=== PATIENT | female | born 1985 | race African-American/Black ===

== ENCOUNTER 2017-01-16 16:59 | Emergency (ER) | payer MEDICAID ==
--- NOTE | 2017-01-16 19:12 | EKG REPORT ---
SEVERITY:- NORMAL ECG - SINUS RHYTHM : Confirmed by: Annabelle Leon MD 16-Jan-2017 19:11:15
[2017-01-16] MEDS ORDERED: ASPIRIN 81 MG TABLET, CHEWABLE PO ONE (19:32)
--- NOTE | 2017-01-16 19:36 | ER Document Report ---
ED Medical Screen (RME) - General Chief Complaint: Chest Pain > 30 Stated Complaint: CHEST PAIN Information source: Patient TRAVEL OUTSIDE OF THE [place] IN LAST 30 DAYS: No - HPI Onset: This afternoon Onset/Duration: Sudden Context: ONSET WHILE DRIVING, NOT STRESSED Quality of pain: Sharp Severity: Moderate Associated Symptoms: Other - RAD. TO LUE (NUMBNESS). denies: Nausea, Shortness of breath, Sweating Exacerbated by: Denies Relieved by: Denies, Other - RESOLVED SLOWLY OVER 1 HOUR Similar symptoms previously: No Recently seen / treated by doctor: No - Related Data Smoking: Non-smoker Frequency of alcohol use: None Drug Abuse: None Allergies/Adverse Reactions: No Known Allergies Allergy (Verified 01/16/17 17:27) Past Medical History - General Information source: Patient - Social History Cigarette use (# per day): No Chew tobacco use (# tins/day): No Frequency of alcohol use: None Drug Abuse: None Lives with: Family Family history: CAD - Medical History Medical History: Negative Renal/ Medical History: Denies: Hx Peritoneal Dialysis Psychiatric Medical History: Reports: None Past Surgical History: Reports: Hx Gynecologic Surgery - L ovarian cyst removed - Immunizations Hx Diphtheria, Pertussis, Tetanus Vaccination: No Review of Systems - Review of Systems Constitutional: No symptoms reported EENT: No symptoms reported Cardiovascular: See HPI Respiratory: No symptoms reported Gastrointestinal: No symptoms reported Physical Exam - Vital signs Vitals: Temp Pulse Resp BP Pulse Ox 98.3 F 77 16 104/72 99 01/16/17 17:30 01/16/17 17:30 01/16/17 17:30 01/16/17 17:30 01/16/17 17:30 Interpretation: Normal Course - Vital Signs Vital signs: Temp Pulse Resp BP Pulse Ox 98.3 F 77 16 104/72 99 01/16/17 17:30 01/16/17 17:30 01/16/17 17:30 01/16/17 17:30 01/16/17 17:30
[2017-01-16 19:54] LABS: ABSOLUTE BASOPHILS # (AUTO) 0.1 10^3/uL (0.0-0.2); ABSOLUTE EOSINOPHILS # (AUTO) 0.3 10^3/uL (0.0-0.6); ABSOLUTE LYMPHOCYTES (AUTO) 2.8 10^3/uL (0.5-4.7); ABSOLUTE MONOCYTES (AUTO) 0.6 10^3/uL (0.1-1.4); ABSOLUTE NEUT (AUTO) 6.9 10^3/uL (1.7-8.2); BASOPHILS % (AUTO) 0.5 % (0-2); EOSINOPHILS % (AUTO) 2.5 % (0-6); HEMATOCRIT 35.2 % (36.0-47.0); HEMOGLOBIN 11.3 g/dL (12.0-15.5); HGB HCT DIFFERENCE -1.3; LYMPHOCYTES % (AUTO) 26.1 % (13-45); MEAN CORPUSCULAR VOLUME 72 fl (80-97); MONOCYTES % (AUTO) 5.3 % (3-13); RED BLOOD COUNT 4.89 10^6/uL (3.72-5.28); RED CELL DISTRIBUTION WIDTH 16.2 % (11.5-14.0); SEGMENTED NEUTROPHILS % (AUTO) 65.6 % (42-78); WHITE BLOOD COUNT 10.6 10^3/uL (4.0-10.5)
[2017-01-16 20:10] LABS: ALANINE AMINOTRANSFERASE 37 U/L (9-52); ALBUMIN 4.1 g/dL (3.5-5.0); ALKALINE PHOSPHATASE 93 U/L (38-126); ANION GAP 16 (5-19); ASPARTATE AMINO TRANSFERASE 21 U/L (14-36); BILIRUBIN,DIRECT 0.3 mg/dL (0.0-0.4); BILIRUBIN,TOTAL 0.6 mg/dL (0.2-1.3); BLOOD UREA NITROGEN 13 mg/dL (7-20); CALCIUM 9.4 mg/dL (8.4-10.2); CARBON DIOXIDE 25 mmol/L (22-30); CHLORIDE 104 mmol/L (98-107); CREATINE KINASE 63 U/L (30-135); GLUCOSE 86 mg/dL (75-110); POTASSIUM 4.4 mmol/L (3.6-5.0); SODIUM 144.6 mmol/L (137-145); TOTAL PROTEIN 7.9 g/dL (6.3-8.2)
[2017-01-16 20:24] LABS: CREATINE KINASE MB < 0.22 ng/mL (<4.55); TROPONIN I < 0.012 ng/mL
[2017-01-16] MEDS ORDERED: DIAZEPAM 2 MG TABLET PO ONE (22:05)
--- NOTE | 2017-01-16 22:08 | ER Document Report ---
ED General - General Chief Complaint: Chest Pain > 30 Stated Complaint: CHEST PAIN Time seen by provider: 22:06 Mode of Arrival: Ambulatory Information source: Patient TRAVEL OUTSIDE OF THE [place] IN LAST 30 DAYS: No - HPI Patient complains to provider of: chest pain Onset: Yesterday Onset/Duration: Intermittent Quality of pain: Achy Severity: Mild Associated symptoms: Chest pain Exacerbated by: Denies Relieved by: Denies Similar symptoms previously: Yes Recently seen / treated by doctor: No Notes: Patient is a 31-year-old female who presents to the emergency room complaining of intermittent episodes of chest pain with tingling sensation in the left hand this been going on since yesterday, she says these episodes come and gone last a few minutes each, she denies any diaphoresis, no shortness of breath, she reports a history of similar symptoms previously when she was diagnosed with anxiety and also reports that her mother last week which she has been feeling quite stressed and anxious about - Related Data Allergies/Adverse Reactions: No Known Allergies Allergy (Verified 01/16/17 17:27) Past Medical History - General Information source: Patient - Social History Smoking Status: Never Smoker Cigarette use (# per day): No Chew tobacco use (# tins/day): No Frequency of alcohol use: None Drug Abuse: None Lives with: Family Family History: Reviewed & Not Pertinent Patient has suicidal ideation: No Patient has homicidal ideation: No - Medical History Medical History: Negative Renal/ Medical History: Denies: Hx Peritoneal Dialysis Psychiatric Medical History: Reports: None Past Surgical History: Reports: Hx Gynecologic Surgery - L ovarian cyst removed - Immunizations Hx Diphtheria, Pertussis, Tetanus Vaccination: No Review of Systems - Review of Systems Constitutional: No symptoms reported EENT: No symptoms reported Cardiovascular: Chest pain Respiratory: No symptoms reported Gastrointestinal: No symptoms reported Genitourinary: No symptoms reported Female Genitourinary: No symptoms reported Musculoskeletal: No symptoms reported Skin: No symptoms reported Hematologic/Lymphatic: No symptoms reported Neurological/Psychological: See HPI -: Yes All other systems reviewed and negative Physical Exam - Vital signs Vitals: Temp Pulse Resp BP Pulse Ox 98.3 F 77 16 104/72 99 01/16/17 17:30 01/16/17 17:30 01/16/17 17:30 01/16/17 17:30 04/03/17 17:30 Interpretation: Normal - General General appearance: Appears well, Alert - HEENT Head: Normocephalic, Atraumatic Eyes: Normal Pupils: PERRL - Respiratory Respiratory status: No respiratory distress Chest status: Nontender Breath sounds: Normal Chest palpation: Normal - Cardiovascular Rhythm: Regular Heart sounds: Normal auscultation Murmur: No - Abdominal Inspection: Normal Distension: No distension Bowel sounds: Normal Tenderness: Nontender Organomegaly: No organomegaly - Back Back: Normal, Nontender - Extremities General upper extremity: Normal inspection, Nontender, Normal color, Normal ROM , Normal temperature General lower extremity: Normal inspection, Nontender, Normal color, Normal ROM , Normal temperature, Normal weight bearing. No: Ry's sign - Neurological Neuro grossly intact: Yes Cognition: Normal Orientation: AAOx4 [place] Coma Scale Eye Opening: Spontaneous [place] Coma Scale Verbal: Oriented [place] Coma Scale Motor: Obeys Commands [place] Coma Scale Total: 15 Speech: Normal Motor strength normal: LUE, RUE, LLE, RLE Sensory: Normal - Psychological Associated symptoms: Normal affect, Normal mood - Skin Skin Temperature: Warm Skin Moisture: Dry Skin Color: Normal Course - Re-evaluation Re-evalutation: 01/17/17 04:17 Lab and imaging findings were discussed with patient at bedside which are unremarkable, she does report the recent of her mother which is been giving her anxiety and depression, she has been treated for anxiety in the past with Xanax, she was given a small dose of Valium in the emergency room as well as a prescription for small amount of the same and given information follow-up with mental health services, symptoms are consistent with anxiety, patient acknowledges understanding and agreement with this plan - Vital Signs Vital signs: Temp Pulse Resp BP Pulse Ox 97.1 F 73 16 120/80 98 01/16/17 22:36 01/16/17 22:36 01/16/17 22:36 01/16/17 22:36 01/16/17 22:36 - Laboratory Result Diagrams: 01/16/17 19:40 01/16/17 19:40 Laboratory results interpreted by me: 01/16/17 19:40 WBC 10.6 H Hgb 11.3 L Hct 35.2 L MCV 72 L MCH 23.0 L RDW 16.2 H - Diagnostic Test Radiology reviewed: Image reviewed, Reports reviewed - EKG Interpretation by Me EKG shows normal: Sinus rhythm Rate: Normal Rhythm: NSR Discharge - Discharge Clinical Impression: Anxiety Chest pain Qualifiers: Chest pain type: unspecified Qualified Code(s): R07.9 - Chest pain, unspecified Condition: Stable Disposition: HOME, SELF-CARE Instructions: Anxiety ([facility]), Chest Pain of Unclear Cause ([facility]) Additional Instructions: Follow up with your primary care provider and a mental health professional in one to 2 days. Return to the emergency room immediately if symptoms worsen or any additional concerns. Prescriptions: Diazepam [Valium 2 mg Tablet] 2 mg PO TID PRN #15 tablet PRN Reason: Referrals: PIETRO KIM DO [Primary Care Provider] - Follow up as needed
[2017-01-16 22:37] VITALS: BP 120/80
== END 2017-01-16 22:30 | disposition home or self-care (01) ==
LOC: ER 16:59
DX: R07.9 Chest pain, unspecified (principal); F41.9 Anxiety disorder, unspecified
CPT/HCPCS: 93005; 99285; 36415; 82553; 82550; 85025; 80053; 84484; 71010; 93010; J3490

== ENCOUNTER 2017-05-04 20:53 | Emergency (ER) | payer MEDICAID ==
[2017-05-04 22:36] LABS: APPEARANCE,URINE CLEAR; BILIRUBIN,URINE NEGATIVE (NEGATIVE); GLUCOSE, URINE NEGATIVE (NEGATIVE); KETONES,URINE NEGATIVE (NEGATIVE); LEUKOCYTE ESTERASE,URINE NEGATIVE (NEGATIVE); NITRITE,URINE NEGATIVE (NEGATIVE); PROTEIN,URINE NEGATIVE (NEGATIVE); URINE SPECIFIC GRAVITY 1.014; UROBILINOGEN,URINE NEGATIVE mg/dL (<2.0)
--- NOTE | 2017-05-04 23:11 | ER Document Report ---
ED GI/ - General Chief Complaint: Vaginal Discharge Stated Complaint: ABDOMINAL PAIN AND DISCHARGE Time Seen by Provider: 05/04/17 21:56 Mode of Arrival: Ambulatory Information source: Patient Notes: 31-year-old female presents to ED for vaginal discharge and abdominal pain but denies any vaginal bleeding. She states she had a 3 weeks ago. TRAVEL OUTSIDE OF THE [place] IN LAST 30 DAYS: No - HPI Patient complains to provider of: Abdominal pain, Vaginal discharge Onset: Other - Several days Timing/Duration: Gradual Quality of pain: Achy Severity in ED: None Pain Level: Denies Location: Pelvis Vaginal bleeding (Compared to normal period): None LMP: 3 weeks ago Associated symptoms: Vaginal discharge Exacerbated by: Movement Relieved by: Denies Similar symptoms previously: Yes Recently seen / treated by doctor: Yes - Related Data Allergies/Adverse Reactions: No Known Allergies Allergy (Verified 01/16/17 17:27) Past Medical History - General Information source: Patient - Social History Smoking Status: Never Smoker Cigarette use (# per day): No Chew tobacco use (# tins/day): No Smoking Education Provided: No Frequency of alcohol use: None Drug Abuse: None 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 denies: Thyroid Disfunction Patient has suicidal ideation: No Patient has homicidal ideation: No - Past Medical History Cardiac Medical History: Reports: None Pulmonary Medical History: Reports: None EENT Medical History: Reports: None Neurological Medical History: Reports: None Endocrine Medical History: Reports: None Renal/ Medical History: Reports: None Malignancy Medical History: Reports: None GI Medical History: Reports: None Musculoskeltal Medical History: Reports None Skin Medical History: Reports None Psychiatric Medical History: Reports: None - Her Traumatic Medical History: Reports: None Infectious Medical History: Reports: None Past Surgical History: Reports: Hx Gynecologic Surgery - L ovarian cyst removed , - Immunizations Hx Diphtheria, Pertussis, Tetanus Vaccination: No Review of Systems - Review of Systems Constitutional: No symptoms reported EENT: No symptoms reported Cardiovascular: No symptoms reported Respiratory: No symptoms reported Gastrointestinal: No symptoms reported Genitourinary: No symptoms reported Female Genitourinary: Vaginal discharge, Other - pelvic pain Musculoskeletal: No symptoms reported Skin: No symptoms reported Hematologic/Lymphatic: No symptoms reported Neurological/Psychological: No symptoms reported Physical Exam - Vital signs Vitals: Temp Pulse Resp BP Pulse Ox 98.4 F 77 18 144/98 H 100 05/04/17 21:14 05/04/17 21:14 05/04/17 21:14 05/04/17 21:14 05/04/17 21:14 Interpretation: Normal - General General appearance: Appears well, Alert - HEENT Head: Normocephalic, Atraumatic Eyes: Normal Pupils: PERRL - Respiratory Respiratory status: No respiratory distress Chest status: Nontender Breath sounds: Normal Chest palpation: Normal - Cardiovascular Rhythm: Regular Heart sounds: Normal auscultation Murmur: No - Abdominal Inspection: Normal Distension: No distension Bowel sounds: Normal Tenderness: Nontender Organomegaly: No organomegaly - Genitourinary External exam: Normal Speculum exam: Vaginal discharge Vaginal bleeding: Mild Bimanuel exam: Adnexal tenderness - Back Back: Normal, Nontender - Extremities General upper extremity: Normal inspection, Nontender, Normal color, Normal ROM , Normal temperature General lower extremity: Normal inspection, Nontender, Normal color, Normal ROM , Normal temperature, Normal weight bearing. No: Ry's sign - Neurological Neuro grossly intact: Yes Cognition: Normal Orientation: AAOx4 [place] Coma Scale Eye Opening: Spontaneous [place] Coma Scale Verbal: Oriented [place] Coma Scale Motor: Obeys Commands [place] Coma Scale Total: 15 Speech: Normal Motor strength normal: LUE, RUE, LLE, RLE Sensory: Normal - Psychological Associated symptoms: Normal affect, Normal mood - Skin Skin Temperature: Warm Skin Moisture: Dry Skin Color: Normal Course - Re-evaluation Re-evalutation: 05/05/17 06:45 Discussed labs and ultrasound with patient. Patient was treated with Rocephin and azithromycin for her chlamydia and vaginitis, and Flagyl for her bacterial vaginosis. Patient instructed to please follow-up with [facility] for her hCG of 87 after she had a 3 weeks ago. - Vital Signs Vital signs: Temp Pulse Resp BP Pulse Ox 97.6 F 70 18 134/92 H 99 05/05/17 01:34 05/05/17 01:34 05/05/17 01:34 05/05/17 01:34 05/05/17 01:34 - Laboratory Result Diagrams: 05/05/17 00:04 Laboratory results interpreted by me: 05/04/17 05/04/17 05/05/17 22:05 22:05 00:04 Hgb 11.9 L MCV 72 L MCH 23.5 L RDW 16.9 H Beta HCG, Quant Urine HCG, Qual POSITIVE H Chlamydia DNA (PCR) DETECTED H 05/05/17 00:04 Hgb MCV MCH RDW Beta HCG, Quant 87.51 H Urine HCG, Qual Chlamydia DNA (PCR) - Diagnostic Test Radiology reviewed: Image reviewed, Reports reviewed Discharge - Discharge Clinical Impression: Bacterial vaginitis, Chlamydia vaginitis/cervicitis, Ovarian cyst, left Condition: Stable Disposition: HOME, SELF-CARE Additional Instructions: VAGINITIS: Your exam shows that you have vaginitis, a vaginal infection. The infection can be caused by a many different organisms, including trichomonas or Gardnerella. The usual symptoms are vaginal irritation and discharge. The treatment is usually antibiotics such as Flagyl. Laboratory tests can determine which germ is responsible. Use the medication as prescribed. Because this infection can be transmitted sexually, your sexual partner may need to be checked and treated also. If your physician has not discussed this with you, please check before resuming sexual relations. If a culture shows gonorrhea or chlamydia, the infection must be reported to the health department. Call the doctor if you develop pelvic pain, fever, or problems with urination, or if you don't improve as expected. Chlamydia You have a chlamydia infection. Chlamydia is a germ that grows inside the cells of the mucous membranes. It often infects the eyes, urethra, and fallopian tubes. It can cause chronic pain and scar tissue if untreated. Antibiotics are used to treat chlamydia. It's important to take all the medicine even if there are no symptoms. Use condoms to prevent spread of the infection. Because this infection can spread by sexual contact, it's important that your sexual partner be checked before resuming sexual relations. A positive test for chlamydia has to be reported to the health department. Call the doctor or return at once if you develop increasing fever, rash, severe pelvic pain, vaginal bleeding (other than your period), or problems with your bladder or bowels. VAGINOSIS, BACTERIAL: Your exam shows you have bacterial vaginosis. This condition is due to an overgrowth of bacteria in the vagina. Symptoms may include vaginal itching or pain, a smelly discharge, and sometimes burning with urination. Normally this is not transmitted by sexual contact. Vaginosis can be treated with oral or topical antibiotics. Metronidazole ( Flagyl) pills are usually effective. Topical vaginal creams include Cleocin and Metro-Gel. You should avoid sexual contact until your symptoms are all better. Call the doctor if you develop pelvic pain, fever, or problems with urination, or if you don't improve as expected. CEPHALOSPORINS: An antibiotic of the cephalosporin class has been prescribed. This type of antibiotic covers a wide variety of infections, including those of the skin, lungs, middle ear, and urinary tract. This antibiotic is somewhat similar to the penicillin family. In rare cases , a person who is allergic to penicillin will also be allergic to this medication. If you have had a severe allergic reaction to penicillin, and have not taken this antibiotic since that time, notify your doctor. Antibiotics which cover many germs ("broad spectrum" antibiotics) are more likely to cause diarrhea or "yeast" infections. Women prone to vaginal yeast problems may suffer an attack after taking this antibiotic. In infants, oral thrush (white spots "stuck" on the cheek) or yeast diaper rash may result. See your doctor if these problems occur. Call the doctor at once if you develop hives, itching, shortness of breath , or lightheadedness. AZITHROMYCIN: Azithromycin (Zithromax) is a broad spectrum antibiotic in the same class as erythromycin. It can treat a variety of bacterial infections, but is most frequently used for respiratory infections. Azithromycin is extremely long-lasting. It accumulates in body tissues and continues to kill bacteria for many days. In order to improve absorption, Azithromycin should be taken at least one hour before or two hours after a meal. It does not have the same strong tendency to upset the stomach as erythromycin and is usually very well tolerated. Patients who have had a rash or other true allergic reactions to erythromycin should not take this medication. Call if you develop gastrointestinal distress, severe diarrhea, rash, hives, itching, or shortness of breath. METRONIDAZOLE: Metronidazole (Flagyl) has been prescribed. This medication is used to kill a type of bacteria called anaerobes, and protozoan parasites such as trichomonas and Giardia. Flagyl often causes a metallic taste in the mouth and mild nausea. Do not use alcohol in any form with Flagyl (including alcohol in medication elixirs). Flagyl interacts with alcohol to cause flushing, palpitations, headache, stomach cramps, and vomiting. Do not use Flagyl if you are taking Antabuse (disulfiram). Call the doctor at once if you develop rash, shortness of breath, itching, or lightheadedness. Your beta hCG quant is still 87.5. You need to follow-up with your [facility] until he gets down to 0. This can take several weeks to go down to 0. But she need to follow this to ensure you are not again. FOLLOW-UP CARE: If you have been referred to a physician for follow-up care, call the physician s office for an appointment as you were instructed or within the next two days. If you experience worsening or a significant change in your symptoms, notify the physician immediately or return to the Emergency Department at any time for re-evaluation. Prescriptions: Metronidazole [Flagyl 500 mg Tablet] 500 mg PO BID #14 tablet Forms: Elevated Blood Pressure Referrals: SABRINA KAY MD [Primary Care Provider] - Follow up in 3-5 days
[2017-05-04 23:47] LABS: CHLAM PCR DETECTED (NOT DETECT)
--- NOTE | 2017-05-05 00:07 | RADIOLOGY REPORT (SQ) ---
EXAM DESCRIPTION: U/S NON-OB PELVIS TV W/O DOP COMPLETED DATE/TIME: 05/04/2017 11:55 pm REASON FOR STUDY: left adnexal tenderness COMPARISON: None. TECHNIQUE: Dynamic and static grayscale images acquired of the pelvis via transvaginal approach and recorded on PACS. Additional selected color Doppler and spectral images recorded. LIMITATIONS: None. FINDINGS: UTERUS: Contour normal. No mass. ENDOMETRIAL STRIPE: No focal or generalized thickening. No masses. CERVIX: No nabothian cysts. RIGHT OVARY: No abnormal masses. RIGHT OVARY DOPPLER: Normal arterial vascular flow without evidence for torsion. LEFT OVARY: 3.0 x 3.7 cm simple cyst. LEFT OVARY DOPPLER: Normal arterial vascular flow without evidence for torsion. FREE FLUID: None noted. OTHER: No other significant finding. MEASUREMENTS: UTERUS: 5.6 x 6.8 x 9.5 cm. ENDOMETRIAL STRIPE: 4 mm. RIGHT OVARY: 1.9 x 2.1 x 2.5 cm. LEFT OVARY: 3.3 x 4.2 x 4.5 cm. IMPRESSION: 3.7 CM SIMPLE CYST IN THE LEFT OVARY. OTHERWISE UNREMARKABLE TRANSVAGINAL PELVIC ULTRAS OUND. TECHNICAL DOCUMENTATION: JOB ID: [id number] [employer]- All Rights Reserved
[2017-05-05 00:21] LABS: ABSOLUTE EOSINOPHILS # (AUTO) 0.3 10^3/uL (0.0-0.6); ABSOLUTE LYMPHOCYTES (AUTO) 3.1 10^3/uL (0.5-4.7); ABSOLUTE MONOCYTES (AUTO) 0.4 10^3/uL (0.1-1.4); ABSOLUTE NEUT (AUTO) 5.5 10^3/uL (1.7-8.2); BASOPHILS % (AUTO) 0.3 % (0-2); HEMATOCRIT 36.5 % (36.0-47.0); HEMOGLOBIN 11.9 g/dL (12.0-15.5); HGB HCT DIFFERENCE -0.8; LYMPHOCYTES % (AUTO) 33.2 % (13-45); MEAN CORPUSCULAR HEMOGLOBIN 23.5 pg (27.0-33.4); MEAN CORPUSCULAR HGB CONC 32.5 g/dL (32.0-36.0); MEAN CORPUSCULAR VOLUME 72 fl (80-97); MONOCYTES % (AUTO) 4.4 % (3-13); RED BLOOD COUNT 5.05 10^6/uL (3.72-5.28); RED CELL DISTRIBUTION WIDTH 16.9 % (11.5-14.0); SEGMENTED NEUTROPHILS % (AUTO) 59.1 % (42-78); WHITE BLOOD COUNT 9.4 10^3/uL (4.0-10.5)
[2017-05-05] MEDS ORDERED: CEFTRIAXONE INJ 250 MG VIAL IM ONE (01:10)
[2017-05-05] MEDS ORDERED: LIDOCAINE 1% INJ-PF (10 MG/ML) 30 ML SDV INJ ONE (01:10)
[2017-05-05] MEDS ORDERED: METRONIDAZOLE 500 MG TABLET PO ONE (01:10)
[2017-05-05] MEDS ORDERED: AZITHROMYCIN 250 MG TABLET PO ONE (01:10)
[2017-05-05 01:35] VITALS: BP 134/92
== END 2017-05-05 01:35 | disposition home or self-care (01) ==
LOC: ER 20:53
DX: N76.0 Acute vaginitis (principal); B96.89 Other specified bacterial agents as the cause of diseases classified elsewhere; A56.02 Chlamydial vulvovaginitis; A56.09 Other chlamydial infection of lower genitourinary tract; N83.292 Other ovarian cyst, left side; Z98.890 Other specified postprocedural states
CPT/HCPCS: 99284; 96372; 36415; 87210; 84702; 85025; 81025; 81001; 87491; 87591; 76830; Q0144; J3490 ×2; J0696

== ENCOUNTER 2017-06-04 15:07 | Emergency (ER) | payer MEDICAID ==
--- NOTE | 2017-06-04 15:28 | ER Document Report ---
ED Neck/Back Problem - General Chief Complaint: Back Pain Stated Complaint: BACK PAIN Time Seen by Provider: 06/04/17 15:22 Notes: The patient is a 31-year-old female who presents with 1 week of right lower back pain. She is also concerned about STDs because her went to the health department and was treated for gonorrhea and chlamydia, but he would not tell her why. She is having mild dysuria. She denies fevers, hematuria, saddle anesthesia, urinary retention, difficulty walking, numbness, tingling or history of IVDA. TRAVEL OUTSIDE OF THE [place] IN LAST 30 DAYS: No - Related Data Allergies/Adverse Reactions: No Known Allergies Allergy (Verified 06/04/17 15:33) Past Medical History - General Information source: Patient - Social History Smoking Status: Unknown if Ever Smoked Family History: Arthritis, CAD, CVA, DM, Hyperlipidemia, Hypertension, Malignancy. denies: Thyroid Disfunction Renal/ Medical History: Denies: Hx Peritoneal Dialysis Past Surgical History: Reports: Hx Gynecologic Surgery - L ovarian cyst removed , - Immunizations Hx Diphtheria, Pertussis, Tetanus Vaccination: No Review of Systems - Review of Systems Notes: REVIEW OF SYSTEMS: CONSTITUTIONAL: -fevers, -chills EENT: -eye pain, -difficulty swallowing, -nasal congestion CARDIOVASCULAR:-chest pain, -syncope. RESPIRATORY: -cough, -SOB GASTROINTESTINAL: -abdominal pain, - nausea, -vomiting, -diarrhea GENITOURINARY: +dysuria, -hematuria MUSCULOSKELETAL: +back pain, -neck pain SKIN: -rash or skin lesions. HEMATOLOGIC: -easy bruising or bleeding. LYMPHATIC: -swollen, enlarged glands. NEUROLOGICAL: -altered mental status or loss of consciousness, -headache, - neurologic symptoms PSYCHIATRIC: -anxiety, -depression. ALL OTHER SYSTEMS REVIEWED AND NEGATIVE. Physical Exam - Vital signs Vitals: Temp Pulse BP Pulse Ox 99.4 F 92 111/76 98 06/04/17 15:29 06/04/17 15:29 06/04/17 15:29 06/04/17 15:29 - Notes Notes: PHYSICAL EXAMINATION: GENERAL: Well-appearing, well-nourished and in no acute distress. HEAD: Atraumatic, normocephalic. EYES: Pupils equal round and reactive to light, extraocular movements intact, sclera anicteric, conjunctiva are normal. ENT: nares patent, oropharynx clear without exudates. Moist mucous membranes. NECK: Normal range of motion, supple without lymphadenopathy LUNGS: Breath sounds clear to auscultation bilaterally and equal. No wheezes rales or rhonchi. HEART: Regular rate and rhythm without murmurs ABDOMEN: Soft, nontender, normoactive bowel sounds. No guarding, no rebound. No masses appreciated. EXTREMITIES: Normal range of motion, no pitting or edema. No cyanosis. BACK: mild tenderness over right lower back, no midline tenderness NEUROLOGICAL: Cranial nerves grossly intact. Normal speech, normal gait. Normal sensory and motor exams. PSYCH: Normal mood, normal affect. SKIN: Warm, Dry, normal turgor, no rashes or lesions noted. Course - Re-evaluation Re-evalutation: Patient has no red flag signs for low back pain. She is treated for gonorrhea and chlamydia and told to follow-up with health department for further testing. Also instructed her to use condoms. - Vital Signs Vital signs: Temp Pulse Resp BP Pulse Ox 99.4 F 92 111/76 98 06/04/17 15:29 06/04/17 15:29 06/04/17 15:29 06/04/17 15:29 - Laboratory Laboratory results interpreted by me: 06/04/17 15:42 Urine Protein 30 H Ur Leukocyte Esterase MODERATE H Discharge - Discharge Clinical Impression: Concern about STD in female without diagnosis Back pain Qualifiers: Back pain location: low back pain Chronicity: chronic Back pain laterality: right Sciatica presence: without sciatica Qualified Code(s): M54.5 - Low back pain UTI (urinary tract infection) Qualifiers: Urinary tract infection type: acute cystitis Hematuria presence: without hematuria Qualified Code(s): N30.00 - Acute cystitis without hematuria Condition: Stable Disposition: HOME, SELF-CARE Additional Instructions: You were treated for gonorrhea and chlamydia today. Follow with the health department for further evaluation and testing. LOW BACK PAIN: Three out of every four people will have an episode of disabling back pain during their lifetime. Most commonly the pain is due to straining of the muscles and ligaments in the low back. Usual treatment includes: (1) Rest on a firm surface. Avoid lying on your stomach. (2) Ice pack the painful area. After a few days, gentle heat may be used intermittently to relax the area, or ice packs can be continued. (3) Medication may be needed -- muscle relaxers and antiinflammatory medicines are commonly used. (4) As the back improves, exercises are prescribed to strengthen the back and abdominal muscles. Your doctor will advise you on the proper care for your back at each stage in your recovery. You may be better in a few days -- or healing may take several weeks. If new symptoms of a "herniated disc" (radiation of pain, numbness, or tingling down the back of the leg or weakness in the leg) occur, you should be re-examined. Further testing may be necessary. ICE PACKS: Apply ice packs frequently against the painful area. Many different schedules are recommended, such as "20 minutes on, 20 minutes off" or "one hour ice, two hours rest." If you need to work, you may need to go longer between ice treatments. You should plan to have the area ice packed AT LEAST one fourth of the time. The ice should be applied over the wrap, tape, or splint, or over a layer of cloth -- not directly against the skin. Some ice bags have a built-in cloth and can be put directly on the skin. WARM PACKS: After approximately two days, apply gentle heat (such as a heating pad or hot water bottle) for about 20 to 30 minutes about every two hours -- at least four times daily. Warmth and elevation will help you make a more rapid recovery , and will ease the pain considerably. Do not use HOT heat, and never apply heat for longer than 30 minutes. The continuous heat can invisibly damage skin and muscles -- even when no burn is seen on the surface. Damaged muscles can make you MORE sore. FOLLOW-UP CARE: If you have been referred to a physician for follow-up care, call the physician s office for an appointment as you were instructed or within the next two days. If you experience worsening or a significant change in your symptoms, notify the physician immediately or return to the Emergency Department at any time for re-evaluation. Prescriptions: Fluconazole [Diflucan] 150 mg PO ONCE PRN #1 tablet PRN Reason: Nitrofurantoin/Nitrofuran Mac [Macrobid 100 mg Capsule] 1 tab PO BID #10 capsule Referrals: [facility] [Outside] - Follow up as needed
[2017-06-04] MEDS ORDERED: CEFTRIAXONE INJ 250 MG VIAL IM ONE (15:34)
[2017-06-04] MEDS ORDERED: AZITHROMYCIN 1 GM SUSP PACKET PO ONE (15:34)
[2017-06-04] MEDS ORDERED: LIDOCAINE 1% INJ-PF (10 MG/ML) 30 ML SDV INJ ONE (15:34)
[2017-06-04 15:37] VITALS: BP 111/76
[2017-06-04 16:00] LABS: APPEARANCE,URINE SLIGHTLY-CLOUDY; BILIRUBIN,URINE NEGATIVE (NEGATIVE); GLUCOSE, URINE NEGATIVE (NEGATIVE); KETONES,URINE NEGATIVE (NEGATIVE); LEUKOCYTE ESTERASE,URINE MODERATE (NEGATIVE); NITRITE,URINE NEGATIVE (NEGATIVE); PROTEIN,URINE 30 mg/dL (NEGATIVE); URINE SPECIFIC GRAVITY 1.029; UROBILINOGEN,URINE NEGATIVE mg/dL (<2.0)
[2017-06-04 17:24] LABS: CHLAM PCR NOT DETECTED (NOT DETECT)
== END 2017-06-04 16:23 | disposition home or self-care (01) ==
LOC: ER 15:07
DX: M54.5 Low back pain (principal); Z20.2 Contact with and (suspected) exposure to infections with a predominantly sexual mode of transmission; R30.0 Dysuria
CPT/HCPCS: 99283; 96372; 81025; 81001; 87491; 87591; J3490; Q0144; J0696

== ENCOUNTER 2017-06-18 19:46 | Emergency (ER) | payer MEDICAID ==
[2017-06-18 20:09] VITALS: BP 134/94
[2017-06-18] MEDS ORDERED: LORATADINE 10 MG TABLET PO ONE (21:42)
[2017-06-18] MEDS ORDERED: IBUPROFEN 800 MG TABLET PO ONE (21:42)
[2017-06-18] MEDS ORDERED: DEXAMETHASONE SOD PHOS INJ 10 MG/1 ML VIAL IM ONE (21:42)
--- NOTE | 2017-06-18 21:48 | ER Document Report ---
ED ENT - General Chief Complaint: Sore Throat Stated Complaint: SORE THROAT Time Seen by Provider: 06/18/17 21:16 Mode of Arrival: Ambulatory Information source: Patient Notes: 31-year-old female presented to ED for complaint of sore throat since Monday. She states she has had a hoarse voice today. Patient denies any fever. She states she has had a runny nose and feeling like she had mucus going down the back of her throat for the last several days. She states she has had a history of strep and been given antibiotics for it in the past. She was states she was told by her work today she could not go back to work until she was seen by TRAVEL OUTSIDE OF THE [place] IN LAST 30 DAYS: No - HPI Patient complains to provider of: Nose problem, Throat problem Onset: Last week Onset/Duration: Gradual, Worse Quality of pain: Sharp Severity: Severe Pain Level: 5 Location of pain: Nose, Throat Associated symptoms: Cough, Runny nose, Sinus drainage, Sore throat. denies: Fever Similar symptoms previously: Yes Recently seen / treated by doctor: No - Related Data Allergies/Adverse Reactions: No Known Allergies Allergy (Verified 06/18/17 20:07) Past Medical History - General Information source: Patient - Social History Smoking Status: Never Smoker Cigarette use (# per day): No Chew tobacco use (# tins/day): No Smoking Education Provided: No Frequency of alcohol use: None Drug Abuse: None Occupation: [employer] Lives with: Alone - With her children Family History: Arthritis, CAD, CVA, DM, Hyperlipidemia, Hypertension, Malignancy. denies: Thyroid Disfunction Patient has suicidal ideation: No Patient has homicidal ideation: No - Past Medical History Cardiac Medical History: Reports: None Pulmonary Medical History: Reports: None EENT Medical History: Reports: Throat - Frequent strep infections Neurological Medical History: Reports: None Endocrine Medical History: Reports: None Renal/ Medical History: Reports: Hx Ovarian Cysts Malignancy Medical History: Reports: None GI Medical History: Reports: None Musculoskeltal Medical History: Reports None Skin Medical History: Reports None Psychiatric Medical History: Reports: None Traumatic Medical History: Reports: None Infectious Medical History: Reports: None Past Surgical History: Reports: Hx Gynecologic Surgery - L ovarian cyst removed , - Immunizations Hx Diphtheria, Pertussis, Tetanus Vaccination: No Review of Systems - Review of Systems Constitutional: Recent illness. denies: Fever EENT: Nose discharge, Sinus discharge, Throat pain Cardiovascular: No symptoms reported Respiratory: Cough Gastrointestinal: No symptoms reported Genitourinary: No symptoms reported Female Genitourinary: No symptoms reported Musculoskeletal: No symptoms reported Skin: No symptoms reported Hematologic/Lymphatic: No symptoms reported Neurological/Psychological: No symptoms reported Physical Exam - Vital signs Vitals: Temp Pulse Resp BP Pulse Ox 98.6 F 93 12 134/94 H 98 06/18/17 20:07 06/18/17 20:07 06/18/17 20:07 06/18/17 20:07 06/18/17 20:07 Interpretation: Normal - General General appearance: Appears well, Alert - HEENT Head: Normocephalic, Atraumatic Eyes: Normal Pupils: PERRL Ears: Normal External canal: Normal Tympanic membrane: Normal Nasal: Purulent discharge, Swelling Mouth/Lips: Normal Mucous membranes: Normal Pharynx: Erythema, Post nasal drainage, Tonsillar hypertrophy. No: Exudate Neck: Normal - Respiratory Respiratory status: No respiratory distress Chest status: Nontender Breath sounds: Normal Chest palpation: Normal - Cardiovascular Rhythm: Regular Heart sounds: Normal auscultation Murmur: No - Abdominal Inspection: Normal Distension: No distension Bowel sounds: Normal Tenderness: Nontender Organomegaly: No organomegaly - Back Back: Normal, Nontender - Extremities General upper extremity: Normal inspection, Nontender, Normal color, Normal ROM , Normal temperature General lower extremity: Normal inspection, Nontender, Normal color, Normal ROM , Normal temperature, Normal weight bearing. No: Ry's sign - Neurological Neuro grossly intact: Yes Cognition: Normal Orientation: AAOx4 Milagro Coma Scale Eye Opening: Spontaneous Milagro Coma Scale Verbal: Oriented Milagro Coma Scale Motor: Obeys Commands Milagro Coma Scale Total: 15 Speech: Normal Motor strength normal: LUE, RUE, LLE, RLE Sensory: Normal - Psychological Associated symptoms: Normal affect, Normal mood - Skin Skin Temperature: Warm Skin Moisture: Dry Skin Color: Normal Course - Re-evaluation Re-evalutation: 06/18/17 22:41 Patient was treated with 10 mg Decadron IM Claritin and ibuprofen. Patient instructed to follow-up with her primary doctor for her elevated blood pressure. She states she does not have a history of hypertension but whenever she is in pain or discomfort her blood pressure does go up. Patient was given a prescription for ibuprofen - Vital Signs Vital signs: Temp Pulse Resp BP Pulse Ox 98.6 F 93 12 134/94 H 98 06/18/17 20:07 06/18/17 20:07 06/18/17 20:07 06/18/17 20:07 06/18/17 20:07 Discharge - Discharge Clinical Impression: Sore throat URI (upper respiratory infection) Qualifiers: URI type: unspecified URI Qualified Code(s): J06.9 - Acute upper respiratory infection, unspecified Condition: Stable Disposition: HOME, SELF-CARE Additional Instructions: SORE THROAT: Sore throats may be caused by viruses, bacteria, or fungi. Most are due to a virus, and must get better on their own. Bacterial sore throats, particularly those due to "strep," need treatment with antibiotics. If an antibiotic is prescribed, be sure to take the medication for a full 10 days. Failure to take the antibiotic can result in complications such as rheumatic fever. Sometimes, an injection of antibiotics is given instead of pills or liquid. This single "shot" is equal in effectiveness to the oral medication. To relieve symptoms, take acetaminophen for pain. Sip clear liquids frequently, or eat popsicles or ice chips. Anesthetic sprays or lozenges may help. Make sure the air in the room is not too dry. Avoid using decongestants or antihistamines. Call the doctor if there is no improvement in two days, or if you have difficulty breathing, increasing throat pain, high fever, rash, or frequent vomiting. UPPER RESPIRATORY ILLNESS: You have a viral infection of the respiratory passages -- a "cold." This common infection causes nasal congestion, drainage, and often sore throat and cough. It is highly contagious. The disease usually lasts about 10 to 14 days. There is no "cure" for the viral infection -- it must run its course. If there is a complication, such as bacterial infection in the nose, sinuses, middle ear, or bronchial tubes, antibiotics may be required. The antibiotics won't affect the virus. Drink plenty of fluids. A humidifier may help. An expectorant medication or decongestant may make you more comfortable. Use acetaminophen or ibuprofen for fever or aches. See the doctor if fever persists over two days, if there is any significant worsening of your symptoms, or if you simply fail to improve as expected. COUGH-SUPPRESSANT & EXPECTORANT MEDICATION: You are to use a cough medication as needed for relief of symptoms. This medicine is a combination of an expectorant (to make the mucous thinner and more easily "coughed up") and a cough suppressant (to reduce the frequency of coughing). The cough-suppressant medicine is related to narcotics. You may experience mild nausea and sleepiness. Some patients who are very sensitive to narcotics may have stomach pain from this medicine. Taking the medicine with food reduces these side effects. Do not drive or work with machinery until you know how this medicine affects you. The expectorant should have no side effects. Iodine-containing expectorants (such as organidin) should not be taken by persons with active thyroid disease unless approved by your doctor. Call the doctor if you develop shortness of breath, hives, rash, itching, lightheadedness, or severe nausea and vomiting. STEROID MEDICATION: You have been given an injection of or oral medicine of the cortisone/ steroid class. This medication is used to control inflammation or allergy. Michel t is usually only given for a short period of time, until the acute process subsides. There are usually no side effects from short-term use of cortisone-like medications. Some persons feel an increased sense of well-being and are not sleepy at bedtime. Long-term use of cortisone medications is best avoided, unless required for a severe condition. If your condition does not remit, or relapses after the course of corticosteroid medication, you should consult your physician. USE OF ACETAMINOPHEN (Tylenol): Acetaminophen may be taken for pain relief or fever control. It's much safer than aspirin, offering a wider range of "safe" dosages. It is safe during . Some brand names are Tylenol, Panadol, Datril, Anacin 3, Tempra, and Liquiprin. Acetaminophen can be repeated every four hours. The following are maximum recommended dosages: >89 pounds or adults 650 mg to 900 mg Acetaminophen can be repeated every four hours. Maximum dose not to exceed 4000 mg a day. Please gargle with salt and soda solution 3 times daily 1 quart of water 1 tablespoon of salt 1 teaspoon of baking soda Mixed 3 ingredients together and boil for 1 minute Placed in a covered quart jar Use 1/2 ounce of cold solution to gargle 3 times a day FOLLOW-UP CARE: If you have been referred to a physician for follow-up care, call the physician s office for an appointment as you were instructed or within the next two days. If you experience worsening or a significant change in your symptoms, notify the physician immediately or return to the Emergency Department at any time for re-evaluation. Forms: Elevated Blood Pressure, Return to Work Referrals: BI YU MD [Primary Care Provider] - Follow up as needed
== END 2017-06-18 22:00 | disposition home or self-care (01) ==
LOC: ER 19:46
DX: J02.9 Acute pharyngitis, unspecified (principal); R49.0 Dysphonia; R09.89 Other specified symptoms and signs involving the circulatory and respiratory systems; R05 Cough; J35.1 Hypertrophy of tonsils; R09.82 Postnasal drip; R03.0 Elevated blood-pressure reading, without diagnosis of hypertension
CPT/HCPCS: 99282; 96372; J3490 ×2; J1100

== ENCOUNTER 2017-07-27 21:27 | Emergency (ER) | payer MEDICAID ==
[2017-07-28 00:56] LABS: APPEARANCE,URINE SLIGHTLY-CLOUDY; BILIRUBIN,URINE NEGATIVE (NEGATIVE); GLUCOSE, URINE NEGATIVE (NEGATIVE); KETONES,URINE NEGATIVE (NEGATIVE); LEUKOCYTE ESTERASE,URINE LARGE (NEGATIVE); NITRITE,URINE NEGATIVE (NEGATIVE); PROTEIN,URINE NEGATIVE (NEGATIVE); URINE SPECIFIC GRAVITY 1.028; UROBILINOGEN,URINE NEGATIVE mg/dL (<2.0)
[2017-07-28] MEDS ORDERED: AZITHROMYCIN 250 MG TABLET PO ONE (01:31)
[2017-07-28] MEDS ORDERED: LIDOCAINE 1% INJ-PF (10 MG/ML) 30 ML SDV INFIL ONE (01:31)
[2017-07-28] MEDS ORDERED: CEFTRIAXONE INJ 250 MG VIAL IM ONE (01:31)
[2017-07-28] MEDS ORDERED: TETRACAINE HCL 0.5% OPH SOLN 2 ML OD ONE (01:31)
--- NOTE | 2017-07-28 02:08 | ER Document Report ---
ED General - General Chief Complaint: Vaginal Discharge Stated Complaint: EYE IRRITATION,VAGINAL DISCHARGE Mode of Arrival: Ambulatory Information source: Patient TRAVEL OUTSIDE OF THE [place] IN LAST 30 DAYS: No - HPI Onset: Last week Onset/Duration: Gradual Associated symptoms: denies: Allergy/hay fever, Body/muscle aches, Chest pain, Chills, Nonproductive cough, Productive cough, Diarrhea, Fever, Nausea, Vomiting , Rhinnorhea, Sinus pain/drainage, Shortness of breath, Sore throat, Weakness Exacerbated by: Denies Relieved by: Denies Notes: Patient arrives with complaints of vaginal discharge for the last few days. She thought she might of had a yeast infection and took [id number] yeast medication without relief. She denies any significant dysuria or hematuria. She states that she is 7 weeks . She denies any vaginal bleeding or abdominal pain. This is her seventh and she has 6 living children. She has had nausea and vomiting with her . No diarrhea. No blood in her vomit. She denies any rashes. She states that she is sexually active with one partner. She also complains of right eye redness and drainage that started yesterday. States that her eye feels somewhat irritated. When she woke up this morning her eye was matted shut. She denies any blurred or loss vision. She does not wear contacts. Patient has no other complaints at this time. - Related Data Allergies/Adverse Reactions: No Known Allergies Allergy (Verified 06/18/17 20:07) Past Medical History - Social History Smoking Status: Unknown if Ever Smoked Family History: Arthritis, CAD, CVA, DM, Hyperlipidemia, Hypertension, Malignancy. denies: Thyroid Disfunction Patient has suicidal ideation: No Patient has homicidal ideation: No Renal/ Medical History: Reports: Hx Ovarian Cysts. Denies: Hx Peritoneal Dialysis Past Surgical History: Reports: Hx Gynecologic Surgery - L ovarian cyst removed , - Immunizations Hx Diphtheria, Pertussis, Tetanus Vaccination: No Review of Systems - Review of Systems -: Yes All other systems reviewed and negative Physical Exam - Vital signs Vitals: Temp Pulse Resp BP Pulse Ox 98.2 F 72 16 122/77 98 07/27/17 22:22 07/27/17 22:22 07/27/17 22:22 07/27/17 22:22 10/12/17 22:22 - Notes Notes: GENERAL: alert, cooperative, nontoxic, no distress. HEAD: normocephalic, atraumatic EYES: no external redness or swelling. Right conjunctiva with injection. No foreign body identified. Upper eyelid is everted with no foreign body identified. Pupils are equal round react to light. Extraocular muscles are intact bilaterally. Fluorasein is unavailable in the emergency department at this time, I am unable to perform a Lora lamp exam at this time. The patient' s exam is consistent with conjunctivitis. EARS: no external swelling, no external redness NOSE: atraumatic, no external swelling MOUTH/THROAT: mucous membranes moist and pink, posterior pharynx without erythema, swelling, exudate. No trismus or drooling. NECK: soft, supple, full range of motion, no meningismus. CHEST: no distress, lungs clear and equal throughout. No wheezing, rales, rhonchi. CARDIAC: regular rate and rhythm, no murmur, normal capillary refill, normal pulses. No peripheral edema noted. ABDOMEN: Soft, nontender. BACK: full range of motion, no CVA tenderness. EXTREMITIES: full range of motion of all extremities. No redness, no swelling. NEURO: alert and oriented x 3, no focal deficits, full range of motion of all extremities. PYSCH: appropriate mood, affect. Patient is cooperative. SKIN: pink, warm, dry, no rash. : No external lesions noted. Mild irritation noted to the labia minora. No vesicular lesions or ulcerations. Thin white vaginal discharge noted on exam with mild odor. No cervical motion tenderness, adnexal tenderness or masses. Course - Re-evaluation Re-evalutation: 07/28/17 02:07 Patient is nontoxic appearing with stable vitals. Patient has had some vaginal discharge for the last few days. She is 7 weeks . She has no abdominal pain, no vaginal bleeding. She denies any regnancy complaints at this time. Her urine shows a possible mild urinary tract infection. I will place her on Macrobid for this. She is being treated for gonorrhea and chlamydia here in the emergency department. GC chlamydia cultures are currently pending. Wet prep is currently pending at this time. If the patient has signs of bacterial vaginosis, yeast, trichomoniasis, she will be treated appropriately. The patient is noted to have elevated blood pressure during today's emergency department visit. The patient was informed of this finding. The patient was instructed that this may be related to pre-hypertension and requires further evaluation with a primary care provider. The patient has no hypertensive symptoms at this time. The patient's emergency department workup and current diagnosis were explained to the patient and or family. Follow-up instructions were provided. Medications if prescribed were discussed. Instructions for when to return to the emergency department including specific worrisome symptoms were discussed with the patient and/or family. 07/28/17 02:56 Wet prep noted to show bacterial vaginosis. Due to the patient's she will be placed on MetroGel which is safe during as there is minimal systemic absorption. - Vital Signs Vital signs: Temp Pulse Resp BP Pulse Ox 98.2 F 72 16 122/77 98 07/27/17 22:22 07/27/17 22:22 07/27/17 22:22 07/27/17 22:22 07/27/17 22:22 - Laboratory Laboratory results interpreted by me: 07/27/17 22:18 Urine Blood SMALL H Ur Leukocyte Esterase LARGE H Urine HCG, Qual POSITIVE H Discharge - Discharge Clinical Impression: Bacterial vaginosis Qualifiers: Weeks of gestation: less than 8 weeks Qualified Code(s): Z3A.01 - Less than 8 weeks gestation of Urinary tract infection Qualifiers: Urinary tract infection type: acute cystitis Hematuria presence: without hematuria Qualified Code(s): N30.00 - Acute cystitis without hematuria Conjunctivitis Qualifiers: Conjunctivitis type: acute Acute conjunctivitis type: unspecified Laterality: right Qualified Code(s): H10.31 - Unspecified acute conjunctivitis, right eye Condition: Stable Disposition: HOME, SELF-CARE Instructions: Conjunctivitis ([facility]), Nitrofurantoin ([facility]), Urinary Tract Infection ([facility]) Additional Instructions: Take medications as prescribed. Wash hands frequently. Follow-up if not better in 2 days, sooner for increased pain, fever, persistent vomiting, severe abdominal pain, severe vaginal bleeding, blurred or loss vision, or any further concerns. Your blood pressure was elevated during today's visit. Have this rechecked with your doctor. Prescriptions: Metronidazole [Metrogel 0.75% Vaginal Gel] 1 applic PV DAILY #4 tube Nitrofurantoin Monohyd/M-Cryst [Macrobid 100 mg Capsule] 100 mg PO BID #10 capsule Polymyxin B Sulf/Trimethoprim [Polytrim Eye Drops] 4 drop OP Q6H #1 bottle Forms: Elevated Blood Pressure, Parent Work Note Referrals: [facility] [Provider Group] - Follow up as needed
[2017-07-28 03:02] VITALS: BP 108/53
[2017-07-28 03:57] LABS: CHLAM PCR NOT DETECTED (NOT DETECT)
== END 2017-07-28 03:12 | disposition home or self-care (01) ==
LOC: ER 21:27
DX: O23.591 Infection of other part of genital tract in pregnancy, first trimester (principal); B96.89 Other specified bacterial agents as the cause of diseases classified elsewhere; O23.11 Infections of bladder in pregnancy, first trimester; O21.9 Vomiting of pregnancy, unspecified; O26.891 Other specified pregnancy related conditions, first trimester; H10.31 Unspecified acute conjunctivitis, right eye; Z3A.01 Less than 8 weeks gestation of pregnancy; R03.0 Elevated blood-pressure reading, without diagnosis of hypertension
CPT/HCPCS: 99283; 96372; 87210; 81025; 81001; 87491; 87591; Q0144; J3490 ×2; J0696

== ENCOUNTER 2017-08-26 19:19 | Emergency (ER) | payer MEDICAID ==
[2017-08-26 19:31] VITALS: BP 117/85
[2017-08-26] MEDS ORDERED: ACETAMINOPHEN 325 MG TABLET PO ONE (20:05)
--- NOTE | 2017-08-26 20:06 | ER Document Report ---
ED GI/ - General Chief Complaint: OB Problem (<20wks) Stated Complaint: HEADACHE,VAGINAL BLEEDING Time Seen by Provider: 08/26/17 19:46 Mode of Arrival: Ambulatory Information source: Patient Notes: Patient presents complaining of vaginal bleeding for the past 4 days. Patient was advised that she was having a miscarriage 4 days ago and she is worried about possible retained products of conception. Patient also reports headache that started this evening. Patient does report some light sensitivity. Patient denies any concern about sexually transmitted infection as she had been tested last month and has not had intercourse for the past 2 months. Patient denies any urinary symptoms, nausea, vomiting or diarrhea. TRAVEL OUTSIDE OF THE [place] IN LAST 30 DAYS: No - HPI Patient complains to provider of: Pelvic pain, Vaginal bleeding, Other - Headache Onset: Other - Vaginal bleeding 4 days, headache this afternoon Timing/Duration: Persistent Quality of pain: Achy Pain Level: 3 Context: Location: Pelvis Vaginal bleeding (Compared to normal period): Similar Menstrual period history: Sexual history: Inactive Associated symptoms: denies: Chest pain, Dysuria, Fever, Nausea, Urinary hesitancy, Urinary frequency, Urinary retention, Urinary urgency, Vaginal discharge, Vomiting Exacerbated by: Denies Relieved by: Denies Similar symptoms previously: No Recently seen / treated by doctor: Yes - Related Data Allergies/Adverse Reactions: No Known Allergies Allergy (Verified 08/22/17 16:33) Past Medical History - General Information source: Patient Last Menstrual Period: June 2017 - Social History Smoking Status: Never Smoker Frequency of alcohol use: None Drug Abuse: None 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 denies: Thyroid Disfunction Patient has suicidal ideation: No Patient has homicidal ideation: No Renal/ Medical History: Reports: Hx Ovarian Cysts. Denies: Hx Peritoneal Dialysis Past Surgical History: Reports: Hx Gynecologic Surgery - L ovarian cyst removed , - Immunizations Hx Diphtheria, Pertussis, Tetanus Vaccination: No Review of Systems - Review of Systems Constitutional: No symptoms reported. denies: Fever, Recent illness EENT: No symptoms reported Cardiovascular: No symptoms reported. denies: Chest pain, Dizziness, Lightheaded Respiratory: No symptoms reported. denies: Cough, Short of breath Gastrointestinal: Abdominal pain. denies: Nausea, Vomiting Genitourinary: No symptoms reported. denies: Dysuria, Flank pain Female Genitourinary: , Vaginal bleeding Musculoskeletal: No symptoms reported Skin: No symptoms reported Hematologic/Lymphatic: No symptoms reported Neurological/Psychological: Headaches. denies: Weakness Physical Exam - Vital signs Vitals: Temp Pulse Resp BP Pulse Ox 97.7 F 74 18 117/85 99 08/26/17 19:27 08/26/17 19:27 08/26/17 19:27 08/26/17 19:27 08/26/17 19:27 - General General appearance: Appears well, Alert In distress: None - HEENT Head: Normocephalic, Atraumatic Eyes: Normal Conjunctiva: Normal Extraocular movements intact: Yes Pupils: PERRL Ears: Normal Nasal: Normal Mouth/Lips: Normal Mucous membranes: Normal Pharynx: Normal. No: Erythema, Exudate Neck: Normal, Supple. No: Lymphadenopathy, Meningismus - Respiratory Respiratory status: No respiratory distress Chest status: Nontender Breath sounds: Normal. No: Rales, Rhonchi, Stridor, Wheezing Chest palpation: Normal - Cardiovascular Rhythm: Regular Heart sounds: S1 appreciated, S2 appreciated Murmur: No - Abdominal Inspection: Normal Distension: No distension Bowel sounds: Normal Tenderness: Tender - pelvic Organomegaly: No organomegaly - Back Back: Normal, Nontender. No: CVA tenderness, Vertebra tenderness - Extremities General upper extremity: Normal inspection, Normal ROM General lower extremity: Normal inspection, Normal ROM - Neurological Neuro grossly intact: Yes Cognition: Normal Geneva Coma Scale Eye Opening: Spontaneous Geneva Coma Scale Verbal: Oriented Milagro Coma Scale Motor: Obeys Commands Geneva Coma Scale Total: 15 - Psychological Associated symptoms: Normal affect, Normal mood - Skin Skin Temperature: Warm Skin Moisture: Dry Skin Color: Normal Course - Re-evaluation Re-evalutation: 08/26/17 21:40 Pt reports that headache pain is improved although not completely resolved. Patient declines needing additional medication as she plans to drive herself home tonight. 08/27/17 Patient advised that she will need to follow-up with a water softener servicer and installer to follow her downward trending quantitative hCG levels. Discussed worsening symptoms that patient should return immediately for. - Vital Signs Vital signs: Temp Pulse Resp BP Pulse Ox 97.7 F 74 18 117/85 99 08/26/17 19:27 08/26/17 19:27 08/26/17 19:27 08/26/17 19:27 08/26/17 19:27 - Laboratory Result Diagrams: 08/26/17 20:15 08/26/17 20:15 Laboratory results interpreted by me: 08/26/17 08/26/17 20:15 20:15 Hgb 11.8 L Hct 35.9 L MCV 75 L MCH 24.5 L RDW 15.9 H Beta HCG, Quant 533.03 H Labs- Last Values WBC 7.4 10^3/uL (4.0-10.5) 08/26/17 20:15 RBC 4.80 10^6/uL (3.72-5.28) 08/26/17 20:15 Hgb 11.8 g/dL (12.0-15.5) L 08/26/17 20:15 Hct 35.9 % (36.0-47.0) L 08/26/17 20:15 MCV 75 fl (80-97) L 08/26/17 20:15 MCH 24.5 pg (27.0-33.4) L 08/26/17 20:15 MCHC 32.7 g/dL (32.0-36.0) 08/26/17 20:15 RDW 15.9 % (11.5-14.0) H 08/26/17 20:15 Plt Count 274 10^3/uL (150-450) 08/26/17 20:15 Seg Neutrophils % 50.2 % (42-78) 08/26/17 20:15 Lymphocytes % 39.1 % (13-45) 08/26/17 20:15 Monocytes % 5.6 % (3-13) 08/26/17 20:15 Eosinophils % 4.5 % (0-6) 08/26/17 20:15 Basophils % 0.6 % (0-2) 08/26/17 20:15 Absolute Neutrophils 3.7 10^3/uL (1.7-8.2) 08/26/17 20:15 Absolute Lymphocytes 2.9 10^3/uL (0.5-4.7) 08/26/17 20:15 Absolute Monocytes 0.4 10^3/uL (0.1-1.4) 08/26/17 20:15 Absolute Eosinophils 0.3 10^3/uL (0.0-0.6) 08/26/17 20:15 Absolute Basophils 0.0 10^3/uL (0.0-0.2) 08/26/17 20:15 Sodium 140.3 mmol/L (137-145) 08/26/17 20:15 Potassium 4.4 mmol/L (3.6-5.0) 08/26/17 20:15 Chloride 104 mmol/L (98-107) 08/26/17 20:15 Carbon Dioxide 26 mmol/L (22-30) 08/26/17 20:15 Anion Gap 10 (5-19) 08/26/17 20:15 BUN 17 mg/dL (7-20) 08/26/17 20:15 Creatinine 0.81 mg/dL (0.52-1.25) 08/26/17 20:15 Est GFR ( Amer) > 60 (>60) 08/26/17 20:15 Est GFR (Non-Af Amer) > 60 (>60) 08/26/17 20:15 Glucose 80 mg/dL (75-110) 08/26/17 20:15 Calcium 9.7 mg/dL (8.4-10.2) 08/26/17 20:15 Total Bilirubin 0.5 mg/dL (0.2-1.3) 08/26/17 20:15 Direct Bilirubin 0.4 mg/dL (0.0-0.4) 08/26/17 20:15 Indirect Bilirubin Not Reportable 08/26/17 20:15 Neonat Total Bilirubin Not Reportable 08/26/17 20:15 AST 16 U/L (14-36) 08/26/17 20:15 ALT 30 U/L (9-52) 08/26/17 20:15 Alkaline Phosphatase 72 U/L (38-126) 08/26/17 20:15 Total Protein 7.5 g/dL (6.3-8.2) 08/26/17 20:15 Albumin 4.2 g/dL (3.5-5.0) 08/26/17 20:15 Beta HCG, Quant 533.03 mIU/mL (<6.15) H 08/26/17 20:15 Total Beta HCG POSITIVE (NEGATIVE) 08/26/17 20:15 Labs from previous ER visit - Diagnostic Test Radiology reviewed: Reports reviewed - Reviewed ultrasound report from previous ER visit Discharge - Discharge Clinical Impression: Vagina bleeding, Miscarriage Headache Qualifiers: Headache type: unspecified Headache chronicity pattern: acute headache Intractability: not intractable Qualified Code(s): R51 - Headache Condition: Stable Disposition: HOME, SELF-CARE Instructions: Acetaminophen, Headache ([facility]), Miscarriage ([facility]) Additional Instructions: Return immediately for any new or worsening symptoms Followup with your primary care provider, call tomorrow to make a followup appointment Follow-up with a water softener servicer and installer for follow-up regarding this miscarriage. They will monitor your hormone levels Return for any new or worsening symptoms, increased bleeding, fever, lightheadedness, dizziness or any concerning symptoms Prescriptions: Butalb/Acetaminophen/Caffeine [Fioricet (50-325-40 mg) Tablet] 1 - 2 tab PO Q4H PRN #12 each PRN Reason: Forms: Return to Work Referrals: [facility] [Provider Group] - 08/28/17
[2017-08-26 20:31] LABS: ABSOLUTE EOSINOPHILS # (AUTO) 0.3 10^3/uL (0.0-0.6); ABSOLUTE LYMPHOCYTES (AUTO) 2.9 10^3/uL (0.5-4.7); ABSOLUTE MONOCYTES (AUTO) 0.4 10^3/uL (0.1-1.4); ABSOLUTE NEUT (AUTO) 3.7 10^3/uL (1.7-8.2); BASOPHILS % (AUTO) 0.6 % (0-2); EOSINOPHILS % (AUTO) 4.5 % (0-6); HEMATOCRIT 35.9 % (36.0-47.0); HEMOGLOBIN 11.8 g/dL (12.0-15.5); HGB HCT DIFFERENCE -0.5; LYMPHOCYTES % (AUTO) 39.1 % (13-45); MEAN CORPUSCULAR HEMOGLOBIN 24.5 pg (27.0-33.4); MEAN CORPUSCULAR HGB CONC 32.7 g/dL (32.0-36.0); MEAN CORPUSCULAR VOLUME 75 fl (80-97); MONOCYTES % (AUTO) 5.6 % (3-13); RED CELL DISTRIBUTION WIDTH 15.9 % (11.5-14.0); SEGMENTED NEUTROPHILS % (AUTO) 50.2 % (42-78); WHITE BLOOD COUNT 7.4 10^3/uL (4.0-10.5)
[2017-08-26 20:59] LABS: ALANINE AMINOTRANSFERASE 30 U/L (9-52); ALBUMIN 4.2 g/dL (3.5-5.0); ALKALINE PHOSPHATASE 72 U/L (38-126); ANION GAP 10 (5-19); ASPARTATE AMINO TRANSFERASE 16 U/L (14-36); BILIRUBIN,DIRECT 0.4 mg/dL (0.0-0.4); BILIRUBIN,TOTAL 0.5 mg/dL (0.2-1.3); BLOOD UREA NITROGEN 17 mg/dL (7-20); CALCIUM 9.7 mg/dL (8.4-10.2); CARBON DIOXIDE 26 mmol/L (22-30); CHLORIDE 104 mmol/L (98-107); CREATININE RESULT 0.81 mg/dL (0.52-1.25); GLUCOSE 80 mg/dL (75-110); POTASSIUM 4.4 mmol/L (3.6-5.0); SODIUM 140.3 mmol/L (137-145); TOTAL PROTEIN 7.5 g/dL (6.3-8.2)
== END 2017-08-26 21:50 | disposition home or self-care (01) ==
LOC: ER 19:19
DX: O03.9 Complete or unspecified spontaneous abortion without complication (principal); R51 Headache; H53.149 Visual discomfort, unspecified
CPT/HCPCS: 99284; 36415; 84702; 85025; 80053; J3490

== ENCOUNTER 2017-09-21 11:11 | Day surgery (SDC) | payer MEDICAID ==
[2017-09-18 12:58] LABS: HEMATOCRIT 37.2 % (36.0-47.0); HEMOGLOBIN 12.2 g/dL (12.0-15.5); HGB HCT DIFFERENCE -0.6; MEAN CORPUSCULAR HEMOGLOBIN 24.2 pg (27.0-33.4); MEAN CORPUSCULAR HGB CONC 32.8 g/dL (32.0-36.0); MEAN CORPUSCULAR VOLUME 74 fl (80-97); RED BLOOD COUNT 5.03 10^6/uL (3.72-5.28); RED CELL DISTRIBUTION WIDTH 16.2 % (11.5-14.0); WHITE BLOOD COUNT 8.7 10^3/uL (4.0-10.5)
[2017-09-18 12:59] LABS: APPEARANCE,URINE SLIGHTLY-CLOUDY; BILIRUBIN,URINE NEGATIVE (NEGATIVE); GLUCOSE, URINE NEGATIVE (NEGATIVE); KETONES,URINE NEGATIVE (NEGATIVE); LEUKOCYTE ESTERASE,URINE LARGE (NEGATIVE); NITRITE,URINE NEGATIVE (NEGATIVE); PROTEIN,URINE NEGATIVE (NEGATIVE); URINE SPECIFIC GRAVITY 1.026; UROBILINOGEN,URINE NEGATIVE mg/dL (<2.0)
[~2017-09-21 11:11] MED LIST: LACTATED RINGERS 1000 ML IV PRN; LIDOCAINE 0.5% INJ-PF (5 MG/ML) 50 ML SDV SUBCUT PRN; SUCCINYLCHOLINE CHLORIDE INJ 200 MG/10 ML VIAL ONE
[2017-09-21] MEDS ORDERED: FENTANYL CITRATE INJ/PF 100 MCG/2 ML AMPUL ONE ×2 (11:51→14:07)
[2017-09-21] MEDS ORDERED: MIDAZOLAM 2 MG/2 ML INJ ONE (11:51)
[2017-09-21] MEDS ORDERED: PROPOFOL INJ 200 MG/20 ML VIAL IV ONE (11:52)
[2017-09-21] MEDS ORDERED: HYDROMORPHONE HCL INJ/PF 2 MG/ML AMPULE ONE (11:53)
[2017-09-21] MEDS ORDERED: CEFAZOLIN 1 GM/D5W RTU 1 GM/50 ML RTUPB IV ONE (12:03)
[2017-09-21] MEDS ORDERED: CEFAZOLIN 1 GM/D5W RTU 1 GM/50 ML RTUPB IV PRN (12:13)
[2017-09-21] MEDS ORDERED: MEPERIDINE HCL/PF INJ 25 MG/1 ML DISP.SYRIN IV PRN (12:46)
[2017-09-21] MEDS ORDERED: ONDANSETRON HCL INJ/PF 4 MG/2 ML SDV IV PRN (12:46)
[2017-09-21] MEDS ORDERED: DIPHENHYDRAMINE HCL 50 MG/ML VIAL IV PRN (12:46)
[2017-09-21] MEDS ORDERED: MORPHINE SULFATE 10 MG/ML INJ IV PRN (12:46)
[2017-09-21] MEDS ORDERED: OXYCODONE-ACETAMINOPHEN 5-325 MG TABLET PO PRN ×4 (12:46→14:32)
[2017-09-21] MEDS ORDERED: FENTANYL CITRATE INJ/PF 100 MCG/2 ML AMPUL IV PRN ×3 (12:46)
[2017-09-21] MEDS ORDERED: PROMETHAZINE HCL INJ 25 MG/1 ML VIAL IV PRN ×2 (12:46)
--- NOTE | 2017-09-21 14:24 | OPERATIVE REPORT E ---
Operative Report NAME: STEPHANI CERVANTES : 1985 AGE: 32Y DATE OF SURGERY: 09/21/2017 ROOM: PREOPERATIVE DIAGNOSIS: UNDESIRED FERTILITY. POSTOPERATIVE DIAGNOSIS: UNDESIRED FERTILITY. OPERATION: Laparoscopic tubal cauterization. SURGEON: STEPHON FIELD M.D. HANDKERCHIEF PRESSER: Stephani Zayas. MARINA PORTER: Tech. ANESTHESIA: Brian House MD, with general. TISSUE REMOVED OR ALTERED: None. FINDINGS: Filmy pelvic adhesions consistent with possible previous PID. COMPLICATIONS: None. ESTIMATED BLOOD LOSS: 10 mL. PROCEDURE: Patient was taken to the operating room, prepared and draped in the normal sterile fashion in dorsolithotomy position, under sterile conditions. An in-and-out cath was performed of approximately 20 mL of clear urine. A sterile speculum was then placed into the vagina and the cervix was prepped with Betadine and grasped on the anterior lip with a single-toothed tenaculum. A Hulka clamp was then placed through the cervix for uterine manipulation. The speculum and the tenaculum were removed. Gloves were changed and attention was then turned to the upper portion of the case, where an umbilical skin incision was made with a scalpel. An attempt to achieve pneumoperitoneum was unsuccessful with the Veress needle, so a cutdown procedure was performed until the peritoneal cavity was entered. The extended trocar was placed through this incision, through which the camera was inserted. Another small skin incision was made under direct visualization and a 5-mm trocar was placed on the patient's left lower quadrant. The blunt probe was then introduced and the bowel was swept away. Atraumatic grasper was used to identify the left fallopian tube. A Kleppinger was then placed through the port and the fallopian tube was copiously burned. Greater than 4 cm worth of burn was achieved. Attention was then turned to the right fallopian tube, which was a little bit more difficult to find, due to the pelvic adhesions. Ovary was hidden behind the uterus and we had been having difficulty with pneumoperitoneum, but we were able to locate the right fallopian tube, following it from the cornua outwards until we located the fimbriated end. This fallopian tube was then copiously burned with several jones with the Kleppinger until at least 3 cm of burn was achieved on the fallopian tube. The Kleppinger and instruments were then removed. The trocars were removed under direct visualization, and the umbilical trocar was used to deflate the abdomen of the gas. When the gas was deflated, the trocar was then removed. The skin was closed at both sites using 4-0 Vicryl. Patient tolerated procedure well. Sponge, lap and needle counts were correct x2, and the patient was taken to recovery in stable condition. DICTATING PHYSICIAN: STEPHON FIELD M.D. [id number] PHY#: [id number] ID: [id number] JOB#: [id number] ACCT: [id number] cc:STEPHON FIELD M.D. >
[2017-09-21] MEDS ORDERED: MORPHINE SULFATE 10 MG/ML INJ IM PRN (14:31)
[2017-09-21] MEDS ORDERED: IBUPROFEN 800 MG TABLET PO PRN (14:31)
[2017-09-21] MEDS ORDERED: KETOROLAC TROMETHAMINE INJ/PF 30 MG/1 ML SDV ONE (14:33)
[2017-09-21] MEDS ORDERED: RINGERS SOLUTION,LACTATED 1,000 ML IV PRN (14:49)
[2017-09-21] MEDS ORDERED: ACETAMINOPHEN 100 ML IV ONE (15:48)
[2017-09-21 17:09] VITALS: BP 116/79
== END 2017-09-21 16:50 | disposition home or self-care (01) ==
LOC: OROUT 11:11
PROVIDERS: ATTEND Obstetrics & Gynecology
PROC: 0U574ZZ Destruction of Bilateral Fallopian Tubes, Percutaneous Endoscopic Approach (ICD-10-PCS; principal; 2017-09-21 13:30)
DX: Z30.2 Encounter for sterilization (principal); E66.9 Obesity, unspecified; Z68.41 Body mass index [BMI] 40.0-44.9, adult
CPT/HCPCS: 36415; 84703; 85027; 81005; 81025; 58670; J2250; J0690; J3010; J1885; J1170; J0330; J2704; J0131; 851

== ENCOUNTER 2017-09-30 08:49 | Emergency (ER) | payer MEDICAID ==
[2017-09-30] MEDS ORDERED: KETOROLAC TROMETHAMINE INJ/PF 30 MG/1 ML SDV IV ONE (09:33)
--- NOTE | 2017-09-30 09:35 | ER Document Report ---
ED General - General Chief Complaint: Abdominal Pain Stated Complaint: ABDOMINAL PAIN, BACK PAIN Time Seen by Provider: 09/30/17 09:19 Mode of Arrival: Ambulatory Information source: Patient Notes: Patient presents to emergency department with complaints of lower abdominal crampy pain back pain since yesterday. Patient reports that on Monday or Monday she started her cycle. She reports yesterday she started cramping. She reports it feels like contractions. She took 800 mg Motrin yesterday and did not really help her pain. She denies fever vomiting diarrhea. She denies pain with void. She denies vaginal discharge. She does report that when she voided yesterday it looks like tissue came out. Patient reports recent BTL on September 21. Patient was also evaluated in the emergency department last month for abdominal pain. She reports these symptoms are different. TRAVEL OUTSIDE OF THE [place] IN LAST 30 DAYS: No - HPI Onset: Yesterday Onset/Duration: Persistent Quality of pain: Cramping Severity: Severe Pain Level: 4 Associated symptoms: None Exacerbated by: Denies Relieved by: Denies Similar symptoms previously: No Recently seen / treated by doctor: No - Related Data Allergies/Adverse Reactions: latex Allergy (Verified 09/30/17 09:11) Hives Past Medical History - General Information source: Patient Last Menstrual Period: BTL 09/21/17 - Social History Smoking Status: Never Smoker Cigarette use (# per day): No Frequency of alcohol use: None Drug Abuse: None Family History: Arthritis, CAD, CVA, DM, Hyperlipidemia, Hypertension, Malignancy. denies: Thyroid Disfunction Patient has suicidal ideation: No Patient has homicidal ideation: No Renal/ Medical History: Reports: Hx Ovarian Cysts. Denies: Hx Peritoneal Dialysis Past Surgical History: Reports: Hx Gynecologic Surgery - L ovarian cyst removed , , Hx Tubal Ligation - Immunizations Hx Diphtheria, Pertussis, Tetanus Vaccination: No Review of Systems - Review of Systems Notes: Review HPI for review of systems., All other systems negative Physical Exam - Vital signs Vitals: Temp Pulse Resp BP Pulse Ox 98.1 F 76 16 117/78 98 09/30/17 08:55 09/30/17 08:55 09/30/17 08:55 09/30/17 08:55 09/30/17 08:55 - Notes Notes: PHYSICAL EXAMINATION: GENERAL: Well-appearing and in no acute distress HEAD: Atraumatic, normocephalic. EYES: Pupils equal round and reactive to light, extraocular movements intact, sclera anicteric, conjunctiva are normal. ENT: nares patent, oropharynx clear without exudates. Moist mucous membranes. NECK: Normal range of motion, supple without lymphadenopathy LUNGS: CTAB and equal. No wheezes rales or rhonchi. HEART: Regular rate and rhythm without murmurs ABDOMEN: Soft, Reports lower abdominal tenderness on palpation. No guarding, no rebound EXTREMITIES: Normal range of motion, no pitting edema. No cyanosis. NEUROLOGICAL: Cranial nerves grossly intact. Normal sensory/motor exams. PSYCH: Normal mood, normal affect. SKIN: Warm, Dry, normal turgor, no rashes or lesions noted Course - Re-evaluation Re-evalutation: 09/30/17 10:50 pain decreased from 5 to 3, labs unremarkable, will discharge pt, instructed to fu with fish liver sorter, pcp for concerns. - Vital Signs Vital signs: Temp Pulse Resp BP Pulse Ox 97.8 F 65 16 125/87 H 99 09/30/17 11:05 09/30/17 11:05 09/30/17 11:05 09/30/17 11:05 09/30/17 11:05 - Laboratory Result Diagrams: 09/30/17 09:19 09/30/17 09:19 Laboratory results interpreted by me: 09/30/17 09:19 MCV 74 L MCH 24.1 L RDW 15.4 H Discharge - Discharge Clinical Impression: Abdominal cramps Condition: Stable Disposition: HOME, SELF-CARE Instructions: Abdominal Pain ([facility]), Use of [id number]-[id number] Ibuprofen ([facility]) Additional Instructions: *You have been evaluated for abdominal pain *Take ibuprofen as indicated *Follow up with a primary care provider or your fish liver sorter within one week *Return to ED for worsening condition, changes, needs *Return to ED if not better in 24 hours Forms: Return to Work
[2017-09-30 10:12] LABS: APPEARANCE,URINE CLEAR; BILIRUBIN,URINE NEGATIVE (NEGATIVE); GLUCOSE, URINE NEGATIVE (NEGATIVE); KETONES,URINE NEGATIVE (NEGATIVE); LEUKOCYTE ESTERASE,URINE NEGATIVE (NEGATIVE); NITRITE,URINE NEGATIVE (NEGATIVE); PROTEIN,URINE NEGATIVE (NEGATIVE); UROBILINOGEN,URINE NEGATIVE mg/dL (<2.0)
[2017-09-30 10:33] LABS: ABSOLUTE EOSINOPHILS # (AUTO) 0.3 10^3/uL (0.0-0.6); ABSOLUTE LYMPHOCYTES (AUTO) 1.7 10^3/uL (0.5-4.7); ABSOLUTE MONOCYTES (AUTO) 0.3 10^3/uL (0.1-1.4); ABSOLUTE NEUT (AUTO) 4.2 10^3/uL (1.7-8.2); BASOPHILS % (AUTO) 0.4 % (0-2); EOSINOPHILS % (AUTO) 4.6 % (0-6); HEMATOCRIT 37.1 % (36.0-47.0); HEMOGLOBIN 12.1 g/dL (12.0-15.5); HGB HCT DIFFERENCE -0.8; LYMPHOCYTES % (AUTO) 26.1 % (13-45); MEAN CORPUSCULAR HEMOGLOBIN 24.1 pg (27.0-33.4); MEAN CORPUSCULAR HGB CONC 32.5 g/dL (32.0-36.0); MEAN CORPUSCULAR VOLUME 74 fl (80-97); MONOCYTES % (AUTO) 4.9 % (3-13); RED BLOOD COUNT 5.01 10^6/uL (3.72-5.28); RED CELL DISTRIBUTION WIDTH 15.4 % (11.5-14.0); WHITE BLOOD COUNT 6.6 10^3/uL (4.0-10.5)
[2017-09-30 10:36] LABS: ALANINE AMINOTRANSFERASE 33 U/L (9-52); ALBUMIN 3.8 g/dL (3.5-5.0); ALKALINE PHOSPHATASE 80 U/L (38-126); ANION GAP 10 (5-19); ASPARTATE AMINO TRANSFERASE 14 U/L (14-36); BILIRUBIN,DIRECT 0.3 mg/dL (0.0-0.4); BILIRUBIN,TOTAL 0.4 mg/dL (0.2-1.3); BLOOD UREA NITROGEN 14 mg/dL (7-20); CALCIUM 9.2 mg/dL (8.4-10.2); CARBON DIOXIDE 26 mmol/L (22-30); CHLORIDE 107 mmol/L (98-107); CREATININE RESULT 0.76 mg/dL (0.52-1.25); GLUCOSE 95 mg/dL (75-110); POTASSIUM 4.5 mmol/L (3.6-5.0); SODIUM 142.6 mmol/L (137-145); TOTAL PROTEIN 7.2 g/dL (6.3-8.2)
[2017-09-30 11:07] VITALS: BP 125/87
== END 2017-09-30 11:06 | disposition home or self-care (01) ==
LOC: ER 08:49
DX: R10.30 Lower abdominal pain, unspecified (principal); M54.9 Dorsalgia, unspecified; Z98.51 Tubal ligation status; Z91.040 Latex allergy status; Z87.42 Personal history of other diseases of the female genital tract
CPT/HCPCS: 99284; 51701; 96374; 36415; 84703; 85025; 80053; 81001; J1885

== ENCOUNTER 2017-10-30 13:04 | Emergency (ER) | payer SELFPAY ==
--- NOTE | 2017-10-30 14:42 | ER Document Report ---
ED General - General Chief Complaint: Sore Throat Stated Complaint: SORE THROAT Mode of Arrival: Ambulatory TRAVEL OUTSIDE OF THE [place] IN LAST 30 DAYS: No - HPI Notes: 32 yr old female presents with sore throat x 2-3 days. Pain 6/10, scratchy and constant. reports a dry cough. Tried salt water gargle without full relief. Denies fevers, but reports chills. Hard to swallow foods, eating soft foods. Reports headache and fatigue. Denies hx of mono. Better with cold fluids, worse with eating hot foods. Denies any rashes. Was unable to see PCP today. Denies any chest pain, shortness of breath, nausea, vomiting, diarrhea, abdominal pain , dysuria, lightheadedness, dizziness, blurred vision, double vision, loss of vision. - Related Data Allergies/Adverse Reactions: latex Allergy (Verified 09/30/17 09:11) Hives Past Medical History - General Information source: Patient - Social History Smoking Status: Unknown if Ever Smoked Family History: Arthritis, CAD, CVA, DM, Hyperlipidemia, Hypertension, Malignancy. denies: Thyroid Disfunction Renal/ Medical History: Reports: Hx Ovarian Cysts. Denies: Hx Peritoneal Dialysis Past Surgical History: Reports: Hx Gynecologic Surgery - L ovarian cyst removed , , Hx Tubal Ligation - Immunizations Hx Diphtheria, Pertussis, Tetanus Vaccination: No Review of Systems - Review of Systems Constitutional: No symptoms reported EENT: See HPI Cardiovascular: No symptoms reported Respiratory: No symptoms reported Gastrointestinal: No symptoms reported Genitourinary: No symptoms reported Female Genitourinary: No symptoms reported Musculoskeletal: No symptoms reported Skin: No symptoms reported Hematologic/Lymphatic: No symptoms reported Neurological/Psychological: No symptoms reported Physical Exam - Vital signs Vitals: Temp Pulse Resp BP Pulse Ox 98.3 F 77 14 116/70 98 10/30/17 13:17 10/30/17 13:17 10/30/17 13:17 10/30/17 13:17 10/30/17 13:17 - Notes Notes: PHYSICAL EXAMINATION: GENERAL: Well-appearing, well-nourished and in no acute distress. HEAD: Atraumatic, normocephalic. EYES: Pupils equal round and reactive to light, extraocular movements intact, conjunctiva are normal. ENT: tympanic membranes are normal appearing with pearly color, normal- appearing landmarks and normal light reflex. Hearing is grossly intact. The nasal mucosa is moist. The septum is midline. There is no evidence of septal hematoma. The turbinates are without abnormality. No obvious abnormalities to the lips. The teeth are unremarkable. The gingivae are without any obvious evidence of infection. The oral mucosa is moist and pink. There are no obvious masses to the hard or soft palate. The uvula is midline. The salivary glands appear unremarkable. The tongue is midline. The posterior pharynx is with erythema or exudate. The tonsils are swollen bilaterally. Noted erythema and exudate on tonsils bilaterally. no angioedema no drooling no trismus bilateral arches equal. Uvula midline. NECK: Normal range of motion, supple without lymphadenopathy LUNGS: Breath sounds clear to auscultation bilaterally and equal. No wheezes rales or rhonchi. HEART: Regular rate and rhythm without murmurs ABDOMEN: Soft, nontender, nondistended abdomen. No guarding, no rebound. No masses appreciated. Female : deferred Musculoskeletal: Normal range of motion, no pitting or edema. No cyanosis. NEUROLOGICAL: Cranial nerves grossly intact. Normal speech, normal gait. Normal sensory, motor exams PSYCH: Normal mood, normal affect. SKIN: Warm, Dry, normal turgor, no rashes or lesions noted.. Course - Re-evaluation Re-evalutation: 10/30/17 14:52 After performing a Medical Screening Examination, I estimate there is LOW risk for ACUTE CORONARY SYNDROME, PULMONARY EMBOLI, RESPIRATORY FAILURE, SEPSIS OR MENINGITIS, thus I consider the discharge disposition reasonable. I have reevaluated this patient multiple times and no significant life threatening changes are noted. The patient and I have discussed the diagnosis and risks, and we agree with discharging home with close follow-up. We also discussed returning to the Emergency Department immediately if new or worsening symptoms occur. We have discussed the symptoms which are most concerning (e.g., changing or worsening pain, trouble swallowing or breathing, neck stiffness, fever) that necessitate immediate return. - Vital Signs Vital signs: Temp Pulse Resp BP Pulse Ox 98.3 F 77 14 116/70 98 10/30/17 13:17 10/30/17 13:17 10/30/17 13:17 10/30/17 13:17 10/30/17 13:17 Discharge - Discharge Clinical Impression: Tonsillar exudate Condition: Good Disposition: HOME, SELF-CARE Instructions: Strep Throat ([facility]) Additional Instructions: Strep Throat Your sore throat is due to the streptococcus germ (strep throat). Strep throat usually makes you feel quite ill with fever and aches, headache, swollen sore throat, and tender bumps under the angles of the jaw. Strep throat requires antibiotic treatment. Although the sore throat may go away by itself, complications such as rheumatic fever, kidney disease, or throat abscess can occur. We usually prescribe antibiotics by mouth. Be sure to take the medicine until it's gone. If you stop early, the strep may come back. If you are vomiting, are severely ill, or can't remember to take pills, we can give you an antibiotic shot. Take acetaminophen or ibuprofen for pain and fever. Sip frequent clear liquids, or use popsicles or ice chips. Anesthetic sprays or lozenges may help. Make sure the air in the room is not too dry. Avoid using decongestants or antihistamines. Call the doctor if there is no improvement in three days, or if you have difficulty breathing, increasing throat pain, high fever, rash, or frequent vomiting. take anitbiotics as directed with food. eat yogurt daily to prevent loos stool. take diflucan as needed. advised to return to the ER if any signs or symptoms became worse. Take [id number] Motrin and Tylenol as needed for any fevers or pain. Follow up with primary care within 1-2 days. All questions and concerns answered by this provider. Patient/family states would follow plan of care and agreed to plan of care. Patient was discharged home and off unit without incident. Please excuse any errors in this document was done by dragon dictation. Prescriptions: Amoxicillin Trihydrate [Amoxil 500 mg Capsule] 500 mg PO TID #30 capsule Fluconazole [Diflucan] 150 mg PO ONCE PRN #1 tablet PRN Reason: Forms: Return to Work
[2017-10-30 14:55] VITALS: BP 122/72
== END 2017-10-30 15:09 | disposition home or self-care (01) ==
LOC: ER 13:04
DX: J35.1 Hypertrophy of tonsils (principal); J02.9 Acute pharyngitis, unspecified; R05 Cough; R68.83 Chills (without fever); R13.10 Dysphagia, unspecified; R51 Headache; R53.83 Other fatigue; Z91.040 Latex allergy status
CPT/HCPCS: 87070; 87880; 99283

== ENCOUNTER 2017-11-11 09:44 | Emergency (ER) | payer SELFPAY ==
[2017-11-11 09:50] VITALS: BP 118/73
--- NOTE | 2017-11-11 10:40 | ER Document Report ---
ED GI/ - General Chief Complaint: Urinary Frequency Stated Complaint: PAINFUL URINATION Time Seen by Provider: 11/11/17 10:08 Mode of Arrival: Ambulatory Information source: Patient Notes: 32-year-old female presents to ED for complaint of urinary frequency urgency burning for the last 4 days. She has had a white discharge ever since she took her Diflucan 3 days ago. She states she was in here on the 15 for strep and was on antibiotics which caused her to have a yeast infection which is why she took the Diflucan. She states she does have vaginal itching irritation burning frequency and urgency with urination. TRAVEL OUTSIDE OF THE [place] IN LAST 30 DAYS: No - HPI Patient complains to provider of: Vaginal discharge, Vaginal pain - Irritation, Other - Urinary frequency urgency and burning Onset: Other Timing/Duration: Gradual - 3 days Quality of pain: Burning Severity at maximum: Moderate Severity in ED: Moderate Pain Level: 2 Location: Vaginal Vaginal bleeding (Compared to normal period): None LMP: 10/30/2018 Associated symptoms: Urinary frequency, Urinary retention, Urinary urgency, Vaginal discharge, Other - Vaginal irritation Exacerbated by: Other - Urination Relieved by: Denies Similar symptoms previously: Yes Recently seen / treated by doctor: Yes - Related Data Allergies/Adverse Reactions: latex Allergy (Verified 11/11/17 09:44) Hives Past Medical History - General Information source: Patient Last Menstrual Period: 10/30/2017 - Social History Smoking Status: Never Smoker Cigarette use (# per day): No Chew tobacco use (# tins/day): No Smoking Education Provided: No Frequency of alcohol use: None Drug Abuse: None Occupation: [employer] Lives with: Family - Adult daughter and her children Family History: Arthritis, CAD, CVA, DM, Hyperlipidemia, Hypertension, Malignancy. denies: COPD, Thyroid Disfunction Patient has suicidal ideation: No Patient has homicidal ideation: No - Past Medical History Cardiac Medical History: Reports: None Pulmonary Medical History: Reports: None EENT Medical History: Reports: None Neurological Medical History: Reports: None Endocrine Medical History: Reports: None Renal/ Medical History: Reports: Hx Ovarian Cysts Malignancy Medical History: Reports: None GI Medical History: Reports: None Musculoskeltal Medical History: Reports None Skin Medical History: Reports None Psychiatric Medical History: Reports: Hx Anxiety Traumatic Medical History: Reports: None Infectious Medical History: Reports: None Past Surgical History: Reports: Hx Gynecologic Surgery - L ovarian cyst removed , , Hx Tubal Ligation - Immunizations Immunizations up to date: No Hx Diphtheria, Pertussis, Tetanus Vaccination: No Review of Systems - Review of Systems Constitutional: No symptoms reported EENT: No symptoms reported Cardiovascular: No symptoms reported Respiratory: No symptoms reported Gastrointestinal: No symptoms reported Genitourinary: Burning, Frequency, Urgency Female Genitourinary: Vaginal discharge, Other - Vaginal irritation Musculoskeletal: No symptoms reported Skin: No symptoms reported Hematologic/Lymphatic: No symptoms reported Neurological/Psychological: No symptoms reported -: Yes All other systems reviewed and negative Physical Exam - Vital signs Vitals: Temp Pulse Resp BP Pulse Ox 97.4 F 77 20 118/73 98 11/11/17 09:49 11/11/17 09:49 11/11/17 09:49 11/11/17 09:49 11/11/17 09:49 Interpretation: Normal - General General appearance: Appears well, Alert - HEENT Head: Normocephalic, Atraumatic Eyes: Normal Pupils: PERRL - Respiratory Respiratory status: No respiratory distress Chest status: Nontender Breath sounds: Normal Chest palpation: Normal - Cardiovascular Rhythm: Regular Heart sounds: Normal auscultation Murmur: No - Abdominal Inspection: Normal Distension: No distension Bowel sounds: Normal Tenderness: Nontender Organomegaly: No organomegaly - Genitourinary External exam: Other - Creamy vaginal discharge with mild irritation no vesicles no rash Notes: Patient self swab for GC chlamydia and wet mount. - Back Back: Normal, Nontender - Extremities General upper extremity: Normal inspection, Nontender, Normal color, Normal ROM , Normal temperature General lower extremity: Normal inspection, Nontender, Normal color, Normal ROM , Normal temperature, Normal weight bearing. No: Ry's sign - Neurological Neuro grossly intact: Yes Cognition: Normal Orientation: AAOx4 [place] Coma Scale Eye Opening: Spontaneous [place] Coma Scale Verbal: Oriented [place] Coma Scale Motor: Obeys Commands [place] Coma Scale Total: 15 Speech: Normal Motor strength normal: LUE, RUE, LLE, RLE Sensory: Normal - Psychological Associated symptoms: Normal affect, Normal mood - Skin Skin Temperature: Warm Skin Moisture: Dry Skin Color: Normal Course - Re-evaluation Re-evalutation: 11/11/17 10:42 Specimen sent for urine wet mount and GC and Chlamydia will reassess after getting results of the urine and the wet mount. 11/11/17 11:25 Patient was treated with azithromycin and Rocephin as the GC and Chlamydia are not back yet. She was also treated with Macrobid for UTI Diflucan for her yeast infection and Flagyl for her bacterial vaginosis. Patient will be discharged home she has been instructed to call back for the results of her other test. Patient to follow-up with [facility] and her primary doctor. 11/11/17 12:29 GC and Chlamydia were both negative patient was informed of the results. - Vital Signs Vital signs: Temp Pulse Resp BP Pulse Ox 97.4 F 77 20 118/73 98 11/11/17 09:49 11/11/17 09:49 11/11/17 09:49 11/11/17 09:49 11/11/17 09:49 - Laboratory Laboratory results interpreted by me: 11/11/17 10:30 Urine Blood SMALL H Ur Leukocyte Esterase LARGE H Discharge - Discharge Clinical Impression: Bacterial vaginitis, Yeast vaginitis UTI (urinary tract infection) Qualifiers: Urinary tract infection type: site unspecified Hematuria presence: without hematuria Qualified Code(s): N39.0 - Urinary tract infection, site not specified Condition: Stable Disposition: HOME, SELF-CARE Instructions: Family Physicians / Practices Additional Instructions: URINARY TRACT INFECTION: Your evaluation indicates that you have a urinary tract infection. This is due to germs growing in the bladder. This is a common problem. This infection usually responds quickly to antibiotics. Your antibiotic should be taken exactly as prescribed. Drink plenty of fluids -- three to four quarts a day. Occasionally, a bladder anesthetic will be prescribed to help stop the feeling of urgency until the antibiotic has a chance to clear the infection. This may cause your urine to be dark orange. Certain urine infections require a culture. If the doctor obtained a culture, the results will be back in two days. You should call to see if a change in treatment is needed. A repeat urinalysis after you finish treatment is often recommended. The physician will let you know if further testing is required. Call the doctor if you develop fever, chills, flank pain, inability to urinate, or blood in the urine. VAGINITIS: Your exam shows that you have vaginitis, a vaginal infection. The infection can be caused by a many different organisms, including trichomonas or Gardnerella. The usual symptoms are vaginal irritation and discharge. The treatment is usually antibiotics such as Flagyl. Laboratory tests can determine which germ is responsible. Use the medication as prescribed. Because this infection can be transmitted sexually, your sexual partner may need to be checked and treated also. If your physician has not discussed this with you, please check before resuming sexual relations. If a culture shows gonorrhea or chlamydia, the infection must be reported to the health department. Call the doctor if you develop pelvic pain, fever, or problems with urination, or if you don't improve as expected. VAGINOSIS, BACTERIAL: Your exam shows you have bacterial vaginosis. This condition is due to an overgrowth of bacteria in the vagina. Symptoms may include vaginal itching or pain, a smelly discharge, and sometimes burning with urination. Normally this is not transmitted by sexual contact. Vaginosis can be treated with oral or topical antibiotics. Metronidazole ( Flagyl) pills are usually effective. Topical vaginal creams include Cleocin and Metro-Gel. You should avoid sexual contact until your symptoms are all better. Call the doctor if you develop pelvic pain, fever, or problems with urination, or if you don't improve as expected. VAGINAL YEAST INFECTION: You have evidence of a yeast infection -- called "alexa." A vaginal yeast infection often causes itching and discharge. While not dangerous, it can be very unpleasant. A yeast infection often follows the use of powerful antibiotics. It is more likely to occur in diabetics. The treatment now is usually a single pill of Diflucan, but also an antifungal cream or suppository may be used for a few days. You do not need to avoid sexual intercourse. Recurrences are common. You can make a recurrence less likely by wearing cotton underwear and avoiding tight clothing. For mild recurrences, you can try [id number] creams or suppositories that are made specifically for yeast. If the symptoms do not resolve, you should follow up for re-examination. Sometimes treatment of the sexual partner is necessary if infections are recurrent. CEPHALOSPORINS: An antibiotic of the cephalosporin class has been prescribed. This type of antibiotic covers a wide variety of infections, including those of the skin, lungs, middle ear, and urinary tract. This antibiotic is somewhat similar to the penicillin family. In rare cases , a person who is allergic to penicillin will also be allergic to this medication. If you have had a severe allergic reaction to penicillin, and have not taken this antibiotic since that time, notify your doctor. Antibiotics which cover many germs ("broad spectrum" antibiotics) are more likely to cause diarrhea or "yeast" infections. Women prone to vaginal yeast problems may suffer an attack after taking this antibiotic. In infants, oral thrush (white spots "stuck" on the cheek) or yeast diaper rash may result. See your doctor if these problems occur. Call the doctor at once if you develop hives, itching, shortness of breath , or lightheadedness. DOXYCYCLINE: Doxycycline (Vibramycin, Doryx) is an antibiotic of the tetracycline family. This type of drug is useful for infections of the respiratory tract and genital tract, and is sometimes used for intestinal infections. Unlike most tetracyclines, doxycycline can be taken with food. It is longer acting, and (usually) less prone to side effects than regular tetracycline. Tetracycline antibiotics can stain immature teeth and SHOULD NOT BE TAKEN BY CHILDREN, NURSING MOTHERS, OR WOMEN. Tetracyclines can make you more prone to sunburn. Abdominal cramping, nausea, and diarrhea are occasional side effects. Women may experience vaginal yeast infections. Call the doctor at once if you develop hives, itching, shortness of breath , or lightheadedness. AZITHROMYCIN: Azithromycin (Zithromax) is a broad spectrum antibiotic in the same class as erythromycin. It can treat a variety of bacterial infections, but is most frequently used for respiratory infections. Azithromycin is extremely long-lasting. It accumulates in body tissues and continues to kill bacteria for many days. In order to improve absorption, Azithromycin should be taken at least one hour before or two hours after a meal. It does not have the same strong tendency to upset the stomach as erythromycin and is usually very well tolerated. Patients who have had a rash or other true allergic reactions to erythromycin should not take this medication. Call if you develop gastrointestinal distress, severe diarrhea, rash, hives, itching, or shortness of breath. METRONIDAZOLE: Metronidazole (Flagyl) has been prescribed. This medication is used to kill a type of bacteria called anaerobes, and protozoan parasites such as trichomonas and Giardia. Flagyl often causes a metallic taste in the mouth and mild nausea. Do not use alcohol in any form with Flagyl (including alcohol in medication elixirs). Flagyl interacts with alcohol to cause flushing, palpitations, headache, stomach cramps, and vomiting. Do not use Flagyl if you are taking Antabuse (disulfiram). Call the doctor at once if you develop rash, shortness of breath, itching, or lightheadedness. FLUCONAZOLE: Fluconazole (Diflucan) is an antifungal drug. It is useful for serious fungal infections, but is also excellent for oral or vaginal yeast infections. Diflucan interacts with some medicines. This is a concern if you are taking anticoagulants (such as Coumadin), phenytoin (Dilantin), cyclosporin, or oral hypoglycemics (such as tolbutamide, Orinase, glipizide, Glucotrol, glyburide, DiaBeta, Glynase, and Micronase). Be sure the doctor knows if you are taking one of these medicines. We don't know how Diflucan affects . If you are planning to become , discuss this with your doctor. Diflucan has few side effects. Minor side effects may include nausea, headache, or diarrhea. Call the doctor if you develop a skin rash, shortness of breath, or other new symptoms. NITROFURANTOIN (MACRODANTIN, MACROBID): You have received a prescription for nitrofurantoin (Macrodantin). This antibiotic is used for urinary tract infections. Women who are or nursing should notify the physician before taking this medicine. If you have ever had a problem caused by this medication in the past, be sure the physician is aware of it. Common side effects of this medicine include nausea, vomiting, or decreased appetite. Notify your physician if these side effects become severe. Immediately stop this medicine and call the physician if you develop cough , shortness of breath, chest pain, weakness, jaundice (yellow color of the skin and whites of the eyes), or a skin rash. FOLLOW-UP CARE: If you have been referred to a physician for follow-up care, call the physician s office for an appointment as you were instructed or within the next two days. If you experience worsening or a significant change in your symptoms, notify the physician immediately or return to the Emergency Department at any time for re-evaluation. Prescriptions: Fluconazole [Diflucan] 150 mg PO ONCE PRN #2 tablet PRN Reason: Metronidazole [Flagyl 500 mg Tablet] 500 mg PO BID #14 tablet Nitrofurantoin/Nitrofuran Mac [Macrobid 100 mg Capsule] 1 tab PO BID #20 capsule Forms: Return to Work
[2017-11-11 10:52] LABS: BACTERIA (WET MOUNT) 4+ BACTERIA SEEN; EPITHELIALS (WET MOUNT) 3+ EPITHELIALS SEEN; RBCS (WET MOUNT) NO RBCS SEEN; T.VAGINALIS (WET MOUNT) NO TRICHOMONAS SEEN; WBCS (WET MOUNT) 4+ WBCS SEEN; YEAST (WET MOUNT) YEAST SEEN
[2017-11-11 10:59] LABS: APPEARANCE,URINE CLOUDY; BILIRUBIN,URINE NEGATIVE (NEGATIVE); COLOR,URINE YELLOW; GLUCOSE, URINE NEGATIVE (NEGATIVE); KETONES,URINE NEGATIVE (NEGATIVE); LEUKOCYTE ESTERASE,URINE LARGE (NEGATIVE); NITRITE,URINE NEGATIVE (NEGATIVE); PROTEIN,URINE NEGATIVE (NEGATIVE); URINE SPECIFIC GRAVITY 1.024; UROBILINOGEN,URINE NEGATIVE mg/dL (<2.0)
[2017-11-11] MEDS ORDERED: AZITHROMYCIN 250 MG TABLET PO ONE (11:16)
[2017-11-11] MEDS ORDERED: METRONIDAZOLE 500 MG TABLET PO ONE (11:16)
[2017-11-11] MEDS ORDERED: CEFTRIAXONE INJ 250 MG VIAL IM ONE (11:16)
[2017-11-11] MEDS ORDERED: LIDOCAINE 1% INJ-PF (10 MG/ML) 30 ML SDV INJ ONE (11:16)
[2017-11-11] MEDS ORDERED: NITROFURANTOIN MONOHYD/M-CRYST 100 MG CAPSULE PO ONE (11:17)
[2017-11-11 12:20] LABS: CHLAM PCR NOT DETECTED (NOT DETECT); GON PCR NOT DETECTED (NOT DETECT)
== END 2017-11-11 11:32 | disposition home or self-care (01) ==
LOC: ER 09:44
DX: B37.3 Candidiasis of vulva and vagina (principal); N76.0 Acute vaginitis; B96.89 Other specified bacterial agents as the cause of diseases classified elsewhere; Z91.040 Latex allergy status
CPT/HCPCS: 99283; 96372; 87086; 87210; 81025; 87088; 81001; 87491; 87591; J3490; J0696; J8499

== ENCOUNTER 2017-12-02 12:48 | Emergency (ER) | payer SELFPAY ==
[2017-12-02] MEDS ORDERED: ACETAMINOPHEN 325 MG TABLET PO ONE (14:59)
[2017-12-02] MEDS ORDERED: ASPIRIN 81 MG TABLET, CHEWABLE PO ONE (14:59)
--- NOTE | 2017-12-02 15:02 | ER Document Report ---
ED Medical Screen (RME) - General Chief Complaint: Chest Pain Stated Complaint: CHEST PAIN Time Seen by Provider: 12/02/17 14:58 Notes: Patient is a 32-year-old female presents emergency department with a chief complaint of chest pain, cough, body aches and lethargy. Patient states that her symptoms started yesterday with cough and body aches and then today she woke up with chest pain. She states that she woke up with chest tightness as a 5 out of 5 in severity woke up out of sleep at 9 AM. States she came here she was able to fall back asleep and her chest pain went away. States that she woke back up that her chest pain is still present. She did not take anything today prior to arrival. She denies any previous history of coronary artery disease, DVT, PE. Non-smoker. Does admit to history of chest pain that was related to anxiety also admits to history of bronchitis. TRAVEL OUTSIDE OF THE [place] IN LAST 30 DAYS: No - Related Data Allergies/Adverse Reactions: latex Allergy (Verified 12/02/17 12:49) Hives Past Medical History - Social History Family history: CAD Renal/ Medical History: Reports: Hx Ovarian Cysts. Denies: Hx Peritoneal Dialysis Psychiatric Medical History: Reports: Hx Anxiety Past Surgical History: Reports: Hx Gynecologic Surgery - L ovarian cyst removed , , Hx Tubal Ligation - Immunizations Immunizations up to date: No Hx Diphtheria, Pertussis, Tetanus Vaccination: No Physical Exam - Vital signs Vitals: Temp Pulse Resp BP Pulse Ox 101.2 F H 94 20 132/85 H 99 12/02/17 13:12/02/17 13:12/02/17 13:12/02/17 13:12/02/17 13:01 - Notes Notes: PHYSICAL EXAM GENERAL: Alert, interacts well. HEAD: Normocephalic, atraumatic. LUNGS: Clear to auscultation bilaterally, no wheezes, rales, or rhonchi. No respiratory distress. HEART: Regular rate and rhythm. No murmurs, gallops, or rubs. NEUROLOGICAL: Alert and oriented x4. Normal speech. Course - Vital Signs Vital signs: Temp Pulse Resp BP Pulse Ox 101.2 F H 94 20 132/85 H 99 12/02/17 13:01 12/02/17 13:01 12/02/17 13:01 12/02/17 13:01 12/02/17 13:01
[2017-12-02 15:37] LABS: ABSOLUTE EOSINOPHILS # (AUTO) 0.1 10^3/uL (0.0-0.6); ABSOLUTE LYMPHOCYTES (AUTO) 0.5 10^3/uL (0.5-4.7); ABSOLUTE MONOCYTES (AUTO) 0.4 10^3/uL (0.1-1.4); BASOPHILS % (AUTO) 0.5 % (0-2); EOSINOPHILS % (AUTO) 2.5 % (0-6); HEMOGLOBIN 12.8 g/dL (12.0-15.5); MEAN CORPUSCULAR HEMOGLOBIN 24.2 pg (27.0-33.4); MEAN CORPUSCULAR HGB CONC 32.7 g/dL (32.0-36.0); MEAN CORPUSCULAR VOLUME 74 fl (80-97); MONOCYTES % (AUTO) 7.8 % (3-13); PLATELET COUNT 269 10^3/uL (150-450); RED BLOOD COUNT 5.27 10^6/uL (3.72-5.28); RED CELL DISTRIBUTION WIDTH 16.5 % (11.5-14.0); SEGMENTED NEUTROPHILS % (AUTO) 79.2 % (42-78); TOTAL CELLS COUNTED % (AUTO) 100 %; WHITE BLOOD COUNT 5.1 10^3/uL (4.0-10.5)
--- NOTE | 2017-12-02 15:55 | RADIOLOGY REPORT (SQ) ---
EXAM DESCRIPTION: CHEST SINGLE VIEW COMPLETED DATE/TIME: 12/02/2017 3:48 pm REASON FOR STUDY: chest pain COMPARISON: 01/16/2017. EXAM PARAMETERS: NUMBER OF VIEWS: One view. TECHNIQUE: Single frontal radiographic view of the chest acquired. RADIATION DOSE: NA LIMITATIONS: None. FINDINGS: LUNGS AND PLEURA: No acute infiltrates or effusions. MEDIASTINUM AND HILAR STRUCTURES: No masses. Contour normal. HEART AND VASCULAR STRUCTURES: The heart pulmonary vasculature are normal. BONES: Mid and lower dorsal scoliosis convex left. HARDWARE: None in the chest. OTHER: No other significant finding. IMPRESSION: NO ACUTE DISEASE. TECHNICAL DOCUMENTATION: JOB ID: [id number] [id number] [employer]- All Rights Reserved
[2017-12-02 15:59] LABS: ALANINE AMINOTRANSFERASE 35 U/L (9-52); ALBUMIN 4.4 g/dL (3.5-5.0); ALKALINE PHOSPHATASE 73 U/L (38-126); ANION GAP 11 (5-19); ASPARTATE AMINO TRANSFERASE 21 U/L (14-36); BILIRUBIN,DIRECT 0.4 mg/dL (0.0-0.4); BILIRUBIN,TOTAL 0.6 mg/dL (0.2-1.3); BLOOD UREA NITROGEN 12 mg/dL (7-20); CALCIUM 9.5 mg/dL (8.4-10.2); CARBON DIOXIDE 26 mmol/L (22-30); CHLORIDE 102 mmol/L (98-107); CREATINE KINASE 73 U/L (30-135); GLUCOSE 84 mg/dL (75-110); POTASSIUM 4.4 mmol/L (3.6-5.0); SODIUM 138.5 mmol/L (137-145); TOTAL PROTEIN 7.7 g/dL (6.3-8.2)
[2017-12-02 16:11] LABS: CREATINE KINASE MB < 0.22 ng/mL (<4.55); TROPONIN I < 0.012 ng/mL
--- NOTE | 2017-12-02 17:29 | ER Document Report ---
HPI - HPI Patient complains to provider of: Chest pain Pain Level: 0 Context: Patient is a 32-year-old female presents emergency department with a chief complaint of fever, chills, chest pain, cough. Patient states that she woke up this morning with chest pressure has not gone away throughout the day except when she goes to sleep. States that she is able to sleep in the ER waiting room chest pain-free woke up and states that it intermittently bothers her. States it is worse with deep breaths. States that she does not have a history of asthma, COPD. Did not take anything prior to arrival. Does admit to previous history of chest pain which was related to anxiety. Denies any heart attack in family members under the age of 60. Denies any previous history of PE or DVT - REPRODUCTIVE Reproductive: DENIES: : Past Medical History - Social History Smoking Status: Smoker,Current Status Unk Family History: Arthritis, CAD, CVA, DM, Hyperlipidemia, Hypertension, Malignancy. denies: COPD, Thyroid Disfunction Renal/ Medical History: Reports: Hx Ovarian Cysts. Denies: Hx Peritoneal Dialysis Psychiatric Medical History: Reports: Hx Anxiety Past Surgical History: Reports: Hx Gynecologic Surgery - L ovarian cyst removed , , Hx Tubal Ligation - Immunizations Immunizations up to date: No Hx Diphtheria, Pertussis, Tetanus Vaccination: No Vertical Provider Document - CONSTITUTIONAL Agree With Documented VS: Yes Notes: PHYSICAL EXAM GENERAL: Alert, interacts well. HEAD: Normocephalic, atraumatic. EYES: Pupils equal, round, and reactive to light. Extraocular movements intact. ENT: Oral mucosa moist, tongue midline. NECK: Full range of motion. Supple. Trachea midline. LUNGS: Clear to auscultation bilaterally, no wheezes, rales, or rhonchi. No respiratory distress. HEART: Mild tenderness palpation of the chest wall and shoulders bilaterally. Regular rate and rhythm. No murmurs, gallops, or rubs. EXTREMITIES: Moves all 4 extremities spontaneously. No edema, radial and dorsalis pedis pulses 2/4 bilaterally. No cyanosis. NEUROLOGICAL: Alert and oriented x4. Normal speech. PSYCH: Normal affect, normal mood. SKIN: Warm, dry, normal turgor. No rashes or lesions noted. - INFECTION CONTROL TRAVEL OUTSIDE OF THE [place] IN LAST 30 DAYS: No - RESPIRATORY O2 Sat by Pulse Oximetry: 99 Course - Re-evaluation Re-evalutation: 12/02/17 17:26 Patient is a 32-year-old female is hemodynamically stable, no acute distress and afebrile. Presentation is consistent with viral infection likely influenza with associated body aches. Patient is very well in appearance, vitals within normal limits. Low clinical suspicion for ACS given clinical history, exam, EKG without ST elevations or depressions, and negative initial troponin. HEART score less than or equal to 3. PE also seems unlikely given clinical history, absence of tachycardia or dyspnea. Well's score of 0. CXR without evidence of pneumothorax or pneumonia. No widened mediastinum. Aortic dissection also seems unlikely given history, symmetric pulses, CXR, and vitals. Symptoms resolved after dose of Tylenol and aspirin received here. At this time will discharge with return precautions and follow-up recommendations. Verbal discharge instructions given a the bedside and opportunity for questions given. Medication warnings reviewed. Patient is in agreement with this plan and has verbalized understanding of return precautions and the need for primary care follow-up in the next 24-72 hours. - Vital Signs Vital signs: Temp Pulse Resp BP Pulse Ox 101.2 F H 94 20 132/85 H 99 12/02/17 13:01 12/02/17 13:01 12/02/17 13:01 12/02/17 13:01 12/02/17 13:01 - Laboratory Result Diagrams: 12/02/17 15:23 12/02/17 15:23 Laboratory results interpreted by me: 12/02/17 15:23 MCV 74 L MCH 24.2 L RDW 16.5 H Seg Neutrophils % 79.2 H Lymphocytes % 10.0 L - Diagnostic Test Radiology reviewed: Image reviewed, Reports reviewed Discharge - Discharge Clinical Impression: Cough, Viral syndrome Condition: Good Disposition: HOME, SELF-CARE Additional Instructions: Your symptoms are likely due to a virus. However, it is important that you continue to monitor for any concerning symptoms including inability to tolerate oral fluids, less than 2 urinations in a 24 hour period, and lethargy. Please continue to offer oral solutions such as water or Gatorade. It is okay if you do not want to eat over the next several days but it is important that you continue to drink fluids. You may also take a medication such as ibuprofen ( Motrin) or acetaminophen (Tylenol) per box instructions for fever. Please also follow-up with your primary care doctor in the next several days. Prescriptions: Benzonatate [Tessalon Perles 100 mg Capsule] 100 mg PO Q8HP PRN #40 capsule PRN Reason: Forms: Return to Work Referrals: RUDY TREADWELL MD [ACTIVE STAFF] - Follow up in 3-5 days
[2017-12-02 17:43] VITALS: BP 118/73
--- NOTE | 2017-12-02 22:19 | EKG REPORT ---
SEVERITY:- NORMAL ECG - SINUS RHYTHM : Confirmed by: Archie Prajapati 02-Dec-2017 22:19:09
== END 2017-12-02 17:43 | disposition home or self-care (01) ==
LOC: ER 12:48
DX: B34.9 Viral infection, unspecified (principal); R05 Cough; R07.9 Chest pain, unspecified; F41.9 Anxiety disorder, unspecified; F17.200 Nicotine dependence, unspecified, uncomplicated
CPT/HCPCS: 36415; 71045; 80053; 82550; 82553; 84484; 85025; 93005; 93010; 99285

== ENCOUNTER 2017-12-15 10:48 | Emergency (ER) | payer SELFPAY ==
--- NOTE | 2017-12-15 12:24 | ER Document Report ---
ED Medical Screen (RME) - General Chief Complaint: Abdominal Pain Stated Complaint: STOMACH PAIN Time Seen by Provider: 12/15/17 12:15 Mode of Arrival: Ambulatory Information source: Patient Notes: 32-year-old female recently treated for UTI presents to the emergency room with whitish discharge, suprapubic discomfort, dysuria. Patient denies nausea, vomiting, abdominal pain. TRAVEL OUTSIDE OF THE [place] IN LAST 30 DAYS: No - HPI Onset: Last week Onset/Duration: Gradual Quality of pain: Burning Severity: None Pain Level: Denies Associated Symptoms: denies: Chest pain, Fever, Nausea, Shortness of breath Exacerbated by: Denies Relieved by: Denies Similar symptoms previously: Yes Recently seen / treated by doctor: Yes - Related Data Smoking: Non-smoker Frequency of alcohol use: None Drug Abuse: None Allergies/Adverse Reactions: latex Allergy (Verified 12/15/17 12:09) Hives Past Medical History - General Information source: Patient - Social History Cigarette use (# per day): No Chew tobacco use (# tins/day): No Frequency of alcohol use: None Drug Abuse: None Lives with: Family Family history: CAD - Medical History Medical History: Negative Renal/ Medical History: Reports: Hx Ovarian Cysts. Denies: Hx Peritoneal Dialysis Psychiatric Medical History: Reports: Hx Anxiety Past Surgical History: Reports: Hx Gynecologic Surgery - L ovarian cyst removed , , Hx Tubal Ligation - Immunizations Immunizations up to date: No Hx Diphtheria, Pertussis, Tetanus Vaccination: No Review of Systems - Review of Systems Constitutional: denies: Chills, Fever EENT: No symptoms reported Cardiovascular: No symptoms reported Respiratory: No symptoms reported Gastrointestinal: No symptoms reported Genitourinary: See HPI Female Genitourinary: No symptoms reported Musculoskeletal: No symptoms reported Skin: No symptoms reported Hematologic/Lymphatic: No symptoms reported Neurological/Psychological: No symptoms reported Physical Exam - Vital signs Vitals: Temp Pulse Resp BP Pulse Ox 98.4 F 72 18 120/65 97 12/15/17 11:09 12/15/17 11:09 12/15/17 11:09 12/15/17 11:09 12/15/17 11:09 Notes: Physical exam: GENERAL: 32-year-old female, alert and oriented 3, no acute distress HEAD: Atraumatic, normocephalic. EYES: Pupils equal round and reactive to light, extraocular movements intact, sclera anicteric, conjunctiva are normal. ENT: Moist mucous membranes. NECK: Normal range of motion, supple without obvious mass LUNGS: Breath sounds clear to auscultation bilaterally and equal. No wheezes rales or rhonchi. HEART: Regular rate and rhythm without murmurs, rubs or gallops. ABDOMEN: Soft, normoactive bowel sounds. No tenderness to palpation. No guarding, no rebound. No masses appreciated. Pelvic: Performed in the presence of a female nurse (Shweta). external genitalia shows some excoriation of the labia. There is a whitish discharge in the vault. No cervical motion tenderness, adnexal tenderness or mass EXTREMITIES: Normal range of motion, no pitting or edema. No clubbing or cyanosis. NEUROLOGICAL: Cranial nerves II through XII grossly intact. Normal speech, moving all extremities. PSYCH: Normal mood, normal affect. SKIN: Warm, Dry, normal turgor, no rashes or lesions noted. Course - Re-evaluation Re-evalutation: 12/15/17 14:39 At the time of discharge, I have instructed the patient at the bedside with regards to return precautions and follow-up recommendations. The opportunity for questions was given. The patient has verbalized understanding of these instructions and the need for follow-up. - Vital Signs Vital signs: Temp Pulse Resp BP Pulse Ox 97.7 F 71 18 131/81 H 99 12/15/17 14:30 12/15/17 14:30 12/15/17 11:09 12/15/17 14:30 12/15/17 14:30 - Laboratory Laboratory results interpreted by me: 12/15/17 12:35 Ur Leukocyte Esterase LARGE H Doctor's Discharge - Discharge Clinical Impression: Bacterial vaginosis Condition: Stable Disposition: HOME, SELF-CARE Instructions: Vaginosis, Bacterial ([facility]), Vaginal Yeast Infection ([facility]) Additional Instructions: As discussed, take the metronidazole first, and then take the Diflucan for the yeast infection. Follow-up with your primary care doctor ( Return to the emergency room for any problems: Worsening pain, worsening discharge or any concerns or getting worse per See the instruction sheet for bacterial vaginosis and yeast. Prescriptions: Fluconazole [Diflucan] 150 mg PO ONCE PRN #2 tablet PRN Reason: Metronidazole [Flagyl 500 mg Tablet] 500 mg PO BID #14 tablet
[2017-12-15 13:01] LABS: BACTERIA (WET MOUNT) 3+ BACTERIA SEEN; EPITHELIALS (WET MOUNT) 3+ EPITHELIALS SEEN; T.VAGINALIS (WET MOUNT) NO TRICHOMONAS SEEN; WBCS (WET MOUNT) FEW WBCS SEEN; YEAST (WET MOUNT) BUDDING YEAST SEEN
[2017-12-15 13:53] LABS: APPEARANCE,URINE CLEAR; BILIRUBIN,URINE NEGATIVE (NEGATIVE); COLOR,URINE STRAW; GLUCOSE, URINE NEGATIVE (NEGATIVE); KETONES,URINE NEGATIVE (NEGATIVE); LEUKOCYTE ESTERASE,URINE LARGE (NEGATIVE); NITRITE,URINE NEGATIVE (NEGATIVE); PROTEIN,URINE NEGATIVE (NEGATIVE); URINE SPECIFIC GRAVITY 1.014; UROBILINOGEN,URINE NEGATIVE mg/dL (<2.0)
[2017-12-15 14:31] VITALS: BP 131/81
[2017-12-15 16:14] LABS: CHLAM PCR NOT DETECTED (NOT DETECT); GON PCR NOT DETECTED (NOT DETECT)
== END 2017-12-15 14:41 | disposition home or self-care (01) ==
LOC: ER 10:48
DX: N76.0 Acute vaginitis (principal); B96.89 Other specified bacterial agents as the cause of diseases classified elsewhere; Z91.040 Latex allergy status; Z98.51 Tubal ligation status
CPT/HCPCS: 81001; 87086; 87210; 87491; 87591; 99284

== ENCOUNTER 2018-01-18 08:04 | Emergency (ER) | payer MEDICAID ==
--- NOTE | 2018-01-18 09:31 | ER Document Report ---
ED General - General Chief Complaint: Sore Throat Stated Complaint: FLU LIKE SYMPTOMS Time Seen by Provider: 01/18/18 08:55 Mode of Arrival: Ambulatory Information source: Patient TRAVEL OUTSIDE OF THE [place] IN LAST 30 DAYS: No - HPI Onset: Yesterday Onset/Duration: Sudden Quality of pain: Stabbing Severity: Moderate Pain Level: 3 Associated symptoms: Chills, Earache, Fever Exacerbated by: Deep breathing Relieved by: Other - nothing Similar symptoms previously: Yes Recently seen / treated by doctor: No Notes: History of strep throat. Around sick contacts. Denieschest pain,palpitations, shortness of breath, dyspnea, nausea, vomiting, diarrhea, abdominal pain, hematuria,blurred vision, double vision, loss of vision, speech changes, LH, dizziness, syncope, headaches, wheezing, URI, neck pain, weakness, bowel or bladder dysfunction, saddle anesthesia, numbness or tingling in bilateral upper or lower extremities equally, muscle paralysis, weakness in bilateral upper or lower extremities equally or rash. Denies IV drug use. - Related Data Allergies/Adverse Reactions: latex Allergy (Verified 01/18/18 08:05) Hives Past Medical History - General Information source: Patient - Social History Smoking Status: Never Smoker Chew tobacco use (# tins/day): No Frequency of alcohol use: None Drug Abuse: None Family History: Arthritis, CAD, CVA, DM, Hyperlipidemia, Hypertension, Malignancy. denies: COPD, Thyroid Disfunction Patient has suicidal ideation: No Patient has homicidal ideation: No Renal/ Medical History: Reports: Hx Ovarian Cysts. Denies: Hx Peritoneal Dialysis Psychiatric Medical History: Reports: Hx Anxiety Past Surgical History: Reports: Hx Gynecologic Surgery - L ovarian cyst removed , , Hx Tubal Ligation - Immunizations Immunizations up to date: No Hx Diphtheria, Pertussis, Tetanus Vaccination: No Review of Systems - Review of Systems Constitutional: See HPI EENT: See HPI Cardiovascular: No symptoms reported Respiratory: No symptoms reported Gastrointestinal: No symptoms reported Genitourinary: No symptoms reported Female Genitourinary: No symptoms reported Musculoskeletal: No symptoms reported Skin: No symptoms reported Hematologic/Lymphatic: No symptoms reported Neurological/Psychological: No symptoms reported Physical Exam - Vital signs Vitals: Temp Pulse Resp BP Pulse Ox 99.1 F 104 H 16 117/70 97 01/18/18 08:08 01/18/18 08:08 01/18/18 08:08 01/18/18 08:08 01/18/18 08:08 - Notes Notes: PHYSICAL EXAMINATION: GENERAL: Well-appearing, well-nourished and in no acute distress. HEAD: Atraumatic, normocephalic. EYES: Pupils equal round and reactive to light, extraocular movements intact, conjunctiva are normal. ENT: TM intact with bilateral serous effusion, no erythema. Nares boggy bilaterally, oropharynx with erythema with exudates. Moist mucous membranes. NECK: Normal range of motion, supple without lymphadenopathy LUNGS: Breath sounds clear to auscultation bilaterally and equal. No wheezes rales or rhonchi. HEART: Regular rate and rhythm without murmurs ABDOMEN: Soft, nontender, nondistended abdomen. No guarding, no rebound. No masses appreciated. Female : deferred Musculoskeletal: Normal range of motion, no pitting or edema. No cyanosis. NEUROLOGICAL: Cranial nerves grossly intact. Normal speech, normal gait. Normal sensory, motor exams PSYCH: Normal mood, normal affect. SKIN: Warm, Dry, normal turgor, no rashes or lesions noted. Course - Re-evaluation Re-evalutation: 01/18/18 09:30 Healthy 32-year-old female who is afebrile slightly tachycardic presents today with complaints of sudden onset sore throat, states she thinks she has strep. Rapid strep negative but clinically patient does appear to have strep pharyngitis patient has had strep in the past. On examination patient does have exudates in bilateral tonsils. Uvula is midline, no stridor. No drooling or trismus noted. Advised patient to take antibiotic, is contagious for the first 24 hours. Replace your toothbrush after 8 hours, use Magic mouthwash prior to meals to help relieve pain. Do not share any utensils or cups. Advised take ibuprofen and Tylenol for fever control and pain control. Patient verbalized an understanding of this plan of care and agree with plan of care. Patient was discharged home without issues. 01/18/18 13:16 - Vital Signs Vital signs: Temp Pulse Resp BP Pulse Ox 97.9 F 103 H 16 118/73 97 01/18/18 09:36 01/18/18 09:36 01/18/18 08:08 01/18/18 09:36 01/18/18 09:36 Discharge - Discharge Clinical Impression: Tonsillar exudate Condition: Good Disposition: HOME, SELF-CARE Instructions: Sore Throat ([facility]), Strep Throat ([facility]) Additional Instructions: SORE THROAT: Sore throats may be caused by viruses, bacteria, or fungi. Most are due to a virus, and must get better on their own. Bacterial sore throats, particularly those due to "strep," need treatment with antibiotics. If an antibiotic is prescribed, be sure to take the medication for a full 10 days. Failure to take the antibiotic can result in complications such as rheumatic fever. Sometimes, an injection of antibiotics is given instead of pills or liquid. This single "shot" is equal in effectiveness to the oral medication. To relieve symptoms, take acetaminophen for pain. Sip clear liquids frequently, or eat popsicles or ice chips. Anesthetic sprays or lozenges may help. Make sure the air in the room is not too dry. Avoid using decongestants or antihistamines. Call the doctor if there is no improvement in two days, or if you have difficulty breathing, increasing throat pain, high fever, rash, or frequent vomiting. STREP THROAT: Your sore throat is due to the streptococcus germ (strep throat). Strep throat usually makes you feel quite ill with fever and aches, headache, swollen sore throat, and tender bumps under the angles of the jaw. Strep throat requires antibiotic treatment. Although the sore throat may go away by itself, complications such as rheumatic fever, kidney disease, or throat abscess can occur. We usually prescribe antibiotics by mouth. Be sure to take the medicine until it's gone. If you stop early, the strep may come back. If you are vomiting, are severely ill, or can't remember to take pills, we can give you an antibiotic shot. Take acetaminophen or ibuprofen for pain and fever. Sip frequent clear liquids, or use popsicles or ice chips. Anesthetic sprays or lozenges may help. Make sure the air in the room is not too dry. Avoid using decongestants or antihistamines. Call the doctor if there is no improvement in three days, or if you have difficulty breathing, increasing throat pain, high fever, rash, or frequent vomiting. FOLLOW-UP CARE: If you have been referred to a physician for follow-up care, call the physician s office for an appointment as you were instructed or within the next two days. If you experience worsening or a significant change in your symptoms, notify the physician immediately or return to the Emergency Department at any time for re-evaluation. Follow-up with primary care provider within 3-5 days as needed, return to the emergency room symptoms become worse. Take [id number] ibuprofen and Tylenol for fever and pain. Replace toothbrush in 2 days. You are contagious for the first 24 hours. Increase handwashing and hydration. Take antibiotic with food, eat yogurt daily to prevent stool. Use Magic mouthwash prior to meals to help with sore throat pain. Return immediately for any new or worsening symptoms. Follow up with primary care provider, call tomorrow to make followup appointment. Prescriptions: Amoxicillin Trihydrate [Amoxil 500 mg Capsule] 500 mg PO TID #30 capsule Nystatin/Dexameth/Diphen [Magic Mouthwash ([facility] Formula) Susp] 5 ml PO QID #120 ml Forms: Return to Work Referrals: TONA VELASCO MD [[employer]UNITY BASED STAFF] - Follow up in 3-5 days (prn)
[2018-01-18 09:38] VITALS: BP 118/73
== END 2018-01-18 09:43 | disposition home or self-care (01) ==
LOC: ER 08:04
DX: R09.89 Other specified symptoms and signs involving the circulatory and respiratory systems (principal); J02.9 Acute pharyngitis, unspecified; H92.09 Otalgia, unspecified ear; R68.83 Chills (without fever); R00.0 Tachycardia, unspecified; Z91.040 Latex allergy status
CPT/HCPCS: 87070; 87880; 99283

== ENCOUNTER 2018-01-21 18:04 | Emergency (ER) | payer MEDICAID ==
[2018-01-21] MEDS ORDERED: KETOROLAC TROMETHAMINE INJ/PF 30 MG/1 ML SDV IV ONE (18:39)
--- NOTE | 2018-01-21 18:40 | ER Document Report ---
ED Medical Screen (RME) - General Chief Complaint: Chest Pain Stated Complaint: CHEST PAIN Time Seen by Provider: 01/21/18 18:31 Notes: 32-year-old female patient comes emergency room complaining of onset earlier this morning of left anterior chest pain. She reports a tingling down the left arm. She was seen here yesterday for an unrelated complaint. She does come to the emergency room quite regularly. She is tender to palpate the left anterior chest wall. I have greeted and performed a rapid initial assessment of this patient. A comprehensive ED assessment and evaluation of the patient, analysis of test results and completion of the medical decision making process will be conducted by additional ED providers. TRAVEL OUTSIDE OF THE [place] IN LAST 30 DAYS: No - Related Data Allergies/Adverse Reactions: latex Allergy (Verified 01/21/18 18:07) Hives Past Medical History - Social History Chew tobacco use (# tins/day): No Frequency of alcohol use: Rare Drug Abuse: None Family history: CAD Renal/ Medical History: Reports: Hx Ovarian Cysts. Denies: Hx Peritoneal Dialysis Psychiatric Medical History: Reports: Hx Anxiety Past Surgical History: Reports: Hx Gynecologic Surgery - L ovarian cyst removed , , Hx Tubal Ligation - Immunizations Immunizations up to date: No Hx Diphtheria, Pertussis, Tetanus Vaccination: No Physical Exam - Vital signs Vitals: Temp Pulse BP Pulse Ox 98.3 F 78 119/68 100 01/21/18 18:18 01/21/18 18:18 01/21/18 18:18 01/21/18 18:18 Course - Vital Signs Vital signs: Temp Pulse Resp BP Pulse Ox 98.3 F 78 119/68 100 01/21/18 18:18 01/21/18 18:18 01/21/18 18:18 01/21/18 18:18
[2018-01-21 19:03] LABS: ABSOLUTE EOSINOPHILS # (AUTO) 0.2 10^3/uL (0.0-0.6); ABSOLUTE LYMPHOCYTES (AUTO) 2.3 10^3/uL (0.5-4.7); ABSOLUTE MONOCYTES (AUTO) 0.6 10^3/uL (0.1-1.4); ABSOLUTE NEUT (AUTO) 5.1 10^3/uL (1.7-8.2); BASOPHILS % (AUTO) 0.4 % (0-2); EOSINOPHILS % (AUTO) 2.7 % (0-6); HEMATOCRIT 37.3 % (36.0-47.0); HEMOGLOBIN 12.2 g/dL (12.0-15.5); MEAN CORPUSCULAR HEMOGLOBIN 24.3 pg (27.0-33.4); MEAN CORPUSCULAR HGB CONC 32.7 g/dL (32.0-36.0); MEAN CORPUSCULAR VOLUME 74 fl (80-97); MONOCYTES % (AUTO) 6.8 % (3-13); PLATELET COUNT 324 10^3/uL (150-450); RED BLOOD COUNT 5.03 10^6/uL (3.72-5.28); RED CELL DISTRIBUTION WIDTH 16.4 % (11.5-14.0); SEGMENTED NEUTROPHILS % (AUTO) 62.1 % (42-78); TOTAL CELLS COUNTED % (AUTO) 100 %; WHITE BLOOD COUNT 8.2 10^3/uL (4.0-10.5)
[2018-01-21 19:06] LABS: ALANINE AMINOTRANSFERASE 31 U/L (9-52); ALBUMIN 4.2 g/dL (3.5-5.0); ALKALINE PHOSPHATASE 68 U/L (38-126); ANION GAP 10 (5-19); ASPARTATE AMINO TRANSFERASE 18 U/L (14-36); BILIRUBIN,DIRECT 0.2 mg/dL (0.0-0.4); BILIRUBIN,TOTAL 0.6 mg/dL (0.2-1.3); BLOOD UREA NITROGEN 14 mg/dL (7-20); CALCIUM 9.6 mg/dL (8.4-10.2); CARBON DIOXIDE 28 mmol/L (22-30); CHLORIDE 104 mmol/L (98-107); GLUCOSE 66 mg/dL (75-110); POTASSIUM 3.6 mmol/L (3.6-5.0); TOTAL PROTEIN 7.5 g/dL (6.3-8.2)
[2018-01-21 19:15] LABS: CREATINE KINASE MB 0.24 ng/mL (<4.55)
[2018-01-21 19:20] LABS: TROPONIN I < 0.012 ng/mL
--- NOTE | 2018-01-21 19:42 | RADIOLOGY REPORT (SQ) ---
EXAM DESCRIPTION: CHEST SINGLE VIEW COMPLETED DATE/TIME: 01/21/2018 7:15 pm REASON FOR STUDY: chest pain COMPARISON: 12/02/2017. EXAM PARAMETERS: NUMBER OF VIEWS: One view. TECHNIQUE: Single frontal radiographic view of the chest acquired. RADIATION DOSE: NA LIMITATIONS: None. FINDINGS: LUNGS AND PLEURA: No opacities, masses or pneumothorax. No pleural effusion. MEDIASTINUM AND HILAR STRUCTURES: No masses. Contour normal. HEART AND VASCULAR STRUCTURES: Heart normal in size. Normal vasculature. BONES: No acute findings. HARDWARE: None in the chest. OTHER: No other significant finding. IMPRESSION: NO ACUTE RADIOGRAPHIC FINDING IN THE CHEST. TECHNICAL DOCUMENTATION: JOB ID: [id number] [employer]- All Rights Reserved Reading location - IP/workstation name: [email or web address]
[2018-01-21] MEDS ORDERED: LIDOCAINE 5% (700 MG) TRANSDERMAL ADH..PATCH TP ONE (20:43)
--- NOTE | 2018-01-21 20:43 | ER Document Report ---
ED General - General Chief Complaint: Chest Pain Stated Complaint: CHEST PAIN Time Seen by Provider: 01/21/18 18:31 Notes: Patient is a 32-year-old female without past medical history, who presents with chest pain. Patient states that the chest pain has been present for approximately 12 hours. She describes it as a stabbing, aching pain to the left side of her chest that intermittently radiates into her left upper extremity. She denies any associated shortness of breath, diaphoresis, nausea or vomiting. No history of DVT or pulmonary embolus. She denies any known cardiac history. No history of aortic pathology or connective tissue disorders. She states that she frequently has similar symptoms to this in the past. However she took ibuprofen today and did not resolve the pain. She states ibuprofen typically works when she has similar pains. The lack of efficacy with of ibuprofen today did prompt her to come to the emergency department. She has not seen a primary care doctor regarding today's concerns. TRAVEL OUTSIDE OF THE [place] IN LAST 30 DAYS: No - Related Data Allergies/Adverse Reactions: latex Allergy (Verified 01/21/18 18:07) Hives Past Medical History - General Information source: Patient - Social History Smoking Status: Never Smoker Chew tobacco use (# tins/day): No Frequency of alcohol use: Rare Drug Abuse: None Lives with: Family Family History: Arthritis, CAD, CVA, DM, Hyperlipidemia, Hypertension, Malignancy. denies: COPD, Thyroid Disfunction Patient has suicidal ideation: No Patient has homicidal ideation: No Renal/ Medical History: Reports: Hx Ovarian Cysts. Denies: Hx Peritoneal Dialysis Psychiatric Medical History: Reports: Hx Anxiety Past Surgical History: Reports: Hx Gynecologic Surgery - L ovarian cyst removed , , Hx Tubal Ligation - Immunizations Immunizations up to date: No Hx Diphtheria, Pertussis, Tetanus Vaccination: No Review of Systems - Review of Systems Notes: Constitutional: Negative for fever. HENT: Negative for sore throat. Eyes: Negative for visual changes. Cardiovascular: Positive for chest pain. Respiratory: Negative for shortness of breath. Gastrointestinal: Negative for abdominal pain, vomiting or diarrhea. Genitourinary: Negative for dysuria. Musculoskeletal: Negative for back pain. Skin: Negative for rash. Neurological: Negative for headaches, weakness or numbness. 10 point ROS negative except as marked above and in HPI. Physical Exam - Vital signs Vitals: Temp Pulse BP Pulse Ox 98.3 F 78 119/68 100 01/21/18 18:18 04 18:18 01/21/18 18:18 01/21/18 18:18 Interpretation: Normal Notes: PHYSICAL EXAMINATION: GENERAL: Well-appearing, well-nourished and in no acute distress. HEAD: Atraumatic, normocephalic. EYES: Pupils equal round and reactive to light, extraocular movements intact, sclera anicteric, conjunctiva are normal. ENT: nares patent, oropharynx clear without exudates. Moist mucous membranes. NECK: Normal range of motion, supple without lymphadenopathy LUNGS: Breath sounds clear to auscultation bilaterally and equal. No wheezes rales or rhonchi. HEART: Regular rate and rhythm without murmurs Chest pain: Pain is reproduced on palpation of the left central chest. ABDOMEN: Soft, nontender, normoactive bowel sounds. No guarding, no rebound. No masses appreciated. EXTREMITIES: Normal range of motion, no pitting or edema. No cyanosis. NEUROLOGICAL: No focal neurological deficits. Moves all extremities spontaneously and on command. PSYCH: Normal mood, normal affect. SKIN: Warm, Dry, normal turgor, no rashes or lesions noted. Course - Re-evaluation Re-evalutation: 01/21/18 20:41 Presentation of chest pain in an otherwise well appearing patient. Low clinical suspicion for ACS given clinical history, exam, EKG without ST elevations or depressions, and negative initial troponin. HEART score less than or equal to 3. PE also seems unlikely given clinical history, absence of tachycardia or dyspnea. Patient is PERC criteria negative. CXR without evidence of pneumothorax or pneumonia. No widened mediastinum. Aortic dissection also seems unlikely given history, symmetric pulses, CXR, and vitals. Chest pain in a patient without evidence of cardiac or other serious etiology on workup today. I discussed with patient that, based on their age, risk factors and emergency department testing today, the likelihood that their symptoms are related to a heart attack is very low (estimated risk of heart attack or over the next 30 days of less than 1%). The patient demonstrates decision making capacity and has verbalized an understanding of these risks to me. Based on this, the patient has chosen to follow-up as an outpatient. Usual chest pain return precautions reviewed. The patient states understanding and agreement with this plan. - Vital Signs Vital signs: Temp Pulse Resp BP Pulse Ox 98.3 F 78 16 118/78 100 01/21/18 18:18 01/21/18 18:18 01/21/18 20:59 01/21/18 20:59 01/21/18 20:59 - Laboratory Result Diagrams: 01/21/18 18:31 01/21/18 18:31 Laboratory results interpreted by me: 01/21/18 01/21/18 18:31 18:31 MCV 74 L MCH 24.3 L RDW 16.4 H Glucose 66 L - Diagnostic Test Radiology reviewed: Image reviewed, Reports reviewed Radiology results interpreted by me: 01/21/18 20:42 Chest x-ray: No acute infiltrate or pneumothorax - EKG Interpretation by Me Additional EKG results interpreted by me: 01/21/18 20:42 Normal sinus rhythm. Rate 70. No ST elevations or depressions. QTC is 406. Discharge - Discharge Clinical Impression: Chest wall pain Condition: Good Disposition: HOME, SELF-CARE Additional Instructions: You were seen today for chest pain. The exact cause of your pain is unclear. However, based on your cardiac enzyme testing, chest x-ray, and EKG it does not appear that it is from an immediately life-threatening cause at this time. Although your testing here is normal is critical that you follow-up with your primary care physician for continued evaluation of this chest pain. Please return to emergency department immediately if you have worsening of your chest pain, shortness of breath, vomiting, become unable to exert yourself due to pain or difficulty breathing, you pass out, or have any pain that radiates into your arms, jaw, or back. Please also return if you have any additional symptoms that are concerning to you.
[2018-01-21 21:07] VITALS: BP 118/78
--- NOTE | 2018-01-21 22:57 | EKG REPORT ---
SEVERITY:- NORMAL ECG - SINUS RHYTHM : Confirmed by: Archie Prajapati 21-Jan-2018 22:56:12
== END 2018-01-21 21:07 | disposition home or self-care (01) ==
LOC: ER 18:04
DX: R07.89 Other chest pain (principal); Z91.040 Latex allergy status; Z82.49 Family history of ischemic heart disease and other diseases of the circulatory system
CPT/HCPCS: 93005; 99285; 36415; 82553; 85025; 80053; 84484; 71045; 93010; J3490

== ENCOUNTER 2018-01-24 10:31 | Emergency (ER) | payer MEDICAID ==
[2018-01-24 10:37] VITALS: BP 123/83
[2018-01-24 11:21] LABS: APPEARANCE,URINE CLEAR; BILIRUBIN,URINE NEGATIVE (NEGATIVE); COLOR,URINE YELLOW; GLUCOSE, URINE NEGATIVE (NEGATIVE); KETONES,URINE NEGATIVE (NEGATIVE); LEUKOCYTE ESTERASE,URINE MODERATE (NEGATIVE); NITRITE,URINE NEGATIVE (NEGATIVE); PROTEIN,URINE NEGATIVE (NEGATIVE); URINE SPECIFIC GRAVITY 1.012; UROBILINOGEN,URINE NEGATIVE mg/dL (<2.0)
--- NOTE | 2018-01-24 11:40 | ER Document Report ---
ED GI/ - General Chief Complaint: Vaginal Discharge Stated Complaint: VAGINAL DISCHARGE Time Seen by Provider: 01/24/18 10:54 Notes: Patient is a 32-year-old female complaining of vaginal irritation and discharge times several weeks. Patient was seen 4 days ago in the emergency department and treated for urinary tract infection. Patient was seen 2 days ago by her PCM where she had a full Pap smear with STD check. Those results are still pending. Patient is afebrile denies abdominal pain., Nausea and vomiting TRAVEL OUTSIDE OF THE [place] IN LAST 30 DAYS: No - HPI Patient complains to provider of: Vaginal discharge, Other - Vaginal irritation Timing/Duration: Gradual, Persistent Quality of pain: No pain Location: Vaginal Vaginal bleeding (Compared to normal period): None - Related Data Allergies/Adverse Reactions: latex Allergy (Verified 01/24/18 10:32) Hives Past Medical History - General Information source: Patient Last Menstrual Period: 01/01/18 - Social History Smoking Status: Never Smoker Chew tobacco use (# tins/day): No Frequency of alcohol use: None Drug Abuse: None Lives with: Family Family History: Arthritis, CAD, CVA, DM, Hyperlipidemia, Hypertension, Malignancy. denies: COPD, Thyroid Disfunction Patient has suicidal ideation: No Patient has homicidal ideation: No - Past Medical History Cardiac Medical History: Reports: None Renal/ Medical History: Reports: Hx Ovarian Cysts. Denies: Hx Peritoneal Dialysis Psychiatric Medical History: Reports: Hx Anxiety Past Surgical History: Reports: Hx Gynecologic Surgery - L ovarian cyst removed , , Hx Tubal Ligation - Immunizations Immunizations up to date: No Hx Diphtheria, Pertussis, Tetanus Vaccination: No Review of Systems - Review of Systems Constitutional: No symptoms reported EENT: No symptoms reported Cardiovascular: No symptoms reported Respiratory: No symptoms reported Gastrointestinal: No symptoms reported Genitourinary: No symptoms reported Female Genitourinary: See HPI Musculoskeletal: No symptoms reported Skin: No symptoms reported Hematologic/Lymphatic: No symptoms reported Neurological/Psychological: No symptoms reported Physical Exam - Vital signs Vitals: Temp Pulse Resp BP Pulse Ox 97.8 F 72 16 123/83 99 01/24/18 10:36 01/24/18 10:36 01/24/18 10:36 01/24/18 10:36 01/24/18 10:36 Interpretation: Normal - General General appearance: Appears well, Alert - HEENT Head: Normocephalic, Atraumatic Eyes: Normal Pupils: PERRL - Respiratory Respiratory status: No respiratory distress Chest status: Nontender Breath sounds: Normal Chest palpation: Normal - Cardiovascular Rhythm: Regular Heart sounds: Normal auscultation Murmur: No - Abdominal Inspection: Normal Distension: No distension Bowel sounds: Normal Tenderness: Nontender Organomegaly: No organomegaly - Back Back: Normal, Nontender - Extremities General upper extremity: Normal inspection, Nontender, Normal color, Normal ROM , Normal temperature General lower extremity: Normal inspection, Nontender, Normal color, Normal ROM , Normal temperature, Normal weight bearing. No: Ry's sign - Neurological Neuro grossly intact: Yes Cognition: Normal Orientation: AAOx4 [place] Coma Scale Eye Opening: Spontaneous Milagro Coma Scale Verbal: Oriented Milagro Coma Scale Motor: Obeys Commands Dellrose Coma Scale Total: 15 Speech: Normal Motor strength normal: LUE, RUE, LLE, RLE Sensory: Normal - Psychological Associated symptoms: Normal affect, Normal mood - Skin Skin Temperature: Warm Skin Moisture: Dry Skin Color: Normal Course - Re-evaluation Re-evalutation: 01/24/18 11:46 I spoke with patient's primary care provider, Stephanie Boo who saw patient on Monday, January 22 for a full [employer] exam. Patient had Pap with STD testing. Patient was treated with Diflucan for possible yeast infection. All test results are pending at this time. Patient has no new symptoms and she reports that her vaginal irritation is slightly improved from Monday's visit but not completely. Patient's abdomen exam is unremarkable. No vaginal exam was done today no tests were done today due to recent testing. I encouraged patient to wait for those results from her primary care provider or follow-up with primary care provider tomorrow.. I will write for topical nystatin and 1 more dose of Diflucan. Home care, primary care follow-up and ED return precautions discussed. Patient agrees with plan and is stable for discharge - Vital Signs Vital signs: Temp Pulse Resp BP Pulse Ox 97.8 F 72 16 123/83 99 01/24/18 10:36 01/24/18 10:36 01/24/18 10:36 01/24/18 10:36 01/24/18 10:36 - Laboratory Laboratory results interpreted by me: 01/24/18 10:50 Ur Leukocyte Esterase MODERATE H Discharge - Discharge Clinical Impression: Vaginal irritation Condition: Stable Disposition: HOME, SELF-CARE Instructions: Vaginal Yeast Infection ([facility]) Additional Instructions: Take medications as prescribed Your primary care will call with the results of your Pap and STD testing when those results are available Prescriptions: Fluconazole [Diflucan] 150 mg PO ONCE PRN #1 tablet PRN Reason: Nystatin 15 gm TP BID #30 oint...g.
== END 2018-01-24 11:49 | disposition home or self-care (01) ==
LOC: ER 10:31
DX: N89.8 Other specified noninflammatory disorders of vagina (principal)
CPT/HCPCS: 81001; 81025; 99284

== ENCOUNTER 2018-02-15 20:11 | Emergency (ER) | payer MEDICAID ==
--- NOTE | 2018-02-15 20:40 | ER Document Report ---
ED Medical Screen (RME) - General Chief Complaint: Abdominal Pain Stated Complaint: ABDOMINAL PAIN Time Seen by Provider: 02/15/18 20:35 Notes: RAPID MEDICAL EVALUATION DISCLOSURE I have seen this patient as part of a Rapid Medical Evaluation and, if applicable, placed any initially appropriate orders. The patient will be seen and fully evaluated, including a full history and physical exam, by a provider ( in Main ED or Fast Track) when a room becomes available. 32-year-old female here with complaints of lower abdominal cramping, dysuria, and vaginal discharge that started several days ago. She does not currently have any abdominal cramping and her big concern is her vaginal discharge that is clear in color. She thinks it is another bacterial infection and states "I keep vaginal bacterial infections all my life". EXAM No abdominal tenderness to palpation TRAVEL OUTSIDE OF THE [place] IN LAST 30 DAYS: No - Related Data Allergies/Adverse Reactions: latex Allergy (Verified 01/24/18 10:32) Hives Past Medical History - Social History Chew tobacco use (# tins/day): No Frequency of alcohol use: None Drug Abuse: None Family history: CAD Renal/ Medical History: Reports: Hx Ovarian Cysts. Denies: Hx Peritoneal Dialysis Psychiatric Medical History: Reports: Hx Anxiety Past Surgical History: Reports: Hx Gynecologic Surgery - L ovarian cyst removed , , Hx Tubal Ligation - Immunizations Immunizations up to date: No Hx Diphtheria, Pertussis, Tetanus Vaccination: No Physical Exam - Vital signs Vitals: Temp Pulse Resp BP Pulse Ox 98.5 F 84 16 126/81 H 98 02/15/18 20:22 02/15/18 20:22 02/15/18 20:22 02/15/18 20:22 02/15/18 20:22 Course - Vital Signs Vital signs: Temp Pulse Resp BP Pulse Ox 98.5 F 84 16 126/81 H 98 02/15/18 20:22 02/15/18 20:22 02/15/18 20:22 02/15/18 20:22 02/15/18 20:22
[2018-02-15 22:10] LABS: AMORPHOUS SEDIMENT,URINE TRACE /HPF; APPEARANCE,URINE CLOUDY; BILIRUBIN,URINE NEGATIVE (NEGATIVE); CALCIUM OXALATE CRYSTALS,URINE RARE /HPF; COLOR,URINE YELLOW; GLUCOSE, URINE NEGATIVE (NEGATIVE); KETONES,URINE NEGATIVE (NEGATIVE); LEUKOCYTE ESTERASE,URINE LARGE (NEGATIVE); NITRITE,URINE NEGATIVE (NEGATIVE); PROTEIN,URINE NEGATIVE (NEGATIVE); URINE SPECIFIC GRAVITY 1.019; UROBILINOGEN,URINE NEGATIVE mg/dL (<2.0)
--- NOTE | 2018-02-15 22:50 | ER Document Report ---
ED General - General Chief Complaint: Abdominal Pain Stated Complaint: ABDOMINAL PAIN Time Seen by Provider: 02/15/18 20:35 Notes: Patient is a 32-year-old female who presents emergency department the chief complaint of the day of suprapubic pain. She admits to pyuria and he frequency. She admits to intermittent nausea without vomiting. She admits to vaginal discharge that is white without odor denies any clumps. She denies any pelvic pain. She does have a history of ovarian cyst but she feels that this is not related. She is sexually active with her fianc not using protection. TRAVEL OUTSIDE OF THE [place] IN LAST 30 DAYS: No - Related Data Allergies/Adverse Reactions: latex Allergy (Verified 01/24/18 10:32) Hives Past Medical History - Social History Smoking Status: Never Smoker Chew tobacco use (# tins/day): No Frequency of alcohol use: None Drug Abuse: None Family History: Arthritis, CAD, CVA, DM, Hyperlipidemia, Hypertension, Malignancy. denies: COPD, Thyroid Disfunction Patient has suicidal ideation: No Patient has homicidal ideation: No Renal/ Medical History: Reports: Hx Ovarian Cysts. Denies: Hx Peritoneal Dialysis Psychiatric Medical History: Reports: Hx Anxiety Past Surgical History: Reports: Hx Gynecologic Surgery - L ovarian cyst removed , , Hx Tubal Ligation - Immunizations Immunizations up to date: No Hx Diphtheria, Pertussis, Tetanus Vaccination: No Review of Systems - Review of Systems Constitutional: No symptoms reported Cardiovascular: No symptoms reported Respiratory: No symptoms reported Gastrointestinal: See HPI Genitourinary: See HPI Female Genitourinary: See HPI Musculoskeletal: No symptoms reported -: Yes All other systems reviewed and negative Physical Exam - Vital signs Vitals: Temp Pulse Resp BP Pulse Ox 98.5 F 84 16 126/81 H 98 02/15/18 20:22 02/15/18 20:22 02/15/18 20:22 02/15/18 20:22 02/15/18 20:22 - Notes Notes: PHYSICAL EXAM GENERAL: Alert, interacts well. LUNGS: Clear to auscultation bilaterally, no wheezes, rales, or rhonchi. No respiratory distress. HEART: Regular rate and rhythm. No murmurs, gallops, or rubs. ABDOMEN: Soft, nondistended, mild suprapubic tenderness. No guarding, rebound, or rigidity.. Bowel sounds present in all 4 quadrants. FEMALE : Normal external exam. No evidence of lesions, lacerations, bruising or vesicles. Speculum exam normal cervix closed. No evidence of vaginal discharge with odor. No evidence of lesions. No vaginal bleeding. Bimanual exam normal no cervical motion tenderness. No adnexal mass or adnexal tenderness. NEUROLOGICAL: Alert and oriented x4. Normal speech. PSYCH: Normal affect, normal mood. SKIN: Warm, dry, normal turgor. No rashes or lesions noted. Course - Re-evaluation Re-evalutation: 02/15/18 23:05 Patient presents with symptoms consistent with an acute cystitis. Vitals wnl. No history of fever, flank pain, or constitution symptoms to suggest ascending infection at this time. Patient is well in appearance, tolerating oral intake without difficulty. No focal abdominal tenderness to suggest acute appendicitis , biliary pathology, acute pancreatitis, tubo-ovarian abscesses, or pelvic inflammatory disease. Patient will be started on antibiotics at this time. A culture has been sent. They will be discharged with return precautions and follow-up recommendations. - Vital Signs Vital signs: Temp Pulse Resp BP Pulse Ox 98.5 F 84 16 126/81 H 98 02/15/18 20:22 02/15/18 20:22 02/15/18 20:22 02/15/18 20:22 02/15/18 20:22 - Laboratory Laboratory results interpreted by me: 02/15/18 20:45 Ur Leukocyte Esterase LARGE H Discharge - Discharge Clinical Impression: Cystitis Condition: Good Disposition: HOME, SELF-CARE Additional Instructions: Your urine shows findings consistent with a urinary tract infection. Please take all the antibiotics as directed even if your symptoms have improved. Please follow-up with your primary care physician as needed. Return to emergency room if you develop fever >101F, persistent vomiting, become lethargic , have severe pain in your sides, or any other symptoms that are concerning to you. Prescriptions: Cephalexin Monohydrate [Keflex 500 mg Capsule] 500 mg PO BID 5 Days capsule Fluconazole [Diflucan] 150 mg PO ONCE PRN #1 tablet PRN Reason: Ondansetron [Zofran Odt 4 mg Tablet] 1 - 2 tab PO Q4H PRN #15 tab.rapdis PRN Reason: For Nausea/Vomiting Referrals: GISELL QURESHI MD [Primary Care Provider] - Follow up in 3-5 days
[2018-02-15 22:57] LABS: BACTERIA (WET MOUNT) 4+ BACTERIA SEEN; T.VAGINALIS (WET MOUNT) NO TRICHOMONAS SEEN; WBCS (WET MOUNT) 1+ WBCS SEEN; YEAST (WET MOUNT) NO YEAST SEEN
[2018-02-15 23:56] VITALS: BP 119/88
[2018-02-16 00:24] LABS: CHLAM PCR NOT DETECTED (NOT DETECT); GON PCR DETECTED (NOT DETECT)
[2018-02-16] MEDS ORDERED: LIDOCAINE 1% INJ-PF (10 MG/ML) 30 ML SDV INJ ONE (05:41)
[2018-02-16] MEDS ORDERED: CEFTRIAXONE INJ 250 MG VIAL IM ONE (05:41)
[2018-02-16] MEDS ORDERED: AZITHROMYCIN 250 MG TABLET PO ONE (05:41)
== END 2018-02-15 23:55 | disposition home or self-care (01) ==
LOC: ER 20:11
DX: N30.90 Cystitis, unspecified without hematuria (principal); A54.9 Gonococcal infection, unspecified; R10.30 Lower abdominal pain, unspecified; Z91.040 Latex allergy status
CPT/HCPCS: 81001; 81025; 87210; 87491; 87591; 99284

== ENCOUNTER 2018-04-03 17:45 | Emergency (ER) | payer MEDICAID ==
[2018-04-03 17:56] VITALS: BP 126/77
--- NOTE | 2018-04-03 18:09 | ER Document Report ---
HPI - HPI Patient complains to provider of: dysuria and spotting Onset: Other - few days Pain Level: Denies Context: 32 yo female with dysuria and spotting, bleeding some now butit is 1 week late. No pelvic pain. no fever. abstinant since tx for GC 6 months ago. Associated Symptoms: None Exacerbated by: Denies Relieved by: Denies Similar symptoms previously: Yes Recently seen / treated by doctor: No - ROS ROS below otherwise negative: Yes Systems Reviewed and Negative: Yes All other systems reviewed and negative - REPRODUCTIVE Reproductive: DENIES: : Past Medical History - General Information source: Patient - Social History Smoking Status: Current Every Day Smoker Frequency of alcohol use: None Drug Abuse: None Lives with: Family Family History: Arthritis, CAD, CVA, DM, Hyperlipidemia, Hypertension, Malignancy. denies: COPD, Thyroid Disfunction Renal/ Medical History: Reports: Hx Ovarian Cysts. Denies: Hx Peritoneal Dialysis Psychiatric Medical History: Reports: Hx Anxiety Past Surgical History: Reports: Hx Gynecologic Surgery - L ovarian cyst removed , , Hx Tubal Ligation - Immunizations Immunizations up to date: No Hx Diphtheria, Pertussis, Tetanus Vaccination: No Vertical Provider Document - CONSTITUTIONAL Agree With Documented VS: Yes Exam Limitations: No Limitations General Appearance: No Apparent Distress - INFECTION CONTROL TRAVEL OUTSIDE OF THE [place] IN LAST 30 DAYS: No - HEENT HEENT: Normal ENT Exam - NECK Neck: Supple - RESPIRATORY Respiratory: Breath Sounds Normal, No Respiratory Distress - CARDIOVASCULAR Cardiovascular: Regular Rate, Regular Rhythm - GI/ABDOMEN Gastrointestinal: Abdomen Soft, Abdomen Non-Tender, No Organomegaly - BACK Back: negative: CVA Tenderness-Right, CVA Tenderness-Left - MUSCULOSKELETAL/EXTREMETIES Musculoskeletal/Extremeties: MAEW - NEURO Level of Consciousness: Awake - DERM Integumentary: No Rash Course - Re-evaluation Re-evalutation: 04/03/18 neg hcg, ua with rbc, cx pending, wet mount-BV, gc/chlam neg. - Vital Signs Vital signs: Temp Pulse Resp BP Pulse Ox 99.0 F 97 20 126/77 H 97 04/03/18 17:55 04/03/18 17:55 04/03/18 17:55 04/03/18 17:55 04/03/18 17:55 Discharge - Discharge Clinical Impression: Bacterial vaginosis, Dysuria, Vaginal spotting Condition: Good Disposition: HOME, SELF-CARE Instructions: Metronidazole ([facility]), Vaginal Bleeding ([facility]), Vaginosis, Bacterial ([facility]) Additional Instructions: Call Edwar Dugan back at [phone] for the gonorrhea and Chlamydia test results in 3 hours No alcohol when you take Flagyl Urine culture is pending test was negative. See [facility] about this irregular. Since she had her tubal ligation Prescriptions: Metronidazole 500 mg PO BID #14 tablet Referrals: SABRINA KAY MD [ACTIVE STAFF] - Follow up as needed
[2018-04-03 18:19] LABS: APPEARANCE,URINE CLEAR; BILIRUBIN,URINE NEGATIVE (NEGATIVE); COLOR,URINE YELLOW; GLUCOSE, URINE NEGATIVE (NEGATIVE); KETONES,URINE NEGATIVE (NEGATIVE); LEUKOCYTE ESTERASE,URINE LARGE (NEGATIVE); NITRITE,URINE NEGATIVE (NEGATIVE); PROTEIN,URINE NEGATIVE (NEGATIVE); URINE SPECIFIC GRAVITY 1.015; UROBILINOGEN,URINE NEGATIVE mg/dL (<2.0)
[2018-04-03 18:42] LABS: BACTERIA (WET MOUNT) 4+ BACTERIA SEEN; EPITHELIALS (WET MOUNT) 3+ EPITHELIALS SEEN; T.VAGINALIS (WET MOUNT) NO TRICHOMONAS SEEN; WBCS (WET MOUNT) 1+ WBCS SEEN; YEAST (WET MOUNT) NO YEAST SEEN
[2018-04-03 20:10] LABS: CHLAM PCR NOT DETECTED (NOT DETECT); GON PCR NOT DETECTED (NOT DETECT)
== END 2018-04-03 19:32 | disposition home or self-care (01) ==
LOC: ER 17:45
DX: N76.0 Acute vaginitis (principal); R30.0 Dysuria; N92.1 Excessive and frequent menstruation with irregular cycle; F17.200 Nicotine dependence, unspecified, uncomplicated; Z98.51 Tubal ligation status; Z98.890 Other specified postprocedural states; Z87.42 Personal history of other diseases of the female genital tract; Z32.02 Encounter for pregnancy test, result negative
CPT/HCPCS: 36415; 81001; 84703; 87086; 87210; 87491; 87591; 99283

== ENCOUNTER 2018-04-08 23:20 | Emergency (ER) | payer MEDICAID ==
[2018-04-09] MEDS ORDERED: ASPIRIN 81 MG TABLET, CHEWABLE PO ONE
--- NOTE | 2018-04-09 00:01 | EKG REPORT ---
SEVERITY:- NORMAL ECG - SINUS RHYTHM : Confirmed by: Archie Prajapati 09-Apr-2018 00:00:45
--- NOTE | 2018-04-09 00:16 | ER Document Report ---
ED Cardiac - General Information source: Patient TRAVEL OUTSIDE OF THE [place] IN LAST 30 DAYS: No <GARTH HOWARD - Last Filed: 04/09/18 03:15> <JOHNATHON JAMISON - Last Filed: 04/09/18 03:17> - General Chief Complaint: Chest Pain Stated Complaint: CHEST PAIN Time Seen by Provider: 04/09/18 00:00 Notes: 32 y.o. female with HLD for which she does not take any medications presents to the ED with dizziness and LT sided chest pain which she describes as a "burning pain". Pt reports that she has been feeling dizzy for the past couple of days but today her dizziness began to be different than the previous days. She states that tonight she was lying in the bed and began to not be able to breath and felt her heart "jumping" and felt as if she was "moving in circles". She reports that she has had vertigo 4 or 5 years ago and states that her dizziness is similar to when she had vertigo. She denies having any medications left over from her previous diagnoses of vertigo and reports that she never took the Rx but waited for her vertigo to resolve on its own. Pt reports that her CP began tonight. She denies any nausea, SOB or worsening with movement. Pt denies that the onset of her CP came after eating or drinking. Pt's PCP is at [facility]. She reports a PFHx of mother with heart failure. Denies any PFHx of MO. Pt reports PSHx of tubal ligation and recently starting control to regulate her menstrual cycle. She denies any long trips recently or PMHx of clots. (GARTH HOWARD) - Related Data Allergies/Adverse Reactions: latex Allergy (Verified 01/24/18 10:32) Hives Past Medical History - General Information source: Patient - Social History Smoking Status: Never Smoker Chew tobacco use (# tins/day): No Frequency of alcohol use: None Drug Abuse: None Family History: Arthritis, CAD, CVA, DM, Hyperlipidemia, Hypertension, Malignancy. denies: COPD, Thyroid Disfunction Renal/ Medical History: Reports: Hx Ovarian Cysts. Denies: Hx Peritoneal Dialysis Psychiatric Medical History: Reports: Hx Anxiety Past Surgical History: Reports: Hx Gynecologic Surgery - L ovarian cyst removed , , Hx Tubal Ligation - Immunizations Immunizations up to date: No Hx Diphtheria, Pertussis, Tetanus Vaccination: No <GARTH HOWARD - Last Filed: 04/09/18 03:15> Physical Exam <GARTH HOWARD - Last Filed: 04/09/18 03:15> <JOHNATHON JAMISON - Last Filed: 04/09/18 03:17> - Vital signs Vitals: Temp Pulse Resp BP Pulse Ox 97.7 F 67 18 125/91 H 99 04/08/18 23:35 04/08/18 23:35 04/08/18 23:35 04/08/18 23:35 04/08/18 23:35 - Notes Notes: PHYSICAL EXAM GENERAL: Alert, interacts well. No acute distress. HEAD: Normocephalic, atraumatic. EYES: Pupils equal, round, and reactive to light. Extraocular movements intact. ENT: Oral mucosa moist, tongue midline. NECK: Full range of motion. Supple. Trachea midline. LUNGS: Clear to auscultation bilaterally, no wheezes, rales, or rhonchi. No respiratory distress. HEART: Regular rate and rhythm. No murmurs, gallops, or rubs. ABDOMEN: Soft, non-tender. Non-distended. Bowel sounds present in all 4 quadrants. No guarding, rebound, or rigidity. EXTREMITIES: Moves all 4 extremities spontaneously. No edema, radial and dorsalis pedis pulses 2/4 bilaterally. No cyanosis. NEUROLOGICAL: Alert and oriented x3. Normal speech. Negative Mayo-Hallpike bilaterally, elicit sx bilaterally but without nystagmus bilaterally. PSYCH: Normal affect, normal mood. SKIN: Warm, dry, normal turgor. No rashes or lesions noted. (GARTH HOWARD) Course - Laboratory Result Diagrams: 04/09/18 00:14 04/09/18 00:14 <GARTH HOWARD - Last Filed: 04/09/18 03:15> - Laboratory Result Diagrams: 04/09/18 00:14 04/09/18 00:14 <JOHNATHON JAMISON - Last Filed: 04/09/18 03:17> - Re-evaluation Re-evalutation: 04/09/18 02:31 CBC shows anemia with hemoglobin 11.8 consistent with her heavy menstrual cycles , patient has been recommended to follow-up on this as an outpatient, currently taking control pills to help with this, CMP grossly unremarkable, cardiac enzymes completely undetectable, test negative, coags normal, d-dimer below the cutoff at 0.27, patient is low risk for PE. Chest x-ray shows no acute process. EKG is nonischemic. Dizziness is improved with Antivert. Patient states she still has a small amount of burning pain on the left side of her chest. Patient is fairly low risk for cardiac disease (HEART score 1) doubt this is cardiac, patient will be discharged to home, started on muscle relaxers, recommended to follow-up with primary care physician for further testing should the pain persist, recommend to return here should it worsen. 04/09/18 03:17 (JOHNATHON JAMISON) - Vital Signs Vital signs: Temp Pulse Resp BP Pulse Ox 98.1 F 67 17 116/85 99 04/09/18 02:41 04/08/18 23:35 04/09/18 02:41 04/09/18 02:41 04/09/18 02:41 - Laboratory Laboratory results interpreted by me: 04/09/18 00:14 Hgb 11.8 L Hct 35.8 L MCV 74 L MCH 24.5 L RDW 16.3 H - EKG Interpretation by Me Additional EKG results interpreted by me: 04/09/18 02:32 EKG shows sinus rhythm at a rate of 62, normal axis, normal intervals, no ST segment elevations or depressions, no T-wave inversions, rapid R-wave progression per my interpretation. (JOHNATHON JAMISON) Discharge <GARTH HOWARD - Last Filed: 04/09/18 03:15> <JOHNATHON JAMISON - Last Filed: 04/09/18 03:17> - Discharge Clinical Impression: Left sided chest pain, Vertigo Anemia Qualifiers: Anemia type: unspecified type Qualified Code(s): D64.9 - Anemia, unspecified Condition: Stable Disposition: HOME, SELF-CARE Instructions: Chest Pain of Unclear Cause ([facility]) Prescriptions: Meclizine HCl [Antivert 12.5 mg Tablet] 1 - 2 tab PO Q6HP PRN #30 tablet PRN Reason: Dizziness Methocarbamol [Robaxin 750 mg Tablet] 750 mg PO ASDIR PRN #40 tablet PRN Reason: Forms: Return to Work Referrals: GISELL QURESHI MD [Primary Care Provider] - Follow up in 3-5 days Scribe Attestation: 04/09/18 03:17 I personally performed the services described in the documentation, reviewed and edited the documentation which was dictated to the scribe in my presence, and it accurately records my words and actions. (JOHNATHON JAMISON) Scribe Documentation - Scribe Written by Willardibe:: Elisabet Fonseca 04/09/18 0016 acting as scribe for :: Scooter <GARTH HOWARD - Last Filed: 04/09/18 03:15>
[2018-04-09] MEDS ORDERED: MECLIZINE HCL 25 MG TABLET PO ONE (00:17)
[2018-04-09 00:32] LABS: ABSOLUTE EOSINOPHILS # (AUTO) 0.3 10^3/uL (0.0-0.6); ABSOLUTE LYMPHOCYTES (AUTO) 2.6 10^3/uL (0.5-4.7); ABSOLUTE MONOCYTES (AUTO) 0.4 10^3/uL (0.1-1.4); ABSOLUTE NEUT (AUTO) 4.5 10^3/uL (1.7-8.2); BASOPHILS % (AUTO) 0.6 % (0-2); HEMATOCRIT 35.8 % (36.0-47.0); HEMOGLOBIN 11.8 g/dL (12.0-15.5); LYMPHOCYTES % (AUTO) 32.7 % (13-45); MEAN CORPUSCULAR HEMOGLOBIN 24.5 pg (27.0-33.4); MEAN CORPUSCULAR HGB CONC 32.9 g/dL (32.0-36.0); MEAN CORPUSCULAR VOLUME 74 fl (80-97); MONOCYTES % (AUTO) 4.9 % (3-13); PLATELET COUNT 290 10^3/uL (150-450); RED BLOOD COUNT 4.81 10^6/uL (3.72-5.28); RED CELL DISTRIBUTION WIDTH 16.3 % (11.5-14.0); SEGMENTED NEUTROPHILS % (AUTO) 57.8 % (42-78); TOTAL CELLS COUNTED % (AUTO) 100 %; WHITE BLOOD COUNT 7.9 10^3/uL (4.0-10.5)
[2018-04-09 00:37] LABS: INTERNATIONAL RATION (INR) 1.01; PROTHROMBIN TIME 13.8 SEC (11.4-15.4)
[2018-04-09 00:40] LABS: D-DIMER 0.27 ug/mL (0.00-0.50)
[2018-04-09 00:47] LABS: ALANINE AMINOTRANSFERASE 26 U/L (9-52); ALBUMIN 3.6 g/dL (3.5-5.0); ALKALINE PHOSPHATASE 72 U/L (38-126); ANION GAP 10 (5-19); ASPARTATE AMINO TRANSFERASE 15 U/L (14-36); BILIRUBIN,DIRECT 0.3 mg/dL (0.0-0.4); BILIRUBIN,TOTAL 0.3 mg/dL (0.2-1.3); BLOOD UREA NITROGEN 14 mg/dL (7-20); CALCIUM 9.1 mg/dL (8.4-10.2); CARBON DIOXIDE 25 mmol/L (22-30); CHLORIDE 107 mmol/L (98-107); CREATINE KINASE 102 U/L (30-135); GLUCOSE 96 mg/dL (75-110); SODIUM 141.7 mmol/L (137-145); TOTAL PROTEIN 6.9 g/dL (6.3-8.2)
[2018-04-09 00:58] LABS: CREATINE KINASE MB 0.46 ng/mL (<4.55)
[2018-04-09 01:03] LABS: TROPONIN I < 0.012 ng/mL
--- NOTE | 2018-04-09 01:30 | RADIOLOGY REPORT (SQ) ---
EXAM DESCRIPTION: XR CHEST 1 VIEW COMPLETED DATE/TME: 04/09/2018 00:00 CLINICAL HISTORY: 32 years Female, left sided chest pain COMPARISON: 4.8.18 NUMBER OF VIEWS/TECHNIQUE: 1/AP FINDINGS: Adequate lung volume, clear parenchyma, normal cardiac silhouette, chronic bihilar prominence, and intact bony thorax. IMPRESSION: No acute cardiopulmonary findings.
[2018-04-09] MEDS ORDERED: KETOROLAC TROMETHAMINE INJ/PF 30 MG/1 ML SDV IV ONE (02:30)
[2018-04-09 02:46] VITALS: BP 116/85
== END 2018-04-09 02:46 | disposition home or self-care (01) ==
LOC: ER 23:20
DX: R42 Dizziness and giddiness (principal); R07.9 Chest pain, unspecified; D64.9 Anemia, unspecified; Z91.040 Latex allergy status; Z79.3 Long term (current) use of hormonal contraceptives
CPT/HCPCS: 93005; 99285; 96374; 36415; 82553; 82550; 85025; 85610; 81025; 80053; 84484; 85379; 71045; 93010; J1885

== ENCOUNTER → 2018-04-30 | Outpatient (CLI) | payer MEDICAID ==
[2018-04-30 18:59] LABS: BACTERIA (WET MOUNT) 4+ BACTERIA SEEN; EPITHELIALS (WET MOUNT) 3+ EPITHELIALS SEEN; T.VAGINALIS (WET MOUNT) NO TRICHOMONAS SEEN; WBCS (WET MOUNT) 3+ WBCS SEEN; YEAST (WET MOUNT) YEAST SEEN
[2018-04-30 20:23] LABS: CHLAM PCR NOT DETECTED (NOT DETECT); GON PCR NOT DETECTED (NOT DETECT)
== END ==
LOC: LAB 18:44
PROVIDERS: ATTEND Nurse Practitioner Family
DX: M54.5 Low back pain (principal); N89.8 Other specified noninflammatory disorders of vagina; R30.0 Dysuria
CPT/HCPCS: 87086; 87210; 87491; 87591

== ENCOUNTER 2018-05-02 11:05 | Emergency (ER) | payer MEDICAID ==
[2018-05-02] MEDS ORDERED: MAG HYDROX/AL HYDROX/SIMETH SUSP 30 ML UDCUP PO ONE (11:42)
[2018-05-02] MEDS ORDERED: METOCLOPRAMIDE HCL ORAL SOLN 10 MG/10 ML UDCUP PO ONE (11:42)
[2018-05-02] MEDS ORDERED: LIDOCAINE 2% VISCOUS SOLN 20 ML UDCUP PO ONE (11:42)
--- NOTE | 2018-05-02 12:02 | RADIOLOGY REPORT (SQ) ---
EXAM DESCRIPTION: CHEST 2 VIEWS COMPLETED DATE/TIME: 05/02/2018 11:51 am REASON FOR STUDY: CHEST PAIN COMPARISON: Chest films 04/09/2018, 01/21/2018, 12/02/2017, 01/16/2017 EXAM PARAMETERS: NUMBER OF VIEWS: two views TECHNIQUE: Digital Frontal and Lateral radiographic views of the chest acquired. RADIATION DOSE: NA LIMITATIONS: none FINDINGS: LUNGS AND PLEURA: No opacities, masses or pneumothorax. No pleural effusion. MEDIASTINUM AND HILAR STRUCTURES: No masses or contour abnormalities. HEART AND VASCULAR STRUCTURES: Heart normal size. No evidence for failure. BONES: Mild convex leftward thoracic curvature HARDWARE: None in the chest. OTHER: No other significant finding. IMPRESSION: NO ACUTE RADIOGRAPHIC FINDING IN THE CHEST. TECHNICAL DOCUMENTATION: JOB ID: [id number] [employer]- All Rights Reserved Reading location - IP/workstation name: [email or web address]
--- NOTE | 2018-05-02 12:34 | ER Document Report ---
ED General - General Chief Complaint: Chest Pain Stated Complaint: CHEST PAIN Time Seen by Provider: 05/02/18 11:32 Mode of Arrival: Ambulatory Information source: Patient TRAVEL OUTSIDE OF THE [place] IN LAST 30 DAYS: No - HPI Patient complains to provider of: Chest pain Onset: Other - 3 days Onset/Duration: Intermittent Quality of pain: Stabbing Severity: Moderate Pain Level: 3 Associated symptoms: None Exacerbated by: Movement Relieved by: Denies Similar symptoms previously: No Recently seen / treated by doctor: No Notes: Patient is a 32-year-old female presenting to the emergency room today complaining of sharp stabbing chest pain that has been occurring intermittently over the past 2-3 days, she denies any injury, no shortness of breath, no cough , cold or congestion, no nausea or vomiting, she [place] [employer], she is not currently taking any medication and has no known medical problems, she has been taking ibuprofen at home which will intermittently relieve her symptoms - Related Data Allergies/Adverse Reactions: latex Allergy (Verified 01/24/18 10:32) Hives Past Medical History - General Information source: Patient - Social History Smoking Status: Unknown if Ever Smoked Chew tobacco use (# tins/day): No Frequency of alcohol use: None Drug Abuse: None Family History: Arthritis, CAD, CVA, DM, Hyperlipidemia, Hypertension, Malignancy. denies: COPD, Thyroid Disfunction Patient has suicidal ideation: No Patient has homicidal ideation: No Renal/ Medical History: Reports: Hx Ovarian Cysts. Denies: Hx Peritoneal Dialysis Psychiatric Medical History: Reports: Hx Anxiety Past Surgical History: Reports: Hx Gynecologic Surgery - L ovarian cyst removed , , Hx Tubal Ligation - Immunizations Immunizations up to date: No Hx Diphtheria, Pertussis, Tetanus Vaccination: No Review of Systems - Review of Systems Constitutional: No symptoms reported EENT: No symptoms reported Cardiovascular: Chest pain Respiratory: No symptoms reported Gastrointestinal: No symptoms reported Genitourinary: No symptoms reported Female Genitourinary: No symptoms reported Musculoskeletal: No symptoms reported Skin: No symptoms reported Hematologic/Lymphatic: No symptoms reported Neurological/Psychological: No symptoms reported -: Yes All other systems reviewed and negative Physical Exam - Vital signs Vitals: Temp Pulse Resp BP Pulse Ox 97.4 F 73 16 118/70 98 05/02/18 11:12 05/02/18 11:12 05/02/18 11:12 05/02/18 11:12 05/02/18 11:12 - Notes Notes: - General General appearance: Appears well, Alert In distress: None - HEENT Head: Normocephalic, Atraumatic Eyes: Normal Conjunctiva: Normal Extraocular movements intact: Yes Eyelashes: Normal Pupils: PERRL - Respiratory Respiratory status: No respiratory distress, lungs clear to auscultation - Cardiovascular Rhythm: Regular rate and rhythm, no murmurs - Abdominal Inspection: Normal - Back Back: Normal - Extremities General upper extremity: Normal inspection General lower extremity: Normal inspection - Neurological Neuro grossly intact: Yes Orientation: AAOx4 [place] Coma Scale Eye Opening: Spontaneous [place] Coma Scale Verbal: Oriented [place] Coma Scale Motor: Obeys Commands Mil[place] Coma Scale Total: 15 - Psychological Associated symptoms: Normal affect, Normal mood - Skin Skin Temperature: Warm Skin Moisture: Dry Skin Color: Normal Course - Re-evaluation Re-evalutation: 05/02/18 12:37 Patient is a 32-year-old otherwise healthy female complaining of intermittent stabbing chest pain for the past 2 days, relieved by ibuprofen at home, although she does get a burning sensation at times as well, EKG and chest x-ray are unremarkable, patient given GI cocktail which improved her symptoms significantly, symptoms likely musculoskeletal in nature with likely gastritis from taking Motrin over the last few days for her symptoms, patient was discharged with prescription for naproxen and Pepcid, advised to refrain from heavy lifting or strenuous exercise until symptoms are resolved, follow-up with primary care or return if symptoms worsen, patient acknowledges understanding and agreement with this plan - Vital Signs Vital signs: Temp Pulse Resp BP Pulse Ox 97.4 F 64 16 120/87 H 100 05/02/18 11:12 05/02/18 12:33 05/02/18 12:33 05/02/18 12:33 05/02/18 12:33 - Diagnostic Test Radiology reviewed: Image reviewed, Reports reviewed - EKG Interpretation by Me EKG shows normal: Sinus rhythm Rate: Normal Rhythm: NSR Discharge - Discharge Clinical Impression: Chest wall pain Condition: Stable Disposition: HOME, SELF-CARE Instructions: Anti-Inflammatory Medication ([facility]), Chest Wall Pain ([facility]) Additional Instructions: Follow up with your primary care provider in one to 2 days. Return to the emergency room immediately if symptoms worsen or any additional concerns. Refrain from heavy lifting or strenuous exercise until symptoms resolved. Prescriptions: Famotidine [Pepcid 20 mg Tablet] 20 mg PO BID #12 tablet Naproxen [Naprosyn 375 Mg Tablet] 375 mg PO BID #60 tablet Forms: Restricted Release Referrals: KISHORE MONTES FNP-C [Primary Care Provider] - Follow up as needed
[2018-05-02 12:37] VITALS: BP 120/87
--- NOTE | 2018-05-02 22:03 | EKG REPORT ---
SEVERITY:- NORMAL ECG - SINUS RHYTHM : Confirmed by: Archie Prajapati 02-May-2018 22:02:25
== END 2018-05-02 12:36 | disposition home or self-care (01) ==
LOC: ER 11:05
DX: R07.9 Chest pain, unspecified (principal); Z91.040 Latex allergy status; Z98.51 Tubal ligation status
CPT/HCPCS: 93005; 99285; 71046; 93010; J3490 ×3

== ENCOUNTER 2018-05-17 18:03 | Emergency (ER) | payer SELFPAY ==
--- NOTE | 2018-05-17 18:53 | ER Document Report ---
HPI - HPI Patient complains to provider of: Bladder infection Onset: Yesterday Quality of pain: Achy Pain Level: 5 Context: 32-year-old abstinent female is complaining of some low back pain and some suprapubic discomfort thinks she has another urinary tract infection. She also thinks she has bacterial vaginosis again which she gets frequently. No fever or chills. No vaginal bleeding. Patient adamantly denies because she does not have intercourse and because of the tubal ligation. Associated Symptoms: None Exacerbated by: Denies Relieved by: Denies Similar symptoms previously: No Recently seen / treated by doctor: No - ROS ROS below otherwise negative: Yes Systems Reviewed and Negative: Yes All other systems reviewed and negative - REPRODUCTIVE Reproductive: DENIES: : Past Medical History - General Information source: Patient - Social History Smoking Status: Never Smoker Frequency of alcohol use: None Drug Abuse: None Lives with: Family Family History: Arthritis, CAD, CVA, DM, Hyperlipidemia, Hypertension, Malignancy Renal/ Medical History: Reports: Hx Ovarian Cysts. Denies: Hx Peritoneal Dialysis Psychiatric Medical History: Reports: Hx Anxiety Past Surgical History: Reports: Hx Gynecologic Surgery - L ovarian cyst removed , , Hx Tubal Ligation - Immunizations Immunizations up to date: No Hx Diphtheria, Pertussis, Tetanus Vaccination: No Vertical Provider Document - CONSTITUTIONAL Agree With Documented VS: Yes Exam Limitations: No Limitations - INFECTION CONTROL TRAVEL OUTSIDE OF THE [place] IN LAST 30 DAYS: No - GI/ABDOMEN Gastrointestinal: Abdomen Soft, Abdomen Non-Tender - BACK Back: Normal Inspection. negative: CVA Tenderness-Right, CVA Tenderness-Left - NEURO Level of Consciousness: Alert - DERM Integumentary: No Rash Course - Re-evaluation Re-evalutation: 05/17/18 19:59 Urinalysis shows 2 RBCs, 10 WBCs, trace of bacteria, the wet prep shows 3+ bacteria, 3+ epithelial cells, 3+ W species, no yeast, no trichomonas. Cultures pending and I explained this to the patient. And asked her to please return if there is any increased pain fever or chills or any concerns at all - Vital Signs Vital signs: Temp Pulse Resp BP Pulse Ox 97.9 F 85 16 121/70 98 05/17/18 18:12 05/17/18 18:12 05/17/18 18:12 05/17/18 18:12 08/02/18 18:12 Discharge - Discharge Clinical Impression: Bacterial vaginosis, Possible urinary tract infection, Lower abdominal pain, Low back pain Condition: Good Disposition: HOME, SELF-CARE Instructions: Low Back Pain ([facility]), Pelvic Pain ([facility]), Urinary Tract Infection ( [facility]), Vaginosis, Bacterial ([facility]), Metronidazole ([facility]), Cephalexin ([facility]) Additional Instructions: Drink plenty of fluids Urine culture is pending Do not drink alcohol when you take the Flagyl Antibiotics pending urine culture results Return to the emergency room for any increased pain or fever. Prescriptions: Cephalexin Monohydrate [Keflex 500 mg Capsule] 500 mg PO QID #28 capsule Metronidazole [Flagyl 500 mg Tablet] 500 mg PO BID #14 tablet
[2018-05-17 19:37] LABS: BACTERIA (WET MOUNT) 3+ BACTERIA SEEN; EPITHELIALS (WET MOUNT) 3+ EPITHELIALS SEEN; T.VAGINALIS (WET MOUNT) NO TRICHOMONAS SEEN; WBCS (WET MOUNT) 3+ WBCS SEEN; YEAST (WET MOUNT) NO YEAST SEEN
[2018-05-17 19:38] LABS: APPEARANCE,URINE SLIGHTLY-CLOUDY; BILIRUBIN,URINE NEGATIVE (NEGATIVE); COLOR,URINE YELLOW; GLUCOSE, URINE NEGATIVE (NEGATIVE); KETONES,URINE NEGATIVE (NEGATIVE); LEUKOCYTE ESTERASE,URINE MODERATE (NEGATIVE); NITRITE,URINE NEGATIVE (NEGATIVE); PROTEIN,URINE NEGATIVE (NEGATIVE); URINE SPECIFIC GRAVITY 1.024; UROBILINOGEN,URINE NEGATIVE mg/dL (<2.0)
[2018-05-17 20:14] VITALS: BP 123/90
== END 2018-05-17 20:14 | disposition home or self-care (01) ==
LOC: ER 18:03
DX: N76.0 Acute vaginitis (principal); B96.89 Other specified bacterial agents as the cause of diseases classified elsewhere; R10.30 Lower abdominal pain, unspecified; M54.5 Low back pain; Z98.51 Tubal ligation status; Z87.440 Personal history of urinary (tract) infections; Z87.42 Personal history of other diseases of the female genital tract
CPT/HCPCS: 81001; 87086; 87210; 99283

== ENCOUNTER 2018-06-12 10:13 | Emergency (ER) | payer SELFPAY ==
[2018-06-12 10:18] VITALS: BP 130/84
--- NOTE | 2018-06-12 10:45 | ER Document Report ---
HPI - HPI Patient complains to provider of: Sore throat Onset: Other - For about a week but worse this morning when she woke up Onset/Duration: Persistent Pain Level: 4 Context: 32-year-old female with persistent sore throat she thought it was allergies originally but this morning it was worse. No fever or chills. No runny nose or cough. Associated Symptoms: None Exacerbated by: Other - Swallowing Relieved by: Denies Similar symptoms previously: No Recently seen / treated by doctor: No - ROS ROS below otherwise negative: Yes Systems Reviewed and Negative: Yes All other systems reviewed and negative - EENT EENT: REPORTS: Sore Throat - REPRODUCTIVE Reproductive: DENIES: : Past Medical History - General Information source: Patient - Social History Smoking Status: Never Smoker Chew tobacco use (# tins/day): No Frequency of alcohol use: None Drug Abuse: None Family History: Arthritis, CAD, CVA, DM, Hyperlipidemia, Hypertension, Malignancy Patient has suicidal ideation: No Patient has homicidal ideation: No Renal/ Medical History: Reports: Hx Ovarian Cysts. Denies: Hx Peritoneal Dialysis Psychiatric Medical History: Reports: Hx Anxiety Past Surgical History: Reports: Hx Gynecologic Surgery - L ovarian cyst removed , , Hx Tubal Ligation - Immunizations Immunizations up to date: No Hx Diphtheria, Pertussis, Tetanus Vaccination: No Vertical Provider Document - CONSTITUTIONAL Agree With Documented VS: Yes - INFECTION CONTROL TRAVEL OUTSIDE OF THE [place] IN LAST 30 DAYS: No - HEENT HEENT: Pharyngeal Erythema - Minimal with normal-appearing white tonsil stones - NECK Neck: Supple. negative: Lymphadenopathy-Left, Lymphadenopathy-Right - RESPIRATORY Respiratory: Breath Sounds Normal, No Respiratory Distress - CARDIOVASCULAR Cardiovascular: Regular Rate, Regular Rhythm Course - Re-evaluation Re-evalutation: 06/12/18 11:29 Rapid strep is negative, suspect virus, throat culture is pending - Vital Signs Vital signs: Temp Pulse Resp BP Pulse Ox 97.8 F 74 14 130/84 H 97 06/12/18 10:17 06/12/18 10:17 06/12/18 10:17 06/12/18 10:17 06/12/18 10:17 Discharge - Discharge Clinical Impression: Sore throat Condition: Good Disposition: HOME, SELF-CARE Instructions: Sore Throat ([facility]), Acetaminophen, Ibuprofen (General) ([facility]) Additional Instructions: Lidocaine to numb the sore throat Throat culture is pending, the rapid strep is negative Tylenol up to 4000 mg a day for pain Motrin 3 times a day for the inflammation Return to the emergency room for worsening of the symptoms We will call you if throat culture is positive Prescriptions: Ibuprofen [Motrin 800 mg Tablet] 800 mg PO Q8HP PRN #30 tablet PRN Reason: Referrals: FREDY VICENTE DO [Primary Care Provider] - Follow up as needed
[2018-06-12] MEDS ORDERED: LIDOCAINE 2% VISCOUS SOLN 20 ML UDCUP PO ONE (11:24)
== END 2018-06-12 11:41 | disposition home or self-care (01) ==
LOC: ER 10:13
DX: J02.9 Acute pharyngitis, unspecified (principal); J35.8 Other chronic diseases of tonsils and adenoids
CPT/HCPCS: 99283; 87070; 87880; J3490

== ENCOUNTER 2018-06-17 15:08 | Emergency (ER) | payer SELFPAY ==
[2018-06-17] MEDS ORDERED: PSEUDOEPHEDRINE HCL 30 MG TABLET PO ONE (17:02)
[2018-06-17] MEDS ORDERED: GUAIFENESIN 600 MG TABLET.SA PO ONE (17:02)
[2018-06-17] MEDS ORDERED: LORATADINE 10 MG TABLET PO ONE (17:02)
[2018-06-17] MEDS ORDERED: IBUPROFEN 800 MG TABLET PO ONE (17:02)
--- NOTE | 2018-06-17 17:10 | ER Document Report ---
ED ENT - General Chief Complaint: Sore Throat Stated Complaint: SORE THROAT Time Seen by Provider: 06/17/18 16:39 Mode of Arrival: Ambulatory Information source: Patient Notes: 32-year-old female presented to ED for complaint of sore throat hoarseness and cough. She states it started on Monday was seen here on Monday. She states she lost her voice on Monday now her chest is sore and she has a worse cough. She states she was told it was viral when she was here on Monday. She states she has not gotten any better. TRAVEL OUTSIDE OF THE [place] IN LAST 30 DAYS: No - HPI Patient complains to provider of: Nose problem, Throat problem Onset: Last week Onset/Duration: Gradual, Persistent Quality of pain: Achy Severity: Moderate Pain Level: 4 Context: Recent Illness Location of pain: Nose, Sinus, Throat Associated symptoms: Congestion, Cough, Hoarse voice, Runny nose, Sinus pain, Sinus drainage, Sore throat. denies: Fever Similar symptoms previously: Yes Recently seen / treated by doctor: Yes - Related Data Allergies/Adverse Reactions: latex Allergy (Verified 06/12/18 10:14) Hives Past Medical History - General Information source: Patient - Social History Smoking Status: Never Smoker Cigarette use (# per day): No Chew tobacco use (# tins/day): No Smoking Education Provided: No Frequency of alcohol use: None Drug Abuse: None Lives with: Family Family History: Arthritis, CAD, CVA, DM, Hyperlipidemia, Hypertension, Malignancy Patient has suicidal ideation: No Patient has homicidal ideation: No - Past Medical History Cardiac Medical History: Reports: None Pulmonary Medical History: Reports: None EENT Medical History: Reports: None Neurological Medical History: Reports: None Endocrine Medical History: Reports: None Renal/ Medical History: Reports: Hx Ovarian Cysts Malignancy Medical History: Reports: None GI Medical History: Reports: None Musculoskeletal Medical History: Reports None Skin Medical History: Reports None Psychiatric Medical History: Reports: Hx Anxiety Traumatic Medical History: Reports: None Infectious Medical History: Reports: None Past Surgical History: Reports: Hx Gynecologic Surgery - L ovarian cyst removed , , Hx Tubal Ligation - Immunizations Immunizations up to date: No Hx Diphtheria, Pertussis, Tetanus Vaccination: No Review of Systems - Review of Systems Constitutional: Recent illness EENT: Nose congestion, Nose discharge, Sinus pressure, Sinus discharge, Throat pain Cardiovascular: No symptoms reported Respiratory: Cough Gastrointestinal: No symptoms reported Genitourinary: No symptoms reported Female Genitourinary: No symptoms reported Musculoskeletal: No symptoms reported Skin: No symptoms reported Hematologic/Lymphatic: No symptoms reported Neurological/Psychological: No symptoms reported -: Yes All other systems reviewed and negative Physical Exam - Vital signs Vitals: Temp Pulse Resp BP Pulse Ox 98.1 F 101 H 16 122/83 99 06/17/18 15:11 06/17/18 15:11 06/17/18 15:11 06/17/18 15:11 06/17/18 15:11 Interpretation: Normal - General General appearance: Appears well, Alert - HEENT Head: Normocephalic, Atraumatic Eyes: Normal Pupils: PERRL Ears: Normal External canal: Normal Tympanic membrane: Normal Sinus: Normal Nasal: Purulent discharge, Swelling Mouth/Lips: Normal Pharynx: Post nasal drainage, Tonsillar hypertrophy. No: Erythema, Exudate, Peritonsillar abscess, Uvular edema, Potential airway comprom. Neck: Normal - Respiratory Respiratory status: No respiratory distress Chest status: Nontender Breath sounds: Normal Chest palpation: Normal - Cardiovascular Rhythm: Regular Heart sounds: Normal auscultation Murmur: No - Abdominal Inspection: Normal Distension: No distension Bowel sounds: Normal Tenderness: Nontender Organomegaly: No organomegaly - Back Back: Normal, Nontender - Extremities General upper extremity: Normal inspection, Nontender, Normal color, Normal ROM , Normal temperature General lower extremity: Normal inspection, Nontender, Normal color, Normal ROM , Normal temperature, Normal weight bearing. No: Ry's sign - Neurological Neuro grossly intact: Yes Cognition: Normal Orientation: AAOx4 [place] Coma Scale Eye Opening: Spontaneous [place] Coma Scale Verbal: Oriented [place] Coma Scale Motor: Obeys Commands [place] Coma Scale Total: 15 Speech: Normal Motor strength normal: LUE, RUE, LLE, RLE Sensory: Normal - Psychological Associated symptoms: Normal affect, Normal mood - Skin Skin Temperature: Warm Skin Moisture: Dry Skin Color: Normal Course - Re-evaluation Re-evalutation: 06/17/18 21:59 Patient was treated with Claritin, Sudafed, Mucinex, and ibuprofen in the emergency room. She was given several instructions for upper respiratory infection and hoarseness with laryngitis. Patient was discharged home with instructions to follow-up with primary doctor. - Vital Signs Vital signs: Temp Pulse Resp BP Pulse Ox 97.6 F 113 H 18 128/87 H 96 06/17/18 17:22 06/17/18 17:22 06/17/18 17:22 06/17/18 17:22 06/17/18 17:22 Discharge - Discharge Clinical Impression: Sore throat and laryngitis URI (upper respiratory infection) Qualifiers: URI type: unspecified URI Qualified Code(s): J06.9 - Acute upper respiratory infection, unspecified Condition: Stable Disposition: HOME, SELF-CARE Additional Instructions: UPPER RESPIRATORY ILLNESS: You have a viral infection of the respiratory passages -- a "cold." This common infection causes nasal congestion, drainage, and often sore throat and cough. It is highly contagious. The disease usually lasts about 10 to 14 days. There is no "cure" for the viral infection -- it must run its course. If there is a complication, such as bacterial infection in the nose, sinuses, middle ear, or bronchial tubes, antibiotics may be required. The antibiotics won't affect the virus. Drink plenty of fluids. A humidifier may help. An expectorant medication or decongestant may make you more comfortable. Use acetaminophen or ibuprofen for fever or aches. See the doctor if fever persists over two days, if there is any significant worsening of your symptoms, or if you simply fail to improve as expected. COUGH-SUPPRESSANT & EXPECTORANT MEDICATION: You are to use a cough medication as needed for relief of symptoms. This medicine is a combination of an expectorant (to make the mucous thinner and more easily "coughed up") and a cough suppressant (to reduce the frequency of coughing). The cough-suppressant medicine is related to narcotics. You may experience mild nausea and sleepiness. Some patients who are very sensitive to narcotics may have stomach pain from this medicine. Taking the medicine with food reduces these side effects. Do not drive or work with machinery until you know how this medicine affects you. The expectorant should have no side effects. Iodine-containing expectorants (such as organidin) should not be taken by persons with active thyroid disease unless approved by your doctor. Call the doctor if you develop shortness of breath, hives, rash, itching, lightheadedness, or severe nausea and vomiting. You have been treated with Claritin 10 mg, Sudafed 30 mg, Mucinex 600 mg, ibuprofen 800 mg, and you can also use Flonase which is also [id number], and salt and soda solution gargles. You state that for allergies have been much worse this year, you may want to take either Claritin or Zyrtec daily until the weather turns cold and the pollen reduces. Chloraseptic spray could also help to sore throat. USE OF ACETAMINOPHEN (Tylenol): Acetaminophen may be taken for pain relief or fever control. It's much safer than aspirin, offering a wider range of "safe" dosages. It is safe during . Some brand names are Tylenol, Panadol, Datril, Anacin 3, Tempra, and Liquiprin. Acetaminophen can be repeated every four hours. The following are maximum recommended dosages: >89 pounds or adults 650 mg to 900 mg Acetaminophen can be repeated every four hours. Maximum dose not to exceed 4000 mg a day. Salt and soda solution 1 quart of water 1 tablespoon of salt 1 teaspoon of baking soda Mixed 3 ingredients together and boil for 1 minute Placed in a covered quart jar Use 1/2 ounce of cold solution to gargle 3 times a day FOLLOW-UP CARE: If you have been referred to a physician for follow-up care, call the physician s office for an appointment as you were instructed or within the next two days. If you experience worsening or a significant change in your symptoms, notify the physician immediately or return to the Emergency Department at any time for re-evaluation. Forms: Return to Work Referrals: FREDY VICENTE DO [Primary Care Provider] - 06/19/18
[2018-06-17 17:34] VITALS: BP 128/87
== END 2018-06-17 17:37 | disposition home or self-care (01) ==
LOC: ER 15:08
DX: J02.9 Acute pharyngitis, unspecified (principal); J04.0 Acute laryngitis; J06.9 Acute upper respiratory infection, unspecified; R05 Cough; J34.89 Other specified disorders of nose and nasal sinuses; R09.81 Nasal congestion; R09.82 Postnasal drip; Z91.040 Latex allergy status
CPT/HCPCS: 99282

== ENCOUNTER 2018-07-28 23:08 | Emergency (ER) | payer SELFPAY ==
--- NOTE | 2018-07-29 00:13 | ER Document Report ---
ED Medical Screen (RME) - General Chief Complaint: Flank Pain Stated Complaint: FLANK PAIN Time Seen by Provider: 07/29/18 00:11 Mode of Arrival: Ambulatory Information source: Patient Notes: 33-year-old female presents to ED for complaint of bilateral flank pain times 3 days. She states she also has a white vaginal discharge with burning with urination. She denies any fevers. She states she does have generalized abdominal pain with her last bowel movement being on Monday. Patient is alert and oriented respirations regular and unlabored walking with a even steady gait. Bowel sounds are active with tenderness to palpation throughout the abdomen. I have greeted and performed a rapid initial assessment of this patient. A comprehensive ED assessment and evaluation of the patient, analysis of test results and completion of medical decision making process will be conducted by an additional ED providers. TRAVEL OUTSIDE OF THE [place] IN LAST 30 DAYS: No - Related Data Allergies/Adverse Reactions: latex Allergy (Verified 06/12/18 10:14) Hives Past Medical History - Social History Family history: CAD Renal/ Medical History: Reports: Hx Ovarian Cysts. Denies: Hx Peritoneal Dialysis Psychiatric Medical History: Reports: Hx Anxiety Past Surgical History: Reports: Hx Gynecologic Surgery - L ovarian cyst removed , , Hx Tubal Ligation - Immunizations Immunizations up to date: No Hx Diphtheria, Pertussis, Tetanus Vaccination: No Physical Exam - Vital signs Vitals: Temp Pulse Resp BP Pulse Ox 98.3 F 79 16 117/68 98 07/28/18 23:22 07/28/18 23:22 07/28/18 23:22 07/28/18 23:22 07/28/18 23:22 Course - Vital Signs Vital signs: Temp Pulse Resp BP Pulse Ox 98.3 F 79 16 117/68 98 07/28/18 23:22 07/28/18 23:22 07/28/18 23:22 07/28/18 23:22 07/28/18 23:22 Doctor's Discharge - Discharge Referrals: FREDY VICENTE DO [Primary Care Provider] - Follow up as needed
[2018-07-29 00:31] LABS: APPEARANCE,URINE SLIGHTLY-CLOUDY; BILIRUBIN,URINE NEGATIVE (NEGATIVE); COLOR,URINE YELLOW; GLUCOSE, URINE NEGATIVE (NEGATIVE); KETONES,URINE NEGATIVE (NEGATIVE); LEUKOCYTE ESTERASE,URINE SMALL (NEGATIVE); NITRITE,URINE NEGATIVE (NEGATIVE); PROTEIN,URINE NEGATIVE (NEGATIVE); URINE SPECIFIC GRAVITY 1.033
[2018-07-29 00:52] LABS: ABSOLUTE EOSINOPHILS # (AUTO) 0.3 10^3/uL (0.0-0.6); ABSOLUTE MONOCYTES (AUTO) 0.5 10^3/uL (0.1-1.4); ABSOLUTE NEUT (AUTO) 5.5 10^3/uL (1.7-8.2); BASOPHILS % (AUTO) 0.5 % (0-2); EOSINOPHILS % (AUTO) 3.2 % (0-6); HEMATOCRIT 36.9 % (36.0-47.0); HEMOGLOBIN 12.2 g/dL (12.0-15.5); LYMPHOCYTES % (AUTO) 32.2 % (13-45); MEAN CORPUSCULAR HGB CONC 33.2 g/dL (32.0-36.0); MEAN CORPUSCULAR VOLUME 75 fl (80-97); MONOCYTES % (AUTO) 5.8 % (3-13); PLATELET COUNT 277 10^3/uL (150-450); RED BLOOD COUNT 4.89 10^6/uL (3.72-5.28); RED CELL DISTRIBUTION WIDTH 15.9 % (11.5-14.0); SEGMENTED NEUTROPHILS % (AUTO) 58.3 % (42-78); TOTAL CELLS COUNTED % (AUTO) 100 %; WHITE BLOOD COUNT 9.4 10^3/uL (4.0-10.5)
[2018-07-29 01:06] LABS: ALANINE AMINOTRANSFERASE 15 U/L (9-52); ALBUMIN 4.1 g/dL (3.5-5.0); ALKALINE PHOSPHATASE 80 U/L (38-126); ANION GAP 10 (5-19); ASPARTATE AMINO TRANSFERASE 15 U/L (14-36); BILIRUBIN,DIRECT 0.2 mg/dL (0.0-0.4); BILIRUBIN,TOTAL 0.6 mg/dL (0.2-1.3); BLOOD UREA NITROGEN 16 mg/dL (7-20); CALCIUM 9.2 mg/dL (8.4-10.2); CARBON DIOXIDE 26 mmol/L (22-30); CHLORIDE 103 mmol/L (98-107); GLUCOSE 91 mg/dL (75-110); POTASSIUM 4.2 mmol/L (3.6-5.0); SODIUM 138.9 mmol/L (137-145); TOTAL PROTEIN 7.6 g/dL (6.3-8.2)
--- NOTE | 2018-07-29 01:19 | ER Document Report ---
ED GI/ - General Chief Complaint: Flank Pain Stated Complaint: FLANK PAIN Time Seen by Provider: 07/29/18 00:11 Mode of Arrival: Ambulatory TRAVEL OUTSIDE OF THE [place] IN LAST 30 DAYS: No - HPI Patient complains to provider of: Other - 33-year-old female presents for evaluation of lower abdominal pain with some vaginal discharge. She notes that she has had vaginal discharge for the last 3 days which is different than usual , denies any foul order, denies any change in sexual partners, denies any fevers or chills, nausea, emesis, dysuria, constipation, diarrhea. They deny any previous surgeries or other medical problems. There anything like this in the past. - Related Data Allergies/Adverse Reactions: latex Allergy (Verified 06/12/18 10:14) Hives Past Medical History - General Information source: Patient - Social History Smoking Status: Current Every Day Smoker Family History: Arthritis, CAD, CVA, DM, Hyperlipidemia, Hypertension, Malignancy Renal/ Medical History: Reports: Hx Ovarian Cysts. Denies: Hx Peritoneal Dialysis Psychiatric Medical History: Reports: Hx Anxiety Past Surgical History: Reports: Hx Gynecologic Surgery - L ovarian cyst removed , , Hx Tubal Ligation - Immunizations Immunizations up to date: No Hx Diphtheria, Pertussis, Tetanus Vaccination: No Review of Systems - Review of Systems -: Yes All other systems reviewed and negative Physical Exam - Vital signs Vitals: Temp Pulse Resp BP Pulse Ox 98.3 F 79 16 117/68 98 07/28/18 23:22 07/28/18 23:22 07/28/18 23:22 07/28/18 23:22 07/28/18 23:22 - General General appearance: Appears well In distress: None - HEENT Head: Normocephalic Eyes: Normal Conjunctiva: Normal Cornea: Normal Extraocular movements intact: Yes Eyelashes: Normal Pupils: PERRL - Respiratory Respiratory status: No respiratory distress Chest status: Nontender Breath sounds: Normal Chest palpation: Normal - Cardiovascular Rhythm: Regular Heart sounds: Normal auscultation Murmur: No - Abdominal Inspection: Normal Distension: No distension Tenderness: Nontender - Back Back: Normal - Extremities General upper extremity: Normal inspection, Nontender, Normal strength, Normal temperature General lower extremity: Normal inspection, Nontender, Normal strength, Normal temperature - Neurological Neuro grossly intact: Yes Cognition: Normal Orientation: AAOx4 [place] Coma Scale Eye Opening: Spontaneous [place] Coma Scale Verbal: Oriented [place] Coma Scale Motor: Obeys Commands [place] Coma Scale Total: 15 Speech: Normal Cranial nerves: Normal Motor strength normal: LUE, RUE, LLE, RLE - Psychological Associated symptoms: Normal affect Course - Re-evaluation Re-evalutation: 07/29/18 04:47 This 33-year-old female presents for evaluation of abdominal pain and vaginal discharge. She notes that she is unwilling to undergo pelvic examination at this time, she is perform pelvic swabs. Her urinalysis is unremarkable at this time for obvious urinary tract infection. Pending STD swabs will treat presumptively. STD swabs prior to discharge came back, gonorrhea and chlamydia are negative. We will plan to treat for probable yeast infection, treatment is limited as this patient has deferred pelvic examination. - Vital Signs Vital signs: Temp Pulse Resp BP Pulse Ox 98.3 F 79 16 117/68 98 07/28/18 23:22 07/28/18 23:22 07/28/18 23:22 07/28/18 23:22 07/28/18 23:22 - Laboratory Result Diagrams: 07/29/18 00:15 07/29/18 00:15 Laboratory results interpreted by me: 07/29/18 07/29/18 00:15 00:15 MCV 75 L MCH 25.0 L RDW 15.9 H Urine Urobilinogen 4.0 H Ur Leukocyte Esterase SMALL H Discharge - Discharge Clinical Impression: Pelvic pain, Discharge from genitalia Abdominal pain Qualifiers: Abdominal location: unspecified location Qualified Code(s): R10.9 - Unspecified abdominal pain Condition: Good Disposition: HOME, SELF-CARE Instructions: Abdominal Pain ([facility]) Additional Instructions: Your seen in the emergency department for your pelvic pain as well as discharge and pain with urination. He had evaluation including a physical exam, your urine did not show an obvious infection, your gonorrhea test was negative. You were given a prescription for doxycycline as well as Diflucan for possible yeast infection. Use the Diflucan after your antibiotic to help treat any yeast. Return for worsening fevers or chills, or other symptoms. Prescriptions: Doxycycline Hyclate 100 mg PO BID #14 capsule Fluconazole [Diflucan] 200 mg PO ONCE PRN #1 tablet PRN Reason: Referrals: FREDY VICENTE DO [Primary Care Provider] - Follow up as needed
[2018-07-29 01:59] LABS: CHLAM PCR NOT DETECTED (NOT DETECT); GON PCR NOT DETECTED (NOT DETECT)
[2018-07-29 04:27] VITALS: BP 112/76
== END 2018-07-29 03:53 | disposition home or self-care (01) ==
LOC: ER 23:08
DX: R10.9 Unspecified abdominal pain (principal); N89.8 Other specified noninflammatory disorders of vagina; R10.2 Pelvic and perineal pain; F17.200 Nicotine dependence, unspecified, uncomplicated; Z91.040 Latex allergy status
CPT/HCPCS: 36415; 80053; 81001; 84703; 85025; 87491; 87591; 99284

== ENCOUNTER 2018-08-31 07:56 | Emergency (ER) | payer SELFPAY ==
[2018-08-31 08:22] VITALS: BP 116/88
[2018-08-31] MEDS ORDERED: PHENAZOPYRIDINE HCL 200 MG TABLET PO ONE (08:23)
[2018-08-31] MEDS ORDERED: KETOROLAC TROMETHAMINE 60 MG/2 ML SDV IM ONE (08:23)
--- NOTE | 2018-08-31 08:25 | ER Document Report ---
HPI - HPI Time Seen by Provider: 08/31/18 08:14 Pain Level: 3 Notes: Patient is a 33-year-old female who presents with chief complaint of low back pain, clear vaginal discharge and dysuria. Patient reports symptoms have been ongoing for approximately 2 days. Patient reports she believes she has a urinary tract infection and bacterial vaginosis. Patient reports that she typically gets both of these together. Patient denies any past medical history. Denies any fevers, nausea, vomiting or abdominal pain. - REPRODUCTIVE Reproductive: DENIES: : Past Medical History - General Information source: Patient - Social History Smoking Status: Never Smoker Frequency of alcohol use: None Drug Abuse: None Family History: Arthritis, CAD, CVA, DM, Hyperlipidemia, Hypertension, Malignancy Patient has suicidal ideation: No Patient has homicidal ideation: No Renal/ Medical History: Reports: Hx Ovarian Cysts. Denies: Hx Peritoneal Dialysis Psychiatric Medical History: Reports: Hx Anxiety Past Surgical History: Reports: Hx Gynecologic Surgery - L ovarian cyst removed , , Hx Tubal Ligation - Immunizations Immunizations up to date: No Hx Diphtheria, Pertussis, Tetanus Vaccination: No Vertical Provider Document - CONSTITUTIONAL Notes: PHYSICAL EXAMINATION: GENERAL: Well-appearing, well-nourished and in no acute distress. HEAD: Atraumatic, normocephalic. EYES: Pupils equal round extraocular movements intact, conjunctiva are normal. ENT: Nares patent NECK: Normal range of motion LUNGS: No respiratory distress Abdomen: Abdomen soft, nontender, no guarding, no rebound. Musculoskeletal: Normal range of motion, no CVA tenderness. NEUROLOGICAL: Normal speech, normal gait. PSYCH: Normal mood, normal affect. SKIN: Warm, Dry, normal turgor, no rashes or lesions noted. - INFECTION CONTROL TRAVEL OUTSIDE OF THE [place] IN LAST 30 DAYS: No Course - Re-evaluation Re-evalutation: Urinalysis reveals large leukocyte esterase. Wet mount with 3+ bacteria and 4+ white blood cells. Patient diagnosed with urinary tract infection and bacterial vaginosis. Patient discharged home in stable condition. - Vital Signs Vital signs: Temp Pulse Resp BP Pulse Ox 97.5 F 76 20 116/88 H 97 08/31/18 08:16 08/31/18 08:16 08/31/18 07:59 08/31/18 08:16 08/31/18 08:16 Discharge - Discharge Clinical Impression: Bacterial vaginosis Urinary tract infection Qualifiers: Urinary tract infection type: site unspecified Hematuria presence: without hematuria Qualified Code(s): N39.0 - Urinary tract infection, site not specified Condition: Stable Disposition: HOME, SELF-CARE Additional Instructions: Vaginosis, Bacterial Your exam shows you have bacterial vaginosis. This condition is due to an overgrowth of bacteria in the vagina. Symptoms may include vaginal itching or pain, a smelly discharge, and sometimes burning with urination. Normally this is not transmitted by sexual contact. Vaginosis can be treated with oral or topical antibiotics. Metronidazole ( Flagyl) pills are usually effective. Topical vaginal creams include Cleocin and Metro-Gel. You should avoid sexual contact until your symptoms are all better. Call the doctor if you develop pelvic pain, fever, or problems with urination, or if you don't improve as expected. URINARY TRACT INFECTION: Your evaluation indicates that you have a urinary tract infection. This is due to germs growing in the bladder. This is a common problem. This infection usually responds quickly to antibiotics. Your antibiotic should be taken exactly as prescribed. Drink plenty of fluids -- three to four quarts a day. Occasionally, a bladder anesthetic will be prescribed to help stop the feeling of urgency until the antibiotic has a chance to clear the infection. This may cause your urine to be dark orange. Certain urine infections require a culture. If the doctor obtained a culture, the results will be back in two days. You should call to see if a change in treatment is needed. A repeat urinalysis after you finish treatment is often recommended. The physician will let you know if further testing is required. Call the doctor if you develop fever, chills, flank pain, inability to urinate, or blood in the urine. ANTIBIOTIC THERAPY: You have been given an antibiotic prescription. It's important that you take all the medication, unless instructed otherwise by your physician. Failure to complete the entire course can result in relapse of your condition. Common side effects of antibiotics include nausea, intestinal cramping, or diarrhea. Women may develop vaginal yeast infections, and babies can get yeast (thrush) in the mouth following the use of antibiotics. Contact your physician if you develop significant side effects from this medication. Allergy to this antibiotic can result in hives, wheezing, faintness, or itching. If symptoms of allergy occur, stop the medication and call the doctor. CEPHALEXIN: The antibiotic you've been prescribed is a member of the cephalosporin class. This type of antibiotic covers a wide variety of infections, including those of the skin, lungs, and urinary tract. It's useful for staph infections. This antibiotic is slightly similar to the penicillin family. In rare cases , a person who is allergic to penicillin will also be allergic to this medication. If you have had a severe allergic reaction to penicillin, and have not taken this antibiotic since that time, notify your doctor. Antibiotics which cover many germs ("broad spectrum" antibiotics) are more likely to cause diarrhea or "yeast" infections. Women prone to vaginal yeast problems may suffer an attack after taking this antibiotic. In infants, oral thrush (white spots "stuck" on the cheek) or yeast diaper rash may result. See your doctor if these problems occur. Call at once if you develop itching, hives , shortness of breath, or lightheadedness. URINARY ANESTHETIC AGENT: You have been given a medication (Pyridium) for urinary tract discomfort. This medicine numbs the lining of the bladder and urethra, resulting in less pain, burning, and urgency. You may take it as needed, according to instructions. When the symptoms resolve, you can stop this medication (be sure to continue any other medications the doctor has given you). This medicine turns the urine a dark orange. It may stain underwear. Occasionally, it can cause nausea. Return for evaluation if there are any unexpected effects, such as itching, hives, or shortness of breath. FOLLOW-UP CARE: If you have been referred to a physician for follow-up care, call the physician s office for an appointment as you were instructed or within the next two days. If you experience worsening or a significant change in your symptoms, notify the physician immediately or return to the Emergency Department at any time for re-evaluation. Prescriptions: Cephalexin [Cephalexin 500 MG Tablet] 1 tab PO QID #28 tablet Fluconazole [Diflucan] 150 mg PO ONCE PRN #1 tablet PRN Reason: Metronidazole [Flagyl 500 mg Tablet] 500 mg PO Q12H #14 tablet Phenazopyridine HCl [Pyridium 100 Mg Tablet] 100 mg PO TID #6 tablet Forms: Return to Work Referrals: FREDY VICENTE, [Primary Care Provider] - Follow up as needed
[2018-08-31 08:38] LABS: APPEARANCE,URINE CLOUDY; BILIRUBIN,URINE NEGATIVE (NEGATIVE); COLOR,URINE YELLOW; GLUCOSE, URINE NEGATIVE (NEGATIVE); KETONES,URINE NEGATIVE (NEGATIVE); LEUKOCYTE ESTERASE,URINE LARGE (NEGATIVE); NITRITE,URINE NEGATIVE (NEGATIVE); PROTEIN,URINE 30 mg/dL (NEGATIVE); URINE SPECIFIC GRAVITY 1.027; UROBILINOGEN,URINE NEGATIVE mg/dL (<2.0)
[2018-08-31 09:07] LABS: BACTERIA (WET MOUNT) 3+ BACTERIA SEEN; RBCS (WET MOUNT) FEW RBCS SEEN; T.VAGINALIS (WET MOUNT) NO TRICHOMONAS SEEN; WBCS (WET MOUNT) 4+ WBCS SEEN; YEAST (WET MOUNT) YEAST SEEN
[2018-08-31] MEDS ORDERED: METRONIDAZOLE 500 MG TABLET PO ONE (09:31)
[2018-08-31] MEDS ORDERED: CEPHALEXIN 500 MG CAPSULE PO ONE (09:31)
[2018-08-31 10:34] LABS: CHLAM PCR NOT DETECTED (NOT DETECT); GON PCR NOT DETECTED (NOT DETECT)
== END 2018-08-31 09:52 | disposition home or self-care (01) ==
LOC: ER 07:56
DX: N76.0 Acute vaginitis (principal); B96.89 Other specified bacterial agents as the cause of diseases classified elsewhere; N39.0 Urinary tract infection, site not specified; M54.5 Low back pain
CPT/HCPCS: 99283; 96372; 87086; 87210; 81025; 81001; 87491; 87591; J1885; J3490

== ENCOUNTER 2018-09-09 09:06 | Emergency (ER) | payer SELFPAY ==
--- NOTE | 2018-09-09 09:36 | ER Document Report ---
ED Medical Screen (RME) - General TRAVEL OUTSIDE OF THE [place] IN LAST 30 DAYS: No - General Chief Complaint: Flank Pain Stated Complaint: ABDOMINAL PAIN Time Seen by Provider: 09/09/18 09:31 Notes: 33-year-old female who presents to the emergency department today with complaints of "UTI". Patient states she was diagnosed in this facility with a UTI and yeast infection on 08/31. Patient states she completed the course of Diflucan and antibiotics and her symptoms have persisted. Patient states her symptoms she is currently having throbbing in her low back, vaginal irritation, vaginal discharge, and abdominal pain. Patient denies any recent sexual intercourse. Patient denies any blood in her urine, dysuria, urinary frequency , rash, nausea, or vomiting. I have greeted and performed a rapid initial assessment of this patient. A comprehensive ED assessment and evaluation of the patient, analysis of test results, and completion of the medical decision making process will be conducted by additional ED providers. Review of systems: Constitutional: No symptoms reported EENT: No symptoms reported Cardiovascular: No symptoms reported Respiratory: No symptoms reported Gastrointestinal: Lower abdominal pain. Denies: Nausea or vomiting Genitourinary: Vaginal discharge. Vaginal irritation. Denies: Urinary frequency, hematuria, dysuria Musculoskeletal: Low back pain Skin: Denies rash Hematologic/Lymphatic: No symptoms reported Neurological/Psychological: No symptoms reported Yes All other systems reviewed and negative PHYSICAL EXAM GENERAL: Alert, interacts well. No acute distress. HEAD: Normocephalic, atraumatic. EYES: Pupils equal, round, and reactive to light. Extraocular movements intact. ENT: Oral mucosa moist, tongue midline. NECK: Full range of motion. Supple. Trachea midline. LUNGS: No respiratory distress. EXTREMITIES: Moves all 4 extremities spontaneously. NEUROLOGICAL: Alert and oriented x3. Normal speech. PSYCH: Normal affect, normal mood. SKIN: Warm, dry, normal turgor. No rashes or lesions noted. (ARIELLE LIRIANO) - Related Data Allergies/Adverse Reactions: latex Allergy (Verified 06/12/18 10:14) Hives Past Medical History - Social History Family history: CAD Renal/ Medical History: Reports: Hx Ovarian Cysts. Denies: Hx Peritoneal Dialysis Psychiatric Medical History: Reports: Hx Anxiety Past Surgical History: Reports: Hx Gynecologic Surgery - L ovarian cyst removed , , Hx Tubal Ligation - Immunizations Immunizations up to date: No Hx Diphtheria, Pertussis, Tetanus Vaccination: No - Vital signs Vitals: Temp Pulse Resp BP Pulse Ox 98.5 F 81 20 123/80 97 09/09/18 09:17 09/09/18 09:17 09/09/18 09:17 09/09/18 09:17 09/09/18 09:17 - Vital Signs Vital signs: Temp Pulse Resp BP Pulse Ox 98.5 F 81 20 123/80 97 09/09/18 09:17 09/09/18 09:17 09/09/18 09:17 09/09/18 09:17 09/09/18 09:17 - Laboratory Laboratory results interpreted by me: 09/09/18 09:45 Urine Blood SMALL H Ur Leukocyte Esterase LARGE H Urine Ascorbic Acid 20 H Doctor's Discharge - Discharge Referrals: FREDY VICENTE DO [Primary Care Provider] - Follow up as needed
[2018-09-09 10:00] LABS: APPEARANCE,URINE CLOUDY; BILIRUBIN,URINE NEGATIVE (NEGATIVE); COLOR,URINE YELLOW; GLUCOSE, URINE NEGATIVE (NEGATIVE); KETONES,URINE NEGATIVE (NEGATIVE); LEUKOCYTE ESTERASE,URINE LARGE (NEGATIVE); NITRITE,URINE NEGATIVE (NEGATIVE); PROTEIN,URINE NEGATIVE (NEGATIVE); URINE SPECIFIC GRAVITY 1.015; UROBILINOGEN,URINE NEGATIVE mg/dL (<2.0)
[2018-09-09] MEDS ORDERED: FLUCONAZOLE 100 MG TABLET PO ONE (10:32)
[2018-09-09] MEDS ORDERED: SULFAMETHOXAZOLE/TRIMETHOPRIM 800-160 MG TABLET PO ONE (10:33)
--- NOTE | 2018-09-09 10:37 | ER Document Report ---
ED General - General Chief Complaint: Flank Pain Stated Complaint: ABDOMINAL PAIN Time Seen by Provider: 09/09/18 09:31 TRAVEL OUTSIDE OF THE [place] IN LAST 30 DAYS: No - HPI Notes: Patient is a 33-year-old female that presents to the emergency department for chief complaint of pelvic pain and vaginal irritation. Patient states her symptoms have been ongoing for over a week. She was seen here and diagnosed with BV and urinary tract infection. She states she has finished a course of Keflex and is almost done with Flagyl for the BV. She was also given Diflucan x1 dose. She reports no change in her symptoms. She is still having vaginal irritation and dysuria. She also reports a lower pelvic cramping pain. Her pain is intermittent with no aggravating or relieving factors. She has not taken Tylenol or ibuprofen at home. She has not followed with [facility]. She states she has not been sexually active since her previous visit. Past Medical History: Negative Past Surgical History: Reviewed in chart Social History: Denies drugs alcohol and tobacco Family History: Reviewed and noncontributory for presenting illness Allergies: Reviewed, see documented allergy list. REVIEW OF SYSTEMS: CONSTITUTIONAL : No fever No chills No diaphoresis No recent illness EENT: No vision changes No congestion No sore throat CARDIOVASCULAR: No chest pain No palpitations RESPIRATORY: No shortness of breath No cough No difficulty breathing GASTROINTESTINAL: No abdominal pain No nausea No vomiting No diarrhea GENITOURINARY: pelvic pain Sternal irritation dysuria No hematuria No difficulty urinating MUSCULOSKELETAL: No back pain No leg pain No arm pain SKIN: No rashes No lesions LYMPHATIC: No swollen, enlarged glands. NEUROLOGICAL: No lightheadedness No headache No weakness No paresthesias PSYCHIATRIC: No anxiety No depression PHYSICAL EXAMINATION: Vital signs reviewed, nursing noted reviewed. GENERAL: Well-appearing, well-nourished and in no acute distress. HEAD: Atraumatic, normocephalic. EYES: Eyes appear normal, extraocular movements intact, sclera anicteric, conjunctiva are normal. ENT: nares patent, oropharynx clear without exudates. Moist mucous membranes. NECK: Normal range of motion, supple without lymphadenopathy LUNGS: Breath sounds clear to auscultation bilaterally and equal. No wheezes rales or rhonchi. HEART: Regular rate and rhythm without murmurs ABDOMEN: Soft, nontender, normoactive bowel sounds. No rebound, guarding, or rigidity. No masses appreciated. : Normal-appearing external vaginal exam with no vesicles or pustules and no labial erythema or swelling. Moderate amount of vaginal discharge that is thick and white. No pain with cervical motion. No adnexal tenderness or fullness. Trace vaginal bleeding. EXTREMITIES: Nontender, good range of motion, no pitting or edema. NEUROLOGICAL: No focal neurological deficits. Moves all extremities spontaneously Motor and sensory grossly intact on exam. PSYCH: Normal mood, normal affect. SKIN: Warm, Dry, normal turgor, no rashes or lesions noted on exposed skin - Related Data Allergies/Adverse Reactions: latex Allergy (Verified 06/12/18 10:14) Hives Past Medical History - Social History Smoking Status: Never Smoker Chew tobacco use (# tins/day): No Frequency of alcohol use: None Drug Abuse: None Family History: Arthritis, CAD, CVA, DM, Hyperlipidemia, Hypertension, Malignancy Patient has suicidal ideation: No Patient has homicidal ideation: No Renal/ Medical History: Reports: Hx Ovarian Cysts. Denies: Hx Peritoneal Dialysis Psychiatric Medical History: Reports: Hx Anxiety Past Surgical History: Reports: Hx Gynecologic Surgery - L ovarian cyst removed , , Hx Tubal Ligation - Immunizations Immunizations up to date: No Hx Diphtheria, Pertussis, Tetanus Vaccination: No Physical Exam - Vital signs Vitals: Temp Pulse Resp BP Pulse Ox 98.5 F 81 20 123/80 97 09/09/18 09:17 09/09/18 09:17 09/09/18 09:17 09/09/18 09:17 09/09/18 09:17 Course - Re-evaluation Re-evalutation: 09/09/18 10:36 Vitals reviewed. Nursing notes reviewed. Urinalysis is consistent with urinary tract infection. I reviewed her culture from her previous visit which showed yeast and normal lul. Patient will be given another dose of Diflucan hand a repeat dose to take again in 1 week for her yeast vaginitis. She will be started on Bactrim for her persistent urinary tract infection. Repeat urine culture was obtained today. Patient's abdominal exam is soft and nontender, I do not suspect acute intra-abdominal process. She will be referred to gynecology for follow-up. She was given Tylenol for pain. Gonorrhea and Chlamydia cultures were again sent today however she is not sexually active and not requiring prophylactic treatment at this time. 09/09/18 11:03 Laboratory 09/09/18 09/09/18 09:45 10:30 Urine Color YELLOW Urine Appearance CLOUDY Urine pH 5.0 Ur Specific Olivia 1.015 Urine Protein NEGATIVE Urine Glucose (UA) NEGATIVE Urine Ketones NEGATIVE Urine Blood SMALL H Urine Nitrite NEGATIVE Urine Bilirubin NEGATIVE Urine Urobilinogen NEGATIVE Ur Leukocyte Esterase LARGE H Urine WBC (Auto) 69 Urine RBC (Auto) 11 Squamous Epi Cells Auto 18 Urine Mucus (Auto) OCC Urine Ascorbic Acid 20 H Trichomonas (Wet Prep) NO TRICHOMONAS SEEN Vaginal WBC RARE WBCS SEEN Vaginal RBC 1+ RBCS SEEN Vaginal Yeast BUDDING YEAST SEEN - Vital Signs Vital signs: Temp Pulse Resp BP Pulse Ox 98.5 F 81 20 123/80 97 09/09/18 09:17 09/09/18 09:17 09/09/18 09:17 09/09/18 09:17 09/09/18 09:17 - Laboratory Laboratory results interpreted by me: 09/09/18 09:45 Urine Blood SMALL H Ur Leukocyte Esterase LARGE H Urine Ascorbic Acid 20 H Discharge - Discharge Clinical Impression: Yeast vaginitis Urinary tract infection Qualifiers: Urinary tract infection type: acute cystitis Hematuria presence: without hematuria Qualified Code(s): N30.00 - Acute cystitis without hematuria Condition: Stable Disposition: HOME, SELF-CARE Instructions: Trimethoprim-Sulfa ([facility]), Urinary Tract Infection ([facility]), Vaginal Yeast Infection ([facility]) Additional Instructions: Please return to the emergency department if you have any worsening, or concern of your symptoms. Please return to the emergency department if you develop chest pain, difficulty breathing, severe abdominal pain, or ongoing vomiting. Please follow-up with your primary care physician in 2-3 days and any other recommended physicians. If prescribed, take all medications as directed. If you have any questions or concerns do not hesitate to return the emergency department for evaluation. [] Prescriptions: Fluconazole [Diflucan] 150 mg PO ONCE PRN #1 tablet PRN Reason: Sulfamethoxazole/Trimethoprim [Bactrim Ds Tablet] 1 each PO BID #14 tablet Referrals: FREDY VICENTE DO [Primary Care Provider] - Follow up as needed [facility] [Provider Group] - Follow up in 3-5 days
[2018-09-09 10:45] LABS: RBCS (WET MOUNT) 1+ RBCS SEEN; T.VAGINALIS (WET MOUNT) NO TRICHOMONAS SEEN; WBCS (WET MOUNT) RARE WBCS SEEN; YEAST (WET MOUNT) BUDDING YEAST SEEN
[2018-09-09] MEDS ORDERED: IBUPROFEN 600 MG TABLET PO ONE (10:56)
[2018-09-09 11:21] VITALS: BP 127/85
[2018-09-09 12:12] LABS: CHLAM PCR NOT DETECTED (NOT DETECT); GON PCR NOT DETECTED (NOT DETECT)
== END 2018-09-09 11:22 | disposition home or self-care (01) ==
LOC: ER 09:06
DX: B37.3 Candidiasis of vulva and vagina (principal); N30.00 Acute cystitis without hematuria; R10.2 Pelvic and perineal pain; Z79.899 Other long term (current) drug therapy
CPT/HCPCS: 81001; 87086; 87210; 87491; 87591; 99284

== ENCOUNTER 2018-09-12 00:42 | Emergency (ER) | payer SELFPAY ==
[2018-09-12 00:56] VITALS: BP 119/75
--- NOTE | 2018-09-12 07:46 | EKG REPORT ---
SEVERITY:- NORMAL ECG - SINUS RHYTHM : Confirmed by: Francois Montgomery MD 12-Sep-2018 07:45:35
== END 2018-09-12 01:10 | disposition left against medical advice (07) ==
LOC: ER 00:42
DX: Z53.21 Procedure and treatment not carried out due to patient leaving prior to being seen by health care provider (principal)
CPT/HCPCS: 93005; 93010

== ENCOUNTER → 2018-10-20 | Outpatient (CLI) | payer MEDICAID ==
[2018-10-20 18:23] LABS: CHLAM PCR NOT DETECTED (NOT DETECT); GON PCR NOT DETECTED (NOT DETECT)
== END ==
LOC: LAB 16:28
PROVIDERS: ATTEND Nurse Practitioner Family
DX: N89.8 Other specified noninflammatory disorders of vagina (principal); N92.6 Irregular menstruation, unspecified
CPT/HCPCS: 87086; 87088; 87491; 87591

== ENCOUNTER 2018-10-31 08:30 | Emergency (ER) | payer MEDICAID ==
[2018-10-31 09:27] LABS: ABSOLUTE EOSINOPHILS # (AUTO) 0.3 10^3/uL (0.0-0.6); ABSOLUTE LYMPHOCYTES (AUTO) 2.4 10^3/uL (0.5-4.7); ABSOLUTE MONOCYTES (AUTO) 0.4 10^3/uL (0.1-1.4); ABSOLUTE NEUT (AUTO) 4.7 10^3/uL (1.7-8.2); BASOPHILS % (AUTO) 0.5 % (0-2); EOSINOPHILS % (AUTO) 3.2 % (0-6); HEMATOCRIT 37.6 % (36.0-47.0); HEMOGLOBIN 12.4 g/dL (12.0-15.5); LYMPHOCYTES % (AUTO) 30.5 % (13-45); MEAN CORPUSCULAR HGB CONC 32.9 g/dL (32.0-36.0); MEAN CORPUSCULAR VOLUME 76 fl (80-97); MONOCYTES % (AUTO) 5.6 % (3-13); PLATELET COUNT 293 10^3/uL (150-450); RED BLOOD COUNT 4.95 10^6/uL (3.72-5.28); RED CELL DISTRIBUTION WIDTH 16.1 % (11.5-14.0); SEGMENTED NEUTROPHILS % (AUTO) 60.2 % (42-78); TOTAL CELLS COUNTED % (AUTO) 100 %; WHITE BLOOD COUNT 7.8 10^3/uL (4.0-10.5)
[2018-10-31 09:35] LABS: ALANINE AMINOTRANSFERASE 19 U/L (9-52); ALBUMIN 4.5 g/dL (3.5-5.0); ALKALINE PHOSPHATASE 80 U/L (38-126); ANION GAP 7 (5-19); ASPARTATE AMINO TRANSFERASE 22 U/L (14-36); BILIRUBIN,DIRECT 0.3 mg/dL (0.0-0.4); BILIRUBIN,TOTAL 0.5 mg/dL (0.2-1.3); BLOOD UREA NITROGEN 15 mg/dL (7-20); CALCIUM 9.3 mg/dL (8.4-10.2); CARBON DIOXIDE 29 mmol/L (22-30); CHLORIDE 103 mmol/L (98-107); GLUCOSE 91 mg/dL (75-110); POTASSIUM 4.1 mmol/L (3.6-5.0); SODIUM 138.9 mmol/L (137-145); TOTAL PROTEIN 8.2 g/dL (6.3-8.2)
[2018-10-31 09:37] LABS: APPEARANCE,URINE CLEAR; BILIRUBIN,URINE NEGATIVE (NEGATIVE); COLOR,URINE YELLOW; GLUCOSE, URINE NEGATIVE (NEGATIVE); KETONES,URINE NEGATIVE (NEGATIVE); LEUKOCYTE ESTERASE,URINE SMALL (NEGATIVE); NITRITE,URINE NEGATIVE (NEGATIVE); PROTEIN,URINE NEGATIVE (NEGATIVE); URINE SPECIFIC GRAVITY 1.006; UROBILINOGEN,URINE NEGATIVE mg/dL (<2.0)
--- NOTE | 2018-10-31 10:42 | ER Document Report ---
ED General - General Chief Complaint: Weakness Stated Complaint: WEAKNESS Time Seen by Provider: 10/31/18 08:56 Mode of Arrival: Ambulatory Information source: Patient Notes: Patient is an otherwise healthy 33-year-old female presenting with chief complaint of dizziness and weakness that started this morning. Patient reports that she had multiple changes to her diet and lifestyle yesterday. Yesterday she started a 7-day cleanser detox, she states these are some type of tablets she does not know the name of them. She also reports that she started a fasting diet in which she only had 2 apples for lunch and baked chicken with max greens for dinner. She has not consumed any calories since 7:30 PM last night. Patient also reports that she started taking cetirizine and and antidepressants, she states both of them were taken last night for the first time. She states that this morning when she woke up she felt very sluggish and then started feeling dizzy. TRAVEL OUTSIDE OF THE [place] IN LAST 30 DAYS: No - Related Data Allergies/Adverse Reactions: latex Allergy (Verified 10/31/18 08:35) Hives Past Medical History - General Information source: Patient - Social History Smoking Status: Never Smoker Frequency of alcohol use: None Drug Abuse: None Family History: Arthritis, CAD, CVA, DM, Hyperlipidemia, Hypertension, Malignanc y Patient has suicidal ideation: No Patient has homicidal ideation: No Renal/ Medical History: Reports: Hx Ovarian Cysts. Denies: Hx Peritoneal Dialysis Psychiatric Medical History: Reports: Hx Anxiety Past Surgical History: Reports: Hx Gynecologic Surgery - L ovarian cyst removed, , Hx Tubal Ligation - Immunizations Immunizations up to date: No Hx Diphtheria, Pertussis, Tetanus Vaccination: No Review of Systems - Review of Systems Constitutional: Malaise, Weakness EENT: No symptoms reported Cardiovascular: No symptoms reported. denies: Chest pain, Palpitations Respiratory: No symptoms reported Gastrointestinal: No symptoms reported Genitourinary: No symptoms reported Female Genitourinary: No symptoms reported Musculoskeletal: No symptoms reported Skin: No symptoms reported Hematologic/Lymphatic: No symptoms reported Neurological/Psychological: No symptoms reported Physical Exam - Vital signs Vitals: Temp Pulse Resp BP Pulse Ox 98.0 F 65 16 124/85 100 10/31/18 08:37 10/31/18 08:37 10/31/18 08:37 10/31/18 08:37 10/31/18 08:37 - Notes Notes: PHYSICAL EXAMINATION: GENERAL: Well-appearing, well-nourished and in no acute distress. HEAD: Atraumatic, normocephalic. EYES: Pupils equal round and reactive to light, extraocular movements intact, conjunctiva are normal. ENT: Nares patent, oropharynx clear without exudates. Moist mucous membranes. NECK: Normal range of motion, supple without lymphadenopathy LUNGS: Breath sounds clear to auscultation bilaterally and equal. No wheezes rales or rhonchi. HEART: Regular rate and rhythm without murmurs ABDOMEN: Soft, nontender, nondistended abdomen. No guarding, no rebound. No masses appreciated. Female : No CVA tenderness. Musculoskeletal: Normal range of motion, no pitting or edema. No cyanosis. NEUROLOGICAL: Cranial nerves grossly intact. Normal speech, normal gait. Normal sensory, motor exams PSYCH: Normal mood, normal affect. SKIN: Warm, Dry, normal turgor, no rashes or lesions noted. Course - Re-evaluation Re-evalutation: 10/31/18 10:45 CBC, CMP and urinalysis are unremarkable. EKG shows a sinus rhythm, rate of 63, normal axis, no ST segment elevations or depressions. This is unchanged from previous EKG done in this facility on 09/12/2018. Patient's vital signs have been stable while in the emergency department. EMS had an Accu-Chek of 91, we repeated his Accu-Chek and found it to be 89. Patient now reporting that she thinks that she just needs to eat something which I agree with. Patient was provided juice as well as cereal and crackers. Patient reports that she feels much improved. Extensive discussion had with patient regarding adequate caloric intake and patient verbalizes understanding of same. - Vital Signs Vital signs: Temp Pulse Resp BP Pulse Ox 98.0 F 65 16 124/85 100 10/31/18 08:37 10/31/18 08:37 10/31/18 08:37 10/31/18 08:37 10/31/18 08:37 - Laboratory Result Diagrams: 10/31/18 08:45 10/31/18 08:45 Laboratory results interpreted by me: 10/31/18 10/31/18 08:45 08:45 MCV 76 L MCH 25.0 L RDW 16.1 H Ur Leukocyte Esterase SMALL H Discharge - Discharge Clinical Impression: Dizziness, Dietary counseling, Medication side effect Condition: Stable Disposition: HOME, SELF-CARE Additional Instructions: Your lab workup today was normal. Your EKG also looks normal. It is likely that your symptoms are due to too many changes at one time. Starting a detox and a fasting diet and new medications on the same day is probably what caused your symptoms. Please return to the emergency department and/or your primary care provider if you have worsening symptoms. Referrals: KALPESH NEFF SPEECH SCIENTIST [Primary Care Provider] - Follow up as needed
[2018-10-31 11:42] VITALS: BP 144/89
--- NOTE | 2018-10-31 18:01 | EKG REPORT ---
SEVERITY:- NORMAL ECG - SINUS RHYTHM : Confirmed by: Archie Prajapati 31-Oct-2018 18:00:08
== END 2018-10-31 11:40 | disposition home or self-care (01) ==
LOC: ER 08:30
DX: Z71.3 Dietary counseling and surveillance (principal); R42 Dizziness and giddiness; R53.1 Weakness; T50.905A Adverse effect of unspecified drugs, medicaments and biological substances, initial encounter; X58.XXXA Exposure to other specified factors, initial encounter; Z91.040 Latex allergy status; Z98.51 Tubal ligation status
CPT/HCPCS: 36415; 80053; 81001; 82962; 85025; 93005; 93010; 99284

== ENCOUNTER 2018-11-10 22:03 | Emergency (ER) | payer MEDICAID ==
[2018-11-10 22:39] LABS: ABSOLUTE EOSINOPHILS # (AUTO) 0.4 10^3/uL (0.0-0.6); ABSOLUTE LYMPHOCYTES (AUTO) 2.9 10^3/uL (0.5-4.7); ABSOLUTE MONOCYTES (AUTO) 0.5 10^3/uL (0.1-1.4); ABSOLUTE NEUT (AUTO) 5.4 10^3/uL (1.7-8.2); BASOPHILS % (AUTO) 0.5 % (0-2); EOSINOPHILS % (AUTO) 3.8 % (0-6); HEMATOCRIT 37.3 % (36.0-47.0); HEMOGLOBIN 12.5 g/dL (12.0-15.5); LYMPHOCYTES % (AUTO) 31.7 % (13-45); MEAN CORPUSCULAR HEMOGLOBIN 25.2 pg (27.0-33.4); MEAN CORPUSCULAR HGB CONC 33.6 g/dL (32.0-36.0); MEAN CORPUSCULAR VOLUME 75 fl (80-97); MONOCYTES % (AUTO) 5.7 % (3-13); PLATELET COUNT 327 10^3/uL (150-450); RED BLOOD COUNT 4.97 10^6/uL (3.72-5.28); RED CELL DISTRIBUTION WIDTH 15.9 % (11.5-14.0); SEGMENTED NEUTROPHILS % (AUTO) 58.3 % (42-78); TOTAL CELLS COUNTED % (AUTO) 100 %; WHITE BLOOD COUNT 9.3 10^3/uL (4.0-10.5)
--- NOTE | 2018-11-10 22:50 | ER Document Report ---
ED General - General Chief Complaint: Chest Pain Stated Complaint: CHEST PAIN Time Seen by Provider: 11/10/18 22:37 Primary Care Provider: KALPESH NEFF NP [Primary Care Provider] - Follow up as needed Notes: Patient is a 33-year-old female that comes to the emergency department for chief complaint of pain in her chest that started this morning, pain is intermittently sharp, in the center of her chest, nonradiating. She also states intermittently she feels lightheaded. Denies current lightheadedness. She also states that she is getting tingling sensations over her body, mainly in her hands but also down to her feet. She states she has had this before including the tingling and pain in her chest and she was told it was anxiety. She takes Lexapro for anxiety, she denies smoking, reports rare alcohol, denies street drugs. She denies lower extremity swelling, recent travel or surgery. She states that her dad gets blood clots. Starting her menstrual cycle now. History of tubal ligation. TRAVEL OUTSIDE OF THE [place] IN LAST 30 DAYS: No - Related Data Allergies/Adverse Reactions: latex Allergy (Verified 11/10/18 22:21) Hives Past Medical History - General Information source: Patient - Social History Smoking Status: Never Smoker Frequency of alcohol use: None Drug Abuse: None Lives with: Family Family History: Arthritis, CAD, CVA, DM, Hyperlipidemia, Hypertension, Malignancy Patient has suicidal ideation: No Patient has homicidal ideation: No Renal/ Medical History: Reports: Hx Ovarian Cysts. Denies: Hx Peritoneal Dialysis Psychiatric Medical History: Reports: Hx Anxiety Past Surgical History: Reports: Hx Gynecologic Surgery - L ovarian cyst removed, , Hx Tubal Ligation - Immunizations Immunizations up to date: No Hx Diphtheria, Pertussis, Tetanus Vaccination: No Review of Systems - Review of Systems Constitutional: No symptoms reported EENT: No symptoms reported Cardiovascular: See HPI Respiratory: See HPI Gastrointestinal: No symptoms reported Genitourinary: No symptoms reported Female Genitourinary: No symptoms reported Musculoskeletal: No symptoms reported Skin: No symptoms reported Hematologic/Lymphatic: No symptoms reported Neurological/Psychological: See HPI Physical Exam - Vital signs Vitals: Temp Pulse Resp BP Pulse Ox 97.4 F 60 14 120/68 99 11/10/18 22:28 11/10/18 22:28 11/10/18 22:28 11/10/18 22:28 11/10/18 22:28 - Notes Notes: GENERAL: Alert, interacts well. No acute distress. HEAD: Normocephalic, atraumatic. EYES: Pupils equal, round, and reactive to light. Extraocular movements intact. ENT: Oral mucosa moist, tongue midline. Oropharynx unremarkable. Airway patent. Nares patent, no nasal septal hematoma, TM's intact. NECK: Full range of motion. Supple. Trachea midline. LUNGS: Clear to auscultation bilaterally, no wheezes, rales, or rhonchi. No respiratory distress. Tender with palpation over the sternal border bilaterally, this is mild but reproducible and specific in location. Remaining chest with no tenderness noted. Unremarkable otherwise. HEART: Regular rate and rhythm. No murmur ABDOMEN: Soft, non-tender. Non-distended. Bowel sounds present in all 4 quadrants. GENITOURINARY: Deferred EXTREMITIES: Moves all 4 extremities spontaneously. No edema, normal radial and dorsalis pedis pulses bilaterally. No cyanosis. BACK: no cervical, thoracic, lumbar midline tenderness. No saddle anesthesia, normal distal neurovascular exam. NEUROLOGICAL: Alert and oriented x3. Normal speech. [cranial nerves II through XII grossly intact]. PSYCH: Normal affect, normal mood. SKIN: Warm, dry, normal turgor. No rashes or lesions noted. Course - Re-evaluation Re-evalutation: EKG sinus rhythm with no T wave inversions or ST segment changes in consecutive leads. LA interval and QTc within normal limits. Chest x-ray unremarkable. CBC, chemistry unremarkable. HCG is negative. Troponin is negative. D-dimer is not elevated. Patient has chest wall tenderness along the sternal borders on evaluation which is reproducible and specific. I suspect her chest pain is from chest wall, remaining workup is negative. Heart score is 0. 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 This appears to be positional as well. Improves with motion. Appears to be circulatory numbness induced by positioning and immobilization. Recommendations given. Discussed workup, recommendations for treatment, follow-up, and return precautions in detail. Patient states understanding and agreement. - Vital Signs Vital signs: Temp Pulse Resp BP Pulse Ox 97.4 F 60 16 125/89 H 98 11/10/18 22:28 11/10/18 22:28 11/11/18 00:21 11/11/18 00:21 11/11/18 00:21 - Laboratory Result Diagrams: 11/10/18 22:28 11/10/18 22:28 Laboratory results interpreted by me: 11/10/18 22:28 MCV 75 L MCH 25.2 L RDW 15.9 H Discharge - Discharge Clinical Impression: Paresthesias, Chest wall pain Condition: Stable Disposition: HOME, SELF-CARE Additional Instructions: Your workup tonight does not show any concerning abnormality. For your chest wall pain, take the medication as prescribed. You can put heat on the area as well. This usually slow resolves. The tinging sensation appears to be related to circulation. Improve posture, limb positions, or even get up and move around to make this go away. Follow up with primary care. Return if you worsen including difficulty breathin g, passing out, severe worsening pain, fever, or any other concerning or worsening symptoms. Prescriptions: Naproxen [Naprosyn 375 Mg Tablet] 375 mg PO BID PRN #20 tablet PRN Reason: Referrals: KALPESH NEFF NP [Primary Care Provider] - Follow up as needed
[2018-11-10 22:57] LABS: ALANINE AMINOTRANSFERASE 30 U/L (9-52); ALBUMIN 4.3 g/dL (3.5-5.0); ALKALINE PHOSPHATASE 86 U/L (38-126); ANION GAP 7 (5-19); ASPARTATE AMINO TRANSFERASE 17 U/L (14-36); BILIRUBIN,DIRECT 0.1 mg/dL (0.0-0.4); BILIRUBIN,TOTAL 0.5 mg/dL (0.2-1.3); BLOOD UREA NITROGEN 20 mg/dL (7-20); CALCIUM 9.5 mg/dL (8.4-10.2); CARBON DIOXIDE 27 mmol/L (22-30); CHLORIDE 107 mmol/L (98-107); GLUCOSE 82 mg/dL (75-110); POTASSIUM 4.3 mmol/L (3.6-5.0); SODIUM 141.4 mmol/L (137-145); TOTAL PROTEIN 7.6 g/dL (6.3-8.2)
--- NOTE | 2018-11-10 23:29 | RADIOLOGY REPORT (SQ) ---
EXAM DESCRIPTION: XR CHEST 1 VIEW COMPLETED DATE/TME: 11/10/2018 22:46 CLINICAL HISTORY: 33 years, Female, chest pain Findings: The heart is not enlarged. Aorta is within normal limits. No consolidation or pleural effusion. No pulmonary edema or pneumothorax. IMPRESSION: No acute disease.
[2018-11-11] MEDS ORDERED: KETOROLAC TROMETHAMINE INJ/PF 30 MG/1 ML SDV IV ONE (00:06)
[2018-11-11 00:23] VITALS: BP 125/89
--- NOTE | 2018-11-11 07:53 | EKG REPORT ---
SEVERITY:- NORMAL ECG - SINUS RHYTHM : Confirmed by: Annabelle Leon MD 11-Nov-2018 07:52:55
== END 2018-11-11 00:29 | disposition home or self-care (01) ==
LOC: ER 22:03
DX: R07.89 Other chest pain (principal); R20.0 Anesthesia of skin; R42 Dizziness and giddiness; Z79.899 Other long term (current) drug therapy
CPT/HCPCS: 93005; 99284; 96374; 36415; 84703; 85025; 80053; 84484; 85379; 71045; 93010; J1885

== ENCOUNTER 2018-11-24 08:18 | Emergency (ER) | payer MEDICAID ==
[2018-11-24 08:59] LABS: APPEARANCE,URINE CLOUDY; BILIRUBIN,URINE NEGATIVE (NEGATIVE); COLOR,URINE YELLOW; GLUCOSE, URINE NEGATIVE (NEGATIVE); KETONES,URINE NEGATIVE (NEGATIVE); LEUKOCYTE ESTERASE,URINE LARGE (NEGATIVE); NITRITE,URINE NEGATIVE (NEGATIVE); PROTEIN,URINE NEGATIVE (NEGATIVE); URINE SPECIFIC GRAVITY 1.025; UROBILINOGEN,URINE NEGATIVE mg/dL (<2.0)
[2018-11-24 10:09] LABS: T.VAGINALIS (WET MOUNT) NO TRICHOMONAS SEEN
[2018-11-24 10:12] LABS: BACTERIA (WET MOUNT) 3+ BACTERIA SEEN; RBCS (WET MOUNT) FEW RBCS SEEN; WBCS (WET MOUNT) 3+ WBCS SEEN; YEAST (WET MOUNT) NO YEAST SEEN
[2018-11-24] MEDS ORDERED: METRONIDAZOLE 500 MG TABLET PO ONE (10:57)
--- NOTE | 2018-11-24 11:18 | ER Document Report ---
ED General - General Chief Complaint: Vaginal Discharge Stated Complaint: BACK PAIN/VAGINAL DISCHARGE Time Seen by Provider: 11/24/18 08:41 Primary Care Provider: KALPESH NEFF NP [Primary Care Provider] - Follow up as needed Notes: Patient is a 33-year-old female presents to the emergency department for generalized vaginal itching, burning, malodorous discharge that started on Monday. Patient states her last sexual encounter was 3 months ago, initially denying need for gonorrhea and Chlamydia testing. Patient states she used a new [id number] lotion and body wash and feels as though she irritated her vagina. Patient denies any abdominal pain or back pain at this time. Patient's initial paperwork stated she did have back pain but patient states she no longer has any back pain. Past medical history: None Medications: None Allergies: None Patient's last menstrual period 11/11/2018 TRAVEL OUTSIDE OF THE [place] IN LAST 30 DAYS: No - Related Data Allergies/Adverse Reactions: latex Allergy (Verified 11/24/18 08:19) Hives Past Medical History - General Information source: Patient - Social History Smoking Status: Never Smoker Chew tobacco use (# tins/day): No Frequency of alcohol use: None Drug Abuse: None Family History: Arthritis, CAD, CVA, DM, Hyperlipidemia, Hypertension, Malignancy Patient has suicidal ideation: No Patient has homicidal ideation: No Renal/ Medical History: Reports: Hx Ovarian Cysts. Denies: Hx Peritoneal Dialysis Psychiatric Medical History: Reports: Hx Anxiety Past Surgical History: Reports: Hx Gynecologic Surgery - L ovarian cyst removed, , Hx Tubal Ligation - Immunizations Immunizations up to date: No Hx Diphtheria, Pertussis, Tetanus Vaccination: No Review of Systems - Review of Systems Constitutional: No symptoms reported EENT: No symptoms reported Cardiovascular: No symptoms reported Respiratory: No symptoms reported Gastrointestinal: No symptoms reported Genitourinary: See HPI Female Genitourinary: See HPI Musculoskeletal: No symptoms reported Skin: No symptoms reported Hematologic/Lymphatic: No symptoms reported Neurological/Psychological: No symptoms reported Physical Exam - Vital signs Vitals: Temp Pulse Resp BP Pulse Ox 98.3 F 70 16 116/71 98 11/24/18 08:28 11/24/18 08:28 11/24/18 08:28 11/24/18 08:28 11/24/18 08:28 - Notes Notes: GENERAL: Obese alert, interacts well. No acute distress. HEAD: Normocephalic, atraumatic. EYES: Pupils equal, round, and reactive to light. Extraocular movements intact. ENT: Oral mucosa moist, tongue midline. NECK: Full range of motion. Supple. Trachea midline. LUNGS: Clear to auscultation bilaterally, no wheezes, rales, or rhonchi. No respiratory distress. HEART: Regular rate and rhythm. No murmur ABDOMEN: Soft, non-tender. Non-distended. Bowel sounds present in all 4 quadrants. EXTREMITIES: Moves all 4 extremities spontaneously. No edema, normal radial and dorsalis pedis pulses bilaterally. No cyanosis. BACK: no cervical, thoracic, lumbar midline tenderness. No saddle anesthesia, normal distal neurovascular exam. NEUROLOGICAL: Alert and oriented x3. Normal speech. cranial nerves II through XII grossly intact PSYCH: Normal affect, normal mood. SKIN: Warm, dry, normal turgor. No rashes or lesions noted. Pelvic: Sulema Salazar RN, white malodorous discharge noted in cul-de-sac, no cervical motion tenderness noted, no adnexal tenderness noted bilaterally. Course - Re-evaluation Re-evalutation: 11/24/18 11:18 Gonorrhea and Chlamydia testing still pending. Discussed testing and treatment with patient at length. She agrees to be tested but does not want to be prophylactically treated. Discussed that should her results come back positive she will be notified and need to return to the emergency room for proper treatment. Patient's wet mount did reveal signs of bacterial vaginosis we will treat for same. Patient states antibiotics typically give her a yeast infection, will treat with Diflucan. Patient continues without abdominal pain or back pain, vitals reviewed and stable, stable for discharge. - Vital Signs Vital signs: Temp Pulse Resp BP Pulse Ox 98.3 F 70 16 116/71 98 11/24/18 08:28 11/24/18 08:28 11/24/18 08:28 11/24/18 08:28 11/24/18 08:28 - Laboratory Laboratory results interpreted by me: 11/24/18 08:44 Ur Leukocyte Esterase LARGE H Urine Ascorbic Acid 40 H Discharge - Discharge Clinical Impression: Bacterial vaginosis Condition: Stable Disposition: HOME, SELF-CARE Instructions: Vaginosis, Bacterial ([facility]) Additional Instructions: As we discussed you have been seen and treated in the emergency department for bacterial vaginosis. Please take antibiotics as prescribed. Please take one Diflucan tab in the middle of your antibiotic treatments. Please take another Diflucan tab at the end of your antibiotic treatment. Please follow-up with your primary care provider return to the emergency room for any other concerning symptoms. Prescriptions: Fluconazole [Diflucan] 150 mg PO ONCE PRN #2 tablet PRN Reason: Metronidazole [Flagyl 500 mg Tablet] 500 mg PO BID #14 tablet Referrals: KALPESH NEFF, ANIME ARTIST [Primary Care Provider] - Follow up as needed
[2018-11-24 11:28] LABS: CHLAM PCR NOT DETECTED (NOT DETECT); GON PCR NOT DETECTED (NOT DETECT)
[2018-11-24 11:34] VITALS: BP 106/74
== END 2018-11-24 11:34 | disposition home or self-care (01) ==
LOC: ER 08:18
DX: N76.0 Acute vaginitis (principal); B96.89 Other specified bacterial agents as the cause of diseases classified elsewhere; M54.9 Dorsalgia, unspecified; Z91.040 Latex allergy status
CPT/HCPCS: 99283; 87086; 87210; 81025; 87088; 81001; 87491; 87591; J3490

== ENCOUNTER 2018-12-18 12:56 | Emergency (ER) | payer MEDICAID ==
[2018-12-18 13:06] VITALS: BP 144/84
[2018-12-18] MEDS ORDERED: KETOROLAC TROMETHAMINE 60 MG/2 ML SDV IM ONE (13:40)
[2018-12-18 14:30] LABS: ABSOLUTE EOSINOPHILS # (AUTO) 0.3 10^3/uL (0.0-0.6); ABSOLUTE LYMPHOCYTES (AUTO) 2.4 10^3/uL (0.5-4.7); ABSOLUTE MONOCYTES (AUTO) 0.4 10^3/uL (0.1-1.4); ABSOLUTE NEUT (AUTO) 4.7 10^3/uL (1.7-8.2); BASOPHILS % (AUTO) 0.3 % (0-2); EOSINOPHILS % (AUTO) 3.9 % (0-6); HEMATOCRIT 35.6 % (36.0-47.0); HEMOGLOBIN 11.9 g/dL (12.0-15.5); LYMPHOCYTES % (AUTO) 30.2 % (13-45); MEAN CORPUSCULAR HEMOGLOBIN 25.2 pg (27.0-33.4); MEAN CORPUSCULAR HGB CONC 33.5 g/dL (32.0-36.0); MEAN CORPUSCULAR VOLUME 75 fl (80-97); MONOCYTES % (AUTO) 5.6 % (3-13); PLATELET COUNT 262 10^3/uL (150-450); RED BLOOD COUNT 4.72 10^6/uL (3.72-5.28); RED CELL DISTRIBUTION WIDTH 15.8 % (11.5-14.0); TOTAL CELLS COUNTED % (AUTO) 100 %; WHITE BLOOD COUNT 7.9 10^3/uL (4.0-10.5)
[2018-12-18 14:30] LABS: APPEARANCE,URINE CLOUDY; BILIRUBIN,URINE NEGATIVE (NEGATIVE); COLOR,URINE YELLOW; GLUCOSE, URINE NEGATIVE (NEGATIVE); KETONES,URINE NEGATIVE (NEGATIVE); LEUKOCYTE ESTERASE,URINE LARGE (NEGATIVE); NITRITE,URINE NEGATIVE (NEGATIVE); PROTEIN,URINE NEGATIVE (NEGATIVE); UROBILINOGEN,URINE NEGATIVE mg/dL (<2.0)
[2018-12-18 14:54] LABS: ALANINE AMINOTRANSFERASE 28 U/L (9-52); ALBUMIN 4.2 g/dL (3.5-5.0); ALKALINE PHOSPHATASE 83 U/L (38-126); ANION GAP 10 (5-19); ASPARTATE AMINO TRANSFERASE 19 U/L (14-36); BILIRUBIN,DIRECT 0.1 mg/dL (0.0-0.4); BILIRUBIN,TOTAL 0.6 mg/dL (0.2-1.3); BLOOD UREA NITROGEN 16 mg/dL (7-20); CALCIUM 9.3 mg/dL (8.4-10.2); CARBON DIOXIDE 28 mmol/L (22-30); CHLORIDE 103 mmol/L (98-107); GLUCOSE 76 mg/dL (75-110); POTASSIUM 4.4 mmol/L (3.6-5.0); SODIUM 140.8 mmol/L (137-145); TOTAL PROTEIN 7.7 g/dL (6.3-8.2)
--- NOTE | 2018-12-18 20:50 | ER Document Report ---
Entered by KASSIDY SALEEM SCRIBE 12/18/18 1432 Acting as scribe for:JOHNATHON JAMISON DO ED Medical Screen (RME) - General Chief Complaint: Abdominal Pain Stated Complaint: BACK/STOMACH PAIN Time Seen by Provider: 12/18/18 13:34 Primary Care Provider: KALPESH NEFF NP [Primary Care Provider] - Follow up as needed Mode of Arrival: Ambulatory Information source: Patient Notes: Patient is a 33 year old female presenting to the emergency department complaining of lower abdominal pain and back pain onset last night. Patient describes the pain as a sharp and stabbing sensation. She also states she noticed some blood when she was in the shower this morning. She denies vomiting, diarrhea, vaginal discharge or difficulty urinating. I have greeted and performed a rapid initial assessment of the patient. A comprehensive ED assessment and evaluation of the patient, analysis of test results, and completion of the medical decision making process will be conducted by additional ED providers. GENERAL: Alert, interacts well. No acute distress. HEAD: Normocephalic, atraumatic. EYES: Pupils equal, round, and reactive to light. Extraocular movements intact. ENT: Oral mucosa moist, tongue midline. NECK: Full range of motion. Supple. Trachea midline. LUNGS: Clear to auscultation bilaterally, no wheezes, rales, or rhonchi. No respiratory distress. HEART: Regular rate and rhythm. No murmurs, gallops, or rubs. ABDOMEN: Soft, non-tender. Non-distended. Bowel sounds present in all 4 quadrants. No guarding, rigidity, or rebound. EXTREMITIES: Moves all 4 extremities spontaneously. No edema, radial and dorsalis pedis pulses 2/4 bilaterally. No cyanosis. NEUROLOGICAL: Alert and oriented x3. Normal speech. PSYCH: Normal affect, normal mood. SKIN: Warm, dry, normal turgor. No rashes or lesions noted. TRAVEL OUTSIDE OF THE [place] IN LAST 30 DAYS: No - Related Data Allergies/Adverse Reactions: latex Allergy (Verified 12/18/18 12:59) Hives Past Medical History - Social History Family history: CAD Renal/ Medical History: Reports: Hx Ovarian Cysts. Denies: Hx Peritoneal Rand lysis Psychiatric Medical History: Reports: Hx Anxiety Past Surgical History: Reports: Hx Gynecologic Surgery - L ovarian cyst removed, , Hx Tubal Ligation - Immunizations Immunizations up to date: No Hx Diphtheria, Pertussis, Tetanus Vaccination: No Physical Exam - Vital signs Vitals: Temp Pulse Resp BP Pulse Ox 97.8 F 79 18 144/84 H 99 12/18/18 13:05 12/18/18 13:05 12/18/18 13:05 12/18/18 13:05 12/18/18 13:05 Course - Vital Signs Vital signs: Temp Pulse Resp BP Pulse Ox 97.8 F 79 18 144/84 H 99 12/18/18 13:05 12/18/18 13:05 12/18/18 13:05 12/18/18 13:05 12/18/18 13:05 - Laboratory Result Diagrams: 12/18/18 14:10 12/18/18 14:10 Laboratory results interpreted by me: 12/18/18 12/18/18 13:03 14:10 Hgb 11.9 L Hct 35.6 L MCV 75 L MCH 25.2 L RDW 15.8 H Urine Blood MODERATE H Ur Leukocyte Esterase LARGE H Doctor's Discharge - Discharge Referrals: KALPESH NEFF NP [Primary Care Provider] - Follow up as needed I personally performed the services described in the documentation, reviewed and edited the documentation which was dictated to the scribe in my presence, and it accurately records my words and actions.
== END 2018-12-18 15:40 | disposition left against medical advice (07) ==
LOC: ER 12:56
DX: R10.30 Lower abdominal pain, unspecified (principal); M54.9 Dorsalgia, unspecified; Z87.42 Personal history of other diseases of the female genital tract; Z53.20 Procedure and treatment not carried out because of patient's decision for unspecified reasons; Z91.040 Latex allergy status
CPT/HCPCS: 99281; 36415; 85025; 81025; 80053; 81001; J1885

== ENCOUNTER → 2018-12-18 | Outpatient (CLI) | payer MEDICAID ==
[2018-12-18 17:40] LABS: BACTERIA (WET MOUNT) 4+ BACTERIA SEEN; EPITHELIALS (WET MOUNT) 4+ EPITHELIALS SEEN; T.VAGINALIS (WET MOUNT) NO TRICHOMONAS SEEN; WBCS (WET MOUNT) FEW WBCS SEEN; YEAST (WET MOUNT) NO YEAST SEEN
[2018-12-18 19:13] LABS: CHLAM PCR NOT DETECTED (NOT DETECT); GON PCR NOT DETECTED (NOT DETECT)
== END ==
LOC: LAB 17:24
PROVIDERS: ATTEND Nurse Practitioner Acute Care
DX: R30.0 Dysuria (principal); N89.8 Other specified noninflammatory disorders of vagina
CPT/HCPCS: 87086; 87210; 87491; 87591

== ENCOUNTER 2019-02-13 23:08 | Emergency (ER) | payer MEDICAID ==
[2019-02-13 23:27] VITALS: BP 128/85
--- NOTE | 2019-02-14 09:32 | EKG REPORT ---
SEVERITY:- NORMAL ECG - SINUS RHYTHM : Confirmed by: Archie Prajapati 14-Feb-2019 09:31:42
== END 2019-02-14 02:15 | disposition left against medical advice (07) ==
LOC: ER 23:08
DX: Z53.21 Procedure and treatment not carried out due to patient leaving prior to being seen by health care provider (principal); R07.9 Chest pain, unspecified
CPT/HCPCS: 93005; 93010

== ENCOUNTER 2019-05-05 08:22 | Emergency (ER) | payer MEDICAID ==
--- NOTE | 2019-05-05 08:50 | ER Document Report ---
HPI - HPI Patient complains to provider of: vaginal irritation and uti Time Seen by Provider: 05/05/19 08:47 Onset/Duration: Gradual Severity: Mild Pain Level: 3 Context: 33 Yr old female patient, with the listed pmh, here for vaginal irritation and dysuria x 2 days. feels like she may have a yeast infection or bv again. no prior hx of herpes. also complains of some intermittent lower abdominal diffuse cramping x 2 days. states her menses is due and she usually has this pain prior to her menses. No abdominal surgeries other than a remote tubal ligation. pos hx of ov cysts. No history of fibroids, endometriosis, or renal stones. Normal bowel movements. No other UTI symptoms. No URI symptoms. No recent antibiotics or steroids. No history of diabetes or asthma. No other vaginal d ischarge/complaints/lesions. unsure of concerns for stds. states monogamous with one partner however prior to intercourse with them 3 days ago she hadn't had intercourse with them in 4 months and she is unsure if the other person is monogamous. she states she has had gonorrhea before and that felt different. Hasn't taken anything for her symptoms. No prior history of gallbladder disease, pancreatitis, ulcers, GI bleed, GERD, IBS, Crohn's, or UC. no change in color or caliber or stool. no blood thinners. no fall or trauma. no other associated sx. - ROS Systems Reviewed and Negative: Yes All other systems reviewed and negative - to include 10, unless mentioned in the hpi - REPRODUCTIVE Reproductive: DENIES: : - DERM Skin Color: Normal, [place] Past Medical History - General Information source: Patient - Social History Smoking Status: Unknown if Ever Smoked Frequency of alcohol use: unknown Drug Abuse: Other - unknown Family History: Arthritis, CAD, CVA, DM, Hyperlipidemia, Hypertension, Malignancy Patient has suicidal ideation: No Patient has homicidal ideation: No Renal/ Medical History: Reports: Hx Ovarian Cysts. Denies: Hx Peritoneal Dialysis Psychiatric Medical History: Reports: Hx Anxiety Past Surgical History: Reports: Hx Gynecologic Surgery - L ovarian cyst removed, , Hx Tubal Ligation - Immunizations Immunizations up to date: No Hx Diphtheria, Pertussis, Tetanus Vaccination: No Vertical Provider Document - CONSTITUTIONAL Notes: >>>> PHYSICAL_EXAM: GENERAL_APPEARANCE: well_nourished, alert, cooperative, no_acute_distress, no_obvious_discomfort. Pleasant, obese young black female, smiling, speaking in full sentences, in no sign of pain or resp distress, easily sitting up, no one is with her VITALS: reviewed, see vital signs table. HEAD: normocephalic, atraumatic. no romo signs. no raccoon eyes. EYES: PERRL, EOMI, (-)scleral icterus. NOSE: no_nasal_discharge. MOUTH: (-)decreased moisture. THROAT: no_tonsilar_inflammation/hypertrophy/exudate NECK: supple, no_neck_tenderness, full rom. full strength. no meningeal signs. no sign of central cord syndrome BACK: no midline_back_tenderness. no step offs or deformities CHEST_WALL: no_chest_tenderness. LUNGS: no_wheezing, (-)accessory muscle use, good air exchange bilateral. HEART: normal_rate, normal_rhythm, ABDOMEN: normal_BS, soft, abdomen-diffuse, non-tender, obese abd, exam somewhat limited secondary to pts body habitus (-)guarding, (-)rebound, no distension or peritoneal signs. neg murphys. neg mcburneys. no cva tenderness. neg heel sitrke. neg obturator. neg psoas. neg rovsign. GENITALS: no_ulcers_or_lesions on the genitals, no_lacerations on the genitals, PELVIC: (-)tender uterus, left_and_right adnexa non-tender, (-)CMT, (-)active bleeding, (white malodorous )discharge, no_tenderness, no cervcicitis, normal os, pt consented to exam. exam without incident. 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 RECTAL: deferred EXTREMITIES: strength 5/5 in all_extremities, good pulses in all_extremities, no_edema, no_swelling\tenderness. full rom. normal gait. 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 brisk cap refill. SKIN: warm, dry, good_color, no_rash. no grossly visible overlying skin changes to suggest trauma NEURO: motor_intact, sensory_intact. cranial nerves 2-12 intact, cerebellar fxn intact MENTAL_STATUS: normal_affect, speech_clear, oriented_X_3, responds_appropriately to questions. - INFECTION CONTROL TRAVEL OUTSIDE OF THE [place] IN LAST 30 DAYS: No Course - Re-evaluation Re-evalutation: 05/05/19 10:25 Patient here for vaginal irritation and dysuria for 2 days. she has no abd ttp on exam. she has no grossly visible herpetic lesions. She is requesting vaginal STD testing but does not want prophylactic treatment. Her urinalysis appears indicative of a UTI, urine is negative. Urine culture is pending. Her wet prep did show bacterial vaginosis and trichomonas. Gonorrhea and Chlamydia testing are pending. Advised patient will call her with the results once they return. Gave safe sex precautions. Condom use test safe sex. Follow-up with health department for any further desires STD testing. No intercourse until she completes her antibiotics and for a week after and while she has any symptoms. Have partner tested/treated before engaging in any inter course. will dc with doxy, pyridium, and flagyl to cover for uti and bv/trich and also possible gc if that comes back positive. will also write her for a diflucan to take at completion of abx should she develop any yeast infection sx. follow-up with PCP 1 to 2 days. Return for any worsening symptoms. On reexam, pt remained stable. nontoxic. well appearing. Serial abdominal exams remain benign. Tolerating po. requesting to go home. Documentation achieved through voice recording which my lead to some occasional accidental typographical errors. Extensive efforts have been made to proof read documentation to make sure these are the least as possible. Category Date Time Status Pelvic Setup (ED) NOW Care 05/05/19 09:02 Completed [facility] [MO] Stat Lab 05/05/19 09:50 Received HCG QUALITATIVE, URINE [URIN] Stat Lab 05/05/19 08:39 Completed URINALYSIS [URIN] Stat Lab 05/05/19 08:39 Completed URINE CULTURE [MC] Stat Lab 05/05/19 08:39 Received WET MOUNT [MO] Stat Lab 05/05/19 09:50 Completed 05/05/19 10:31 - Vital Signs Vital signs: Temp Pulse Resp BP Pulse Ox 98.3 F 75 16 122/73 96 05/05/19 08:26 05/05/19 08:26 05/05/19 08:26 05/05/19 08:26 05/05/19 08:26 05/05/19 10:30 Temp Pulse Resp BP Pulse Ox 05/05/19 08:26 98.3 F 75 16 122/73 96 - Laboratory Laboratory results interpreted by me: 05/05/19 10:30 Labs- Entire Visit 05/05/19 05/05/19 08:39 09:50 Urine Color YELLOW Urine Appearance SLIGHTLY-CLOUDY Urine pH 5.0 Ur Specific [place] 1.020 Urine Protein NEGATIVE Urine Glucose (UA) NEGATIVE Urine Ketones NEGATIVE Urine Blood LARGE H Urine Nitrite NEGATIVE Urine Bilirubin NEGATIVE Urine Urobilinogen NEGATIVE Ur Leukocyte Esterase LARGE H Urine WBC (Auto) 34 Urine RBC (Auto) 9 U Hyaline Cast (Auto) 1 Urine Bacteria (Auto) TRACE Squamous Epi Cells Auto 17 Urine Mucus (Auto) RARE Urine Ascorbic Acid NEGATIVE Urine HCG, Qual NEGATIVE Epi Cells (Wet Prep) 3+ EPITHELIALS SEEN Bacteria (Wet Prep) 3+ BACTERIA SEEN Trichomonas (Wet Prep) TRICHOMONAS SEEN Vaginal WBC 2+ WBCS SEEN Vaginal RBC FEW RBCS SEEN Vaginal Yeast NO YEAST SEEN Discharge - Discharge Clinical Impression: Bacterial vaginosis, Trichomonal vaginitis UTI (urinary tract infection) Qualifiers: Urinary tract infection type: acute cystitis Hematuria presence: with hematuria Qualified Code(s): N30.01 - Acute cystitis with hematuria Condition: Stable Disposition: HOME, SELF-CARE Instructions: Urinary Tract Infection ([facility]), Trichomonas Infection ([facility]), Vaginosis, Bacterial ([facility]) Additional Instructions: Follow-up with obgyn/health dept 1 to 2 days. Return for any worsening symptoms. condom use for safe sex. we will call you with your results once they return. no intercourse while symptomatic, until you have your partner tested/treated, and also no intercourse until a week after you complete the antibiotics. f/u with the health dept for any further desired std testing. take the medication as prescribed and with food. only take the diflucan at completion of the flagyl and doxycycline if you develop any yeast infection symptoms. drink plenty of fluids. Prescriptions: Doxycycline Hyclate 100 mg PO BID #14 capsule Fluconazole [Diflucan] 150 mg PO ONCE PRN #1 tablet PRN Reason: Metronidazole [Flagyl 500 mg Tablet] 500 mg PO BID 7 Days #14 tablet Phenazopyridine HCl [Pyridium 100 Mg Tablet] 200 mg PO TID PRN #6 tablet PRN Reason: Bladder Spasms Referrals: BI YU MD [Primary Care Provider] - Follow up as needed
[2019-05-05 08:57] LABS: APPEARANCE,URINE SLIGHTLY-CLOUDY; BILIRUBIN,URINE NEGATIVE (NEGATIVE); COLOR,URINE YELLOW; GLUCOSE, URINE NEGATIVE (NEGATIVE); KETONES,URINE NEGATIVE (NEGATIVE); LEUKOCYTE ESTERASE,URINE LARGE (NEGATIVE); NITRITE,URINE NEGATIVE (NEGATIVE); PROTEIN,URINE NEGATIVE (NEGATIVE); UROBILINOGEN,URINE NEGATIVE mg/dL (<2.0)
[2019-05-05 10:15] LABS: T.VAGINALIS (WET MOUNT) TRICHOMONAS SEEN; YEAST (WET MOUNT) NO YEAST SEEN
[2019-05-05 10:16] LABS: BACTERIA (WET MOUNT) 3+ BACTERIA SEEN; EPITHELIALS (WET MOUNT) 3+ EPITHELIALS SEEN; RBCS (WET MOUNT) FEW RBCS SEEN; WBCS (WET MOUNT) 2+ WBCS SEEN
[2019-05-05 11:01] VITALS: BP 118/72
[2019-05-05 11:41] LABS: CHLAM PCR NOT DETECTED (NOT DETECT)
== END 2019-05-05 11:01 | disposition home or self-care (01) ==
LOC: ER 08:22
DX: N30.01 Acute cystitis with hematuria (principal); N76.0 Acute vaginitis; B96.89 Other specified bacterial agents as the cause of diseases classified elsewhere; A59.01 Trichomonal vulvovaginitis; R10.2 Pelvic and perineal pain; R30.0 Dysuria; R10.30 Lower abdominal pain, unspecified
CPT/HCPCS: 81001; 81025; 87086; 87210; 87491; 87591; 99283

== ENCOUNTER 2019-05-09 15:33 | Emergency (ER) | payer MEDICAID ==
--- NOTE | 2019-05-09 16:28 | ER Document Report ---
HPI - HPI Patient complains to provider of: Vaginal itching Time Seen by Provider: 05/09/19 16:10 Onset: Last week Onset/Duration: Persistent Quality of pain: Other - States she has pain all the time except for when she u rinates, vaginal itching Severity: Mild Pain Level: 2 Context: 33-year-old female presents to ED for complaint of continued vaginal itching and discomfort. She states she was seen here last week started on Diflucan, doxycycline, and Flagyl. She states she has a couple more days of the Flagyl and doxycycline and her symptoms are not getting any better. She states she was diagnosed with trichomonas and UTI and has been taking the medicine as prescribed with no relief. Associated Symptoms: Other - Vaginal itching and pain Exacerbated by: Denies Relieved by: Other - When she is actually warning Similar symptoms previously: Yes Recently seen / treated by doctor: Yes - ROS ROS below otherwise negative: Yes - CONSTITUTIONAL Constitutional: DENIES: Fever, Chills - EENT EENT: DENIES: Sore Throat, Ear Pain, Nasal Drainage-Clear, Nasal Drainage- Purulent, Congestion, Eye problems - NEURO Neurology: DENIES: Headache, Weakness, Vision blurred, Dizzinesss / Vertigo - CARDIOVASCULAR Cardiovascular: DENIES: Chest pain - RESPIRATORY Respiratory: DENIES: Trouble Breathing, Coughing - GASTROINTESTINAL Gastrointestinal: REPORTS: Abdominal Pain - Vaginal pain. DENIES: Nausea, Patient vomiting, Diarrhea, Constipation, Black / Bloody Stools - URINARY Urinary: REPORTS: Urgency. DENIES: Dysuria, Frequency - REPRODUCTIVE Reproductive: DENIES: :, Postmenopausal, Abnormal bleeding / discharge Notes: Vaginal pain all the time except for when she is urinating vaginal itching - MUSCULOSKELETAL Musculoskeletal: DENIES: Extremity pain, Back Pain, Neck Pain, Swelling - DERM Skin Color: Normal Skin Problems: None Past Medical History - General Information source: Patient - Social History Smoking Status: Never Smoker Chew tobacco use (# tins/day): No Frequency of alcohol use: None Drug Abuse: None Family History: Arthritis, CAD, CVA, DM, Hyperlipidemia, Hypertension, Malignancy Patient has suicidal ideation: No Patient has homicidal ideation: No - Past Medical History Cardiac Medical History: Reports: None Pulmonary Medical History: Reports: None EENT Medical History: Reports: None Neurological Medical History: Reports: None Endocrine Medical History: Reports: None Renal/ Medical History: Reports: Hx Ovarian Cysts Malignancy Medical History: Reports: None GI Medical History: Reports: None Musculoskeletal Medical History: Reports None Skin Medical History: Reports None Psychiatric Medical History: Reports: Hx Anxiety Traumatic Medical History: Reports: None Infectious Medical History: Reports: None Past Surgical History: Reports: Hx Gynecologic Surgery - L ovarian cyst removed, , Hx Tubal Ligation - Immunizations Immunizations up to date: No Hx Diphtheria, Pertussis, Tetanus Vaccination: No Vertical Provider Document - CONSTITUTIONAL Agree With Documented VS: Yes Exam Limitations: No Limitations General Appearance: WD/WN, No Apparent Distress - INFECTION CONTROL TRAVEL OUTSIDE OF THE [place] IN LAST 30 DAYS: No - HEENT HEENT: Atraumatic, Normal ENT Exam, Normocephalic, PERRLA - NECK Neck: Normal Inspection, Supple - RESPIRATORY Respiratory: Breath Sounds Normal, No Respiratory Distress, Chest Non-Tender - CARDIOVASCULAR Cardiovascular: Regular Rate, Regular Rhythm, No Murmur - GI/ABDOMEN Gastrointestinal: Abdomen Soft, Abdomen Non-Tender, No Organomegaly, Normal Bowel Sounds - REPRODUCTIVE Female Genitalia: Normal Inspection - BACK Back: Normal Inspection - MUSCULOSKELETAL/EXTREMETIES Musculoskeletal/Extremeties: MAEW, FROM, Non-Tender - NEURO Level of Consciousness: Awake, Alert, Appropriate Motor/Sensory: No Motor Deficit, No Sensory Deficit, No Pronator Drift Deep Tendon Reflexes: 2+ - DERM Integumentary: Warm, Dry, No Rash Course - Re-evaluation Re-evalutation: 05/09/19 17:49 Patient was positive for a yeast infection. She is no longer positive for trichomonas. Her bacterial vaginosis is also cleared up. She was given a prescription for Diflucan which she is to take after she finishes her antibiotics. She was also instructed to use probiotics and vaginal yeast medicine. 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 - Vital Signs Vital signs: Temp Pulse Resp BP Pulse Ox 97.6 F 84 20 126/88 H 97 05/09/19 15:57 05/09/19 15:57 05/09/19 15:57 05/09/19 15:57 05/09/19 15:57 Discharge - Discharge Clinical Impression: Vaginal yeast infection Condition: Stable Disposition: HOME, SELF-CARE Instructions: Family Physicians / Practices Additional Instructions: VAGINAL YEAST INFECTION: You have evidence of a yeast infection -- called "alexa." A vaginal yeast infection often causes itching and discharge. While not dangerous, it can be very unpleasant. A yeast infection often follows the use of powerful antibiotics. It is more likely to occur in diabetics. The treatment now is usually a single pill of Diflucan, but also an antifungal cream or suppository may be used for a few days. You do not need to avoid sexual intercourse. Recurrences are common. You can make a recurrence less likely by wearing cotton underwear and avoiding tight clothing. For mild recurrences, you can try jkji-[id number] creams or suppositories that are made specifically for yeast. If the symptoms do not resolve, you should follow up for re-examination. Sometimes treatment of the sexual partner is necessary if infections are recurrent. FLUCONAZOLE: Fluconazole (Diflucan) is an antifungal drug. It is useful for serious fungal infections, but is also excellent for oral or vaginal yeast infections. Diflucan interacts with some medicines. This is a concern if you are taking anticoagulants (such as Coumadin), phenytoin (Dilantin), cyclosporin, or oral hypoglycemics (such as tolbutamide, Orinase, glipizide, Glucotrol, glyburide, DiaBeta, Glynase, and Micronase). Be sure the doctor knows if you are taking one of these medicines. We don't know how Diflucan affects . If you are planning to become , discuss this with your doctor. Diflucan has few side effects. Minor side effects may include nausea, headache, or diarrhea. Call the doctor if you develop a skin rash, shortness of breath, or other new symptoms. Please complete all medications you were previously prescribed as they were ordered. Please follow-up with your POST HOLE DIGGING MACHINE OPERATOR or your primary care doctor in 3 to 5 days to ensure all symptoms are clear. FOLLOW-UP CARE: If you have been referred to a physician for follow-up care, call the [facility] for an appointment as you were instructed or within the next two days. If you experience worsening or a significant change in your symptoms, notify the physician immediately or return to the Emergency Department at any time for re-evaluation. Prescriptions: Fluconazole [Diflucan] 150 mg PO ONCE PRN #1 tablet PRN Reason: Forms: Elevated Blood Pressure, Return to Work Referrals: BI YU MD [Primary Care Provider] - Follow up as needed [facility] [Provider Group] - Follow up as needed
[2019-05-09 16:44] LABS: BACTERIA (WET MOUNT) 3+ BACTERIA SEEN; RBCS (WET MOUNT) 4+ RBCS SEEN; T.VAGINALIS (WET MOUNT) NO TRICHOMONAS SEEN; WBCS (WET MOUNT) 1+ WBCS SEEN; YEAST (WET MOUNT) YEAST SEEN
[2019-05-09 17:25] LABS: APPEARANCE,URINE SLIGHTLY-CLOUDY; BILIRUBIN,URINE NEGATIVE (NEGATIVE); COLOR,URINE YELLOW; GLUCOSE, URINE NEGATIVE (NEGATIVE); KETONES,URINE NEGATIVE (NEGATIVE); LEUKOCYTE ESTERASE,URINE LARGE (NEGATIVE); NITRITE,URINE NEGATIVE (NEGATIVE); PROTEIN,URINE 30 mg/dL (NEGATIVE); URINE SPECIFIC GRAVITY 1.012; UROBILINOGEN,URINE NEGATIVE mg/dL (<2.0)
[2019-05-09 17:44] VITALS: BP 128/76
== END 2019-05-09 17:50 | disposition home or self-care (01) ==
LOC: ER 15:33
DX: B37.3 Candidiasis of vulva and vagina (principal); R39.15 Urgency of urination; R10.9 Unspecified abdominal pain; R10.2 Pelvic and perineal pain; Z87.440 Personal history of urinary (tract) infections; Z98.51 Tubal ligation status; Z98.890 Other specified postprocedural states; Z87.42 Personal history of other diseases of the female genital tract; Z86.19 Personal history of other infectious and parasitic diseases
CPT/HCPCS: 81001; 87086; 87088; 87210; 99283

== ENCOUNTER 2019-05-23 09:17 | Emergency (ER) | payer MEDICAID ==
--- NOTE | 2019-05-23 10:10 | ER Document Report ---
ED Medical Screen (RME) - General Chief Complaint: Abdominal Pain Stated Complaint: LOWER BACK PAIN Time Seen by Provider: 05/23/19 10:07 Primary Care Provider: BI YU MD [Primary Care Provider] - Follow up as needed Mode of Arrival: Ambulatory Information source: Patient Notes: 33-year-old female presented to ED for complaint of left abdominal left flank an d pelvic pain. She states she also was so on her primary area. She states she was seen recently and treated for yeast infection. She states she was seen at another facility and told she had trichomonas and was treated for the trichomonas with Flagyl. She said that her primary is just very sore and does not feel right her belly is just tender pelvic area is tender and she has pain in her left flank. She is alert oriented respirations regular and unlabored speaking in full sentences walks with a even steady gait. I have ordered GC and chlamydia, wet mount, urine and blood work and she will be seen by another provider. I have greeted and performed a rapid initial assessment of this patient. A comprehensive ED assessment and evaluation of the patient, analysis of test results and completion of medical decision making process will be conducted by an additional ED providers. Dictation of this chart was performed using voice recognition software; therefore, there may be some unintended grammatical errors. TRAVEL OUTSIDE OF THE [place] IN LAST 30 DAYS: No - Related Data Allergies/Adverse Reactions: latex Allergy (Verified 05/23/19 09:18) Hives Past Medical History - Social History Family history: CAD Renal/ Medical History: Reports: Hx Ovarian Cysts. Denies: Hx Peritoneal Dialysis Psychiatric Medical History: Reports: Hx Anxiety Past Surgical History: Reports: Hx Gynecologic Surgery - L ovarian cyst removed, , Hx Tubal Ligation - Immunizations Immunizations up to date: No Hx Diphtheria, Pertussis, Tetanus Vaccination: No Physical Exam - Vital signs Vitals: Temp Pulse Resp BP Pulse Ox 98.1 F 74 16 118/76 96 05/23/19 09:22 05/23/19 09:22 05/23/19 09:22 05/23/19 09:22 05/23/19 09:22 Course - Vital Signs Vital signs: Temp Pulse Resp BP Pulse Ox 98.1 F 74 16 118/76 96 05/23/19 09:22 05/23/19 09:22 05/23/19 09:22 05/23/19 09:22 05/23/19 09:22 Doctor's Discharge - Discharge Referrals: BI YU MD [Primary Care Provider] - Follow up as needed
[2019-05-23 10:34] LABS: BACTERIA (WET MOUNT) 3+ BACTERIA SEEN; EPITHELIALS (WET MOUNT) 4+ EPITHELIALS SEEN; T.VAGINALIS (WET MOUNT) NO TRICHOMONAS SEEN; WBCS (WET MOUNT) 2+ WBCS SEEN; YEAST (WET MOUNT) NO YEAST SEEN
[2019-05-23 10:36] LABS: ABSOLUTE EOSINOPHILS # (AUTO) 0.2 10^3/uL (0.0-0.6); ABSOLUTE LYMPHOCYTES (AUTO) 2.2 10^3/uL (0.5-4.7); ABSOLUTE MONOCYTES (AUTO) 0.3 10^3/uL (0.1-1.4); ABSOLUTE NEUT (AUTO) 4.2 10^3/uL (1.7-8.2); BASOPHILS % (AUTO) 0.3 % (0-2); EOSINOPHILS % (AUTO) 3.3 % (0-6); HEMATOCRIT 39.5 % (36.0-47.0); HEMOGLOBIN 12.9 g/dL (12.0-15.5); LYMPHOCYTES % (AUTO) 31.5 % (13-45); MEAN CORPUSCULAR HEMOGLOBIN 24.4 pg (27.0-33.4); MEAN CORPUSCULAR HGB CONC 32.5 g/dL (32.0-36.0); MEAN CORPUSCULAR VOLUME 75 fl (80-97); MONOCYTES % (AUTO) 4.5 % (3-13); PLATELET COUNT 305 10^3/uL (150-450); RED BLOOD COUNT 5.26 10^6/uL (3.72-5.28); SEGMENTED NEUTROPHILS % (AUTO) 60.4 % (42-78); TOTAL CELLS COUNTED % (AUTO) 100 %; WHITE BLOOD COUNT 6.9 10^3/uL (4.0-10.5)
[2019-05-23 10:38] LABS: APPEARANCE,URINE SLIGHTLY-CLOUDY; BILIRUBIN,URINE NEGATIVE (NEGATIVE); COLOR,URINE YELLOW; GLUCOSE, URINE NEGATIVE (NEGATIVE); KETONES,URINE NEGATIVE (NEGATIVE); LEUKOCYTE ESTERASE,URINE NEGATIVE (NEGATIVE); NITRITE,URINE NEGATIVE (NEGATIVE); PROTEIN,URINE NEGATIVE (NEGATIVE); URINE SPECIFIC GRAVITY 1.016; UROBILINOGEN,URINE NEGATIVE mg/dL (<2.0)
[2019-05-23 10:45] LABS: ADD MANUAL MICROSCOPIC YES
[2019-05-23 10:51] LABS: ALBUMIN 4.3 g/dL (3.5-5.0); ALKALINE PHOSPHATASE 77 U/L (38-126); ANION GAP 7 (5-19); ASPARTATE AMINO TRANSFERASE 18 U/L (14-36); BILIRUBIN,DIRECT 0.2 mg/dL (0.0-0.4); BILIRUBIN,TOTAL 0.6 mg/dL (0.2-1.3); BLOOD UREA NITROGEN 15 mg/dL (7-20); CALCIUM 9.8 mg/dL (8.4-10.2); CARBON DIOXIDE 29 mmol/L (22-30); CHLORIDE 104 mmol/L (98-107); GLUCOSE 88 mg/dL (75-110); POTASSIUM 4.5 mmol/L (3.6-5.0); TOTAL PROTEIN 7.6 g/dL (6.3-8.2)
[2019-05-23] MEDS ORDERED: METOCLOPRAMIDE HCL 10 MG TABLET PO ONE (11:14)
[2019-05-23] MEDS ORDERED: ACETAMINOPHEN 325 MG TABLET PO ONE (11:14)
--- NOTE | 2019-05-23 11:19 | ER Document Report ---
ED General - General Chief Complaint: Abdominal Pain Stated Complaint: LOWER BACK PAIN Time Seen by Provider: 05/23/19 10:07 Primary Care Provider: [facility] [Provider Group] - Follow up in 3-5 days BI YU MD [ACTIVE STAFF] - Follow up as needed Mode of Arrival: Ambulatory Notes: Patient is a 33-year-old female that presents to the emergency department for chief complaint of left pelvic pain and vaginal irritation as well as headache. Patient states she is been having intermittent pelvic pain for several months, and recently was treated for trichomonas, as well as a yeast infection. She states she is had ovarian cyst in the past, and thinks that may be what the issue is causing her pain. She states that she has been getting recurrent bacterial vaginosis as well, and it seems to occur when she is having intercourse with her one partner. She states she only has one partner currently, but is not sure if they or with other women. She denies having any fevers, chills, night sweats, chest pain, shortness of breath or difficulty breathing. She also complains as noted is a mild frontal headache, that is been going on for the past 3 days, describes it as a throbbing sensation, that does improve with Tylenol, describes as mild in nature, and not the worst headache. Denies any visual changes, numbness, tingling or weakness in any extremities. Denies any neck pain or stiffness. Past Medical History: Denies chronic medical conditions Past Surgical History: Ovarian cyst surgery Social History: Denies tobacco, alcohol or illicit drug use. Family History: Reviewed and noncontributory for presenting illness Allergies: Reviewed, see documented allergy list. REVIEW OF SYSTEMS: Other than noted above, the 12 point review of systems was reviewed with the patient and were negative, all pertinent findings are included in the HPI. PHYSICAL EXAMINATION: Vital signs reviewed, nursing noted reviewed. GENERAL: Well-appearing, well-nourished and in no acute distress. HEAD: Atraumatic, normocephalic. EYES: Eyes appear normal, extraocular movements intact, sclera anicteric, conjunctiva are normal. ENT: nares patent, oropharynx clear without exudates. Moist mucous membranes. NECK: Normal range of motion, supple without lymphadenopathy LUNGS: Breath sounds clear to auscultation bilaterally and equal. No wheezes rales or rhonchi. HEART: Regular rate and rhythm without murmurs ABDOMEN: Soft, nontender, normoactive bowel sounds. No rebound, guarding, or rigidity. No masses appreciated. EXTREMITIES: Nontender, good range of motion, no pitting or edema. NEUROLOGICAL: No focal neurological deficits. Moves all extremities spontaneousl y Motor and sensory grossly intact on exam. PSYCH: Normal mood, normal affect. SKIN: Warm, Dry, normal turgor, no rashes or lesions noted on exposed skin TRAVEL OUTSIDE OF THE [place] IN LAST 30 DAYS: No - Related Data Allergies/Adverse Reactions: latex Allergy (Verified 05/23/19 09:18) Hives Past Medical History - General Information source: Patient - Social History Smoking Status: Never Smoker Family History: Arthritis, CAD, CVA, DM, Hyperlipidemia, Hypertension, Malignancy Patient has suicidal ideation: No Patient has homicidal ideation: No Renal/ Medical History: Reports: Hx Ovarian Cysts. Denies: Hx Peritoneal Dialysis Psychiatric Medical History: Reports: Hx Anxiety Past Surgical History: Reports: Hx Gynecologic Surgery - L ovarian cyst removed, , Hx Tubal Ligation - Immunizations Immunizations up to date: No Hx Diphtheria, Pertussis, Tetanus Vaccination: No Physical Exam - Vital signs Vitals: Temp Pulse Resp BP Pulse Ox 98.1 F 74 16 118/76 96 05/23/19 09:22 05/23/19 09:22 05/23/19 09:22 05/23/19 09:22 05/23/19 09:22 Course - Re-evaluation Re-evalutation: Patient seen and examined vital signs reviewed. Laboratory data and/or imaging were ordered as appropriate for the patient's presenting symptoms and complaint, with consideration of any critical or life threatening conditions that may be associated with their obtained history and exam as noted above. Patient was treated with Tylenol Reglan for her headache Results were reviewed when available and demonstrated with prep, consistent with bacterial vaginosis, I did order transvaginal ultrasound for the patient due to her left-sided pelvic pain although has been going on for several months, she had not had it evaluated, patient did not want to wait to have her ultrasound performed, I discussed that I do have low suspicion for ovarian torsion, and khadijah haywood it is ovarian cyst, but she will need to follow-up with [facility] which the patient was agreeable to, she is given a prescription for Flagyl, for 2 weeks and advised to follow-up. Her blood work was otherwise unremarkable non- concerning, UA did not demonstrate signs of urinary tract infection. Evaluation was most consistent with bacterial vaginosis Results were discussed with the patient at this point, after careful consideration I feel that that patient can be discharged from the emergency department, the patient was educated treatments and reasons to return to the emergency department based on their presumed diagnosis as noted above, they were advised to followup with a primary care physician in 2-3 days. Patient was agreeable to plan of care. *Note is created using voice recognition software and may contain spelling, syntax or grammatical errors. Laboratory 05/23/19 05/23/19 05/23/19 10:08 10:08 10:08 WBC RBC Hgb Hct MCV MCH MCHC RDW Plt Count Seg Neutrophils % Lymphocytes % Monocytes % Eosinophils % Basophils % Absolute Neutrophils Absolute Lymphocytes Absolute Monocytes Absolute Eosinophils Absolute Basophils Sodium Potassium Chloride Carbon Dioxide Anion Gap BUN Creatinine Est GFR ( Amer) Est GFR (Non-Af Amer) Glucose Calcium Total Bilirubin Direct Bilirubin Neonat Total Bilirubin Neonat Direct Bilirubin Neonat Indirect Bili AST ALT Alkaline Phosphatase Total Protein Albumin Lipase Urine Color YELLOW Urine Appearance SLIGHTLY-CLOUDY Urine pH 6.0 Ur Specific [place] 1.016 Urine Protein NEGATIVE Urine Glucose (UA) NEGATIVE Urine Ketones NEGATIVE Urine Blood NEGATIVE Urine Nitrite NEGATIVE Urine Bilirubin NEGATIVE Urine Urobilinogen NEGATIVE Ur Leukocyte Esterase NEGATIVE Ur Squamous Epith Cells RARE Urine Ascorbic Acid NEGATIVE Urine HCG, Qual NEGATIVE Epi Cells (Wet Prep) 4+ EPITHELIALS SEEN Bacteria (Wet Prep) 3+ BACTERIA SEEN Trichomonas (Wet Prep) NO TRICHOMONAS SEEN Vaginal WBC 2+ WBCS SEEN Vaginal Yeast NO YEAST SEEN Chlamydia DNA (PCR) N.gonorrhoeae DNA (PCR) 05/23/19 05/23/19 05/23/19 10:20 10:21 10:21 WBC 6.9 RBC 5.26 Hgb 12.9 Hct 39.5 MCV 75 L MCH 24.4 L MCHC 32.5 RDW 16.0 H Plt Count 305 Seg Neutrophils % 60.4 Lymphocytes % 31.5 Monocytes % 4.5 Eosinophils % 3.3 Basophils % 0.3 Absolute Neutrophils 4.2 Absolute Lymphocytes 2.2 Absolute Monocytes 0.3 Absolute Eosinophils 0.2 Absolute Basophils 0.0 Sodium 139.8 Potassium 4.5 Chloride 104 Carbon Dioxide 29 Anion Gap 7 BUN 15 Creatinine 1.00 Est GFR ( Amer) > 60 Est GFR (Non-Af Amer) > 60 Glucose 88 Calcium 9.8 Total Bilirubin 0.6 Direct Bilirubin 0.2 Neonat Total Bilirubin Not Reportable Neonat Direct Bilirubin Not Reportable Neonat Indirect Bili Not Reportable AST 18 ALT 14 Alkaline Phosphatase 77 Total Protein 7.6 Albumin 4.3 Lipase 59.1 Urine Color Urine Appearance Urine pH Ur Specific [place] Urine Protein Urine Glucose (UA) Urine Ketones Urine Blood Urine Nitrite Urine Bilirubin Urine Urobilinogen Ur Leukocyte Esterase Ur Squamous Epith Cells Urine Ascorbic Acid Urine HCG, Qual Epi Cells (Wet Prep) Bacteria (Wet Prep) Trichomonas (Wet Prep) Vaginal WBC Vaginal Yeast Chlamydia DNA (PCR) NOT DETECTED N.gonorrhoeae DNA (PCR) NOT DETECTED - Vital Signs Vital signs: Temp Pulse Resp BP Pulse Ox 97.3 F 100 17 110/73 100 05/23/19 12:18 05/23/19 12:18 05/23/19 12:18 05/23/19 12:18 05/23/19 12:18 - Laboratory Result Diagrams: 05/23/19 10:21 05/23/19 10:21 Laboratory results interpreted by me: 05/23/19 10:21 MCV 75 L MCH 24.4 L RDW 16.0 H Discharge - Discharge Clinical Impression: Bacterial vaginosis Headache Qualifiers: Headache type: unspecified Headache chronicity pattern: unspecified pattern Intractability: not intractable Qualified Code(s): R51 - Headache Condition: Stable Disposition: HOME, SELF-CARE Instructions: Vaginosis, Bacterial ([facility]) Additional Instructions: Please complete the entire course of antibiotics as prescribed and follow-up with [facility] if this continues to be an issue for you. If you develop any worsening symptoms, do not hesitate to return to the emergency department. Prescriptions: Metronidazole [Flagyl 500 mg Tablet] 500 mg PO BID #28 tablet Referrals: BI YU MD [ACTIVE STAFF] - Follow up as needed [facility] [Provider Group] - Follow up in 3-5 days
[2019-05-23 12:00] LABS: CHLAM PCR NOT DETECTED (NOT DETECT)
[2019-05-23 12:20] VITALS: BP 110/73
== END 2019-05-23 12:18 | disposition home or self-care (01) ==
LOC: ER 09:17
DX: N76.0 Acute vaginitis (principal); B96.89 Other specified bacterial agents as the cause of diseases classified elsewhere; R51 Headache; R10.9 Unspecified abdominal pain; M54.5 Low back pain; R10.2 Pelvic and perineal pain; A59.9 Trichomoniasis, unspecified
CPT/HCPCS: 99284; 36415; 87086; 87210; 83690; 85025; 81025; 80053; 81001; 87491; 87591; J3490 ×2

== ENCOUNTER 2019-05-27 11:09 | Emergency (ER) | payer MEDICAID ==
--- NOTE | 2019-05-27 12:08 | ER Document Report ---
HPI - HPI Time Seen by Provider: 05/27/19 12:03 Pain Level: 4 Notes: Patient is an otherwise healthy 33-year-old female presented to the emergency department chief complaint of frontal head pain. Patient reports 3 days ago she was bending over to grab something on the floor when she struck the front of her head onto the corner of the kitchen counter. She denies any loss of consciousness. She does report mild nausea but denies any vomiting. She is concerned she may have a concussion. - REPRODUCTIVE Reproductive: DENIES: : Past Medical History - General Information source: Patient - Social History Smoking Status: Never Smoker Frequency of alcohol use: None Drug Abuse: None Family History: Arthritis, CAD, CVA, DM, Hyperlipidemia, Hypertension, Malignancy Renal/ Medical History: Reports: Hx Ovarian Cysts. Denies: Hx Peritoneal Dialysis Psychiatric Medical History: Reports: Hx Anxiety Past Surgical History: Reports: Hx Gynecologic Surgery - L ovarian cyst removed, , Hx Tubal Ligation - Immunizations Immunizations up to date: No Hx Diphtheria, Pertussis, Tetanus Vaccination: No Vertical Provider Document - CONSTITUTIONAL Notes: PHYSICAL EXAMINATION: GENERAL: Well-appearing, well-nourished and in no acute distress. HEAD: Contusion noted to patient's forehead. EYES: Pupils equal round extraocular movements intact, conjunctiva are normal. ENT: Nares patent NECK: Normal range of motion LUNGS: No respiratory distress Musculoskeletal: Normal range of motion NEUROLOGICAL: Normal speech, normal gait. PSYCH: Normal mood, normal affect. SKIN: Warm, Dry, normal turgor, no rashes or lesions noted. - INFECTION CONTROL TRAVEL OUTSIDE OF THE [place] IN LAST 30 DAYS: No Course - Re-evaluation Re-evalutation: Head CT 05/27/19 12:15 IMPRESSION: NORMAL BRAIN CT WITHOUT CONTRAST. EVIDENCE OF ACUTE STROKE: NO. - Vital Signs Vital signs: Temp Pulse Resp BP Pulse Ox 97.7 F 75 18 129/80 H 97 05/27/19 11:37 05/27/19 11:37 05/27/19 11:37 05/27/19 11:37 05/27/19 11:37 Discharge - Discharge Clinical Impression: Head injury Qualifiers: Encounter type: initial encounter Qualified Code(s): S09.90XA - Unspecified injury of head, initial encounter Concussion Qualifiers: Encounter type: initial encounter Loss of consciousness presence/duration: without LOC Qualified Code(s): S06.0X0A - Concussion without loss of consciousness, initial encounter Condition: Stable Disposition: HOME, SELF-CARE Additional Instructions: Post-Concussion Syndrome Post-concussion syndrome often follows a mild head injury. Dizziness, mild nausea, mild headache, trouble concentrating, and a general sense of "not being right" may persist for a week or two. This is a frequent complication of concussion. However, if the symptoms worsen, or new symptoms develop, you should be re-examined by the physician. There is no specific cure for post-concussion syndrome. You can take mild pain medication such as ibuprofen or acetaminophen. While you should not drive if you are dizzy, you can get back to your regular activities as quickly as the symptoms will allow. And while vigorous exercise may worsen the headache, mild physical activity often is helpful. Sitting and thinking about your symptoms will worsen them. If difficulties continue, you may need referral for special therapy to help you regain full mental function. Call the physician if you are worsening, or if symptoms are still present in one week. Report any new symptoms immediately. Forms: Return to Work Referrals: FREDY VICENTE DO [NO LOCAL MD] - Follow up as needed
--- NOTE | 2019-05-27 12:50 | RADIOLOGY REPORT (SQ) ---
EXAM DESCRIPTION: CT HEAD WITHOUT COMPLETED DATE/TIME: 05/27/2019 12:42 pm REASON FOR STUDY: struck head, continued frontal head pain COMPARISON: None. TECHNIQUE: Axial images acquired through the brain without intravenous contrast. Images reviewed wi th bone, brain and subdural windows. Additional sagittal and coronal reconstructions were generated. Images stored on PACS. All CT scanners at this facility use dose modulation, iterative reconstruction, and/or weight based d osing when appropriate to reduce radiation dose to as low as reasonably achievable (ALARA). [facility]: Dose Right [facility]: CareDose [facility]: Dose Right [facility]: Teradose 4D [facility]: Other Machine RADIATION DOSE: CT Rad equipment meets quality standard of care and radiation dose reduction techniq ues were employed. CTDIvol: 53.2 mGy. DLP: 1070 mGy-cm. mGy. LIMITATIONS: None. FINDINGS: VENTRICLES: Normal size and contour. CEREBRUM: No masses. No hemorrhage. No midline shift. No evidence for acute infarction. Normal gra y/white matter differentiation. No areas of low density in the white matter. CEREBELLUM: No masses. No hemorrhage. No alteration of density. No evidence for acute infarction. EXTRAAXIAL SPACES: No fluid collections. No masses. ORBITS AND GLOBE: No intra- or extraconal masses. Normal contour of globe without masses. CALVARIUM: No fracture. PARANASAL SINUSES: No fluid or mucosal thickening. SOFT TISSUES: No mass or hematoma. OTHER: No other significant finding. IMPRESSION: NORMAL BRAIN CT WITHOUT CONTRAST. EVIDENCE OF ACUTE STROKE: NO. COMMENT: Quality ID # [id number]: Final reports with documentation of one or more dose reduction techniques (e.g., Automated exposure control, adjustment of the mA and/or kV according to patient size, use of iterative reconstruction technique) TECHNICAL DOCUMENTATION: JOB ID: [id number] [employer]- All Rights Reserved Reading location - IP/workstation name: [email or web address]
[2019-05-27 13:36] VITALS: BP 124/84
== END 2019-05-27 13:40 | disposition home or self-care (01) ==
LOC: ER 11:09
DX: S06.0X0A Concussion without loss of consciousness, initial encounter (principal); R11.0 Nausea; W22.09XA Striking against other stationary object, initial encounter; Y92.000 Kitchen of unspecified non-institutional (private) residence as the place of occurrence of the external cause; Z98.51 Tubal ligation status
CPT/HCPCS: 70450; 99284

== ENCOUNTER 2019-06-06 14:03 | Emergency (ER) | payer MEDICAID ==
[2019-06-06 14:14] VITALS: BP 111/68
--- NOTE | 2019-06-06 14:37 | ER Document Report ---
ED Medical Screen (RME) - General Chief Complaint: Headache Stated Complaint: HEADACHE Time Seen by Provider: 06/06/19 14:31 Mode of Arrival: Ambulatory Information source: Patient Notes: 33-year-old female presented to ED for complaint of continued head pressure to the front of her head. She states that about 3 weeks ago she was seen for fall with injury to the head. She states she was seen several days later and had a CAT scan and was diagnosed with a postconcussion syndrome. She states she is continuing to have the pressure feeling in her front of her head. She states it will be there for a while and then will go away and then will come back. She states that she does not smoke drink or do any drugs only surgeries are D&C and a bilateral tubal ligation. I have was discussed with patient that we will hold off on doing any more testing until she is examined by 1 of the doctors and she was agreeable with that plan. Patient has no objective neurological findings on my exam at this time. I have greeted and performed a rapid initial assessment of this patient. A comprehensive ED assessment and evaluation of the patient, analysis of test results and completion of medical decision making process will be conducted by an additional ED providers. Dictation of this chart was performed using voice recognition software; therefore, there may be some unintended grammatical errors. TRAVEL OUTSIDE OF THE [place] IN LAST 30 DAYS: No - Related Data Allergies/Adverse Reactions: latex Allergy (Verified 06/06/19 14:08) Hives Past Medical History - Social History Chew tobacco use (# tins/day): No Frequency of alcohol use: None Drug Abuse: None Family history: CAD Renal/ Medical History: Reports: Hx Ovarian Cysts. Denies: Hx Peritoneal Dialysis Psychiatric Medical History: Reports: Hx Anxiety Past Surgical History: Reports: Hx Gynecologic Surgery - L ovarian cyst removed, , Hx Tubal Ligation - Immunizations Immunizations up to date: No Hx Diphtheria, Pertussis, Tetanus Vaccination: No Physical Exam - Vital signs Vitals: Temp Pulse Resp BP Pulse Ox 98.2 F 78 14 111/68 98 06/06/19 14:13 06/06/19 14:13 06/06/19 14:13 06/06/19 14:13 06/06/19 14:13 Course - Vital Signs Vital signs: Temp Pulse Resp BP Pulse Ox 98.2 F 78 14 111/68 98 06/06/19 14:13 06/06/19 14:13 06/06/19 14:13 06/06/19 14:13 06/06/19 14:13
--- NOTE | 2019-06-06 15:22 | ER Document Report ---
ED Headache - General Chief Complaint: Headache Stated Complaint: HEADACHE Time Seen by Provider: 06/06/19 14:31 Mode of Arrival: Ambulatory Notes: Patient is a 33-year-old female presents to the emergency department for generalized headache. Patient states on 05/22/2019 she dropped her cell phone on the floor. States she reached forward to pick it up and accidentally hit her forehead on the counter. Patient's denying any loss of consciousness or vomiting at that time. States she was seen at this facility on 05/27/2019 for generalized continued headache. Did have CT imaging at this time which was unremarkable. Patient states since that time she has had intermittent headaches. Patient's denying any URI symptoms or fever. States it is intermittent pressure in her forehead. Patient's denying any pressure at this time. States She did eat something earlier which made the headache feel little bit better but she was already in the emergency department so she wanted to be evaluated. Patient is denying any medical problems, denies any daily medications, denies any allergies. TRAVEL OUTSIDE OF THE [place] IN LAST 30 DAYS: No - Related Data Allergies/Adverse Reactions: latex Allergy (Verified 06/06/19 14:51) Hives Past Medical History - General Information source: Patient - Social History Smoking Status: Never Smoker Chew tobacco use (# tins/day): No Frequency of alcohol use: None Drug Abuse: None Family History: Arthritis, CAD, CVA, DM, Hyperlipidemia, Hypertension, Malignancy Patient has suicidal ideation: No Patient has homicidal ideation: No Renal/ Medical History: Reports: Hx Ovarian Cysts. Denies: Hx Peritoneal Dialysis Psychiatric Medical History: Reports: Hx Anxiety Past Surgical History: Reports: Hx Gynecologic Surgery - L ovarian cyst removed, , Hx Tubal Ligation - Immunizations Immunizations up to date: No Hx Diphtheria, Pertussis, Tetanus Vaccination: No Review of Systems - Review of Systems Constitutional: No symptoms reported EENT: See HPI Cardiovascular: No symptoms reported Respiratory: No symptoms reported Gastrointestinal: No symptoms reported Genitourinary: No symptoms reported Female Genitourinary: No symptoms reported Musculoskeletal: No symptoms reported Skin: No symptoms reported Hematologic/Lymphatic: No symptoms reported Neurological/Psychological: See HPI Physical Exam - Vital signs Vitals: Temp Pulse Resp BP Pulse Ox 98.2 F 78 14 111/68 98 06/06/19 14:13 06/06/19 14:13 06/06/19 14:13 06/06/19 14:13 06/06/19 14:13 - Notes Notes: GENERAL: Alert, interacts well. No acute distress. HEAD: Normocephalic, atraumatic. No frontal or maxillary sinus tenderness noted EYES: Pupils equal, round, and reactive to light. Extraocular movements intact. ENT: Oral mucosa moist, tongue midline. Nares patent, TM's intact, nonerythematous, nonbulging bilaterally. NECK: Full range of motion. Supple. Trachea midline. LUNGS: Clear to auscultation bilaterally, no wheezes, rales, or rhonchi. No respiratory distress. HEART: Regular rate and rhythm. No murmur ABDOMEN: Soft, non-tender. Non-distended. Bowel sounds present in all 4 quadrants. EXTREMITIES: Moves all 4 extremities spontaneously. No edema, normal radial and dorsalis pedis pulses bilaterally. No cyanosis. 5 out of 5 strength all 4 extremities BACK: no cervical, thoracic, lumbar midline tenderness. No saddle anesthesia, normal distal neurovascular exam. NEUROLOGICAL: Alert and oriented x3. Normal speech. cranial nerves II through XII grossly intact PSYCH: Normal affect, normal mood. SKIN: Warm, dry, normal turgor. No rashes or lesions noted. Course - Re-evaluation Re-evalutation: 06/06/19 15:20 Patient is an otherwise healthy 33-year-old female presents to the emergency department for intermittent headaches since a minor head injury on 05/22/2019. Upon my arrival to the room patient is playing on her cell phone. States she was told that she did have postconcussive syndrome and has not followed up with primary care provider. Patient also voices that she has not taken any Tylenol or Motrin for generalized pain. Patient states she currently does not have a headache so she is denying any pain management at this time. Discussed with her need to follow-up with primary care provider with close return precautions. Patient voices that she has insurance and does have a primary care provider but is unable to remember the name. At this time will discharge with return precautions and follow-up recommendations. Verbal discharge instructions given a the bedside and opportunity for questions given. Medication warnings reviewed. Patient is in agreement with this plan and has verbalized understanding of return precautions and the need for primary care follow-up in the next 24-72 hours. 06/06/19 15:21 - Vital Signs Vital signs: Temp Pulse Resp BP Pulse Ox 98.2 F 78 14 111/68 98 06/06/19 14:13 06/06/19 14:13 06/06/19 14:13 06/06/19 14:13 06/06/19 14:13 Discharge - Discharge Clinical Impression: Postconcussive syndrome Condition: Stable Disposition: HOME, SELF-CARE Instructions: Headache ([facility]), Post-Concussion Syndrome ([facility]) Additional Instructions: As we discussed you have been seen and treated in the emergency department for postconcussive syndrome. Please make sure you follow-up with your primary care provider in the next 24 to 48 hours. Please also make sure you return to the emergency room for any further concerns. Forms: Return to Work
== END 2019-06-06 15:31 | disposition home or self-care (01) ==
LOC: ER 14:03
DX: F07.81 Postconcussional syndrome (principal); R51 Headache

== ENCOUNTER 2019-06-14 20:52 | Emergency (ER) | payer MEDICAID ==
--- NOTE | 2019-06-14 23:13 | ER Document Report ---
ED General - General Chief Complaint: Chest Pain Stated Complaint: CHEST PAIN Time Seen by Provider: 06/14/19 23:10 Primary Care Provider: BI YU MD [Primary Care Provider] - Follow up as needed Notes: Patient is a 33-year-old female that presents to the emergency department for chief complaint of chest burning and sore throat. Patient states she is been having burning in her throat for a few weeks now, but over the past 3 days she is felt more burning in her chest, she is unsure if it is with food or not, she did not eat much today. She did see urgent care the other day they diagnosed her with strep throat although she did not think she had it but she did take the antibiotics, and she saw her primary care and they prescribed her Magic mouthwash. She does drink coffee, but not in excess, denies smoking, but admits to occasional alcohol use. Denies history of peptic ulcer disease or bleeding ulcers. She is not currently taking anything for acid reflux. Your family seem to think that is probably what the cause was. She has no family history of early coronary disease, denies radiation of her chest pain. Denies any associated shortness of breath, nausea, vomiting or abdominal pain. Past Medical History: Ovarian cyst, anxiety Past Surgical History: Tubal ligation Social History: Admits to rare alcohol use, denies tobacco or illicit drug use. Lives at home. Family History: Reviewed and noncontributory for presenting illness Allergies: Reviewed, see documented allergy list. REVIEW OF SYSTEMS: Other than noted above, the 12 point review of systems was reviewed with the patient and were negative, all pertinent findings are included in the HPI. PHYSICAL EXAMINATION: Vital signs reviewed, nursing noted reviewed. GENERAL: Well-appearing, well-nourished and in no acute distress. HEAD: Atraumatic, normocephalic. EYES: Eyes appear normal, extraocular movements intact, sclera anicteric, conjunctiva are normal. ENT: nares patent, oropharynx clear without exudates. Moist mucous membranes. NECK: Normal range of motion, supple without lymphadenopathy LUNGS: Breath sounds clear to auscultation bilaterally and equal. No wheezes rales or rhonchi. No chest wall tenderness. HEART: Regular rate and rhythm without murmurs ABDOMEN: Soft, nontender, normoactive bowel sounds. No rebound, guarding, or rigidity. No masses appreciated. EXTREMITIES: Nontender, good range of motion, no pitting or edema. NEUROLOGICAL: No focal neurological deficits. Moves all extremities spontaneously Motor and sensory grossly intact on exam. PSYCH: Normal mood, normal affect. SKIN: Warm, Dry, normal turgor, no rashes or lesions noted on exposed skin TRAVEL OUTSIDE OF THE [place] IN LAST 30 DAYS: No - Related Data Allergies/Adverse Reactions: latex Allergy (Verified 06/06/19 14:51) Hives Past Medical History - Social History Smoking Status: Never Smoker Family History: Arthritis, CAD, CVA, DM, Hyperlipidemia, Hypertension, Malignancy Renal/ Medical History: Reports: Hx Ovarian Cysts. Denies: Hx Peritoneal Dialysis Psychiatric Medical History: Reports: Hx Anxiety Past Surgical History: Reports: Hx Gynecologic Surgery - L ovarian cyst removed, , Hx Tubal Ligation - Immunizations Immunizations up to date: No Hx Diphtheria, Pertussis, Tetanus Vaccination: No Physical Exam - Vital signs Vitals: Temp Pulse Resp BP Pulse Ox 98.2 F 70 18 122/82 98 06/14/19 21:10 06/14/19 21:10 06/14/19 21:10 06/14/19 21:10 06/14/19 21:10 Course - Re-evaluation Re-evalutation: Patient seen and examined vital signs reviewed. Laboratory data and/or imaging were ordered as appropriate for the patient's presenting symptoms and complaint, with consideration of any critical or life threatening conditions that may be associated with their obtained history and exam as noted above. Patient was treated with GI cocktail Results were reviewed when available and demonstrated unremarkable work-up, negative troponin, unremarkable EKG, negative chest x-ray The patient was re-evaluated and was improved, states that her symptoms were resolving Evaluation was most consistent with reflux disease, patient is having burning sensation, seems to be worse after meals at times, worse in the morning, improved with GI cocktail, will prescribe omeprazole and have her follow-up. Results were discussed with the patient at this point, after careful consideration I feel that that patient can be discharged from the emergency dep artment, the patient was educated treatments and reasons to return to the emergency department based on their presumed diagnosis as noted above, they were advised to followup with a primary care physician in 2-3 days. Patient was agreeable to plan of care. *Note is created using voice recognition software and may contain spelling, syntax or grammatical errors. Laboratory 06/14/19 06/14/19 06/14/19 23:10 23:10 23:10 WBC 10.1 RBC 5.08 Hgb 12.5 Hct 38.0 MCV 75 L MCH 24.7 L MCHC 33.0 RDW 15.9 H Plt Count 299 Lymph % (Auto) 32.2 Wetzel % (Auto) 5.3 Eos % (Auto) 2.0 Baso % (Auto) 0.5 Absolute Neuts (auto) 6.1 Absolute Lymphs (auto) 3.2 Absolute Monos (auto) 0.5 Absolute Eos (auto) 0.2 Absolute Basos (auto) 0.0 Seg Neutrophils % 60.0 Sodium 138.2 Potassium 4.3 Chloride 100 Carbon Dioxide 27 Anion Gap 11 BUN 11 Creatinine 0.98 Est GFR ( Amer) > 60 Est GFR (MDRD) Non-Af > 60 Glucose 86 Calcium 9.6 Total Bilirubin 0.8 Direct Bilirubin 0.2 Neonat Total Bilirubin Not Reportable Neonat Direct Bilirubin Not Reportable Neonat Indirect Bili Not Reportable AST 22 ALT 15 Alkaline Phosphatase 94 Troponin I < 0.012 Total Protein 8.0 Albumin 4.5 Chest X-Ray 06/14/19 23:12 IMPRESSION: No acute cardiopulmonary abnormalities. copyright 2010 [employer]- All Rights Reserved - Vital Signs Vital signs: Temp Pulse Resp BP Pulse Ox 98.2 F 70 18 122/82 98 06/14/19 21:10 06/14/19 21:10 06/14/19 21:10 06/14/19 21:10 06/14/19 21:10 - Laboratory Result Diagrams: 06/14/19 23:10 06/14/19 23:10 Laboratory results interpreted by me: 06/14/19 23:10 MCV 75 L MCH 24.7 L RDW 15.9 H - EKG Interpretation by Me Additional EKG results interpreted by me: EKG demonstrates sinus rhythm with a ventricular rate of 69 bpm, normal axis, normal intervals, no evidence of acute ischemia in this EKG, compared with prior EKG from 02/13/2019, without significant change. Discharge - Discharge Clinical Impression: GERD (gastroesophageal reflux disease) Qualifiers: Esophagitis presence: esophagitis presence not specified Qualified Code(s): K21.9 - Gastro-esophageal reflux disease without esophagitis Condition: Stable Disposition: HOME, SELF-CARE Instructions: Reflux Disease (GERD) ([facility]) Additional Instructions: Please start taking the prescribed medication, to help reduce acid in your stomach, take it once daily for a month, please follow-up with your primary care physician, if you have any worsening symptoms or concerns, do not hesitate to return to the emergency department to be reevaluated. Prescriptions: Omeprazole 40 mg PO DAILY #30 capsule.dr Referrals: BI YU MD [Primary Care Provider] - Follow up in 3-5 days
[2019-06-14] MEDS ORDERED: METOCLOPRAMIDE HCL ORAL SOLN 10 MG/10 ML UDCUP PO ONE (23:28)
[2019-06-14] MEDS ORDERED: MAG HYDROX/AL HYDROX/SIMETH SUSP 30 ML UDCUP PO ONE (23:28)
[2019-06-14] MEDS ORDERED: LIDOCAINE 2% VISCOUS SOLN 20 ML UDCUP PO ONE (23:28)
[2019-06-14 23:30] LABS: ABSOLUTE EOSINOPHILS # (AUTO) 0.2 10^3/uL (0.0-0.6); ABSOLUTE LYMPHOCYTES (AUTO) 3.2 10^3/uL (0.5-4.7); ABSOLUTE MONOCYTES (AUTO) 0.5 10^3/uL (0.1-1.4); ABSOLUTE NEUT (AUTO) 6.1 10^3/uL (1.7-8.2); BASOPHILS % (AUTO) 0.5 % (0-2); HEMOGLOBIN 12.5 g/dL (12.0-15.5); LYMPHOCYTES % (AUTO) 32.2 % (13-45); MEAN CORPUSCULAR HEMOGLOBIN 24.7 pg (27.0-33.4); MEAN CORPUSCULAR VOLUME 75 fl (80-97); MONOCYTES % (AUTO) 5.3 % (3-13); PLATELET COUNT 299 10^3/uL (150-450); RED BLOOD COUNT 5.08 10^6/uL (3.72-5.28); RED CELL DISTRIBUTION WIDTH 15.9 % (11.5-14.0); TOTAL CELLS COUNTED % (AUTO) 100 %; WHITE BLOOD COUNT 10.1 10^3/uL (4.0-10.5)
[2019-06-14 23:52] LABS: ALBUMIN 4.5 g/dL (3.5-5.0); ALKALINE PHOSPHATASE 94 U/L (38-126); ANION GAP 11 (5-19); ASPARTATE AMINO TRANSFERASE 22 U/L (14-36); BILIRUBIN,DIRECT 0.2 mg/dL (0.0-0.4); BILIRUBIN,TOTAL 0.8 mg/dL (0.2-1.3); BLOOD UREA NITROGEN 11 mg/dL (7-20); CALCIUM 9.6 mg/dL (8.4-10.2); CARBON DIOXIDE 27 mmol/L (22-30); CHLORIDE 100 mmol/L (98-107); GLUCOSE 86 mg/dL (75-110); POTASSIUM 4.3 mmol/L (3.6-5.0)
--- NOTE | 2019-06-15 00:05 | RADIOLOGY REPORT (SQ) ---
EXAM DESCRIPTION: XR CHEST 2 VIEWS COMPLETED DATE/TME: 06/14/2019 23:12 CLINICAL HISTORY: 33 years, Female, chest pain COMPARISON: 05/02/2017. NUMBER OF VIEWS: 2 TECHNIQUE: Two-view PA and lateral views of the chest were obtained. LIMITATIONS: None. FINDINGS: Unremarkable cardiac and mediastinal silhouette. Heart size is normal. Lungs are clear without focal opacity, pneumothorax or pleural effusions. The visualized bones reveal S-shaped curvature of the thoracolumbar spine otherwise within normal limits. IMPRESSION: No acute cardiopulmonary abnormalities. copyright 2010 [employer]- All Rights Reserved
[2019-06-15 01:30] VITALS: BP 123/81
--- NOTE | 2019-06-15 10:12 | EKG REPORT ---
SEVERITY:- NORMAL ECG - SINUS RHYTHM : Confirmed by: Francois Montgomery MD 15-Jun-2019 10:10:47
== END 2019-06-15 01:29 | disposition home or self-care (01) ==
LOC: ER 20:52
DX: K21.9 Gastro-esophageal reflux disease without esophagitis (principal); R07.9 Chest pain, unspecified; F41.9 Anxiety disorder, unspecified; Z98.51 Tubal ligation status; Z91.040 Latex allergy status
CPT/HCPCS: 93005; 99285; 36415; 85025; 80053; 84484; 71046; 93010; J3490 ×3

== ENCOUNTER 2019-06-19 07:19 | Emergency (ER) | payer MEDICAID ==
--- NOTE | 2019-06-19 08:15 | ER Document Report ---
ED General - General Chief Complaint: Back Pain Stated Complaint: BACK PAIN Time Seen by Provider: 06/19/19 08:13 Primary Care Provider: BI YU MD [Primary Care Provider] - Follow up as needed TRAVEL OUTSIDE OF THE [place] IN LAST 30 DAYS: No - HPI Notes: 33-year-old female to the emergency department with complaints of low back pain and "vaginal wetness" for the past day. She states that she noticed the symptoms predominantly yesterday. She states these are the symptoms that she typically gets when she either has a urinary tract infection or BV. She states that she would also like to self swab for gonorrhea and chlamydia. She states that she is not "discharging" but feels like she has more moisture vaginally than normal. She states that she has one partner and does not use protection. She states that she has had a tubal ligation. She states that her last menstrual period was 3 days ago. She states that she does not think that she has gonorrhea or chlamydia but she would like to double check and be treated empirically. She admits to some slight nausea this morning. She denies any fevers, chills, chest pain, shortness of breath, headache, vomiting, diarrhea, saddle paresthesias, bladder bowel incontinence, radiculopathy, recent trauma or falls, or flank pain. - Related Data Allergies/Adverse Reactions: latex Allergy (Verified 06/19/19 07:20) Hives Past Medical History - General Information source: Patient - Social History Smoking Status: Never Smoker Chew tobacco use (# tins/day): No Frequency of alcohol use: None Drug Abuse: None Family History: Arthritis, CAD, CVA, DM, Hyperlipidemia, Hypertension, Malignancy Patient has suicidal ideation: No Patient has homicidal ideation: No Renal/ Medical History: Reports: Hx Ovarian Cysts. Denies: Hx Peritoneal Dialysis Psychiatric Medical History: Reports: Hx Anxiety Past Surgical History: Reports: Hx Gynecologic Surgery - L ovarian cyst removed, , Hx Tubal Ligation - Immunizations Immunizations up to date: No Hx Diphtheria, Pertussis, Tetanus Vaccination: No Review of Systems - Review of Systems Constitutional: denies: Chills, Fever EENT: No symptoms reported Cardiovascular: denies: Chest pain, Palpitations, Dyspnea, Syncope, Dizziness, Lightheaded Respiratory: denies: Cough, Short of breath Gastrointestinal: Nausea. denies: Abdominal pain, Diarrhea, Vomiting Genitourinary: denies: Frequency, Flank pain Female Genitourinary: See HPI, Last menstrual period - 3 days ago, Vaginal discharge Musculoskeletal: See HPI, Back pain Skin: No symptoms reported Hematologic/Lymphatic: No symptoms reported Neurological/Psychological: No symptoms reported -: Yes All other systems reviewed and negative Physical Exam - Vital signs Vitals: Temp Pulse Resp BP Pulse Ox 98.0 F 75 16 127/82 H 96 06/19/19 07:22 06/19/19 07:22 06/19/19 07:22 06/19/19 07:22 06/19/19 07:22 Interpretation: Normal - General General appearance: Appears well, Alert In distress: None - HEENT Head: Normocephalic, Atraumatic Eyes: Normal Pupils: PERRL - Respiratory Respiratory status: No respiratory distress Chest status: Nontender Breath sounds: Normal Chest palpation: Normal - Cardiovascular Rhythm: Regular Heart sounds: Normal auscultation Murmur: No - Abdominal Inspection: Normal Distension: No distension Bowel sounds: Normal Tenderness: Nontender Organomegaly: No organomegaly - Genitourinary Notes: declines pelvic exam - Back Back: Normal, Nontender. No: CVA tenderness - Neurological Neuro grossly intact: Yes Cognition: Normal Orientation: AAOx4 [place] Coma Scale Eye Opening: Spontaneous [place] Coma Scale Verbal: Oriented [place] Coma Scale Motor: Obeys Commands [place] Coma Scale Total: 15 Speech: Normal Motor strength normal: LUE, RUE, LLE, RLE Sensory: Normal - Psychological Associated symptoms: Normal affect, Normal mood - Skin Skin Temperature: Warm Skin Moisture: Dry Skin Color: Normal Course - Vital Signs Vital signs: Temp Pulse Resp BP Pulse Ox 98.0 F 75 16 127/82 H 96 06/19/19 07:22 06/19/19 07:22 06/19/19 07:22 06/19/19 07:22 06/19/19 07:22 - Laboratory Laboratory results interpreted by me: 06/19/19 07:49 Ur Leukocyte Esterase MODERATE H Laboratory 06/19/19 06/19/19 06/19/19 07:49 07:49 08:43 Urine Color YELLOW Urine Appearance SLIGHTLY-CLOUDY Urine pH 5.0 Ur Specific [place] 1.018 Urine Protein NEGATIVE Urine Glucose (UA) NEGATIVE Urine Ketones NEGATIVE Urine Blood NEGATIVE Urine Nitrite NEGATIVE Urine Bilirubin NEGATIVE Urine Urobilinogen NEGATIVE Ur Leukocyte Esterase MODERATE H Urine WBC (Auto) 7 Urine RBC (Auto) 1 Squamous Epi Cells Auto 13 Urine Mucus (Auto) RARE Urine Ascorbic Acid NEGATIVE Urine HCG, Qual NEGATIVE Trichomonas (Wet Prep) NO TRICHOMONAS SEEN Vaginal WBC 1+ WBCS SEEN Vaginal Yeast NO YEAST SEEN Discharge - Discharge Clinical Impression: UTI (urinary tract infection) Qualifiers: Urinary tract infection type: acute cystitis Hematuria presence: without hematuria Qualified Code(s): N30.00 - Acute cystitis without hematuria Low back pain Qualifiers: Chronicity: acute Back pain laterality: unspecified Condition: Stable Disposition: HOME, SELF-CARE Instructions: Cephalexin ([facility]), Urinary Tract Infection ([facility]) Additional Instructions: PUSH FLUIDS. COMPLETE ALL ANTIBIOTICS. RETURN IF WORSE. FOLLOW UP WITH PRIMARY CARE WITHOUT FAIL. Prescriptions: Cephalexin Monohydrate [Keflex 500 mg Capsule] 500 mg PO BID 7 Days #14 capsule Phenazopyridine HCl [Pyridium 100 Mg Tablet] 200 mg PO TID PRN #6 tablet PRN Reason: Forms: Return to Work Referrals: BI YU MD [Primary Care Provider] - Follow up in 1 week
[2019-06-19] MEDS ORDERED: LIDOCAINE 1% INJ-PF (10 MG/ML) 30 ML SDV NEB ONE (08:24)
[2019-06-19] MEDS ORDERED: CEFTRIAXONE INJ 250 MG VIAL IM ONE (08:24)
[2019-06-19] MEDS ORDERED: ONDANSETRON 4 MG TAB.RAPDIS PO ONE (08:24)
[2019-06-19] MEDS ORDERED: AZITHROMYCIN 1 GM SUSP PACKET PO ONE (08:24)
[2019-06-19 08:52] LABS: APPEARANCE,URINE SLIGHTLY-CLOUDY; BILIRUBIN,URINE NEGATIVE (NEGATIVE); COLOR,URINE YELLOW; GLUCOSE, URINE NEGATIVE (NEGATIVE); KETONES,URINE NEGATIVE (NEGATIVE); LEUKOCYTE ESTERASE,URINE MODERATE (NEGATIVE); NITRITE,URINE NEGATIVE (NEGATIVE); PROTEIN,URINE NEGATIVE (NEGATIVE); URINE SPECIFIC GRAVITY 1.018; UROBILINOGEN,URINE NEGATIVE mg/dL (<2.0)
[2019-06-19 08:59] LABS: T.VAGINALIS (WET MOUNT) NO TRICHOMONAS SEEN; WBCS (WET MOUNT) 1+ WBCS SEEN; YEAST (WET MOUNT) NO YEAST SEEN
[2019-06-19 10:13] VITALS: BP 110/69
[2019-06-19 10:22] LABS: CHLAM PCR NOT DETECTED (NOT DETECT)
== END 2019-06-19 10:13 | disposition home or self-care (01) ==
LOC: ER 07:19
DX: N30.00 Acute cystitis without hematuria (principal); M54.5 Low back pain; N89.8 Other specified noninflammatory disorders of vagina; R11.0 Nausea; Z91.040 Latex allergy status
CPT/HCPCS: 94640; 99283; 96372; 87210; 81025; 81001; 87491; 87591; S0119; J3490; Q0144; J0696

== ENCOUNTER → 2019-07-05 | Outpatient (CLI) | payer MEDICAID ==
--- NOTE | 2019-07-05 13:50 | WOMENS IMAGING REPORT ---
EXAM DESCRIPTION: TRANSVAGINAL ULTRASOUND COMPLETED DATE/TIME: 07/05/2019 1:37 pm REASON FOR STUDY: N92.6 IRREGULAR MENSTRUATION N92.6 IRREGULAR MENSTRUATION, UNSPECIFIED COMPARISON: 05/04/2017 TECHNIQUE: Dynamic and static grayscale images acquired of the pelvis via transvaginal approach and recorded on PACS. Additional selected color Doppler and spectral images recorded. LIMITATIONS: None. FINDINGS: UTERUS: Contour normal. No mass. ENDOMETRIAL STRIPE: No focal or generalized thickening. No masses. CERVIX: No nabothian cysts. RIGHT OVARY AND DOPPLER: Normal size. No worrisome masses. Normal arterial vascular flow without evid ence for torsion. LEFT OVARY AND DOPPLER: Normal size. Normal arterial vascular flow without evidence for torsion. Th ere is a 3.1 x 3.1 x 3.8 cm cyst. FREE FLUID: None noted. OTHER: No other significant finding. MEASUREMENTS: UTERUS: 10.7 x 5.9 x 8.0 cm. ENDOMETRIAL STRIPE: 20.0 mm. RIGHT OVARY: 4.6 x 2.4 x 2.4 cm. LEFT OVARY: 4.3 x 3.7 x 4.5 cm. IMPRESSION: 1. Mildly thickened but homogeneous endometrium. 2. Simple 3.1 cm left ovarian cyst. TECHNICAL DOCUMENTATION: JOB ID: [id number] [employer]- All Rights Reserved Reading location - IP/workstation name: [email or web address]
== END ==
LOC: WI 12:55
PROVIDERS: ATTEND Nurse Practitioner Family
DX: N83.292 Other ovarian cyst, left side (principal); N92.6 Irregular menstruation, unspecified
CPT/HCPCS: 76830

== ENCOUNTER 2019-08-31 23:19 | Emergency (ER) | payer MEDICAID ==
[2019-09-01] MEDS ORDERED: KETOROLAC TROMETHAMINE 60 MG/2 ML SDV IM ONE (00:28)
[2019-09-01 00:32] LABS: ABSOLUTE EOSINOPHILS # (AUTO) 0.4 10^3/uL (0.0-0.6); ABSOLUTE LYMPHOCYTES (AUTO) 3.4 10^3/uL (0.5-4.7); ABSOLUTE MONOCYTES (AUTO) 0.8 10^3/uL (0.1-1.4); ABSOLUTE NEUT (AUTO) 8.8 10^3/uL (1.7-8.2); BASOPHILS % (AUTO) 0.3 % (0-2); EOSINOPHILS % (AUTO) 2.9 % (0-6); HEMOGLOBIN 12.3 g/dL (12.0-15.5); LYMPHOCYTES % (AUTO) 25.4 % (13-45); MEAN CORPUSCULAR HEMOGLOBIN 24.7 pg (27.0-33.4); MEAN CORPUSCULAR HGB CONC 32.5 g/dL (32.0-36.0); MEAN CORPUSCULAR VOLUME 76 fl (80-97); MONOCYTES % (AUTO) 5.7 % (3-13); PLATELET COUNT 284 10^3/uL (150-450); RED CELL DISTRIBUTION WIDTH 15.6 % (11.5-14.0); SEGMENTED NEUTROPHILS % (AUTO) 65.7 % (42-78); TOTAL CELLS COUNTED % (AUTO) 100 %; WHITE BLOOD COUNT 13.4 10^3/uL (4.0-10.5)
[2019-09-01 00:59] LABS: ALBUMIN 4.1 g/dL (3.5-5.0); ALKALINE PHOSPHATASE 91 U/L (38-126); ANION GAP 11 (5-19); ASPARTATE AMINO TRANSFERASE 17 U/L (14-36); BILIRUBIN,TOTAL 0.7 mg/dL (0.2-1.3); BLOOD UREA NITROGEN 15 mg/dL (7-20); CALCIUM 9.6 mg/dL (8.4-10.2); CARBON DIOXIDE 26 mmol/L (22-30); CHLORIDE 101 mmol/L (98-107); CREATINE KINASE 62 U/L (30-135); GLUCOSE 91 mg/dL (75-110); POTASSIUM 3.8 mmol/L (3.6-5.0); TOTAL PROTEIN 7.9 g/dL (6.3-8.2)
[2019-09-01 01:12] LABS: CREATINE KINASE MB < 0.22 ng/mL (<4.55); TROPONIN I < 0.012 ng/mL
--- NOTE | 2019-09-01 01:15 | EKG REPORT ---
SEVERITY:- NORMAL ECG - SINUS RHYTHM : Confirmed by: Annabelle Leon MD 01-Sep-2019 01:14:33
--- NOTE | 2019-09-01 01:18 | ER Document Report ---
ED General - General Chief Complaint: Chest Pain Stated Complaint: TROUBLE BREATHING Time Seen by Provider: 09/01/19 00:22 Primary Care Provider: RAJEEV RAMIREZ FNP-C [Primary Care Provider] - Follow up as needed Notes: 34-year-old woman presents to the emergency department with a complaint of chest tightness and shortness of breath with a headache. 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 She feels that her symptoms are due to anxiety and stress. She denies any known cardiac history and is not a smoker. Presently her symptoms have improved significantly without medication. She a dmits that she took an Excedrin earlier, and wonders if caffeine may have affected her symptoms. The pain was nonradiating, no associated diaphoresis or nausea and vomiting. TRAVEL OUTSIDE OF THE [place] IN LAST 30 DAYS: No - Related Data Allergies/Adverse Reactions: latex Allergy (Verified 07/31/19 07:22) Hives Past Medical History - Social History Smoking Status: Never Smoker Chew tobacco use (# tins/day): No Frequency of alcohol use: None Drug Abuse: None Family History: Arthritis, CAD, CVA, DM, Hyperlipidemia, Hypertension, Malignancy Patient has suicidal ideation: No Patient has homicidal ideation: No Renal/ Medical History: Reports: Hx Ovarian Cysts. Denies: Hx Peritoneal Dialysis Psychiatric Medical History: Reports: Hx Anxiety Denies: Hx Depression Past Surgical History: Reports: Hx Gynecologic Surgery - L ovarian cyst removed, , Hx Tubal Ligation - Immunizations Immunizations up to date: No Hx Diphtheria, Pertussis, Tetanus Vaccination: No Review of Systems - Review of Systems Notes: Constitutional: Negative for fever. HENT: Negative for sore throat. Eyes: Negative for visual changes. Cardiovascular: + chest pain. Respiratory: +shortness of breath. Gastrointestinal: Negative for abdominal pain, vomiting or diarrhea. Genitourinary: Negative for dysuria. Musculoskeletal: Negative for back pain. Skin: Negative for rash. Neurological: + headaches, no weakness or numbness. 10 point ROS negative except as marked above and in HPI. Physical Exam - Vital signs Vitals: Temp Pulse Resp BP Pulse Ox 97.6 F 73 17 141/86 H 98 08/31/19 23:32 08/31/19 23:32 08/31/19 23:32 08/31/19 23:32 08/31/19 23:32 - Notes Notes: Reviewed vital signs and nursing note as charted by RN. CONSTITUTIONAL: Pleasant, polite 34-year-old woman in no acute distress. HEENT: Normocephalic; atraumatic; No swelling, PERRL; Conjunctivae clear, no drainage; EOMI, External ears without lesions; External auditory canal is patent; TMs without erythema, landmarks clear and well visualized; no rhinorrhea; Pharynx without erythema or lesions, no tonsillar hypertrophy, airway patent, mucous membranes pink and moist NECK: Supple, no JVD or bruits CARD: Regular rate and rhythm; no murmurs, no rubs, no gallops, no chest wall tenderness RESP: Clear, no wheezes rales or rhonchi ABD/GI: Normal bowel sounds; non-distended; soft, non-tender, no rebound, no guarding, no palpable organomegaly EXT: No edema clubbing or cyanosis SKIN: Warm and dry NEURO: Alert and oriented x3 with no focal motor or sensory or cerebellar abnormalities. Course - Re-evaluation Re-evalutation: 09/01/19 02:33 Patient symptoms have resolved, she is requesting to go home, states she has discharged tomorrow. Does not want to stay in the emergency department for repeat troponin testing. Given the low suspicion, she is being discharged. HEART Score: HEART score for chest pain patients Score History Slightly suspicious 0 ECG Normal 0 Age <45 year 0 Risk factors 1 or 2 risk factors 1 Troponin =normal limit 0 Total 1 If HEART score is = 3 AND both tronponin measurments are normal, the 30 day risk of a major adverse cardiac event (all-cause mortality, myocardia infarction or need for coronary revscularization) is < 1% (Sensitivity 100%, NPV 100%). Chest pain in a patient without evidence of cardiac or other serious etiology on workup today. I discussed with patient that, based on their age, risk factors and emergency department testing today, the likelihood that their symptoms are related to a heart attack is very low (estimated risk of heart attack or over the next 30 days of less than 1%). The patient demonstrates decision making capacity and has verbalized an understanding of these risks to me. Based on this, the patient has chosen to follow-up as an outpatient. Usual chest pain return precautions reviewed. The patient states understanding and agreement with this plan. - Vital Signs Vital signs: Temp Pulse Resp BP Pulse Ox 97.6 F 73 17 141/86 H 98 08/31/19 23:32 08/31/19 23:32 08/31/19 23:32 08/31/19 23:32 08/31/19 23:32 - Laboratory Result Diagrams: 09/01/19 00:20 09/01/19 00:20 Laboratory results interpreted by me: 09/01/19 09/01/19 00:20 00:20 WBC 13.4 H MCV 76 L MCH 24.7 L RDW 15.6 H Absolute Neuts (auto) 8.8 H Est GFR (MDRD) Non-Af 54 L - EKG Interpretation by Me EKG shows normal: Sinus rhythm - Rate is 66, [place], Intervals, QRS Complexes, ST- T Waves Discharge - Discharge Clinical Impression: Non-cardiac chest pain, Stress reaction Condition: Good Disposition: HOME, SELF-CARE Instructions: Chest Pain of Unclear Cause ([facility]), Anxiety ([facility]) Additional Instructions: At this time will discharge with return precautions and follow-up recommendations. Verbal discharge instructions given a the bedside and opportunity for questions given. Patient is in agreement with this plan and has verbalized understanding of return precautions and the need for primary care follow-up in the next 24-72 hours. Referrals: RAJEEV RAMIREZ FNP-C [Primary Care Provider] - Follow up as needed
[2019-09-01 02:47] VITALS: BP 177/84
== END 2019-09-01 02:46 | disposition home or self-care (01) ==
LOC: ER 23:19
DX: R07.89 Other chest pain (principal); F43.9 Reaction to severe stress, unspecified; R06.02 Shortness of breath; R51 Headache; Z91.040 Latex allergy status; Z98.51 Tubal ligation status
CPT/HCPCS: 36415; 80053; 82550; 82553; 84484; 85025; 93005; 93010

== ENCOUNTER 2019-09-19 07:13 | Emergency (ER) | payer MEDICAID ==
--- NOTE | 2019-09-19 08:06 | ER Document Report ---
HPI - HPI Patient complains to provider of: vag discharge Time Seen by Provider: 09/19/19 07:55 Onset: Yesterday Onset/Duration: Sudden Quality of pain: No pain Pain Level: Denies Context: This 34-year-old female presents emergency department today with complaints of clear vaginal discharge. Reports it started Monday. Reports she was sexually active with no protection on Monday. Reports it has been a long time since she had sex so she is wondering if the discharge is from that. She reports some low back pain. She denies pain with void. She denies vaginal pruritus. She denies fever vomiting diarrhea. Denies abdominal pain. She also reports she is on steroids and antibiotics for bronchitis which she started on Monday. Associated Symptoms: None Exacerbated by: Denies Relieved by: Denies Similar symptoms previously: No Recently seen / treated by doctor: No - CONSTITUTIONAL Constitutional: DENIES: Fever, Chills - REPRODUCTIVE LMP: 08/2019 Reproductive: DENIES: : Past Medical History - General Information source: Patient - Social History Smoking Status: Never Smoker Chew tobacco use (# tins/day): No Frequency of alcohol use: Rare Drug Abuse: None Family History: Arthritis, CAD, CVA, DM, Hyperlipidemia, Hypertension, Malignancy Patient has suicidal ideation: No Patient has homicidal ideation: No Renal/ Medical History: Reports: Hx Ovarian Cysts. Denies: Hx Peritoneal Dialysis Psychiatric Medical History: Reports: Hx Anxiety Denies: Hx Depression Past Surgical History: Reports: Hx Gynecologic Surgery - L ovarian cyst removed, , Hx Tubal Ligation - Immunizations Immunizations up to date: No Hx Diphtheria, Pertussis, Tetanus Vaccination: No Vertical Provider Document - CONSTITUTIONAL Agree With Documented VS: Yes Exam Limitations: No Limitations General Appearance: WD/WN, No Apparent Distress - INFECTION CONTROL TRAVEL OUTSIDE OF THE [place] IN LAST 30 DAYS: No - HEENT HEENT: Atraumatic, Normocephalic, PERRLA. negative: Conjuctival Injection, Pharyngeal Erythema - NECK Neck: Normal Inspection, Supple. negative: Lymphadenopathy-Left, Lymphadenopathy-Right - RESPIRATORY Respiratory: Breath Sounds Normal, No Respiratory Distress - CARDIOVASCULAR Cardiovascular: Regular Rate, Regular Rhythm - GI/ABDOMEN Gastrointestinal: Abdomen Soft, Abdomen Non-Tender - BACK Back: Normal Inspection. negative: CVA Tenderness-Right, CVA Tenderness-Left - MUSCULOSKELETAL/EXTREMETIES Musculoskeletal/Extremeties: LIEN TOPETE - NEURO Level of Consciousness: Awake, Alert, Appropriate Motor/Sensory: No Motor Deficit - DERM Integumentary: Warm, Dry Course - Re-evaluation Re-evalutation: 09/19/19 08:05 34-year-old female presents with complaints of clear vaginal discharge that started 2 days ago. Denies pruritus. Denies odor. Patient is worried she may have a yeast infection. Pelvic set up ordered and STD urine ordered. Patient was instructed on timeframe to receive STD results. She reports she would rather be called with the results because she has to go to work. 09/19/19 19:00 STD cultures negative Dictation of this chart was performed using voice recognition software; therefore, there may be some unintended grammatical errors. - Vital Signs Vital signs: Temp Pulse Resp BP Pulse Ox 98 F 98 18 115/76 98 09/19/19 07:26 09/19/19 07:26 09/19/19 07:26 09/19/19 07:26 09/19/19 07:26 Procedures - Pelvic Exam Pelvic exam Time completed: 08:14 Cultures obtained: No Wet prep obtained: Yes Herpes culture obtained: No POC sent to lab: No Foreign body removed: No Bimanual exam performed: Yes Witnessed by: michael FIGUEROA Discharge - Discharge Clinical Impression: Vaginal discharge Condition: Stable Disposition: HOME, SELF-CARE Instructions: [facility] Additional Instructions: *You have been evaluated for vaginal discharge, possible STD exposure *Your STD cultures are pending. You will be contacted should you need treatment. *Follow up with your DIRECTOR OF OPERATIONS or the health department for recheck within 1 week *Avoid sexual intercourse until follow up *Utilize protection when having intercourse. *Return to ED for worsening condition, changes, needs Referrals: RAJEEV RAMIREZ, VIVIEN-C [Primary Care Provider] - Follow up in 1 week
[2019-09-19 08:22] LABS: RBCS (WET MOUNT) RARE RBCS SEEN; T.VAGINALIS (WET MOUNT) NO TRICHOMONAS SEEN; WBCS (WET MOUNT) 2+ WBCS SEEN; YEAST (WET MOUNT) NO YEAST SEEN
[2019-09-19 08:30] LABS: APPEARANCE,URINE SLIGHTLY-CLOUDY; BILIRUBIN,URINE NEGATIVE (NEGATIVE); COLOR,URINE YELLOW; GLUCOSE, URINE NEGATIVE (NEGATIVE); KETONES,URINE NEGATIVE (NEGATIVE); LEUKOCYTE ESTERASE,URINE MODERATE (NEGATIVE); NITRITE,URINE NEGATIVE (NEGATIVE); PROTEIN,URINE NEGATIVE (NEGATIVE); URINE SPECIFIC GRAVITY 1.016; UROBILINOGEN,URINE NEGATIVE mg/dL (<2.0)
[2019-09-19 08:42] VITALS: BP 130/85
[2019-09-19 09:53] LABS: CHLAM PCR NOT DETECTED (NOT DETECT)
== END 2019-09-19 08:48 | disposition home or self-care (01) ==
LOC: ER 07:13
DX: N89.8 Other specified noninflammatory disorders of vagina (principal); M54.5 Low back pain; J40 Bronchitis, not specified as acute or chronic
CPT/HCPCS: 81001; 81025; 87210; 87491; 87591; 99283

== ENCOUNTER → 2019-09-24 | Outpatient (CLI) | payer MEDICAID ==
[2019-09-24 11:23] LABS: T.VAGINALIS (WET MOUNT) NO TRICHOMONAS SEEN
[2019-09-24 11:25] LABS: BACTERIA (WET MOUNT) 3+ BACTERIA SEEN; EPITHELIALS (WET MOUNT) 4+ EPITHELIALS SEEN; RBCS (WET MOUNT) FEW RBCS SEEN; WBCS (WET MOUNT) 2+ WBCS SEEN; YEAST (WET MOUNT) NO YEAST SEEN
[2019-09-24 12:56] LABS: CHLAM PCR NOT DETECTED (NOT DETECT)
== END ==
LOC: LAB 11:14
PROVIDERS: ATTEND Nurse Practitioner Acute Care
DX: N89.8 Other specified noninflammatory disorders of vagina (principal); R30.0 Dysuria
CPT/HCPCS: 87086; 87088; 87210; 87491; 87591

== ENCOUNTER 2019-10-25 07:44 | Emergency (ER) | payer SELFPAY ==
[2019-10-25 08:21] LABS: APPEARANCE,URINE SLIGHTLY-CLOUDY; BILIRUBIN,URINE NEGATIVE (NEGATIVE); COLOR,URINE YELLOW; GLUCOSE, URINE NEGATIVE (NEGATIVE); KETONES,URINE NEGATIVE (NEGATIVE); LEUKOCYTE ESTERASE,URINE LARGE (NEGATIVE); NITRITE,URINE NEGATIVE (NEGATIVE); PROTEIN,URINE NEGATIVE (NEGATIVE); URINE SPECIFIC GRAVITY 1.012; UROBILINOGEN,URINE NEGATIVE mg/dL (<2.0)
[2019-10-25] MEDS ORDERED: CEFTRIAXONE INJ 250 MG VIAL IM ONE (10:36)
[2019-10-25] MEDS ORDERED: LIDOCAINE 1% INJ (10 MG/ML) 10 ML MDV INJ ONE (10:36)
[2019-10-25] MEDS ORDERED: AZITHROMYCIN 250 MG TABLET PO ONE (10:36)
--- NOTE | 2019-10-25 10:37 | ER Document Report ---
HPI - HPI Time Seen by Provider: 10/25/19 10:31 Quality of pain: Achy Pain Level: 1 Context: Patient presents complaining of vaginal discharge for the past 3 days. Patient also complains of being concerned that she may have UTI. Patient reports low back pain. No fever. Patient denies any nausea or vomiting. Associated Symptoms: Other - Vaginal discharge. denies: Fever, Nausea, Vomiting Exacerbated by: Denies Relieved by: Denies Similar symptoms previously: No Recently seen / treated by doctor: No - ROS ROS below otherwise negative: Yes Systems Reviewed and Negative: Yes All other systems reviewed and negative - CONSTITUTIONAL Constitutional: DENIES: Fever - NEURO Neurology: DENIES: Headache - GASTROINTESTINAL Gastrointestinal: DENIES: Abdominal Pain, Nausea, Patient vomiting - URINARY Urinary: REPORTS: Urgency, Frequency - REPRODUCTIVE Reproductive: REPORTS: Abnormal bleeding / discharge. 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 Denies: Hx Peritoneal Dialysis Psychiatric Medical History: Reports: Hx Anxiety Denies: Hx Depression Past Surgical History: Reports: Hx Gynecologic Surgery - L ovarian cyst removed, , Hx Tubal Ligation - Immunizations Immunizations up to date: No Hx Diphtheria, Pertussis, Tetanus Vaccination: No Vertical Provider Document - CONSTITUTIONAL Agree With Documented VS: Yes Exam Limitations: No Limitations General Appearance: WD/WN, No Apparent Distress - INFECTION CONTROL TRAVEL OUTSIDE OF THE [place] IN LAST 30 DAYS: No - HEENT HEENT: Atraumatic, Normocephalic - NECK Neck: Normal Inspection, Supple. negative: Lymphadenopathy-Left, Lymphadenopathy-Right - RESPIRATORY Respiratory: Breath Sounds Normal, No Respiratory Distress - CARDIOVASCULAR Cardiovascular: Regular Rate, Regular Rhythm, No Murmur - GI/ABDOMEN Gastrointestinal: Abdomen Soft - REPRODUCTIVE Female Genitalia: negative: CMT, Adnexal Pain-Right, Adnexal Pain-Left Notes: white vaginal discharge - BACK Back: CVA Tenderness-Right - MUSCULOSKELETAL/EXTREMETIES Musculoskeletal/Extremeties: LIEN TOPETE - NEURO Level of Consciousness: Awake, Alert, Appropriate Motor/Sensory: No Motor Deficit - DERM Integumentary: Warm, Dry, No Rash Course - Vital Signs Vital signs: Temp Pulse Resp BP Pulse Ox 97.6 F 72 14 98/65 L 99 10/25/19 07:48 10/25/19 07:48 10/25/19 07:48 10/25/19 07:48 10/25/19 07:48 - Laboratory Laboratory results interpreted by me: 10/25/19 08:00 Ur Leukocyte Esterase LARGE H Discharge - Discharge Clinical Impression: Bacterial vaginosis UTI (urinary tract infection) Qualifiers: Urinary tract infection type: site unspecified Hematuria presence: without hematuria Qualified Code(s): N39.0 - Urinary tract infection, site not specified Condition: Stable Disposition: HOME, SELF-CARE Instructions: Cephalexin ([facility]), Metronidazole ([facility]), Urinary Tract Infection ([facility]), Vaginosis, Bacterial ([facility]) Additional Instructions: Return immediately for any new or worsening symptoms Followup with your primary care provider, call tomorrow to make a followup appointment Cultures are pending, we will call if you need any different treatment Prescriptions: Metronidazole [Flagyl 500 mg Tablet] 500 mg PO BID #14 tablet Cephalexin Monohydrate [Keflex 500 mg Capsule] 500 mg PO BID 4 Days capsule Forms: Return to Work Referrals: JOHNATHON BRANTLEY PA [Primary Care Provider] - Follow up as needed
[2019-10-25 11:31] LABS: BACTERIA (WET MOUNT) 4+ BACTERIA SEEN; EPITHELIALS (WET MOUNT) 3+ EPITHELIALS SEEN; RBCS (WET MOUNT) RARE RBCS SEEN; T.VAGINALIS (WET MOUNT) NO TRICHOMONAS SEEN; WBCS (WET MOUNT) 3+ WBCS SEEN; YEAST (WET MOUNT) NO YEAST SEEN
[2019-10-25 12:09] VITALS: BP 118/65
[2019-10-25 12:59] LABS: CHLAM PCR NOT DETECTED (NOT DETECT)
== END 2019-10-25 12:09 | disposition home or self-care (01) ==
LOC: ER 07:44
DX: N76.0 Acute vaginitis (principal); B96.89 Other specified bacterial agents as the cause of diseases classified elsewhere; N39.0 Urinary tract infection, site not specified; M54.5 Low back pain
CPT/HCPCS: 99283; 96372; 87086; 87210; 81001; 87491; 87591; J0696

== ENCOUNTER 2019-12-04 07:44 | Emergency (ER) | payer SELFPAY ==
[2019-12-04 09:41] LABS: APPEARANCE,URINE CLEAR; BILIRUBIN,URINE NEGATIVE (NEGATIVE); COLOR,URINE YELLOW; GLUCOSE, URINE NEGATIVE (NEGATIVE); KETONES,URINE NEGATIVE (NEGATIVE); LEUKOCYTE ESTERASE,URINE NEGATIVE (NEGATIVE); NITRITE,URINE NEGATIVE (NEGATIVE); PROTEIN,URINE NEGATIVE (NEGATIVE); URINE SPECIFIC GRAVITY 1.012; UROBILINOGEN,URINE NEGATIVE mg/dL (<2.0)
[2019-12-04] MEDS ORDERED: HYDROCODONE/ACETAMINOPHEN 5-325 MG TABLET PO ONE (09:44)
--- NOTE | 2019-12-04 09:45 | ER Document Report ---
ED General - General Chief Complaint: Low Back Pain Stated Complaint: BACK PAIN Time Seen by Provider: 12/04/19 09:14 Primary Care Provider: JOHNATHON BRANTLEY PA [Primary Care Provider] - Follow up tomorrow Mode of Arrival: Ambulatory Information source: Patient Notes: Patient presents with a 5-day history of low back pain and lower pelvic tenderness. Patient denies any vaginal bleeding or discharge. Patient denies any urinary symptoms. Patient denies any fever. Patient denies any nausea vomiting or diarrhea. Patient states she feels as though she could have a UTI although she denies any dysuria or frequency. Patient does states she has pain with intercourse as well. TRAVEL OUTSIDE OF THE [place] 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 Denies: Hx Peritoneal Dialysis Psychiatric Medical History: Reports: Hx Anxiety Denies: Hx Depression Past Surgical History: Reports: Hx Gynecologic Surgery - L ovarian cyst removed, , Hx Tubal Ligation - Immunizations Immunizations up to date: No Hx Diphtheria, Pertussis, Tetanus Vaccination: No Review of Systems - Review of Systems Constitutional: No symptoms reported. denies: Fever EENT: No symptoms reported Cardiovascular: No symptoms reported. denies: Chest pain Respiratory: No symptoms reported. denies: Cough Gastrointestinal: Abdominal pain. denies: Vomiting Genitourinary: No symptoms reported. denies: Dysuria, Flank pain, Hematuria Female Genitourinary: Vaginal discharge, Painful intercourse. denies: Musculoskeletal: Back pain Skin: No symptoms reported Hematologic/Lymphatic: No symptoms reported Neurological/Psychological: No symptoms reported Physical Exam - Vital signs Vitals: Temp Pulse Resp BP Pulse Ox 97.4 F 69 18 138/75 H 99 12/04/19 07:57 12/04/19 07:57 12/04/19 07:57 12/04/19 07:57 12/04/19 07:57 - General General appearance: Appears well, Alert In distress: None - HEENT Head: Normocephalic, Atraumatic Eyes: Normal Conjunctiva: Normal Nasal: Normal Mouth/Lips: Normal Mucous membranes: Normal Neck: Normal, Supple. No: Lymphadenopathy - Respiratory Respiratory status: No respiratory distress Chest status: Nontender Breath sounds: Normal. No: Rales, Rhonchi, Stridor, Wheezing Chest palpation: Normal - Cardiovascular Rhythm: Regular Heart sounds: S1 appreciated, S2 appreciated Murmur: No - Abdominal Inspection: Obese Distension: No distension Bowel sounds: Normal Tenderness: Tender - Suprapubic Organomegaly: No organomegaly - Genitourinary External exam: Normal Speculum exam: Cervix closed, Vaginal discharge Vaginal bleeding: None Bimanuel exam: Cervical motion tender. No: Adnexal tenderness Notes: DWIGHT Oconnell as standby - Back Back: Tender - Lumbar paraspinal tenderness, CVA tenderness - Right-sided - Extremities General upper extremity: Normal inspection, Nontender, Normal strength General lower extremity: Normal inspection, Nontender, Normal strength - Neurological Neuro grossly intact: Yes Cognition: Normal Orientation: AAOx4 [place] Coma Scale Eye Opening: Spontaneous [place] Coma Scale Verbal: Oriented [place] Coma Scale Motor: Obeys Commands [place] Coma Scale Total: 15 - Psychological Associated symptoms: Normal affect, Normal mood - Skin Skin Temperature: Warm Skin Moisture: Dry Skin Color: Normal Course - Re-evaluation Re-evalutation: 12/04/19 12:10 Patient resents with right lower back pain and lower pelvic tenderness. Patient with vaginal discharge and cervical motion tenderness. Patient with findings worrisome for likely PID in addition to musculoskeletal back pain. The patient presents with low back pain without signs of spinal cord compression, cauda equina syndrome, infection, aneurysm, or other serious etiology. The patient is neurologically intact. Given the extremely risk of these diagnoses further testing and evaluation for these possibilities does not appear to be indicated at this time. Patient has been instructed to return if the symptoms worsen or c hange in any way. - Vital Signs Vital signs: Temp Pulse Resp BP Pulse Ox 98.0 F 72 18 130/78 H 99 12/04/19 12:00 12/04/19 12:00 12/04/19 12:00 12/04/19 12:00 12/04/19 12:00 - Laboratory Result Diagrams: 12/04/19 10:45 12/04/19 10:45 Laboratory results interpreted by me: 12/04/19 10:45 RBC 5.41 H MCV 75 L MCH 24.8 L RDW 16.0 H Labs- Entire Visit 12/04/19 12/04/19 12/04/19 09:15 09:15 10:45 WBC 7.9 RBC 5.41 H Hgb 13.4 Hct 40.7 MCV 75 L MCH 24.8 L MCHC 32.9 RDW 16.0 H Plt Count 303 Lymph % (Auto) 34.9 Wise % (Auto) 3.7 Eos % (Auto) 3.8 Baso % (Auto) 0.3 Absolute Neuts (auto) 4.5 Absolute Lymphs (auto) 2.8 Absolute Monos (auto) 0.3 Absolute Eos (auto) 0.3 Absolute Basos (auto) 0.0 Seg Neutrophils % 57.3 Sodium Potassium Chloride Carbon Dioxide Anion Gap BUN Creatinine Est GFR ( Amer) Est GFR (MDRD) Non-Af Glucose Calcium Urine Color YELLOW Urine Appearance CLEAR Urine pH 6.0 Ur Specific [place] 1.012 Urine Protein NEGATIVE Urine Glucose (UA) NEGATIVE Urine Ketones NEGATIVE Urine Blood NEGATIVE Urine Nitrite NEGATIVE Urine Bilirubin NEGATIVE Urine Urobilinogen NEGATIVE Ur Leukocyte Esterase NEGATIVE Urine WBC (Auto) 1 Urine RBC (Auto) 0 Squamous Epi Cells Auto 6 Urine Mucus (Auto) RARE Urine Ascorbic Acid NEGATIVE Urine HCG, Qual NEGATIVE Epi Cells (Wet Prep) Trichomonas (Wet Prep) Vaginal WBC Vaginal RBC Vaginal Yeast 12/04/19 12/04/19 10:45 10:45 WBC RBC Hgb Hct MCV MCH MCHC RDW Plt Count Lymph % (Auto) Wise % (Auto) Eos % (Auto) Baso % (Auto) Absolute Neuts (auto) Absolute Lymphs (auto) Absolute Monos (auto) Absolute Eos (auto) Absolute Basos (auto) Seg Neutrophils % Sodium 137.1 Potassium 4.6 Chloride 102 Carbon Dioxide 28 Anion Gap 7 BUN 10 Creatinine 0.81 Est GFR ( Amer) > 60 Est GFR (MDRD) Non-Af > 60 Glucose 90 Calcium 9.2 Urine Color Urine Appearance Urine pH Ur Specific [place] Urine Protein Urine Glucose (UA) Urine Ketones Urine Blood Urine Nitrite Urine Bilirubin Urine Urobilinogen Ur Leukocyte Esterase Urine WBC (Auto) Urine RBC (Auto) Squamous Epi Cells Auto Urine Mucus (Auto) Urine Ascorbic Acid Urine HCG, Qual Epi Cells (Wet Prep) 3+ EPITHELIALS SEEN Trichomonas (Wet Prep) NO TRICHOMONAS SEEN Vaginal WBC 2+ WBCS SEEN Vaginal RBC RARE RBCS SEEN Vaginal Yeast NO YEAST SEEN Discharge - Discharge Clinical Impression: PID (acute pelvic inflammatory disease) Low back pain Qualifiers: Chronicity: unspecified Back pain laterality: right Sciatica presence: without sciatica Qualified Code(s): M54.5 - Low back pain Condition: Stable Disposition: HOME, SELF-CARE Instructions: Doxycycline ([facility]), Ice Packs ([facility]), Low Back Pain ([facility]), Pelvic Inflammatory Disease ([facility]), Rocephin ([facility]), Warm Packs ([facility]) Additional Instructions: Return immediately for any new or worsening symptoms Followup with your primary care provider, call tomorrow to make a followup appointment Cultures are pending, we will call if you need any different treatment Prescriptions: Doxycycline Hyclate 100 mg PO BID #28 tablet. Metronidazole [Flagyl 500 mg Tablet] 500 mg PO BID #28 tablet Cyclobenzaprine HCl [Flexeril 10 Mg Tablet] 10 mg PO TID #15 tablet Lidocaine [Lidoderm 5% (700 mg) Transdermal Patch] 1 patch TP DAILY PRN #10 adh..patch PRN Reason: Naproxen [Naprosyn 250 Nmg Tablet] 1 tab PO BID #14 tablet Forms: Return to Work Referrals: JOHNATHON BRANTLEY PA [Primary Care Provider] - Follow up tomorrow
[2019-12-04] MEDS ORDERED: CEFTRIAXONE INJ 250 MG VIAL IM ONE (10:52)
[2019-12-04] MEDS ORDERED: AZITHROMYCIN 250 MG TABLET PO ONE (10:52)
[2019-12-04] MEDS ORDERED: LIDOCAINE 1% INJ (10 MG/ML) 10 ML MDV INJ ONE (10:52)
[2019-12-04 11:17] LABS: EPITHELIALS (WET MOUNT) 3+ EPITHELIALS SEEN; RBCS (WET MOUNT) RARE RBCS SEEN; T.VAGINALIS (WET MOUNT) NO TRICHOMONAS SEEN; WBCS (WET MOUNT) 2+ WBCS SEEN; YEAST (WET MOUNT) NO YEAST SEEN
[2019-12-04 11:18] LABS: ABSOLUTE EOSINOPHILS # (AUTO) 0.3 10^3/uL (0.0-0.6); ABSOLUTE LYMPHOCYTES (AUTO) 2.8 10^3/uL (0.5-4.7); ABSOLUTE MONOCYTES (AUTO) 0.3 10^3/uL (0.1-1.4); ABSOLUTE NEUT (AUTO) 4.5 10^3/uL (1.7-8.2); BASOPHILS % (AUTO) 0.3 % (0-2); EOSINOPHILS % (AUTO) 3.8 % (0-6); HEMATOCRIT 40.7 % (36.0-47.0); HEMOGLOBIN 13.4 g/dL (12.0-15.5); LYMPHOCYTES % (AUTO) 34.9 % (13-45); MEAN CORPUSCULAR HEMOGLOBIN 24.8 pg (27.0-33.4); MEAN CORPUSCULAR HGB CONC 32.9 g/dL (32.0-36.0); MEAN CORPUSCULAR VOLUME 75 fl (80-97); MONOCYTES % (AUTO) 3.7 % (3-13); PLATELET COUNT 303 10^3/uL (150-450); RED BLOOD COUNT 5.41 10^6/uL (3.72-5.28); SEGMENTED NEUTROPHILS % (AUTO) 57.3 % (42-78); TOTAL CELLS COUNTED % (AUTO) 100 %; WHITE BLOOD COUNT 7.9 10^3/uL (4.0-10.5)
[2019-12-04 11:51] LABS: ANION GAP 7 (5-19); BLOOD UREA NITROGEN 10 mg/dL (7-20); CALCIUM 9.2 mg/dL (8.4-10.2); CARBON DIOXIDE 28 mmol/L (22-30); CHLORIDE 102 mmol/L (98-107); GLUCOSE 90 mg/dL (75-110); POTASSIUM 4.6 mmol/L (3.6-5.0)
[2019-12-04 12:27] VITALS: BP 130/78
[2019-12-04 12:50] LABS: CHLAM PCR NOT DETECTED (NOT DETECT)
== END 2019-12-04 12:15 | disposition home or self-care (01) ==
LOC: ER 07:44
DX: N73.9 Female pelvic inflammatory disease, unspecified (principal); M54.5 Low back pain; N94.10 Unspecified dyspareunia; Z91.040 Latex allergy status
CPT/HCPCS: 36415; 87210; 85025; 81025; 80048; 81001; 87491; 87591; J0696; 96372; 99283

== ENCOUNTER → 2020-02-07 | Outpatient (CLI) | payer SELFPAY ==
[2020-02-07 10:43] LABS: A TYPE INFLUENZA AG NEGATIVE (NEGATIVE); B INFLUENZA AG NEGATIVE (NEGATIVE)
[2020-02-07 13:01] VITALS: BP 130/78
--- NOTE | 2020-02-07 13:01 | ER RDC ASSESSMENT REPORT ---
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 - Symptoms Subjective Fever([place] feverish): No Chills: No Muscule Aches: No Runny Nose: Yes Sore Throat: Yes --How many day(s)?: Feels like it is burning Cough (New or worsening chronic cough): Yes --How many day(s)?: rePorts a cough is mild Shortness of breath: No Nausea or Vomiting: No Headache: No Abdominal Pain: No Diarrhea(3 or more loose stools in last 24 hours): No - Do you have any of the following Chronic lung disease: Asthma or emphysema or COPD: No Cystic Fibrosis: No Diabetes: No High Blood Pressure: No Cardiovascular Disease: Yes Cardiovascular Disease Comment: [place] a history of hyperlipidemia Chronic Kidney Disease: No Chronic Liver Disease: No Chronic blood disorder like Sickle Cell Disease: No Weak immune system due to disease or medication: No Neurologic condition that limits movement: No Developmental delay - Moderate to Severe: No Recent (within past 2 weeks) or current : No Morbid Obesity (>100 pounds over ideal weight): Yes Other Comment: Height 5 feet 3 inches weight 245 pounds - Objective Temperature: 97.0 F Pulse Rate: 80 Respiratory Rate: 20 Blood Pressure: 130/78 O2 Sat by Pulse Oximetry: 96 Objective: Given above, testing performed: If Testing Performed: Test Specimen Type Sent to General - General Information source: Patient Notes: Here at [facility] today for Covid testing. patient reports sore throat that started yesterday. Tonsils known to be large when get this. PCP at [facility] instructed patient to get checked for COVID. - HPI Onset: Yesterday - Related Data Allergies/Adverse Reactions: latex Allergy (Verified 12/04/19 08:19) Hives Past Medical History - Social History Smoking Status: Never Smoker Family History: Arthritis, CAD, CVA, DM, Hyperlipidemia, Hypertension, Malignancy Renal/ Medical History: Reports: Hx Ovarian Cysts. Denies: Hx Peritoneal Dialysis Psychiatric Medical History: Reports: Hx Anxiety Denies: Hx Depression Past Surgical History: Reports: Hx Gynecologic Surgery - L ovarian cyst removed, , Hx Tubal Ligation Physical Exam - General General appearance: Appears well, Alert In distress: None Notes: PHYSICAL EXAMINATION: GENERAL: Well-appearing and in no acute distress. HEAD: Atraumatic, normocephalic. EYES: sclera anicteric, conjunctiva are normal. ENT: nares patent. Moist mucous membranes. NECK: Normal range of motion, supple without lymphadenopathy Tonsiles large bilaterally non obstructive. LUNGS: CTAB and equal. No wheezes rales or rhonchi. Resp even and unlabored. Lung sounds clear. HEART: Regular rate and rhythm without murmurs ABDOMEN: Soft, nontender, normal bowel sounds, no guarding. EXTREMITIES: Normal range of motion, no pitting edema. No cyanosis. NEUROLOGICAL: Normal speech. PSYCH: Normal mood, normal affect. SKIN: Warm, Dry, normal turgor, - Respiratory Respiratory status: No respiratory distress Breath sounds: Normal Diagnostic Results Laboratory Results: 02/07/20 09:32 Throat Throat Culture - Pending Influenza A (Rapid) NEGATIVE (NEGATIVE) 02/07/20 09:16 Influenza B (Rapid) NEGATIVE (NEGATIVE) 02/07/20 09:16 Group A Strep Rapid NEGATIVE (NEGATIVE) 02/07/20 09:34 Patient instructed on negative rapid strep and negative rapid flu results. Pending strep culture pending COVID test results. Patient provided instructions for COVID to include: As a person under investigation for Covid 19, the [place] department of Health and Human Services, division of public health advises you to adhere to the following guidance until your test results are reported to you. If your test result is positive, you will receive additional information from your provider and your local health department at that time. Remain at home until you are cleared by the health provider or public health authorities. Keep a log of visitors to your home, notify any visitors to your home of your isolation status. If you plan to move to a new address or leave the [facility], notify the local health department in your County. Call your doctor or seek care if you have an urgent medical need. Before seeking medical care, call ahead to get instructions from the provider before arriving at the medical office clinic or hospital. Notify them that you are being tested for the virus that causes Covid 19 so that arrangements can be made, as necessary, to prevent transmission to others in the healthcare setting. Next, notify the local health department in your county. If a medical emergency arises and you need to call 911, inform the first respon ders that you are being tested for the virus that causes Covid 19. Next, notify the local health department in your county. Patient Education/Counseling Counseling/Education: Patient presents with upper respiratory symptoms worrisome for possible Covid 19. Patient does not have emergency worring symptoms such as difficulty breathing, shortness of breath, chest pain, pressure, confusion or cyanosis. Patient appears suitable for discharge. Patient intructed to follow up with PCP today. To ED for persistent or worsening symptoms. Patient's vital signs are stable and patient is nontoxic in appearance. Good return precautions have been discussed with patient, patient verbalized understanding and is agreeable with discharge plan of care at this time. RDC Discharge - Discharge Clinical Impression: Sore throat, COVID - 19 SCREENING Upper respiratory infection Qualifiers: URI type: unspecified URI Qualified Code(s): J06.9 - Acute upper respiratory infection, unspecified Condition: Stable Disposition: Home; Selfcare
== END ==
LOC: RDC 09:12
PROVIDERS: ATTEND Nurse Practitioner Family
DX: J06.9 Acute upper respiratory infection, unspecified (principal); Z20.828 Contact with and (suspected) exposure to other viral communicable diseases; J02.9 Acute pharyngitis, unspecified; R05 Cough; R09.89 Other specified symptoms and signs involving the circulatory and respiratory systems; E78.5 Hyperlipidemia, unspecified; E66.01 Morbid (severe) obesity due to excess calories
CPT/HCPCS: 87070; 87635; 87804; 87880; 99201; 99211

== ENCOUNTER 2020-02-29 11:36 | Emergency (ER) | payer SELFPAY ==
[2020-02-29 11:42] VITALS: BP 97/53
--- NOTE | 2020-02-29 12:06 | ER Document Report ---
ED GI/ - General Chief Complaint: Pelvic Pain Stated Complaint: POSSIBLE UTI/SORE ON BUTTOCKS/LOWER BACK PAIN Time Seen by Provider: 02/29/20 11:49 Primary Care Provider: JOHNATHON BRANTLEY PA [Primary Care Provider] - Follow up as needed Mode of Arrival: Ambulatory Information source: Patient Notes: 34-year-old female with no previous medical problems presents emergency room complaining of lower pelvic pain that she describes as pressure for the past Week. Thought she might have a UTI. Also states she has a tender sore area on her right buttock area for the past week. States she had 1 when she was 23 she was told it was stress it went away on its own. She denies any fevers, no dysuria, no urgency or frequency, no vaginal discharge, no vaginal bleeding. No history of any other abscesses. TRAVEL OUTSIDE OF THE [place] IN LAST 30 DAYS: No - Related Data Allergies/Adverse Reactions: latex Allergy (Verified 12/04/19 08:19) Hives Past Medical History - General Information source: Patient - Social History Smoking Status: Never Smoker Frequency of alcohol use: None Drug Abuse: None Lives with: Family Family History: Arthritis, CAD, CVA, DM, Hyperlipidemia, Hypertension, Malignancy Renal/ Medical History: Reports: Hx Ovarian Cysts. Denies: Hx Peritoneal Dialysis Psychiatric Medical History: Reports: Hx Anxiety Denies: Hx Depression Past Surgical History: Reports: Hx Gynecologic Surgery - L ovarian cyst removed, , Hx Tubal Ligation - Immunizations Immunizations up to date: No Hx Diphtheria, Pertussis, Tetanus Vaccination: No Review of Systems - Review of Systems Constitutional: No symptoms reported Cardiovascular: No symptoms reported Respiratory: No symptoms reported Gastrointestinal: Abdominal pain. denies: Nausea, Vomiting Genitourinary: No symptoms reported Female Genitourinary: denies: Vaginal discharge, Vaginal bleeding Skin: denies: Rash -: Yes All other systems reviewed and negative Physical Exam - Vital signs Vitals: Temp Pulse Resp BP Pulse Ox 98.2 F 89 20 97/53 L 96 02/29/20 11:41 02/29/20 11:41 02/29/20 11:41 02/29/20 11:41 02/29/20 11:41 - General General appearance: Appears well, Alert In distress: Mild - HEENT Head: Normocephalic, Atraumatic Eyes: Normal Pupils: PERRL - Respiratory Respiratory status: No respiratory distress Chest status: Nontender Breath sounds: Normal Chest palpation: Normal - Cardiovascular Rhythm: Regular Heart sounds: Normal auscultation Murmur: No - Abdominal Inspection: Obese Distension: No distension Bowel sounds: Normal Tenderness: Nontender Organomegaly: No organomegaly - Back Back: Normal, Nontender. No: CVA tenderness - Neurological Neuro grossly intact: Yes Cognition: Normal Orientation: AAOx4 [place] Coma Scale Eye Opening: Spontaneous [place] Coma Scale Verbal: Oriented [place] Coma Scale Motor: Obeys Commands Milagro Coma Scale Total: 15 Speech: Normal Motor strength normal: LUE, RUE, LLE, RLE Sensory: Normal - Skin Skin Temperature: Warm Skin Moisture: Dry Skin Color: Normal Skin irregularity: Erythema, Lesion Location of irregularity: Other - Right buttock Character of irregularity: Symmetric, Erythematous Notes: There is a tiny erythematous tender lesion noted to the right buttock area not warm to touch, no discharge or draining noted. Course - Re-evaluation Re-evalutation: 02/29/20 13:12 She is resting comfortably she is pain-free on exam. Reviewed ultrasound results of the left ovarian cyst which patient has had in the past. Negative urinalysis. Counseled patient that the lesion on her buttock has pretty well resolved no treatment needed at this time. She was counseled to take Tylenol and or Motrin as needed for pain. 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 She was given strict return to the emergency room guidelines. Return for any new or worsening symptoms. All questions were answered. Patient verbalizes understanding and agrees with plan of care. - Vital Signs Vital signs: Temp Pulse Resp BP Pulse Ox 98.2 F 89 20 97/53 L 96 02/29/20 12:29 02/29/20 11:41 02/29/20 11:41 02/29/20 11:41 02/29/20 11:41 - Laboratory Laboratory results interpreted by me: 02/29/20 12:21 Ur Leukocyte Esterase MODERATE H Discharge - Discharge Clinical Impression: Pelvic pain Ovarian cyst Qualifiers: Laterality: left Qualified Code(s): N83.202 - Unspecified ovarian cyst, left side Clinical Impression: (Ruled Out): Pelvic pain affecting Condition: Stable Disposition: HOME, SELF-CARE Instructions: Pelvic Pain ([facility]), Ovarian Cyst ([facility]) Additional Instructions: Take Tylenol and or Motrin as needed for pain. 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 Return for any new or worsening symptoms. Referrals: JOHNATHON BRANTLEY PA [Primary Care Provider] - Follow up as needed
--- NOTE | 2020-02-29 12:54 | RADIOLOGY REPORT (SQ) ---
EXAM DESCRIPTION: U/S NON OB PEL W/DOPPLER IMAGES COMPLETED DATE/TIME: 02/29/2020 12:29 pm REASON FOR STUDY: pelvic pain COMPARISON: Pelvic ultrasound 03/27/2011, 05/04/2017, 07/31/2019 TECHNIQUE: Dynamic and static grayscale images acquired of the pelvis via transabdominal approach an d recorded on PACS. Additional selected color Doppler and spectral images recorded. LIMITATIONS: None. FINDINGS: UTERUS: Contour normal. No mass. Uterus is 9 x 7 x 6 cm in size ENDOMETRIAL STRIPE: No focal or generalized thickening. No masses. Endometrium 12 mm in thickness CERVIX: No nabothian cysts. Closed, 3 cm in length. RIGHT OVARY AND DOPPLER: Normal size, 3.4 x 2.7 x 2.1 cm in size. No worrisome masses. Normal arteria l vascular flow without evidence for torsion. LEFT OVARY AND DOPPLER: Normal size, 4.8 x 4.7 x 4.5 cm in size. 4.5 x 4.2 cm simple cyst left ovary (was 4.6 cm in size on 07/31/2018, 3.7 cm in size on 05/04/2017). No worrisome masses. Normal arterial vascular flow without evidence for torsion. FREE FLUID: None noted. OTHER: No other significant finding. IMPRESSION: 4.5 cm simple cyst left ovary. OTHERWISE, UNREMARKABLE PELVIC ULTRASOUND BY TRANSABDOMINAL TECHNIQUE. TECHNICAL DOCUMENTATION: JOB ID: [id number] 2010 [facility]- All Rights Reserved Rev-03/02 Reading location - IP/workstation name: [email or web address]
[2020-02-29 13:02] LABS: APPEARANCE,URINE SLIGHTLY-CLOUDY; BILIRUBIN,URINE NEGATIVE (NEGATIVE); COLOR,URINE YELLOW; GLUCOSE, URINE NEGATIVE (NEGATIVE); KETONES,URINE NEGATIVE (NEGATIVE); LEUKOCYTE ESTERASE,URINE MODERATE (NEGATIVE); NITRITE,URINE NEGATIVE (NEGATIVE); PROTEIN,URINE NEGATIVE (NEGATIVE); UROBILINOGEN,URINE NEGATIVE mg/dL (<2.0)
== END 2020-02-29 13:47 | disposition home or self-care (01) ==
LOC: ER 11:36
DX: N83.202 Unspecified ovarian cyst, left side (principal); R10.2 Pelvic and perineal pain; L98.9 Disorder of the skin and subcutaneous tissue, unspecified; M54.5 Low back pain; Z88.8 Allergy status to other drugs, medicaments and biological substances
CPT/HCPCS: 76856; 81001; 81025; 93976; 99284

== ENCOUNTER 2020-07-20 17:01 | Emergency (ER) | payer SELFPAY ==
[2020-07-20 17:23] VITALS: BP 127/77
--- NOTE | 2020-07-20 18:05 | ER Document Report ---
ED Medical Screen (RME) - General Chief Complaint: Chest Pain Stated Complaint: CHEST PAIN Time Seen by Provider: 07/20/20 17:57 Primary Care Provider: JOHNATHON BRANTLEY PA [Primary Care Provider] - Follow up as needed Mode of Arrival: Ambulatory Information source: Patient Notes: 35-year-old female presented to ED for complaint of chest pain that started 1 day last week. She states it is bilateral sometimes on the left sometimes on the right but it is now constant and on the left side going down the left arm going through to her back. She states she is never had pain this bad before. She states she has not had any fevers cough shortness of breath. She denies smoking rarely drinks maybe once or twice a year and no illicit drugs. She states the only medical history she has is anxiety. Patient is alert oriented respirations regular nonlabored speaking in full sentences. She is morbidly obese and 122.2 kg. She is 5 foot 3. I have greeted and performed a rapid initial assessment of this patient. A comprehensive ED assessment and evaluation of the patient, analysis of test results and completion of medical decision making process will be conducted by an additional ED providers. TRAVEL OUTSIDE OF THE [place] IN LAST 30 DAYS: No - Related Data Allergies/Adverse Reactions: latex Allergy (Verified 12/04/19 08:19) Hives Past Medical History - General Information source: Patient - Social History Cigarette use (# per day): No Frequency of alcohol use: Rare Drug Abuse: None Family history: CAD - Past Medical History Cardiac Medical History: Reports: None Pulmonary Medical History: Reports: None EENT Medical History: Reports: None Neurological Medical History: Reports: None Endocrine Medical History: Reports: None Renal/ Medical History: Reports: Hx Ovarian Cysts Malignancy Medical History: Reports: None GI Medical History: Reports: None Musculoskeltal Medical History: Reports None Skin Medical History: Reports None Psychiatric Medical History: Reports: Hx Anxiety Traumatic Medical History: Reports: None Infectious Medical History: Reports: None Past Surgical History: Reports: Hx Gynecologic Surgery - L ovarian cyst removed, , Hx Tubal Ligation - Immunizations Immunizations up to date: No Hx Diphtheria, Pertussis, Tetanus Vaccination: No Physical Exam - Vital signs Vitals: Temp Pulse Resp BP Pulse Ox 98.6 F 81 18 127/77 H 97 07/20/20 17:10 07/20/20 17:10 07/20/20 17:10 07/20/20 17:10 07/20/20 17:10 Course - Vital Signs Vital signs: Temp Pulse Resp BP Pulse Ox 98.6 F 81 18 127/77 H 97 07/20/20 17:10 07/20/20 17:10 07/20/20 17:10 07/20/20 17:10 07/20/20 17:10 Doctor's Discharge - Discharge Referrals: JOHNATHON BRANTLEY PA [Primary Care Provider] - Follow up as needed
--- NOTE | 2020-07-20 18:20 | RADIOLOGY REPORT (SQ) ---
EXAM DESCRIPTION: CHEST 2 VIEWS IMAGES COMPLETED DATE/TIME: 07/20/2020 6:11 pm REASON FOR STUDY: Chest pain to back COMPARISON: 06/14/2019 TECHNIQUE: Frontal and lateral radiographic views of the chest acquired. NUMBER OF VIEWS: Two view. LIMITATIONS: None. FINDINGS: LUNGS AND PLEURA: No pneumothorax. No consolidation or pleural effusion. MEDIASTINUM AND HILAR STRUCTURES: Stable. HEART AND VASCULAR STRUCTURES: Stable. BONES: No acute findings. HARDWARE: None in the chest. OTHER: No other significant finding. IMPRESSION: NO ACUTE FINDINGS. TECHNICAL DOCUMENTATION: JOB ID: [id number] 2010 [employer]- All Rights Reserved Reading location - IP/workstation name: [email or web address]
[2020-07-20 19:11] LABS: ABSOLUTE EOSINOPHILS # (AUTO) 0.3 10^3/uL (0.0-0.6); ABSOLUTE LYMPHOCYTES (AUTO) 3.4 10^3/uL (0.5-4.7); ABSOLUTE MONOCYTES (AUTO) 0.5 10^3/uL (0.1-1.4); ABSOLUTE NEUT (AUTO) 6.4 10^3/uL (1.7-8.2); BASOPHILS % (AUTO) 0.3 % (0-2); EOSINOPHILS % (AUTO) 2.8 % (0-6); HEMATOCRIT 38.3 % (36.0-47.0); HEMOGLOBIN 12.7 g/dL (12.0-15.5); LYMPHOCYTES % (AUTO) 32.2 % (13-45); MEAN CORPUSCULAR HGB CONC 33.1 g/dL (32.0-36.0); MEAN CORPUSCULAR VOLUME 75 fl (80-97); MONOCYTES % (AUTO) 4.3 % (3-13); PLATELET COUNT 309 10^3/uL (150-450); RED BLOOD COUNT 5.08 10^6/uL (3.72-5.28); RED CELL DISTRIBUTION WIDTH 17.2 % (11.5-14.0); SEGMENTED NEUTROPHILS % (AUTO) 60.4 % (42-78); TOTAL CELLS COUNTED % (AUTO) 100 %; WHITE BLOOD COUNT 10.5 10^3/uL (4.0-10.5)
[2020-07-20 19:12] LABS: APPEARANCE,URINE SLIGHTLY-CLOUDY; BILIRUBIN,URINE NEGATIVE (NEGATIVE); COLOR,URINE YELLOW; GLUCOSE, URINE NEGATIVE (NEGATIVE); KETONES,URINE NEGATIVE (NEGATIVE); LEUKOCYTE ESTERASE,URINE SMALL (NEGATIVE); NITRITE,URINE NEGATIVE (NEGATIVE); PROTEIN,URINE NEGATIVE (NEGATIVE); URINE SPECIFIC GRAVITY 1.014; UROBILINOGEN,URINE NEGATIVE mg/dL (<2.0)
[2020-07-20 19:35] LABS: ALBUMIN 4.4 g/dL (3.5-5.0); ALKALINE PHOSPHATASE 91 U/L (38-126); ANION GAP 12 (5-19); ASPARTATE AMINO TRANSFERASE 22 U/L (14-36); BILIRUBIN,DIRECT 0.2 mg/dL (0.0-0.4); BILIRUBIN,TOTAL 0.5 mg/dL (0.2-1.3); BLOOD UREA NITROGEN 16 mg/dL (7-20); CALCIUM 9.5 mg/dL (8.4-10.2); CARBON DIOXIDE 25 mmol/L (22-30); CHLORIDE 101 mmol/L (98-107); GLUCOSE 89 mg/dL (75-110); POTASSIUM 4.2 mmol/L (3.6-5.0); TOTAL PROTEIN 7.9 g/dL (6.3-8.2)
--- NOTE | 2020-07-20 21:54 | EKG REPORT ---
SEVERITY:- NORMAL ECG - SINUS RHYTHM : Confirmed by: Annabelle Leon MD 20-Jul-2020 21:53:25
== END 2020-07-21 01:40 | disposition left against medical advice (07) ==
LOC: ER 17:01
DX: R07.9 Chest pain, unspecified (principal); M79.602 Pain in left arm; M54.9 Dorsalgia, unspecified; Z91.040 Latex allergy status; Z82.49 Family history of ischemic heart disease and other diseases of the circulatory system; Z53.20 Procedure and treatment not carried out because of patient's decision for unspecified reasons
CPT/HCPCS: 36415; 71046; 80053; 81001; 83690; 83735; 84484; 84703; 85025; 93005; 93010; 99281

== ENCOUNTER 2020-09-20 08:51 | Emergency (ER) | payer SELFPAY ==
[2020-09-20] MEDS ORDERED: ONDANSETRON HCL INJ/PF 4 MG/2 ML SDV IV ONE (09:04)
[2020-09-20] MEDS ORDERED: MORPHINE SULFATE 10 MG/ML INJ IV ONE (09:04)
[2020-09-20] MEDS ORDERED: NORMAL SALINE 1000 ML 1,000 ML IV ONE (09:04)
--- NOTE | 2020-09-20 09:04 | ER Document Report ---
ED General - General Chief Complaint: Abdominal Pain Stated Complaint: FLANK PAIN Time Seen by Provider: 09/20/20 09:04 Mode of Arrival: Ambulatory Information source: Patient TRAVEL OUTSIDE OF THE [place] IN LAST 30 DAYS: No - HPI Notes: 35-year-old female presents to ED for evaluation of right sided upper thoracic back pain radiating into the thoracic area and into the right upper quadrent. Patient reports pain is also radiating into the epigastric region and up into her throat. Notes any foul taste and burning sensation into her mouth. Patient states that she has had this going on for roughly 1 week. Patient denies anything worse with greasy, fatty, or spicy foods. Denies chest pain or shortness of breath. Denies cold or cough symptoms. Patient reports no aggravating or alleviating symptoms. She does have a history of acid reflux. Patient denies burning with urination, chest pain, shortness of breath, back pain, rash, fever, chills, diarrhea, nausea, or vomiting. Patient denies any lower flank pain or dysuria. Denies hematuria. Denies vaginal bleeding or discharge. Expresses no concern for . - Related Data Allergies/Adverse Reactions: latex Allergy (Verified 09/20/20 08:58) Hives Past Medical History - Social History Smoking Status: Never Smoker Family History: Arthritis, CAD, CVA, DM, Hyperlipidemia, Hypertension, Malignancy - Medical History Notes: Reports history of GERD. Renal/ Medical History: Reports: Hx Ovarian Cysts Psychiatric Medical History: Reports: Hx Anxiety Past Surgical History: Reports: Hx Gynecologic Surgery - L ovarian cyst removed, , Hx Tubal Ligation - Immunizations Immunizations up to date: No Hx Diphtheria, Pertussis, Tetanus Vaccination: No Review of Systems - Review of Systems Notes: Constitutional: Negative for fever. HENT: Negative for sore throat. Eyes: Negative for visual changes. Cardiovascular: Negative for chest pain. Respiratory: Negative for shortness of breath. Gastrointestinal: Negative for abdominal pain, vomiting or diarrhea. Genitourinary: Negative for dysuria. Musculoskeletal: Negative for back pain. Skin: Negative for rash. Neurological: Negative for headaches, weakness or numbness. 10 point ROS negative except as marked above and in HPI. Physical Exam - Vital signs Vitals: Temp Pulse Resp BP Pulse Ox 98.3 F 78 16 115/75 99 09/20/20 08:55 09/20/20 08:55 09/20/20 08:55 09/20/20 08:55 09/20/20 08:55 Notes: General: No acute distress. Alert and oriented x3. Sitting comfortably in a stretcher. Skin: No jaundice, pallor, petechiae, or rashes. Warm and dry. HEENT: Normocephalic, atraumatic. Pupils are equal round reactive to light and accommodation. Extraocular movements are intact. TMs without erythema or bulging. Canals are clear. Nares patent without any discharge. Teeth in good condition. Pharynx without erythema, edema, or exudates. Mucous membranes moist. No tonsillar enlargement. Uvula is midline. Airway is patent. Neck: Supple with no lymphadenopathy. Full range of motion. Heart: Regular rate and rhythm. S1,S2. No murmurs, rubs, or gallops. Lungs: Clear to auscultation bilaterally. No wheezes, rhonchi, rales. Equal ches t expansion. No retractions. Abdomen: Soft, tender to palpation in RUQ and epigstric region, positive thompson's sign, nondistended. Positive bowel sounds in all 4 quadrants. No masses. No CVA tenderness bilaterally. Back: No midline spinal TTP. No paraspinous muscular TTP. Neuro: GCS 15. Moving all extremities without discomfort. Psych: Mood and affect appropriate. Course - Re-evaluation Re-evalutation: 09/20/20 09:32 35-year-old female prsents to ED for evaluation of 1 week of worsening abdominal pain. Patient was evaluated with CBC, CMP, UA, lipase, and testing. Lab work was found to be unremarkable for acute pathology. Liver functions and biliary functions WNL. Urine is concerning for infection. Patient further evaluated with RUQ ultrasound with concern for cholecystitis which is negative. Results discussed with the patient. Patient treated symptomatically with antiemetics and rectal with improvement. I did discuss with patient that I will start her on a course of Keflex for management of urinary tract infection. Urine culture is pending. Patient is advised that she will be notified if any changes to her antibiotics are necessary. Patient advised to eat a bland diet and omeprazole. Patient understands to follow up with primary care physician. Patient understands indications to return to the ER. Patient is agreeable with this plan. 09/20/20 12:47 - Vital Signs Vital signs: Temp Pulse Resp BP Pulse Ox 97.2 F 70 18 123/83 100 09/20/20 12:35 09/20/20 12:35 09/20/20 12:35 09/20/20 12:35 09/20/20 12:35 - Laboratory Result Diagrams: 09/20/20 09:25 09/20/20 09:25 Laboratory results interpreted by me: 09/20/20 09/20/20 09/20/20 09:25 09:25 09:50 MCV 75 L MCH 24.3 L RDW 16.2 H Est GFR (MDRD) Non-Af 56 L Ur Leukocyte Esterase SMALL H - Diagnostic Test Radiology reviewed: Image reviewed Radiology results interpreted by me: 09/20/20 12:50 No acute evidence of upper quadrant abdominal pathology. No renal pathology noted. - EKG Interpretation by Me Additional EKG results interpreted by me: 09/20/20 12:51 Normal sinus rhythm 74 bpm. WI interval 164. QT 364. QTc 404. Peterson P 49 QRS 23 T 33 Discharge - Discharge Clinical Impression: UTI (urinary tract infection) Qualifiers: Urinary tract infection type: acute cystitis Hematuria presence: without hematuria Qualified Code(s): N30.00 - Acute cystitis without hematuria GERD (gastroesophageal reflux disease) Qualifiers: Esophagitis presence: without esophagitis Qualified Code(s): K21.9 - Gastro- esophageal reflux disease without esophagitis Abdominal pain Qualifiers: Abdominal location: epigastric Qualified Code(s): R10.13 - Epigastric pain Condition: Stable Disposition: HOME, SELF-CARE Instructions: Abdominal Pain ([facility]), Bulk Laxatives, Cephalexin ([facility]), Pain Medication Injection ([facility]), Urinary Tract Infection ([facility]) Additional Instructions: Please use miralax for bowel management. Please finish course of antibiotics. Please return for new or worsening symptoms. Prescriptions: Cephalexin Monohydrate [Keflex 250 mg Capsule] 250 mg PO Q8 #30 capsule Omeprazole 40 mg PO DAILY #30 capsule. Phenazopyridine HCl [Pyridium 200 mg Tablet] 200 mg PO TID #15 tablet
--- NOTE | 2020-09-20 09:41 | RADIOLOGY REPORT (SQ) ---
EXAM DESCRIPTION: CHEST SINGLE VIEW IMAGES COMPLETED DATE/TIME: 09/20/2020 6:23 am REASON FOR STUDY: chest pain COMPARISON: 07/20/2020 EXAM PARAMETERS: NUMBER OF VIEWS: One view. TECHNIQUE: Single frontal radiographic view of the chest acquired. RADIATION DOSE: NA LIMITATIONS: None. FINDINGS: LUNGS AND PLEURA: No opacities, masses or pneumothorax. No pleural effusion. MEDIASTINUM AND HILAR STRUCTURES: No masses. Contour normal. HEART AND VASCULAR STRUCTURES: Heart normal in size. Normal vasculature. BONES: No acute findings. HARDWARE: None in the chest. OTHER: No other significant finding. IMPRESSION: NO ACUTE RADIOGRAPHIC FINDING IN THE CHEST. TECHNICAL DOCUMENTATION: JOB ID: [id number] 2010 [employer]- All Rights Reserved Reading location - IP/workstation name: [email or web address]
[2020-09-20 10:12] LABS: ABSOLUTE EOSINOPHILS # (AUTO) 0.4 10^3/uL (0.0-0.6); ABSOLUTE LYMPHOCYTES (AUTO) 2.6 10^3/uL (0.5-4.7); ABSOLUTE MONOCYTES (AUTO) 0.4 10^3/uL (0.1-1.4); ABSOLUTE NEUT (AUTO) 5.8 10^3/uL (1.7-8.2); BASOPHILS % (AUTO) 0.3 % (0-2); EOSINOPHILS % (AUTO) 4.5 % (0-6); HEMATOCRIT 38.5 % (36.0-47.0); HEMOGLOBIN 12.5 g/dL (12.0-15.5); LYMPHOCYTES % (AUTO) 28.2 % (13-45); MEAN CORPUSCULAR HEMOGLOBIN 24.3 pg (27.0-33.4); MEAN CORPUSCULAR HGB CONC 32.6 g/dL (32.0-36.0); MEAN CORPUSCULAR VOLUME 75 fl (80-97); PLATELET COUNT 313 10^3/uL (150-450); RED BLOOD COUNT 5.16 10^6/uL (3.72-5.28); RED CELL DISTRIBUTION WIDTH 16.2 % (11.5-14.0); TOTAL CELLS COUNTED % (AUTO) 100 %; WHITE BLOOD COUNT 9.3 10^3/uL (4.0-10.5)
[2020-09-20 10:15] LABS: APPEARANCE,URINE SLIGHTLY-CLOUDY; BILIRUBIN,URINE NEGATIVE (NEGATIVE); COLOR,URINE YELLOW; GLUCOSE, URINE NEGATIVE (NEGATIVE); KETONES,URINE NEGATIVE (NEGATIVE); LEUKOCYTE ESTERASE,URINE SMALL (NEGATIVE); NITRITE,URINE NEGATIVE (NEGATIVE); PROTEIN,URINE NEGATIVE (NEGATIVE); URINE SPECIFIC GRAVITY 1.025; UROBILINOGEN,URINE NEGATIVE mg/dL (<2.0)
[2020-09-20 10:25] LABS: ALKALINE PHOSPHATASE 93 U/L (38-126); ANION GAP 6 (5-19); ASPARTATE AMINO TRANSFERASE 18 U/L (14-36); BILIRUBIN,TOTAL 0.4 mg/dL (0.2-1.3); BLOOD UREA NITROGEN 13 mg/dL (7-20); CALCIUM 9.4 mg/dL (8.4-10.2); CARBON DIOXIDE 29 mmol/L (22-30); CHLORIDE 103 mmol/L (98-107); GLUCOSE 107 mg/dL (75-110); POTASSIUM 4.5 mmol/L (3.6-5.0); TOTAL PROTEIN 7.8 g/dL (6.3-8.2)
[2020-09-20] MEDS ORDERED: MAG HYDROX/AL HYDROX/SIMETH SUSP 30 ML UDCUP PO ONE (10:31)
[2020-09-20] MEDS ORDERED: LIDOCAINE 2% VISCOUS SOLN 15 ML UDCUP PO ONE (10:31)
--- NOTE | 2020-09-20 11:51 | RADIOLOGY REPORT (SQ) ---
EXAM DESCRIPTION: U/S ABDOMEN LIMITED W/O DOP IMAGES COMPLETED DATE/TIME: 09/20/2020 11:23 am REASON FOR STUDY: R/O cholecystitis COMPARISON: None. TECHNIQUE: Dynamic and static grayscale images acquired of the abdomen and recorded on PACS. Additio nal selected color Doppler and spectral images recorded. LIMITATIONS: None. FINDINGS: PANCREAS: No masses. Visualized pancreatic duct normal caliber. LIVER: No masses. Echotexture normal. LIVER VASCULATURE: Normal directional flow of the main portal vein and hepatic veins. GALLBLADDER: No stones. Normal wall thickness. No pericholecystic fluid. ULTRASOUND-DETECTED STEPHENSON'S SIGN: Negative. INTRAHEPATIC DUCTS AND COMMON DUCT: CBD and intrahepatic ducts normal caliber. No filling defects. INFERIOR VENA CAVA: Normal flow. AORTA: No aneurysm. RIGHT KIDNEY: Normal size. Normal echogenicity. No solid or suspicious masses. No hydronephrosis. No calcifications. PERITONEAL AND RIGHT PLEURAL SPACE: No ascites or effusions. OTHER: No other significant findings. IMPRESSION: NORMAL RIGHT UPPER QUADRANT ULTRASOUND. TECHNICAL DOCUMENTATION: JOB ID: [id number] [employer]- All Rights Reserved Reading location - IP/workstation name: [email or web address]
[2020-09-20 12:42] VITALS: BP 123/83
--- NOTE | 2020-09-21 08:17 | EKG REPORT ---
SEVERITY:- NORMAL ECG - SINUS RHYTHM : Confirmed by: Archie Prajapati 21-Sep-2020 08:16:55
== END 2020-09-20 12:42 | disposition home or self-care (01) ==
LOC: ER 08:51
DX: K21.9 Gastro-esophageal reflux disease without esophagitis (principal); N30.00 Acute cystitis without hematuria; M54.9 Dorsalgia, unspecified; Z91.040 Latex allergy status
CPT/HCPCS: 93005; 99285; 36415; 85025; 81025; 80053; 81001; 84484; 71045; 76705; 93010; J3490

== ENCOUNTER 2020-10-16 12:38 | Emergency (ER) | payer OTHER ==
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
--- NOTE | 2020-10-16 14:34 | RADIOLOGY REPORT (SQ) ---
EXAM DESCRIPTION: CT HEAD WITHOUT IMAGES COMPLETED DATE/TIME: 10/16/2020 2:21 pm REASON FOR STUDY: r facial numbness COMPARISON: 05/27/2019. TECHNIQUE: Axial images acquired through the brain without intravenous contrast. Images reviewed wi th bone, brain and subdural windows. Additional sagittal and coronal reconstructions were generated. Images stored on PACS. All CT scanners at this facility use dose modulation, iterative reconstruction, and/or weight based d osing when appropriate to reduce radiation dose to as low as reasonably achievable (ALARA). [facility]: Dose Right [facility]: CareDose [facility]: Dose Right [facility]: Teradose 4D [facility]: [employer] RADIATION DOSE: CT Rad equipment meets quality standard of care and radiation dose reduction techniq ues were employed. CTDIvol: 49.0 mGy. DLP: 936 mGy-cm. mGy. LIMITATIONS: None. FINDINGS: VENTRICLES: Normal size and contour. CEREBRUM: No masses. No hemorrhage. No midline shift. No evidence for acute infarction. Normal gra y/white matter differentiation. No areas of low density in the white matter. CEREBELLUM: No masses. No hemorrhage. No alteration of density. No evidence for acute infarction. EXTRAAXIAL SPACES: No fluid collections. No masses. ORBITS AND GLOBE: No intra- or extraconal masses. Normal contour of globe without masses. CALVARIUM: No fracture. PARANASAL SINUSES: No fluid or mucosal thickening. SOFT TISSUES: No mass or hematoma. OTHER: No other significant finding. IMPRESSION: NORMAL BRAIN CT WITHOUT CONTRAST. EVIDENCE OF ACUTE STROKE: NO. COMMENT: Quality ID # [id number]: Final reports with documentation of one or more dose reduction techniques (e.g., Automated exposure control, adjustment of the mA and/or kV according to patient size, use of iterative reconstruction technique) TECHNICAL DOCUMENTATION: JOB ID: [id number] 2010 [employer]- All Rights Reserved Reading location - IP/workstation name: [email or web address]
--- NOTE | 2020-10-16 14:36 | RADIOLOGY REPORT (SQ) ---
EXAM DESCRIPTION: CT FACIAL AREA WITHOUT IMAGES COMPLETED DATE/TIME: 10/16/2020 2:21 pm REASON FOR STUDY: r facial numbness COMPARISON: None. TECHNIQUE: Noncontrasted images through the facial bones and orbits windowed for bone and soft tissu e. Additional coronal and sagittal reconstructed images reviewed. All images stored on PACS. All CT scanners at this facility use dose modulation, iterative reconstruction, and/or weight based d osing when appropriate to reduce radiation dose to as low as reasonably achievable (ALARA). [facility]: Dose Right [facility]: CareDose [facility]: Dose Right [facility]: Teradose 4D [facility]: [employer] RADIATION DOSE: mGy. LIMITATIONS: None. FINDINGS: FACIAL BONES: No fracture or bone lesion. ORBITS: Intact. No fracture. Symmetric intact globes and retroorbital soft tissues. PARANASAL SINUSES: Clear. No significant mucosal thickening, mass or fluid. No nasal polyps. Maxill elliot sinus outlets are patent. SOFT TISSUES: No mass or edema. INFERIOR BRAIN: Limited view. No acute findings. OTHER: No other significant finding. IMPRESSION: NO ACUTE FINDINGS. TECHNICAL DOCUMENTATION: JOB ID: [id number] Quality ID # [id number]: Final reports with documentation of one or more dose reduction techniques (e.g., Au tomated exposure control, adjustment of the mA and/or kV according to patient size, use of iterative reconstruction technique) 2010 [employer]- All Rights Reserved Reading location - IP/workstation name: [email or web address]
[2020-10-16 15:12] VITALS: BP 130/82
== END 2020-10-16 15:12 | disposition home or self-care (01) ==
LOC: ER 12:38
DX: R20.0 Anesthesia of skin (principal); Y04.2XXA Assault by strike against or bumped into by another person, initial encounter; T78.40XA Allergy, unspecified, initial encounter; J34.89 Other specified disorders of nose and nasal sinuses
CPT/HCPCS: 70450; 70486; 99284